=== PATIENT | female | born 1945 | race Caucasian/White ===

== ENCOUNTER → 2018-12-26 09:35 | Outpatient (CLI) | payer OTHER, SELFPAY ==
[2018-12-26 11:40] LABS: AST(SGOT) 21 U/L (15-37); Alanine Aminotransfer ALT/SGPT 22 U/L (13-56); Albumin, Serum 3.8 g/dL (3.2-5.0); Alkaline Phosphatase 62 U/L (45-117); Bilirubin, Direct 0.08 mg/dL (0.00-0.30); Cholesterol 216 mg/dL (200); Globulin 3.3 g/dL (2.2-4.2); High Density Lipoprotein 43 mg/dL; Protein, Total 7.1 g/dL (6.4-8.2); Triglycerides 205 mg/dL; Very Low Density Lipoprotein 41 mg/dL (5-40)
== END ==
PROVIDERS: Family Provider Family Medicine; PCP Family Medicine; Referring Provider Internal Medicine Cardiovascular Disease; Visit Provider Internal Medicine Cardiovascular Disease
DX: E78.5 Hyperlipidemia, unspecified (principal)
CPT/HCPCS: 36415; 80061; 80076

== ENCOUNTER 2021-03-22 12:04 | Emergency (ER) | payer OTHER, SELFPAY ==
[2020-08-19 10:23] VITALS: BMI 31.0
[2021-03-22] VITALS (7 sets, daily range): BP systolic 144–147; BP diastolic 69–76; PULSE 72–89; RESP 17–21; TEMP 36.1–37.7; O2SAT 92–95; BMI 30.8
--- NOTE | 2021-03-22 12:41 | EKG12_ITS ---
Test Reason : SOB Blood Pressure : / mmHG Vent. Rate : 082 BPM Atrial Rate : 082 BPM P-R Int : 188 ms QRS Dur : 076 ms QT Int : 370 ms P-R-T Axes : 064 066 061 degrees QTc Int : 432 ms Normal sinus rhythm Normal ECG Confirmed by MAHNAZ ADHIKARI, HELLEN ([id number]), editorial director [employer] ([id number]) on 03/25/2021 9:33:53 AM Referred By: JEFF Confirmed By:HELLEN JOYA MD
--- NOTE | 2021-03-22 12:42 | RAD_ITS ---
STUDY: X-RAY CHEST REASON FOR EXAM: Female, 75 years old. cough TECHNIQUE: AP COMPARISON: 04/02/2012 FINDINGS: EKG leads project over the chest. The lungs are clear and expanded. There is no demonstrated pleural abnormality. Normal size heart. Normal mediastinum and antionette. Normal visualized pulmonary arteries. There is atherosclerotic tortuosity of the aortic arch and descending thoracic aorta. Normal visualized thoracic spine. Normal visualized ribs, clavicles, and shoulders. There is no demonstrated abnormality of the visualized soft tissue structures of the upper abdomen. RAD/Chest 1 View (Portable) IMPRESSION: Nonacute portable x-ray examination of the chest. Electronically Signed: Chirag Guo MD ([place]) at 14:37 EDT , Service support ,
--- NOTE | 2021-03-22 12:43 | ED.VIS.DYS ---
HPI History of Present Illness Chief Complaint: Cough Narrative Narrative: For the past 6 days patient has had mildly productive cough with clear sputum, congestion, off-and-on mild headaches which is not present now, body aches, and this morning a little short of breath. She went to her PCP yesterday, was empirically prescribed a Z-Gonzalo, she took the initial dose last night and the second 1 this morning. She feels worse, lightheaded especially with standing today, weaker all over and with the mild dyspnea presents here for further evaluation. She is concerned she may have pneumonia. She has never had Covid. She has never been vaccinated for Covid. She denies contact with anyone that she knows of who has been sick lately. She denies any GI symptoms, chest pain, palpitations, or fevers/chills. She has been very lightheaded without syncope. [facility] Medical History Chest pain, precordial Dizziness and giddiness GERD (gastroesophageal reflux disease) Hiatal hernia Hyperlipidemia Hypothyroidism, iatrogenic Palpitations Home Medications methylcellulose (laxative) 500 mg tablet 1,000 mg PO QDAY PRN tab 09/22/17 [History Last Taken Unknown] levothyroxine 88 mcg capsule 88 mcg PO QDAY cap 09/27/17 [History Last Taken Unknown] nitroglycerin 0.4 mg sublingual tablet 0.4 mg SUBLINGUAL Q5M PRN #90 tab 09/27/17 [Rx Last Taken Unknown] B-complex with vitamin C 1 cap PO DAILY 01/02/19 [History Last Taken Unknown] ascorbic acid (vitamin C) 500 mg capsule 1,000 mg PO DAILY cap 01/02/19 [History Last Taken Unknown] cod liver oil 1 cap PO DAILY 01/02/19 [History Last Taken Unknown] cranberry 400 mg capsule 400 mg PO BID cap 01/02/19 [History Last Taken Unknown] propranolol 20 mg tablet 20 mg PO BID tab 01/02/19 [History Last Taken Unknown] albuterol sulfate 2.5 mg INHALATION Q4H PRN #25 vial 03/22/21 [Rx Last Taken Unknown] prednisone 40 mg PO DAILY 4 Days #8 tablet 03/22/21 [Rx Last Taken Unknown] Allergy/AdvReac Type Severity Reaction Status Date / Time etodolac AdvReac Severe Throat Verified 03/22/21 12:08 tightness, rash Family History Sister CAD (coronary artery disease) Hx of CABG Sister S/P MVR (mitral valve replacement) Surgical History Cystocele with prolapse History of cholecystectomy History of total hysterectomy Rectocele Social History number of children: 12 Smoking Status: Never smoker alcohol intake: never substance use type: does not use additional social history: Alessandro Ace ROS ROS ED Constitutional Constitutional ED: Reports body ache(s), fatigue, malaise and weakness; Denies chills or fever(s) Eyes Eyes: Denies change in vision or diplopia ENT ENT ED: Reports headache(s) and nasal congestion; Denies ear pain, epistaxis, hoarseness, loss taste/smell, rhinorrhea or sore throat Cardiovascular Cardiovascular: Denies chest pain or palpitations Respiratory/Chest Respiratory/Chest: Reports as per HPI, cough and dyspnea Gastrointestinal Gastrointestinal: Denies abdominal pain, diarrhea, nausea or vomiting Genitourinary Genitourinary ED: Denies dysuria or hematuria Musculoskeletal Musculoskeletal: Denies back pain or neck pain Integumentary Denies abscess or rash Neurologic Neurologic: Denies headache(s), paresthesias or weakness Psychiatric Psychiatric: Denies anxiety or suicidal thoughts EXAM Physical Exam Const Vital Signs: 03/22/21 12:05 03/22/21 12:25 03/22/21 12:28 Temperature 97 F L 97 F L Temperature Source Temporal Temporal Pulse Rate 88 88 89 Respiratory Rate 18 17 17 Respiratory Effort Short of Breath Respiratory Depth Normal Respiratory Pattern Normal Blood Pressure 147/76 H 147/76 H Blood Pressure Mean 99 99 Pulse Ox 93 94 94 Oxygen Delivery Method Room Air Room Air Room Air 03/22/21 13:14 03/22/21 14:39 03/22/21 14:51 Temperature 99.8 F H Temperature Source Oral Pulse Rate 81 72 75 Respiratory Rate 21 H 19 H 17 Respiratory Effort Respiratory Depth Respiratory Pattern Blood Pressure 147/76 H Blood Pressure Mean 99 Pulse Ox 92 95 94 Oxygen Delivery Method Room Air Room Air Room Air Positive well nourished and well developed General Appearance ED: well developed and NAD HEENT Reports moist mucous membranes normocephalic and atraumatic Eyes PERRL and EOMs intact bilaterally Neck full ROM, supple and no JVD Resp normal respiratory effort Auscultation: wheezes expiratory wheezes (mild, end-exp) and throughout; Negative for crackles, rales or rhonchi Cardio regular rate, regular rhythm and no murmurs GI non-tender and non-distended Auscultation: normoactive bowel sounds Palpation: soft Back/Spine no CVA tenderness General Back: other FROM Extremity normal to inspection, normal capillary refill and no calf tenderness General Extremety ED: Negative for edema, pulses abnormal or tenderness General Extremity: Negative for edema or pulses abnormal Neuro oriented x3, CN's II-XII intact bilaterally and no sensory deficits noted Sensorium / Orientation: awake and alert Motor Exam: strength 5/5 throughout Skin no rashes or lesions noted and no wounds MDM MDM MDM Narrative Medical decision making narrative: Work-up is largely unremarkable. Patient states she gets this walking pneumonia several times a year and states this is why she was prescribed antibiotics that she started yesterday. With a duo nebulizer treatment she is feeling better with less wheezing, she was able to get up and ambulate to and from the restroom with mild dyspnea with exertion, better than before, and no lightheadedness, or desaturation with her pulse oximetry actually going up. Afterwards at rest she was hovering around 91% on room air, she was given a couple more nebulizer treatments of plain albuterol which helped and brought her pulse ox up higher. She feels okay to go home. We discussed reasons to return, she has a home pulse oximeter that she will watch her oxygen saturations with and we discussed those numbers and reasons to return. She has a nebulizer machine, will prescribe her albuterol. Since she has had recurrent episodes of this, it is plausible that she has some form of chronic bronchitis so I thought treating her empirically with a short burst of steroids prednisone 40 daily would be reasonable since she is not a diabetic. Lab Data Attestation: I reviewed the patient's lab results. Labs: Laboratory Results - last 24 hr 03/22/21 03/22/21 03/22/21 12:46 12:46 12:46 WBC 5.4 RBC 4.38 Hgb 13.8 Hct 41.2 MCV 94.1 MCH 31.5 MCHC 33.5 RDW Std Deviation 42.8 RDW Coeff of Randolph 12.3 Plt Count 168 MPV 10.2 Immature Gran % (Auto) 0.200 Neut % (Auto) 66.9 Lymph % (Auto) 20.9 Nance % (Auto) 9.7 Eos % (Auto) 1.7 Baso % (Auto) 0.6 Absolute Neuts (auto) 3.6 Absolute Lymphs (auto) 1.12 Nucleated RBC % 0 Sodium 138 Potassium 3.7 Chloride 105 Carbon Dioxide 28.0 Anion Gap 5 BUN 7 Creatinine 0.77 Estim Creat Clear Calc 40.21 Est GFR (MDRD) Af Amer 93 Est GFR (MDRD) Non-Af 77 BUN/Creatinine Ratio 9.1 L Glucose 117 H Lactic Acid 1.1 Calcium 8.8 Total Bilirubin 0.50 AST 23 ALT 27 Alkaline Phosphatase 76 Troponin I High Sens 6.8 Total Protein 7.7 Albumin 3.7 Globulin 4.0 Albumin/Globulin Ratio 0.9 Radiography Chest X-Ray - ED: 1 View, Read by ED Physician, No Acute Disease and No Infiltrates Diagnostic Testing: Radiology Impression Chest X-Ray 03/22/21 12:42 IMPRESSION: Nonacute portable x-ray examination of the chest. Electronically Signed: Chirag Guo MD ([place]) at 14:37 EDT , Service support , EKG Initial EKG: Attestation: I personally reviewed and interpreted this EKG as follows: Interpretation: Sinus Rhythm and No Acute Injury Pattern Comments: normal EKG Discharge Plan Triage Chief Complaint: Cough ED Provider: Jordan Calhoun Dx/Rx/DC Orders Clinical Impression: Acute wheezy bronchitis Instructions: Acute Bronchitis Prescriptions: New albuterol sulfate 2.5 MG/3 ML solution for nebulization 2.5 mg inhalation Q4H PRN Qty: 25 RF: 0 prednisone 20 MG tablet 40 mg PO DAILY 4 Days Qty: 8 RF: 0 No Action levothyroxine 88 mcg capsule 88 mcg capsule 88 mcg PO QDAY RF: 0 nitroglycerin 0.4 mg tablet, sublingual 0.4 mg SUBLINGUAL Q5M PRN (Reason: chest pain) Qty: 90 RF: 3 propranolol 20 mg tablet 20 mg PO BID RF: 0 methylcellulose (laxative) [Citrucel] 500 mg tablet 1,000 mg PO QDAY PRN (Reason: Constipation) RF: 0 cranberry 400 mg capsule 400 mg PO BID RF: 0 ascorbic acid (vitamin C) 500 mg capsule 1,000 mg PO DAILY RF: 0 B-complex with vitamin C capsule 1 cap PO DAILY RF: 0 cod liver oil capsule 1 cap PO DAILY RF: 0 Primary Care Provider: Gene Roth Referrals: Gene Roth DO [Primary Care Provider] - 3-5 Days Disposition Disposition: Home, Self Care
[2021-03-22 12:52] LABS: Absolute Lymphocyte Count 1.12 X10^3/uL (0.83-4.51); Absolute Neutrophil Count 3.6 X10^3/uL (2.0-7.7); Basophil# 0.03 X10^3/uL; Basophil% 0.6 % (0-1); Eosinophil# 0.09 X10^3/uL; Eosinophils% 1.7 % (0-5); Hematocrit 41.2 % (37-47); Hemoglobin 13.8 g/dL (12.0-15.0); Lymphocyte # 1.12 X10^3/ul (0.83-4.51); Lymphocyte % 20.9 % (19-41); Mean Corp Hgb Conc 33.5 g/dL (32-36); Mean Corpuscular Hgb 31.5 pg (27.0-32.0); Mean Corpuscular Volume 94.1 fL (81-99); Mean Platelet Vol. 10.2 fl (6.2-12.0); Monocyte# 0.52 X10^3/uL; Monocyte% 9.7 % (0-10); NRBC Flagged by Analyzer 0 % (0-5); Neutrophil # 3.58 X10^3/uL (2.7-7.7); Neutrophil % 66.9 % (47-70); Platelet Count 168 K/mm3 (150-450); RBC Distribution Width CV 12.3 % (11.6-14.6); RBC Distribution Width SD 42.8 fl (35.1-43.9); Red Blood Count 4.38 M/mm3 (4.2-5.4); White Blood Count 5.4 K/mm3 (4.4-11.0)
[2021-03-22] MEDS: Ipratropium/Albuterol Sulfate 3 ML AMPUL.NEB INHALATION (13:11)
[2021-03-22 13:12] LABS: Lactic Acid 1.1 mmol/L (0.4-1.9)
[2021-03-22 13:15] LABS: ALB/GLOB Ratio 0.9 RATIO (0.9-2.4); AST(SGOT) 23 U/L (15-37); Alanine Aminotransfer ALT/SGPT 27 U/L (13-56); Albumin, Serum 3.7 g/dL (3.2-5.0); Alkaline Phosphatase 76 U/L (45-117); Anion Gap 5 (5-15); BUN 7 mg/dL (7-18); BUN/Creat Ratio 9.1 RATIO (10-20); Calcium,Total 8.8 mg/dL (8.5-10.1); Chloride 105 mmol/L (98-107); Creatinine, Serum 0.77 mg/dL (0.55-1.02); EST Glomerular Filtration Rate 77 mL/min (>60); Est Glom Filt Rate - Afr Amer 93 mL/min (>60); Estimated Creatinine Clearance 40.21 ml/min; Glucose 117 mg/dL (74-106); Potassium 3.7 mmol/L (3.5-5.1); Protein, Total 7.7 g/dL (6.4-8.2); Sodium Level 138 mmol/L (136-145); Troponin-I HS 6.8 pg/mL (3.0-53.7)
[2021-03-22] MEDS: Albuterol 2.5 MG/3 ML VIAL.NEB. INHALATION ×2 (14:49)
[2021-03-22] MEDS: predniSONE 20 MG Tablet 40 MG PO (15:27)
== END 2021-03-22 15:29 | disposition home or self-care (01) ==
PROVIDERS: Emergency Provider Emergency Medicine; PCP Family Medicine
DX: J20.9 Acute bronchitis, unspecified (principal); E78.5 Hyperlipidemia, unspecified; E03.9 Hypothyroidism, unspecified; Z79.52 Long term (current) use of systemic steroids; Z79.899 Other long term (current) drug therapy
CPT/HCPCS: 71045; 80053; 83605; 84484; 85025; 87426; 87804; 93005; 94640; 99285; A4216

== ENCOUNTER 2022-07-14 10:04 | Observation (INO) | payer SELFPAY, OTHER ==
[2022-07-14] VITALS (12 sets, daily range): BP systolic 132–148; BP diastolic 67–78; PULSE 67–96; RESP 17–23; TEMP 36.7–37.2; O2SAT 94–96; BMI 29.5
--- NOTE | 2022-07-14 06:39 | ECHOD_ITS ---
Reason For Study: CHEST PAIN Procedure This was a 2D Doppler, Color Flow transthoracic echocardiogram. The study was technically difficult. Contrast injection was performed. Exam performed in department. Left Ventricle Normal LV size. Left ventricular systolic function is normal. The estimated ejection fraction is 65 %. No evidence for diastolic dysfunction. No regional wall motion abnormalities noted. Right Ventricle Normal RV size. Normal systolic function. Atria Normal left atrium. Normal right atrium. No doppler evidence for ASD. Mitral Valve There is mild mitral annular calcification. Normal mitral valve. Trivial mitral valve insufficiency. Tricuspid Valve Normal tricuspid valve. Trivial tricuspid valve insufficiency. Right ventricular systolic pressure estimated to be 28 mmHg. Aortic Valve Trisinus/trileaflet aortic valve. Mild focal aortic valve calcification. Pulmonic Valve The pulmonic valve is not well visualized. Trivial pulmonic valve insufficiency. Great Vessels Normal sized aortic root. Pericardium/Pleural No pericardial effusion. Medication Diluted definity 3.0ml given slow IV push to enhance endocardial definition. MMode/2D Measurements & Calculations LVIDd: 4.4 cm IVSd: 0.80 cm Ao root diam: 3.1 cm LVIDs: 2.5 cm LVPWd: 1.1 cm RVDd: 2.7 cm FS: 42.8 % LAV(MOD-bp): 38.1 ml LA A4 area: 14.4 cm2 LA dimension(2D): 3.5 cm LAV(MOD-bp) Indexed: 21.4 ml/m2 LAV(MOD-sp2): 41.1 ml LAV(MOD-sp4): 33.2 ml RA A4 area: 14.4 cm2 Time Measurements MV dec time: 0.38 sec Doppler Measurements & Calculations MV E max rick: 49.2 cm/sec Lat Peak E' Rick: 7.0 cm/sec Med Peak E' Rick: 6.6 cm/sec MV A max rick: 86.0 cm/sec E/E' lat: 7.0 E/E' med: 7.4 MV E/A: 0.57 MV V2 max: 98.2 cm/sec MV dec slope: 135.1 cm/sec2 Ao V2 max: 144.3 cm/sec MV max P.9 mmHg Ao max P.3 mmHg MV V2 mean: 56.3 cm/sec Ao V2 mean: 103.2 cm/sec MV mean P.5 mmHg Ao mean P.8 mmHg MV V2 VTI: 21.3 cm Ao V2 VTI: 29.9 cm LV V1 max: 123.5 cm/sec PA V2 max: 81.3 cm/sec TR max rick: 250.6 cm/sec LV V1 max P.1 mmHg TR max P.1 mmHg LV V1 mean P.5 mmHg LV V1 mean: 89.0 cm/sec LV V1 VTI: 22.7 cm ECHO/Echo Complete W/ Contrast Interpretation Summary The study was technically difficult. Contrast injection was performed. Left ventricular systolic function is normal. The estimated ejection fraction is 65 %. Trivial mitral valve insufficiency. Trivial tricuspid valve insufficiency. Mild focal aortic valve calcification. Trivial pulmonic valve insufficiency. Right ventricular systolic pressure estimated to be 28 mmHg. No evidence for diastolic dysfunction. Ordering Physician: Hayder Mcrae Referring Physician: Gene Roth Performed By: Lydia Damon, JAYLEN, RVT
--- NOTE | 2022-07-14 08:09 | STRESSREP ---
Stress Test Report Date: 07-14-2022 Procedure: Pharmacologic stress nuclear imaging study Indications: Angina pectoris; GERD; hiatal hernia; thyroid disorder Consent: Per the patient Procedure: The patient underwent pharmacologic (Regadenoson 0.4mg ) evaluation with a peak heart rate of 118 beats per minute (82%predicted maximal heart rate) and a resting blood pressure of 142/76 mmHg and a peak blood pressure of 142/82 mmHg. The baseline ECG demonstrated normal sinus rhythm. The peak pharmacologic ECG demonstrated no obvious ECG changes. There were no cardiac dysrhythmias pretest, during pharmacologic infusion, or recovery. There was notation of a little chest tightness and belching in recovery. The examination was discontinued secondary to completion of protocol. Impression: 1. Pharmacologic (Regadenoson) evaluation 2. Peak pharmacologic ECG with no obvious ECG changes. 3. There were no cardiac dysrhythmias pretest, during pharmacologic infusion, or recovery. 4. Nuclear images pending Myocardial perfusion imaging study: Technique: The patient was injected with 8.8 millicuries of technetium 99m Cardiolite and subsequently rest SPECT Cardiolite nuclear imaging was obtained in the horizontal long, vertical long, and short axis views. The patient underwent pharmacologic (Regadenoson) evaluation with a peak heart rate of 118 beats per minute (82% percent predicted maximal heart rate) and a resting blood pressure of 142/76 mmHg and a peak blood pressure of 142/82 mmHg. The patient was injected with 31.5 millicuries of technetium 99m Cardiolite and subsequently stress SPECT Cardiolite nuclear imaging was obtained in the horizontal long, vertical long, and short axis views. A gated Cardiolite study at peak stress was obtained. Interpretation: Rest and stress SPECT Cardiolite nuclear imaging status post realignment, normalization, and attenuation correction demonstrate at rest the appearance of relative uniform tracer uptake. Status post stress there is notation of diminished myocardial perfusion/tracer uptake in portions of the mid to distal anterior, anteroseptal, anteroapical, and septal apical segments. There is diminished end-systolic thickening and brightening. The gated Cardiolite study demonstrates myocardial thickening and inward wall motion. The reported LVEF is 70%. Impression: 1. Rest and stress SPECT Cardiolite nuclear imaging demonstrate myocardial perfusion changes concerning for an area of stress-induced myocardial ischemia in portions of the mid to distal anterior, anteroseptal, anteroapical, and septal apical segments. 2. The gated Cardiolite study reports an LVEF of 70%. This note was generated with [employer] software. It may contain incorrect words, spelling, and punctuation that were not noted in checking the note before signing.
--- NOTE | 2022-07-14 10:04 | EKG12_ITS ---
Test Reason : POST PCI Blood Pressure : / mmHG Vent. Rate : 063 BPM Atrial Rate : 063 BPM P-R Int : 212 ms QRS Dur : 076 ms QT Int : 430 ms P-R-T Axes : 048 065 072 degrees QTc Int : 440 ms Sinus rhythm with 1st degree A-V block Septal infarct , age undetermined , cannot be excluded Abnormal ECG Confirmed by ANASTASIIA ADHIKARI, MARIAH ([id number]), newspaper or periodical editor [employer] ([id number]) on 07/15/2022 1:12:10 PM Referred By: Confirmed By:MARIAH LAUERNT MD
--- NOTE | 2022-07-14 10:07 | RAD_ITS ---
STUDY: X-RAY CHEST REASON FOR EXAM: Female, 77 years old. Chest pain TECHNIQUE: PA and lateral views of the chest. COMPARISON: Comparison is made with prior study dated 03/22/2021. FINDINGS: Hyperinflation. Scattered calcified granulomas. There is no demonstrated pleural abnormality. Normal size heart. Normal mediastinum and antionette. Normal visualized pulmonary arteries. There is atherosclerotic calcification of the aortic arch with tortuosity. There are diffuse degenerative changes of the visualized thoracic spine. Normal visualized ribs, clavicles, and shoulders. There is no demonstrated abnormality of the visualized soft tissue structures of the upper abdomen. RAD/Chest PA and Lateral IMPRESSION: Hyperinflation. Scattered calcified granulomas. Electronically Signed: Rohit Palacios MD at 14:42 EST ,
--- NOTE | 2022-07-14 10:43 | HP.PCM.CAR_ITS ---
[facility] - General General Date of Admission: 07/14/22 [facility] Narrative ARLEY ORODÑEZ, is a 77 year old white female who presents for symptoms of unstable angina pectoris/accelerating angina and an abnormal pharmacologic stress nuclear imaging study superimposed upon a history of underlying palpi tations, hyperlipidemia, hiatal hernia, GERD, and hypothyroidism. The patient presented recently on 06-25-2022 in the outpatient setting for concerning symptoms that were thought compatible with exertional angina pectoris. Since that time she states that she has been having nonexertional resting and nocturnal symptoms. She develops chest tightness as well as develops a significant amount of what she believes to be heartburn and belching. She states her will have to rub on her abdomen or rub on her back to try and alleviate her symptoms. She does not complain of radiation of her symptoms into her neck/jaw area or her upper extremities. She does not have associated acute nausea, emesis, or diaphoresis. She has not complained of ongoing symptoms of classic orthopnea or PND or worsening peripheral pitting edema. There is been no near-syncope or syncope. She has attributed to her symptoms to her gastrointestinal disease process. However, she was agreeable to proceeding with further evaluation as an outpatient to assess her left ventricular wall motion and systolic function and her coronary physiology. She has undergone further evaluation this day with a transthoracic echocardiogram and a pharmacologic stress nuclear imaging study. The pharmacologic stress nuclear imaging study findings are noted below. Based upon these findings a recommendation was made to the patient, especially noting that she was having nonexertional and nocturnal symptoms last night, to be brought into the hospital for further evaluation and care including diagnostic cardiac catheterization. This procedure and risk was discussed with the patient and her and they were agreeable to this approach. [facility] Medical History Chest pain, precordial Dizziness and giddiness GERD (gastroesophageal reflux disease) Hiatal hernia Hyperlipidemia Hypothyroidism, iatrogenic OA (osteoarthritis) of knee Palpitations Home Medications methylcellulose (laxative) 500 mg tablet (Citrucel) 1,000 mg PO QDAY PRN Constipation 09/22/17 [History Last Taken Unknown] nitroglycerin 0.4 mg sublingual tablet 0.4 mg sublingual Q5M PRN chest pain #90 tabs 09/27/17 [Rx Last Taken Unknown] propranolol 20 mg tablet 20 mg PO BID BP/Heart rate 01/02/19 [History Last Taken Unknown] ascorbic acid (vitamin C) 500 mg capsule 1,000 mg PO DAILY PRN Supplement 06/25/21 [History Last Taken Unknown] cholecalciferol (vitamin D3) 10 mcg/drop (400 unit/drop) oral drops 20 mcg PO DAILY Supplement 06/25/22 [History Last Taken Unknown] d-mannose 500 mg capsule 500 mg PO DAILY Kidney 06/25/22 [History Last Taken Unknown] dicyclomine 10 mg capsule 20 mg PO Q6H Stomach 06/25/22 [History Last Taken Unknown] levothyroxine 75 mcg tablet 75 mcg PO DAILY thyroid 06/25/22 [History Last Taken Unknown] omeprazole 20 mg capsule,delayed release 20 mg PO DAILY GERD 06/25/22 [History Last Taken Unknown] aspirin 81 mg tablet,delayed release 81 mg PO DAILY heart health 07/14/22 [History Last Taken Unknown] atorvastatin 40 mg tablet 40 mg PO QHS Cholesterol 07/14/22 [History Last Taken Unknown] isosorbide mononitrate 30 mg tablet,extended release 24 hr 30 mg PO DAILY heart 07/14/22 [History Last Taken Unknown] Allergy/AdvReac Type Severity Reaction Status Date / Time acetaminophen [From Percocet] Allergy Nausea/Vom/ Verified 07/07/22 13:09 Diarrhea morphine Allergy Nausea/Vom/ Verified 07/07/22 13:09 Diarrhea oxycodone [From Percocet] Allergy Nausea/Vom/ Verified 07/07/22 13:09 Diarrhea etodolac AdvReac Severe Throat Verified 07/07/22 13:09 tightness, rash Family History Sister CAD (coronary artery disease) Hx of CABG Sister S/P MVR (mitral valve replacement) Surgical History Cystocele with prolapse History of cholecystectomy History of total hysterectomy Rectocele Social History number of children: 12 Smoking Status: Never smoker alcohol intake: never substance use type: does not use additional social history: Alessandro MILLAN Constitutional Constitutional: Reports as per HPI Eyes Eyes: Reports as per HPI ENT HEENT: Reports as per HPI Cardiovascular Cardiovascular: Reports chest pain, chest pain at rest and chest pain with activity Respiratory/Chest Respiratory/Chest: Reports as per HPI Gastrointestinal Gastrointestinal: Reports dyspepsia Genitourinary Genitourinary: Reports as per HPI Musculoskeletal Musculoskeletal: Reports as per HPI Integumentary Integumentary: Reports as per HPI Neurologic Neurologic: Reports as per HPI Psychiatric Psychiatric: Reports as per HPI Physical Exam Const alert, oriented x3, no apparent distress and healthy appearing Orientation / Consciousness: awake HEENT normocephalic, head/scalp atraumatic and hearing grossly normal bilaterally Eyes PERRL, EOMs intact bilaterally, conjunctivae normal and no scleral icterus Neck full ROM, supple and no JVD Carotids: normal carotid upstroke Resp normal respiratory effort and clear to auscultation bilaterally Cardio regular rate, regular rhythm, S1 normal heart sound and S2 normal heart sound GI normal to inspection, nondistended, normoactive bowel sounds Extremity no pedal edema Skin no rashes or lesions noted Neuro oriented x3, moves all extremities, no focal motor deficits and no sensory deficits noted Psych mental status grossly normal Cardiology Labs/Tests Cardiology Labs/Tests: Rhythm: Sinus rhythm EKG: Normal sinus rhythm; septal MS of indeterminate age cannot be excluded; nonspecific T wave abnormality ECHO: The study was technically difficult. Contrast injection was performed. Left ventricular systolic function is normal. The estimated ejection fraction is 65 %. Trivial mitral valve insufficiency. Trivial tricuspid valve insufficiency. Mild focal aortic valve calcification. Trivial pulmonic valve insufficiency. Right ventricular systolic pressure estimated to be 28 mmHg. No evidence for diastolic dysfunction. Stress Test: Stress Test Report Date: 07-14-2022 Procedure: Pharmacologic stress nuclear imaging study? Indications: Angina pectoris; GERD; hiatal hernia; thyroid disorder Consent: Per the patient Procedure: The patient underwent pharmacologic (Regadenoson 0.4mg ) evaluation with a peak heart rate of 118 beats per minute (82%predicted maximal heart rate) and a resting blood pressure of 142/76 mmHg and a peak blood pressure of 142/82 mmHg. The baseline ECG demonstrated normal sinus rhythm.? The peak pharmacologic ECG demonstrated no obvious ECG changes. There were no cardiac dysrhythmias pretest, during pharmacologic infusion, or recovery. There was notation of a little chest tightness and belching in recovery. The examination was discontinued secondary to completion of protocol. Impression: 1.? Pharmacologic (Regadenoson) evaluation 2.? Peak pharmacologic ECG with no obvious ECG changes. 3.? There were no cardiac dysrhythmias pretest, during pharmacologic infusion, or recovery. 4.? Nuclear images pending Myocardial perfusion imaging study: Technique: The patient was injected with 8.8 millicuries of technetium 99m Cardiolite and subsequently rest SPECT Cardiolite nuclear imaging was obtained in the horizontal long, vertical long, and short axis views. The patient underwent pharmacologic (Regadenoson) evaluation with a peak heart rate of 118 beats per minute (82% percent predicted maximal heart rate) and a resting blood pressure of 142/76 mmHg and a peak blood pressure of 142/82 mmHg. The patient was injected with 31.5 millicuries of technetium 99m Cardiolite and subsequently stress SPECT Cardiolite nuclear imaging was obtained in the horizontal long, vertical long, and short axis views.? A gated Cardiolite study at peak stress was obtained. Interpretation: Rest and stress SPECT Cardiolite nuclear imaging status post realignment, normalization, and attenuation correction demonstrate at rest the appearance of relative uniform tracer uptake.? Status post stress there is notation of diminished myocardial perfusion/tracer uptake in portions of the mid to distal anterior, anteroseptal, anteroapical, and septal apical segments.? There is diminished end-systolic thickening and brightening.? The gated Cardiolite study demonstrates myocardial thickening and inward wall motion.? The reported LVEF is 70%. Impression: 1.? Rest and stress SPECT Cardiolite nuclear imaging demonstrate myocardial perfusion changes concerning for an area of stress-induced myocardial ischemia in portions of the mid to distal anterior, anteroseptal, anteroapical, and septal apical segments. 2.? The gated Cardiolite study reports an LVEF of 70%. Assessment & Plan Assessment/Plan (1) Angina pectoris: PLAN: She does have a history compatible with angina pectoris. It appears to be accelerating. At the present time she also has an abnormal pharmacologic stress nuclear imaging study suggestive of stress-induced myocardial ischemia is noted. She is being brought into the hospital for further evaluation and care including diagnostic cardiac catheterization. In the interim she will continue medical therapy with subsequent adjustment as deemed appropriate. (2) Abnormal stress test: PLAN: She does have an abnormal pharmacologic stress nuclear imaging study. She will continue evaluation care as noted. (3) Hyperlipidemia: QUALIFIERS: Hyperlipidemia type: unspecified Qualified Code(s): E78.5 - Hyperlipidemia, unspecified PLAN: She will continue risk factor modification medical therapy. (4) GERD (gastroesophageal reflux disease): PLAN: She will continue her gastrointestinal medical therapy at this time. As her course progresses she may need reevaluation by gastroenterology as well. (5) Hiatal hernia: PLAN: She states she does have a hiatal hernia. She has been attributing her symptoms to this diagnosis. As her cardiovascular course continue she may eventually need reassessment by gastroenterology as to whether or not any of her gastrointestinal related issues are contributing to her symptoms separate from a cardiovascular issue. (6) Thyroid disorder: PLAN: She will continue medical therapy Addt'l Comments The above was discussed and reviewed with the patient with her spouse present. They were both agreeable to this approach This note was generated using a voice recognition system and there may be incorrect words, spelling or punctuation that were not noted when reviewing the office note prior to saving. Procedure Criteria Type of Procedure Procedure Type: Elective Elective Risks - COVID COVID Risk Discussion: The surgeon/proceduralist and patient have discussed in detail the risk of exposure to and/or potential harm posed by the COVID-19 virus with having a surgery/procedure at this time versus the risk of delaying the surgery/procedure. It is not possible to know either the risk of delaying the surgery or procedure or chance of getting an infection with perfect accuracy, but a joint decision was made between the patient and the surgeon/proceduralist to proceed at this time with the scheduled surgery/procedure as indicated on the consent form.
[2022-07-14 11:07] LABS: Hematocrit 45.9 % (37-47); Hemoglobin 15.1 g/dL (12.0-15.0); Mean Corp Hgb Conc 32.9 g/dL (32-36); Mean Corpuscular Hgb 30.8 pg (27.0-32.0); Mean Corpuscular Volume 93.7 fL (81-99); Mean Platelet Vol. 10.6 fl (6.2-12.0); Platelet Count 240 K/mm3 (150-450); RBC Distribution Width SD 41.2 fl (35.1-43.9)
[2022-07-14 11:41] LABS: Anion Gap 5 (5-15); BUN 8 mg/dL (7-18); BUN/Creat Ratio 10.8 RATIO (10-20); Calcium,Total 9.3 mg/dL (8.5-10.1); Chloride 105 mmol/L (98-107); Creatinine, Serum 0.74 mg/dL (0.55-1.02); EST Glomerular Filtration Rate 81 mL/min (>60); Est Glom Filt Rate - Afr Amer 98 mL/min (>60); Estimated Creatinine Clearance 38.97 ml/min; Glucose 88 mg/dL (74-106); Potassium 3.4 mmol/L (3.5-5.1); Sodium Level 141 mmol/L (136-145)
--- NOTE | 2022-07-14 11:42 | EKG12_ITS ---
Test Reason : CHEST PAIN Blood Pressure : / mmHG Vent. Rate : 078 BPM Atrial Rate : 078 BPM P-R Int : 194 ms QRS Dur : 078 ms QT Int : 364 ms P-R-T Axes : 000 140 149 degrees QTc Int : 414 ms Normal sinus rhythm , Consider limb lead misplacement Recomment repeat ECG Abnormal ECG Confirmed by ANASTASIIA ADHIKARI, MARIAH ([id number]), medical editor PAR[place] POLLARD ([id number]) on 07/15/2022 1:14:57 PM Referred By: ANASTASIIA Confirmed By:MARIAH LAURENT MD
[2022-07-14] MEDS: 0.9% Normal Saline 1,000 ML 15 ML IV (11:47)
[2022-07-14] MEDS: Propranolol 10 MG Tablet 20 MG PO (11:47)
[2022-07-14] MEDS: Pantoprazole Sodium 20 MG Tablet PO (11:47)
[2022-07-14] MEDS: Isosorbide Mononitrate 30 MG Tablet PO (11:47)
[2022-07-14] MEDS: Aspirin 81 MG TAB.CHEW PO (11:47)
--- NOTE | 2022-07-14 15:30 | CL.D_ITS ---
Patient Name: ARLEY ORDOÑEZ Study Date: 07/14/2022 Performing: Hayder Mcrae MD Ht: 63 inches 160.02 cm : 1945 Wt: 167 lbs 75.75 kg Age: 77 Gender: female BSA: 1.79 PROCEDURE(S) PERFORMED DC02-(19544)LHC/COR IC12-([id number]/[id number])MARY W/WO PTCA, SINGLE CORONARY ARTERY IC12-([id number])MARY W/WO PTCA, SINGLE CORONARY ARTERY CLINICAL PROFILE AND INDICATIONS Indications: Worsening Angina, Suspected CAD Heart Failure: None Stress/Imaging Date: 07/14/2022tress Test with SPECT MPI: Positive High Risk Angina Classification Anginal Classification w/in 2 Weeks: CCS IV CAD Presentations: Unstable angina. CONCLUSIONS Normal Left Ventricular End Diastolic Pressure [place] Multivessel CAD RECOMMENDATIONS Risk factor modification Medical therapy Referred for immediate PCI DESCRIPTION OF PROCEDURE The patient arrived to the procedure lab. The risks and benefits of the procedure as well as a full description of our services here and current unavailability of surgical backup were fully explained to the patient and/or their significant other prior to the catheterization. The Timeout was completed, verifying the correct patient and procedure. The patient's procedural site was prepped and draped in the usual fashion. Local anesthetic was given subcutaneously to right radial region with Lidocaine 2%. Using a modified Seldinger technique, arterial access was obtained via the right radial artery, a 6Fr sheath was inserted. Left Coronary Artery selective angiography was performed in multiple views using a 5 Fr. 4.0 [place] catheter. Right Coronary Artery selective angiography was then performed in multiple views using a 5 Fr. 4.0 [place] catheter. LV to AO pullback pressures were then recorded.The arterial sheath was pulled and a TR Band was applied for hemostasis w/ 10ml air CORONARY ANGIOGRAPHY DOMINANCE: Right Dominant LEFT HEART ASSESSMENT Left Ventricular Ejection Fraction: Not assessed Normal Left Ventricular End Diastolic Pressure LVEDP: 8 mmHg LEFT MAIN: Angiographically normal LEFT ANTERIOR DESCENDING ARTERY: PROX LAD: 99 % Stenosis CIRCUMFLEX ARTERY: PROX CIRC: Mild luminal irregularities less than 30% RIGHT CORONARY ARTERY: PROX RCA: 95 % Stenosis, 50 - 75 % Stenosis MID RCA: Mild luminal irregularities COMPLICATIONS No Complications PROCEDURE MEDICATIONS Versed 1 mg IV Oxygen: 2 L/min via nasal cannula Brilinta 180 mg PO @ 07/14/2022 14:16:32 Heparin given IA 07/14/2022 13:44:34 Heparin 6000 unit(s) IV 07/14/2022 14:18:12 Heparin 2000 unit(s) IV 07/14/2022 15:05:09 Nitro 100 mcg IC 07/14/2022 14:34:21 Nitro 200 mcg IC 07/14/2022 15:16:59 Verapamil 2.5mg, Ntg 100mcgs, 3000 units of Heparin given IA 07/14/2022 13:44:34 SUMMARY OF HEMODYNAMIC DATA Time AIR REST ECG 13:26:31 AO 112/72 (88) SA 13:46:03 LV 168/-17, 9 13:53:45 LV 168/-17, 8 13:53:51 LVp 167/-17, 6 13:54:05 AOp 159/70 (103) 13:54:10 AO 158/75 (106) 14:23:05 Signed By Hayder Mcrae MD On 07/14/2022 15:29:48 Hayder Mcrae MD
--- NOTE | 2022-07-14 15:30 | EKG12_ITS ---
Test Reason : PCI Blood Pressure : / mmHG Vent. Rate : 070 BPM Atrial Rate : 070 BPM P-R Int : 210 ms QRS Dur : 076 ms QT Int : 400 ms P-R-T Axes : 055 062 076 degrees QTc Int : 432 ms Sinus rhythm with 1st degree A-V block Nonspecific T wave abnormality Abnormal ECG Confirmed by ANASTASIIA ADHIKARI, MARIAH ([id number]), web content editor PAR[place] POLLARD ([id number]) on 07/15/2022 1:13:50 PM Referred By: ANASTASIIA Confirmed By:MARIHA LAURENT MD
--- NOTE | 2022-07-14 15:41 | CL.I_ITS ---
Patient Name: ARLEY ORDOÑEZ Study Date: 07/14/2022 Performing: Kassie Barragan MD Ht: 63 inches 160.02 cm : 1945 Wt: 167 lbs 75.75 kg Age: 77 Gender: female BSA: 1.79 PROCEDURE(S) PERFORMED IC12-([id number]/[id number])MARY W/WO PTCA, SINGLE CORONARY ARTERY IC12-([id number])MARY W/WO PTCA, SINGLE CORONARY ARTERY CLINICAL PROFILE AND CO-MORBIDITIES Indications: Worsening Angina, Suspected CAD Heart Failure: None Stress/Imaging Date: 07/14/2022 Stress Test with SPECT MPI: Positive High Risk Angina Classification Anginal Classification w/in 2 Weeks: CCS IV CAD Presentations: Unstable angina. CONCLUSIONS Successful PTCA/MARY Prox LAD using Orsirio 2.5x40 mm, post-dilated using 3.0 mm balloon Successful PTCA/MARY Prox to Mid RCA using Orsirio 3.0x15 (post-dilated RECOMMENDATIONS ASA Indefmeena Campbell for at least 12 months DESCRIPTION OF PROCEDURE The patient arrived to the procedure lab. The risks and benefits of the procedure as well as a full description of our services here and current unavailability of surgical backup were fully explained to the patient and/or their significant other prior to the catheterization. The Timeout was completed, verifying the correct patient and procedure. The patient's procedural site was prepped and draped in the usual fashion. Local anesthetic was given subcutaneously to right radial region with Lidocaine 2% Using a modified Seldinger technique,arterial access was obtained via the right radial artery, a 6Fr sheath was inserted. Left Coronary Artery selective angiography was performed in multiple views using a 5 Fr. 4.0 [place] catheter. Right Coronary Artery selective angiography was then performed in multiple views using a 5 Fr. 4.0 [place] catheter. LV to AO pullback pressures were then recorded.The images were reviewed and options discussed. A decision was then made to proceed with an Intervention, IVUS or other adjunct procedure. XB 3.0 Guide catheter was inserted and engaged into the LCA. RUNTHROUGH Guide wire was advanced to the LAD. 2.5X20 EMERGE Balloon catheter was inserted. Balloon catheter was advanced across lesion in the LAD, proximal. PTCA balloon inflated at 6 atms for 10 secs. PTCA balloon inflated at 8 atms for 15 secs. PTCA balloon inflated at 6 atms for 6 secs. 2.5X40 ORSIRO Drug Eluting stent was inserted. 2.5X40 ORSIRO Drug Eluting stent was advanced across the lesion in the LAD, proximal. Angiogram performed post stent deployment. 3.0X30 NC EMERGE Balloon catheter was inserted. Balloon catheter was inserted post stent. AL .75 Guide catheter was inserted and engaged into the RCA. RUNTHROUGH Guide wire was advanced to the RCA. 2.5X20 EMERGE Balloon catheter was inserted. Balloon catheter was advanced across lesion in the right coronary, proximal. PTCA balloon inflated at 6 atms for 10 secs. PTCA balloon inflated at 6 atms for 10 secs. 3.0X40 ORSIRO Drug Eluting stent was inserted. Drug Eluting stent was advanced across the lesion in the right coronary, proximal. Drug Eluting stent was inserted. 3.0X30 NC EMERGE Balloon catheter was inserted post stent. Angiogram performed post balloon dilatation. Orsiro 3.0x15 Drug Eluting stent was inserted. Angiogram performed post balloon dilatation. NC Euphora 3.5x12 Balloon catheter was inserted. Angiogram performed post balloon dilatation. The arterial sheath was pulled and a TR Band was applied for hemostasis w/ 10ml air INTERVENTION INFORMATION LESION SITE: LAD (Proximal) Lesion Complexity: High/C, lesion length: 38 mm Pre Stenosis: 99 % Pre intervention HARVEY flow: 3 PROCEDURE: Drug Eluting Stent with pre and post dilatation Post Stenosis: 0 % Post intervention HARVEY flow: 3 Lesion Devices: Cordis 6 Fr XB3.0 100cm Guide Catheter Terumo .014 Runthrough Extra Floppy 180cm straight Alex Sci EMERGE MR 2.50x20 BALLOON [facility] [place] [facility] MARY 2.5x40 Alex Sci NC EMERGE MR 3.00x30 BALLOON LESION SITE: RCA (Proximal) Lesion Complexity: High/C, lesion length: 52 mm Pre Stenosis: 95 % Pre intervention HARVEY flow: 3 PROCEDURE: Drug Eluting Stent with pre and post dilatation Post Stenosis: 0 % Post intervention HARVEY flow: 3 Lesion Devices: Alex Sci EMERGE MR 2.50x20 BALLOON Alex Sci NC EMERGE MR 3.00x30 BALLOON Medtronic 6 Fr AL.75 100cm Guide Catheter Biotronik Orsiro [place] MR MARY 3.0x40 Biotronik Orsiro [place] MR MARY 3.0x15 Medtronic NC EUPHORA RX 3.5x12 BALLOON COMPLICATIONS No Complications PROCEDURE MEDICATIONS Versed 1 mg IV Oxygen: 2 L/min via nasal cannula Brilinta 180 mg PO @ 07/14/2022 14:16:32 Heparin given IA 07/14/2022 13:44:34 Heparin 6000 unit(s) IV 07/14/2022 14:18:12 Heparin 2000 unit(s) IV 07/14/2022 15:05:09 Nitro 100 mcg IC 07/14/2022 14:34:21 Nitro 200 mcg IC 07/14/2022 15:16:59 Verapamil 2.5mg, Ntg 100mcgs, 3000 units of Heparin given IA 07/14/2022 13:44:34 SUMMARY OF HEMODYNAMIC DATA Time AIR REST ECG 13:26:31 AO 112/72 (88) SA 13:46:03 LV 168/-17, 9 13:53:45 LV 168/-17, 8 13:53:51 LVp 167/-17, 6 13:54:05 AOp 159/70 (103) 13:54:10 AO 158/75 (106) 14:23:05 15:30:35 Signed By Kassie Barragan MD On 07/14/2022 15:40:47 Kassie Barragan MD
[2022-07-14 16:18] LABS: ACT Activated Clotting Time 288 sec (74-137)
[2022-07-14 16:36] LABS: ACT Activated Clotting Time 300 sec (74-137)
[2022-07-14] MEDS: Dicyclomine 10 MG Capsule 20 MG PO ×2 (17:02→22:34)
[2022-07-14] MEDS: TICAGRELOR 90 MG TABLET PO (22:33)
[2022-07-14] MEDS: Carvedilol 3.125 MG TABLET PO (22:33)
[2022-07-14] MEDS: Atorvastatin Calcium 40 MG Tablet PO (22:34)
[2022-07-15] VITALS (7 sets, daily range): BP systolic 116–150; BP diastolic 57–72; PULSE 61–137; RESP 16–20; TEMP 36.6–37.2; O2SAT 95–96
[2022-07-15 05:06] LABS: Absolute Lymphocyte Count 1.61 X10^3/uL (0.83-4.51); Absolute Neutrophil Count 5.5 X10^3/uL (2.0-7.7); Basophil# 0.02 X10^3/uL; Basophil% 0.3 % (0-1); Eosinophil# 0.07 X10^3/uL; Eosinophils% 0.9 % (0-5); Hematocrit 38.3 % (37-47); Hemoglobin 13.3 g/dL (12.0-15.0); Lymphocyte # 1.61 X10^3/ul (0.83-4.51); Lymphocyte % 20.3 % (19-41); Mean Corp Hgb Conc 34.7 g/dL (32-36); Mean Corpuscular Hgb 32.1 pg (27.0-32.0); Mean Corpuscular Volume 92.5 fL (81-99); Mean Platelet Vol. 10.8 fl (6.2-12.0); Monocyte# 0.69 X10^3/uL; Monocyte% 8.7 % (0-10); NRBC Flagged by Analyzer 0 % (0-5); Neutrophil # 5.52 X10^3/uL (2.7-7.7); Neutrophil % 69.5 % (47-70); Platelet Count 196 K/mm3 (150-450); RBC Distribution Width CV 12.4 % (11.6-14.6); RBC Distribution Width SD 41.8 fl (35.1-43.9); Red Blood Count 4.14 M/mm3 (4.2-5.4); White Blood Count 7.9 K/mm3 (4.4-11.0)
[2022-07-15 06:25] LABS: ALB/GLOB Ratio 0.9 RATIO (0.9-2.4); AST(SGOT) 17 U/L (15-37); Alanine Aminotransfer ALT/SGPT 18 U/L (13-56); Albumin, Serum 3.4 g/dL (3.2-5.0); Alkaline Phosphatase 71 U/L (45-117); Anion Gap 7 (5-15); BUN 10 mg/dL (7-18); BUN/Creat Ratio 14.7 RATIO (10-20); Calcium,Total 9.2 mg/dL (8.5-10.1); Chloride 109 mmol/L (98-107); Creatinine, Serum 0.68 mg/dL (0.55-1.02); EST Glomerular Filtration Rate 89 mL/min (>60); Est Glom Filt Rate - Afr Amer 108 mL/min (>60); Estimated Creatinine Clearance 38.97 ml/min; Globulin 3.6 g/dL (2.2-4.2); Glucose 100 mg/dL (74-106); Potassium 3.4 mmol/L (3.5-5.1); Sodium Level 142 mmol/L (136-145)
[2022-07-15] MEDS: Dicyclomine 10 MG Capsule 20 MG PO ×2 (06:26→11:24)
[2022-07-15] MEDS: Levothyroxine 75 MCG Tablet PO (06:26)
[2022-07-15] MEDS: TICAGRELOR 90 MG TABLET PO (08:55)
[2022-07-15] MEDS: Pantoprazole Sodium 20 MG Tablet PO (08:55)
[2022-07-15] MEDS: Carvedilol 3.125 MG TABLET PO (08:55)
[2022-07-15] MEDS: Aspirin 81 MG TAB.CHEW PO (08:55)
[2022-07-15] MEDS: Isosorbide Mononitrate 30 MG Tablet PO (08:55)
--- NOTE | 2022-07-15 09:07 | PCM.DC ---
Discharge Instructions Diet Discharge Diet: Low fat / Low cholesterol Activity Discharge Activity: Return to Normal Activity (07/20/2022 with advancement of activity as tolerated), May Shower (Today) and May Take a Tub Bath (in 7 days) May resume sexual activity in: - (Avoid heavy exertional activity until 07/20/2022 then advance activity as tolerated) Lifting Restrictions: Avoid heavy exertional activity until 07/20/2022 Dressing / Incision Call your doctor if your incision/area has: Continuous Slow Oozing, Sudden Increased Bleeding, Increased Pain/ Swelling, Increased Redness, Foul Smelling Discharge and Swelling at the incision site Call your doctor if you observe: Fever of 101 or Higher, Shortness of breath, Fainting spells, Chest pain, Increased palpitations (irregular heartbeat) and Uncontrolled pain Remove Dressing in: 1 day Cleanse incision/area with: Soap & Water Follow Up Care Please Follow Up With: Hayder Mcrae MD When: [facility] to contact the patient and arrange a follow up appointment Test Results: Test results from this visit will be discussed in further detail at your follow-up appointment, if applicable. Discharge Plan Admission Admit Date/Time: 07/14/22 10:04 Primary Reason for Your Visit: Chest Pain; Abnormal Stress Test Attending Provider: Hayder Mcrae Primary Care Provider: Gene Roth Discharge Orders/Prescriptions Prescriptions: New Brilinta 90 mg Tablet 90 mg PO BID Qty: 180 3RF Continued nitroglycerin 0.4 mg tablet, sublingual 0.4 mg SUBLINGUAL Q5M PRN (Reason: chest pain) Qty: 90 3RF propranolol 20 mg tablet 20 mg PO BID methylcellulose (laxative) [Citrucel] 500 mg tablet 1,000 mg PO QDAY PRN (Reason: Constipation) ascorbic acid (vitamin C) 500 mg capsule 1,000 mg PO DAILY PRN (Reason: Supplement) levothyroxine 75 mcg tablet 75 mcg PO DAILY omeprazole 20 mg capsule,delayed release(DR/EC) 20 mg PO DAILY dicyclomine 10 mg capsule 20 mg PO Q6H d-mannose 500 mg capsule 500 mg PO DAILY cholecalciferol (vitamin D3) 10 mcg/drop (400 unit/drop) drops 20 mcg PO DAILY atorvastatin 40 mg tablet 40 mg PO QHS isosorbide mononitrate 30 mg tablet extended release 24 hr 30 mg PO DAILY aspirin 81 mg tablet,delayed release (DR/EC) 81 mg PO DAILY Referrals / Follow Up: Gene Roth DO [Primary Care Provider] - Hayder Mcrae MD [Med Staff - Active Staff] - Disposition Disposition (needs filled in before D/C Order can be placed): Home, Self Care
--- NOTE | 2022-07-15 09:13 | DS.PCM_ITS ---
Providers Date of Admission: 07/14/22 Date of Discharge: 07/15/22 Primary Care Physician: Dr. Gene Roth DO Reason For Visit: CHEST PAIN/ABN STRESS Diagnosis Discharge Diagnosis (1) Angina pectoris: Status: Acute Code(s): I20.9 - Angina pectoris, unspecified (2) Abnormal stress test: Status: Acute Code(s): R94.39 - Abnormal result of other cardiovascular function study (3) Hyperlipidemia: Status: Acute Code(s): E78.5 - Hyperlipidemia, unspecified Qualifiers: Hyperlipidemia type: unspecified Qualified Code(s): E78.5 - Hyperlipidemia, unspecified (4) GERD (gastroesophageal reflux disease): Status: Acute Code(s): K21.9 - Gastro-esophageal reflux disease without esophagitis (5) Hiatal hernia: Status: Acute Code(s): K44.9 - Diaphragmatic hernia without obstruction or gangrene (6) Thyroid disorder: Status: Acute Code(s): E07.9 - Disorder of thyroid, unspecified Medications at Discharge Home Medications methylcellulose (laxative) 500 mg tablet (Citrucel) 1,000 mg PO QDAY PRN Constipation 09/22/17 nitroglycerin 0.4 mg sublingual tablet 0.4 mg sublingual Q5M PRN chest pain #90 tabs 09/27/17 propranolol 20 mg tablet 20 mg PO BID BP/Heart rate 01/02/19 ascorbic acid (vitamin C) 500 mg capsule 1,000 mg PO DAILY PRN Supplement 06/25/21 cholecalciferol (vitamin D3) 10 mcg/drop (400 unit/drop) oral drops 20 mcg PO DAILY Supplement 06/25/22 d-mannose 500 mg capsule 500 mg PO DAILY Kidney 06/25/22 dicyclomine 10 mg capsule 20 mg PO Q6H Stomach 06/25/22 levothyroxine 75 mcg tablet 75 mcg PO DAILY thyroid 06/25/22 omeprazole 20 mg capsule,delayed release 20 mg PO DAILY GERD 06/25/22 aspirin 81 mg tablet,delayed release 81 mg PO DAILY heart health 07/14/22 atorvastatin 40 mg tablet 40 mg PO QHS Cholesterol 07/14/22 isosorbide mononitrate 30 mg tablet,extended release 24 hr 30 mg PO DAILY heart 07/14/22 ticagrelor 90 mg tablet (Brilinta) 90 mg PO BID #180 tabs 07/15/22 Hospital Course Operations None Procedures Cardiac catheterization and - (Cardiac Intervention: PTCA/Stent) Summary of Care Provided Minutes Spent on Discharge: 60 Hospital Course: The patient presented for an outpatient exercise tolerance test/imaging study based upon concerns of ongoing angina pectoris. She underwent a pharmacologic stress nuclear imaging study which was considered abnormal. She was subsequent brought into the hospital for further evaluation and care with diagnostic cardiac catheterization. The cardiac catheterization demonstrated angiographically significant appearing coronary artery disease involving the LAD and RCA distributions. She subsequently underwent PTCA/MARY to the LAD and RCA distributions. The patient was monitored overnight. She appeared to remain stable. She is going to be released home for continued outpatient cardiovascular follow-up. Physical Exam Const alert, oriented x3, no apparent distress and healthy appearing Orientation / Consciousness: awake HEENT normocephalic, head/scalp atraumatic and hearing grossly normal bilaterally Eyes PERRL, EOMs intact bilaterally, conjunctivae normal and no scleral icterus Neck full ROM, supple and no JVD Carotids: normal carotid upstroke Resp normal respiratory effort and clear to auscultation bilaterally Cardio regular rate, regular rhythm, S1 normal heart sound and S2 normal heart sound GI normal to inspection, nondistended, normoactive bowel sounds Extremity no pedal edema Peripheral Pulses: Yes radial pulses present right (No bruit: No hematoma) 2+ Skin no rashes or lesions noted Neuro oriented x3, moves all extremities, no focal motor deficits and no sensory deficits noted Psych mental status grossly normal Weight / BMI Weight Weight: 167 lb Body Mass Index (BMI) 29.5 ABG / Lab / Microbiology Data Result Diagrams: 07/15/22 04:09 07/15/22 04:09 Laboratory: Laboratory Results - last 24 hr 07/14/22 10:45: WBC 8.0, RBC 4.90, Hgb 15.1 H, Hct 45.9, MCV 93.7, MCH 30.8, MCHC 32.9, RDW Std Deviation 41.2, RDW Coeff of [place] 12.0, Plt Count 240, MPV 10.6 07/14/22 10:45: Sodium 141, Potassium 3.4 L, Chloride 105, Carbon Dioxide 31.0, Anion Gap 5, BUN 8, Creatinine 0.74, Estim Creat Clear Calc 38.97, Est GFR (MDRD) Af Amer 98, Est GFR (MDRD) Non-Af 81, BUN/Creatinine Ratio 10.8, Glucose 88, Calcium 9.3 07/14/22 14:45: Activated Clotting Time 288 H 07/14/22 15:25: Activated Clotting Time 300 H 07/15/22 04:09: WBC 7.9, RBC 4.14 L, Hgb 13.3, Hct 38.3, MCV 92.5, MCH 32.1 H, MCHC 34.7 D, RDW Std Deviation 41.8, RDW Coeff of [place] 12.4, Plt Count 196, MPV 10.8, Immature Gran % (Auto) 0.300, Neut % (Auto) 69.5, Lymph % (Auto) 20.3, [place] % (Auto) 8.7, Eos % (Auto) 0.9, Baso % (Auto) 0.3, Absolute Neuts (auto) 5.5, Absolute Lymphs (auto) 1.61, Nucleated RBC % 0 07/15/22 04:09: Sodium 142, Potassium 3.4 L, Chloride 109 H, Carbon Dioxide 26.0, Anion Gap 7, BUN 10, Creatinine 0.68, Estim Creat Clear Calc 38.97, Est GFR (MDRD) Af Amer 108, Est GFR (MDRD) Non-Af 89, BUN/Creatinine Ratio 14.7, Glucose 100, Calcium 9.2, Total Bilirubin 0.80, AST 17, ALT 18, Alkaline Phosphatase 71, Total Protein 7.0, Albumin 3.4, Globulin 3.6, Albumin/Globulin Ratio 0.9 Radiography Diagnostic Testing: Radiology Impression Echocardiogram 07/14/22 06:39 Interpretation Summary The study was technically difficult. Contrast injection was performed. Left ventricular systolic function is normal. The estimated ejection fraction is 65 %. Trivial mitral valve insufficiency. Trivial tricuspid valve insufficiency. Mild focal aortic valve calcification. Trivial pulmonic valve insufficiency. Right ventricular systolic pressure estimated to be 28 mmHg. No evidence for diastolic dysfunction. Ordering Physician: Hayder Mcrae Referring Physician: Gene Roth Performed By: Lydia Damon, RDCS, RVT Chest X-Ray 07/14/22 10:07 IMPRESSION: Hyperinflation. Scattered calcified granulomas. Electronically Signed: Rohit Palacios MD at 14:42 EST , D/C Instructions Discharge Diet: Low fat / Low cholesterol May resume sexual activity in: - (Avoid heavy exertional activity until 07/20/2022 then advance activity as tolerated) Call your doctor if your incision/area has: Continuous Slow Oozing, Sudden Increased Bleeding, Increased Pain/ Swelling, Increased Redness, Foul Smelling Discharge and Swelling at the incision site Call your doctor if you observe: Fever of 101 or Higher, Shortness of breath, Fainting spells, Chest pain, Increased palpitations (irregular heartbeat) and Uncontrolled pain Cleanse incision/area with: Soap & Water Please Follow Up With: Hayder Mcrae MD When: [facility] to contact the patient and arrange a follow up appointment Meaningful Use Info Meaningful Use Diagnoses (Choose all that apply): None applicable Discharge Plan Admission Admit Date/Time: 07/14/22 10:04 Primary Reason for Your Visit: Chest Pain; Abnormal Stress Test Attending Provider: Hayder Mcrae Primary Care Provider: Gene Roth Discharge Orders/Prescriptions Prescriptions: New Brilinta 90 mg Tablet 90 mg PO BID Qty: 180 3RF Continued nitroglycerin 0.4 mg tablet, sublingual 0.4 mg SUBLINGUAL Q5M PRN (Reason: chest pain) Qty: 90 3RF propranolol 20 mg tablet 20 mg PO BID methylcellulose (laxative) [Citrucel] 500 mg tablet 1,000 mg PO QDAY PRN (Reason: Constipation) ascorbic acid (vitamin C) 500 mg capsule 1,000 mg PO DAILY PRN (Reason: Supplement) levothyroxine 75 mcg tablet 75 mcg PO DAILY omeprazole 20 mg capsule,delayed release(DR/EC) 20 mg PO DAILY dicyclomine 10 mg capsule 20 mg PO Q6H d-mannose 500 mg capsule 500 mg PO DAILY cholecalciferol (vitamin D3) 10 mcg/drop (400 unit/drop) drops 20 mcg PO DAILY atorvastatin 40 mg tablet 40 mg PO QHS isosorbide mononitrate 30 mg tablet extended release 24 hr 30 mg PO DAILY aspirin 81 mg tablet,delayed release (DR/EC) 81 mg PO DAILY Referrals / Follow Up: Gene Roth DO [Primary Care Provider] - Hayder Mcrae MD [Med Staff - Active Staff] - Disposition Disposition (needs filled in before D/C Order can be placed): Home, Self Care
--- NOTE | 2022-07-15 09:33 | CASEMGMT ---
Addendum entered by Leticia Arenas 07/15/22 09:37: Per [facility] van, they cannot take pt to [facility] for med pick pulling machine tender. This RN CM back to room and pt is agreeable to [facility] pharmacy but still wants to use [facility] van for transport home. Call to Lainey in [facility] pharmacy to have them obtain med from [facility] so that pt can have med at d/c, voices understanding. [facility] van transport home set up for 12N. Danay OTERO aware, voices understanding. Satinder OTERO CM Original Note: Pt provided Brilinta one month free card for d/c, voices understanding. Pt is requesting [facility] van transport home but would like them to stop at [facility] to pick pulling machine tender meds on the way. Nirmala, U construction secretary, is checking on van transport and med pick pulling machine tender. CM to follow. Satinder OTERO CM
--- NOTE | 2022-07-15 10:00 | EKG12_ITS ---
Test Reason : CHEST PAIN Blood Pressure : / mmHG Vent. Rate : 072 BPM Atrial Rate : 072 BPM P-R Int : 200 ms QRS Dur : 074 ms QT Int : 360 ms P-R-T Axes : 045 062 075 degrees QTc Int : 394 ms Normal sinus rhythm Septal infarct , age undetermined , cannot be excluded Nonspecific T wave abnormality Abnormal ECG Confirmed by ANASTASIIA ADHIKARI, MARIAH ([id number]), dictionary editor PARISH POLLARD ([id number]) on 07/15/2022 1:15:36 PM Referred By: Confirmed By:MARIAH LAURENT MD
--- NOTE | 2022-07-15 10:29 | CRPHASE1 ---
Patient Communication PHII Cardiac Rehab Discussed with Patient:: Yes Guide to Cardiac Rehab Given to Patient:: Yes - pt chooses [facility] Cardiac Rehab Facility Choice List Given to Patient:: Yes Choice Program [facility] CR PHII:: Communication Given to CR, Refer to [facility] Clean Room Operator:: Dr. Barragan Refer Phase II Cardiac Rehab:: Yes Sessions:: 36 sessions - 3 days/wk, 12 weeks Cardiac Rehabilitation Info Cardiac Rehabilitation Program Information: Cardiac Rehabilitation is important for patients like you who are recovering from a heart problem. Cardiac rehabilitation programs are recognized as integral to the continued care of the patient with coronary heart disease. The cardiac rehabilitation program is designed to optimize a patient's physical, psychological, and social functioning. Health health care marketing specialist work in cardiac rehabilitation programs and assist you with getting the treatments you need to get stronger and healthier - like exercise, healthy eating habits, and medications. Cardiac rehabilitation has been show to help people with heart problems live longer and have better life enjoyment than people who do not go to cardiac rehabilitation. Please contact the Cardiac Rehabilitation Program at [facility] at in two weeks if you have not heard from them.
--- NOTE | 2022-07-15 10:30 | CRPH1.INSTRU ---
General Education CAD and cardiac anatomy and function:: Patient communicates acknowledgment Explanation of diagnoses and procedures:: Patient communicates acknowledgment Sign/Symptoms of OK:: Patient communicates acknowledgment Antiplatelet therapy: Patient communicates acknowledgment Proper use of NTG-SL: Patient communicates acknowledgment Emergency procedures and activation of EMS: Patient communicates acknowledgment Compliance of all prescribed medications: Patient communicates acknowledgment
--- NOTE | 2022-07-15 10:37 | PHA.DC.MC ---
Pharmacy Service has performed discharge medication reconciliation and counseling for this patient. 1. TICAGRELOR 90MG PO BID The patient's discharge medication list was reviewed for discrepancies and discrepancies were resolved. Home Medications methylcellulose (laxative) 500 mg tablet (Citrucel) 1,000 mg PO QDAY PRN Constipation 09/22/17 nitroglycerin 0.4 mg sublingual tablet 0.4 mg sublingual Q5M PRN chest pain #90 tabs 09/27/17 propranolol 20 mg tablet 20 mg PO BID BP/Heart rate 01/02/19 ascorbic acid (vitamin C) 500 mg capsule 1,000 mg PO DAILY PRN Supplement 06/25/21 cholecalciferol (vitamin D3) 10 mcg/drop (400 unit/drop) oral drops 20 mcg PO DAILY Supplement 06/25/22 d-mannose 500 mg capsule 500 mg PO DAILY Kidney 06/25/22 dicyclomine 10 mg capsule 20 mg PO Q6H Stomach 06/25/22 levothyroxine 75 mcg tablet 75 mcg PO DAILY thyroid 06/25/22 omeprazole 20 mg capsule,delayed release 20 mg PO DAILY GERD 06/25/22 aspirin 81 mg tablet,delayed release 81 mg PO DAILY heart health 07/14/22 atorvastatin 40 mg tablet 40 mg PO QHS Cholesterol 07/14/22 isosorbide mononitrate 30 mg tablet,extended release 24 hr 30 mg PO DAILY heart 07/14/22 ticagrelor 90 mg tablet (Brilinta) 90 mg PO BID #180 tabs 07/15/22 The patient was counseled on the following discharge medications and changes in medications for homegoing were reviewed. The Reason for Use, instructions for use, and potential side effects were reviewed for all new medications. The patient's questions regarding all of their medications were answered. The patient was able to verbally demonstrate an understanding of their discharge medications. Patient counseled by student accounts manager, [place].
--- NOTE | 2022-07-15 10:53 | CASEMGMT ---
clinical transformation specialist notified SW that patient is concerned about cost of Brillinta after the 30 days free. SW provided patient with a list of prescription assistance programs and applications for the programs. SW explained information to patient as well. Shani MELCHOR
== END 2022-07-15 09:13 | disposition home or self-care (01) ==
LOC: PCU 10:21
PROVIDERS: Admitting Provider Internal Medicine Cardiovascular Disease; PCP Family Medicine; Visit Provider Internal Medicine Cardiovascular Disease
DX: I25.119 Atherosclerotic heart disease of native coronary artery with unspecified angina pectoris (principal); K44.9 Diaphragmatic hernia without obstruction or gangrene; E78.5 Hyperlipidemia, unspecified; E03.9 Hypothyroidism, unspecified; K21.9 Gastro-esophageal reflux disease without esophagitis; R94.39 Abnormal result of other cardiovascular function study; Z79.899 Other long term (current) drug therapy; Z79.890 Hormone replacement therapy; Z79.82 Long term (current) use of aspirin
CPT/HCPCS: 36415; 71046; 78452; 80048; 80053; 85025; 85027; 85347; 92928; 93005; 93017; 93306; 93454; 99152; 99153; 99218; A9500; C1874; J7030; Q9957; Q9967; A4216; C1725; C1769; C1887; C1894; C8929; C9600; G0378; J2785

== ENCOUNTER → 2022-08-06 | Outpatient (CLI) | payer OTHER, SELFPAY ==
[2022-08-06 11:33] LABS: AST(SGOT) 16 U/L (15-37); Alanine Aminotransfer ALT/SGPT 23 U/L (13-56); Albumin, Serum 3.8 g/dL (3.2-5.0); Alkaline Phosphatase 76 U/L (45-117); Bilirubin, Direct 0.24 mg/dL (0.00-0.30); Cholesterol 122 mg/dL (200); Globulin 3.6 g/dL (2.2-4.2); High Density Lipoprotein 46 mg/dL; Protein, Total 7.4 g/dL (6.4-8.2); Triglycerides 113 mg/dL; Very Low Density Lipoprotein 23 mg/dL (5-40)
== END | disposition home or self-care (01) ==
LOC: LAB 09:46
PROVIDERS: PCP Family Medicine; Referring Provider Internal Medicine Cardiovascular Disease; Visit Provider Internal Medicine Cardiovascular Disease
DX: E78.00 Pure hypercholesterolemia, unspecified (principal)
CPT/HCPCS: 36415; 80061; 80076

== ENCOUNTER → 2022-09-15 | Outpatient (CLI) | payer OTHER, SELFPAY ==
--- NOTE | 2022-09-15 09:22 | PCM.CR.HP2 ---
CR - History & Physical - General Arrival date:: 09/15/22 Arrival time:: 09:27 Date of Referral:: 08/19/22 Date of CR Evaluation:: 09/15/22 Referring Physician: Dr. Hayder Mcrae Primary Diagnosis: Presence of angioplasty implant & graft - History of Present Cardiac Event Onset Date: Enter Onset Date of cardiac illnesses in Comment field below Acute Myocardial Infarction within 12 months:: No PTCA or coronary stenting:: Yes - 07/14/2022 Type of Symptoms:: chest pain, palpitations, dyspnea on exertion Interventions with present event:: stress test Were there any complications?: no - Sleep Disorder Evaluation Hx of Sleep Apnea: No Do you snore loudly (louder than talking or can be heard through closed doors)?: Yes Do you often feel tired/ fatigued/ sleepy during daytime?: Yes - Occasional insomnia; difficulty falling asleep Has anyone observed you stop breathing during sleep?: No History of Hypertension (for STOP score): Yes STOP Results: Positive - Medications Home Medications: Ambulatory Orders Medication Instructions Recorded methylcellulose (laxative) 500 mg 1,000 mg PO QDAY PRN Constipation 09/22/17 tablet (Citrucel) nitroglycerin 0.4 mg sublingual 0.4 mg sublingual Q5M PRN chest 09/27/17 tablet pain #90 tabs propranolol 20 mg tablet 20 mg PO BID BP/Heart rate 01/02/19 ascorbic acid (vitamin C) 500 mg 1,000 mg PO DAILY PRN Supplement 06/25/21 capsule cholecalciferol (vitamin D3) 10 20 mcg PO DAILY Supplement 06/25/22 mcg/drop (400 unit/drop) oral drops d-mannose 500 mg capsule 500 mg PO DAILY Kidney 06/25/22 dicyclomine 10 mg capsule 20 mg PO Q6H Stomach 06/25/22 levothyroxine 75 mcg tablet 75 mcg PO DAILY thyroid 06/25/22 omeprazole 20 mg capsule,delayed 20 mg PO DAILY GERD 06/25/22 release aspirin 81 mg tablet,delayed 81 mg PO DAILY heart health 07/14/22 release atorvastatin 40 mg tablet 40 mg PO QHS Cholesterol 07/14/22 ticagrelor 90 mg tablet (Brilinta) 90 mg PO BID #180 tabs 07/22/22 simethicone 80 mg chewable tablet 80 mg PO BID-QID PRN 08/03/22 (Gas Relief 80 (simethicone)) isosorbide mononitrate 30 mg 30 mg PO DAILY heart #90 tabs 09/07/22 tablet,extended release 24 hr - Allergies Allergies/Adverse Reactions: Allergies etodolac Allergy (Severe, Verified 08/03/22 13:32) Throat tightness, rash acetaminophen [From Percocet] Adverse Reaction (Verified 08/03/22 13:32) Nausea/Vom/Diarrhea morphine Adverse Reaction (Verified 08/03/22 13:32) Nausea/Vom/Diarrhea oxycodone [From Percocet] Adverse Reaction (Verified 08/03/22 13:32) Nausea/Vom/Diarrhea Advanced Directives - Advanced Directives Power of Reservations And Ticketing Agent: No Living Will: No Advance Directives Information Provided: Yes Advance Directives on File: No DNR Order?:: No - MOLST See MOLST form: No Past Medical History - Covid-19 Screening Fever: No Unexplained muscle aches: No Current respiratory symptoms: No Upper respiratory infections symptoms: No Gastro-intestinal symptoms: Yes - H/O GERD Bvi-[id number]-Xuswzd symptoms: No Has tested positive for COVID-19 in last 30 days: No Date of testin09/15/22 - no vaccinations Had contact w/person w/symptoms or Covid-19 (+) last 14 days: No Has High Risk Exposures ID'd by Health dept/Inf Control team: No 65 years or older:: Yes Lives in Assisted Living facility:: No Has a chronic lung disease or moderate to severe asthma:: No Has a serious heart condition:: No Immunocompromised:: No Severely obese (Body Mass Index of 40 or higher):: No Diabetic:: No Has chronic kidney disease undergoing dialysis:: No Has liver disease:: No - Past Medical Illness Medical History: Past Medical History (Last Reviewed 08/03/22 @ 13:37 by Diane Gómez) Atherosclerotic heart disease of [place] coronary artery without angina pectoris I25.10 Chest pain, precordial R07.2 Dizziness and giddiness R42 GERD (gastroesophageal reflux disease) K21.9 Hiatal hernia K44.9 Hyperlipidemia E78.5 Hypothyroidism, iatrogenic E03.2 OA (osteoarthritis) of knee M17.9 Palpitations R00.2 - Past Surgical History Surgical History: Past Surgical History (Last Reviewed 08/03/22 @ 13:37 by Diane Gómez) Cystocele with prolapse N81.4 History of cholecystectomy Z98.890, Z90.49 History of coronary artery stent placement Onset Date: ~07/14/22 Z95.5 PTCA/MARY Prox LAD Orsirio 2.5x40mm, PTCA/MARY Prox to Mid RCA Orsirio 3.0x15mm Dr. Barragan 07/14/22 History of total hysterectomy Z98.890, Z90.710 Rectocele N81.6 - Family History Summary Family History: Family History (Last Reviewed 08/03/22 @ 13:37 by Diane Gómez) Sister CAD (coronary artery disease) Hx of CABG Sister S/P MVR (mitral valve replacement) Social History - Smoking History Smoking Status: Never smoker Hx Tobacco Use: No Hx Smoking Exposure: No - Alcohol Use Alcohol Usage: No - Substance Abuse Hx Substance Use: No - Occupation Occupation (List type of work in comments):: Retired - Hobbies, Recreation, Social Activities Hobbies: Sewing - cloth hearts sachets, puzzles, needle point and crocheting, Exercise - band exercises for lower leg. , Other Recreational Activities: I am able to engage in a few activities Social Environment - Status Marital Status: - Current Living Arrangements Living Environment:: Spouse - Children How many children do you have?: 12 - a couple moved out of state Do any of your children live nearby?: Yes - Safety Do you feel safe in your surroundings?: Yes - Assistance Do you need any assistance at home?: no Review of Systems - Review of Systems Hints: Right click = Denies ([place]). Left click = Reports ([place]) Review of Present Symptoms: Reports: Fatigue, Appetite - Normal, Appetite - Special Diet - Low fat, low sodium, has chosen to not eat after 3/4 o'clock, Sleep - Normal. Denies: Shortness of Breath at Rest, Shortness of Breath with Exertion, Angina, Dizziness/Lightheadedness, Heart Arrhythmia/Irregularities, Sexual Changes - Pain Is Patient Pain Free?: No Pain Location: lower extremity - knee tendonitis in left leg knee to ankle Pain Level: 3/10 - mostly when I am walking on it. Risk Factor Assessment - Vital Signs Temperature: 97.6 F Respiratory Rate: 16 Pulse Ox: 95 Blood Pressure: 128/70 - Pulse Pulse Rate: 80 Pulse Rhythm: Regular - Hypertension Blood Pressure Sitting - Left Arm: 128/70 - Blood Cholesterol/Lipids Total Cholesterol (mg/dL) Goal = less than 200 mg/dL: 122 HDL Cholesterol (mg/dL) Goal = less than 40 mg/dL: 46 LDL Cholesterol (mg/dL) Goal = less than 70 mg/dL: 53 Triglycerides (mg/dL) Goal = less than 150 mg/dL: 113 - Diabetes Nutrition Referral for Diabetes: No - Obesity Height: 5 ft 3 in Weight:: 173 lb Weight in Pounds: 173.0 lbs Weight Source: Estimated by Patient Body Mass Index (BMI): 30.6 Nutritional Referral for Obesity: Yes - Why Weight program - Risk Stratification Risk Guidelines: Lowest Risk: Risk Factor for Smoking, Risk Factor for Dyslipidemia, Risk Factor for Diabetes, Risk Factor for Sedentary Lifestyle, Risk Factor for Depression, Moderate Risk: Risk Factor for Hypertension, Highest Risk: Risk Factor for Obesity - Family History Family History: Family History (Last Reviewed 08/03/22 @ 13:37 by Diane Gómez) Sister CAD (coronary artery disease) Hx of CABG Sister S/P MVR (mitral valve replacement) Motivation - Motivation to Participate On a scale of 1 to 10, how prepared are you to commit to attending program?: 10 What do you see as barriers to successfully being able to complete the program?: tendonitis in left leg, being able to walk What do you see as the benefits of succesfully completing the program? In other words, what do you hope to get out of participating in the program?: help strengthen heart, regain stamina and energy level Are there issues you are dealing with that will interfere with completing the program?: Left leg tendonitis, ankle and knee. Do you have a spouse or signficant other, family or friends who will help support you to complete the program?: Yes
--- NOTE | 2022-09-15 09:22 | PCM.CR.ITP ---
Diagnosis - General Information Admitting Diagnosis: Presence of angioplasty implant & graft Secondary Diagnosis: HLD, HTN, Obesity Personal Learning Style:: Audio/Visual, Written Barriers to Learning: Vision Impairment Stage of change r/t lifestyle modifications:: Contemplation Gave educational material for:: Treating Heart Disease, Emotions & Heart Disease, Stress Management & Relaxation, Sleep Disorders & Heart Disease, How The Heart Works, What it means to have Heart Disease, How Coronary Artery Disease is Diagnosed, Heart Procedures, What Heart Medications Do, Risk Factors & Modifications, Living an Active Life, Nutrition - Education/Goals Individual Counseling: Initial Assessment: Abnormal Cholesterol Levels, High Blood Pressure - 128/70 Moderate Risk, Overweight/Obesity - BMI >30 Cardiac Rehabilitation Goals: 1. Maintain the individual as the primary focus of care. 2. To improve the patient's quality of life. 3. Identification of cardiac risk factors and provide cardiac risk factor management. 4. Enhance the psychosocial status of the patient. 5. Reconditioning enough to allow the patient to resume customary activities. 6. Control symptoms of cardiac disease Personal Goals: Initial Assessment: Improve energy level, Participate in home exercise program, Get back to work, or to resume activities faster, Improve knowledge of cardiac disease, Improve muscle strength and endurance, Improve diet and eating habits (eat healthier), Control risk factors (learn risk factor modification) Scale for measuring improvement of personal goals: Enter appropriate number in Comments. 2 = Unchanged. 3 = Slightly Better. 4 = Moderate Improvement. 5 = Met my Goal - Diagnosis & Disease Process Outcomes/Goals: Pt IDs own risk factors & lifestyle modifications by Session 10, Verbalizes symptoms of angina & response by session 3., Pt independently manages Plan/Interventions: Assist Pt to ID & engage in lifestyle modification to reduce CVD risk, Instruct on individual risk factors, Review symptoms of angina & emergency actions, Review secondary diagnosis & identify educational needs. - Safety Referral to Physical Therapy: No Referral to [facility] Case Management: No Fall Risk Assessed:: Yes Assistive Devices:: Wheelchair - Tendonitis in left leg (knee to ankle) long distances uses wheelchair to be able to move faster Exercise - Initial Assessment - Visit Date of Eval: 09/15/22 Session #:: 0 - Pre-cardiac rehab evaluation Mets: Pre-: >7 METS for 30 minutes by discharge - Physician Prescribed Exercise Modalities: Treadmill - No Treadmill due to ankle left knee and the tendonitis in left leg., Airdyne, NuStep, SciFit, Lateral [place] Frequency: 3x/week for 12 weeks [36 sessions] Intensity: 60-80% of age predicted maximum heart rate reserve Duration: 30 - 45 minutes Current METSs:: 3.0 Target Heart Rate:: 93-107 Resting Blood Pressure: 128/70 EKG Type: Normal Sinus Rhythm - Outcomes & Goals Goals:: Verbalizes understanding of THR, RPE & goal METS by session 6, Documents in home exercise log/reports 30 min aerobic 5 day/wk by DC, Demonstrates accurate pulse taking by DC - Intervention & Plan Exercise Program Goals: Instruct on personal THR & RPE, Instruct on MET level & personal MET goal, Show patient to take own pulse /validate performance until accurate, Instruct on home exercise - Physical Activity Home Exercise Physical Activity - Home Exercise: Safe Exercise, Warm-up, Self-monitoring, Cool-Down, Home Exercise > 30 min Daily, Sitting Time <3 hours/daily - Outcomes & Goals Outcomes/Goals: Demonstrates correct Warm-up/exercise Cool-Down (S3) if = 2.5 METs, Verbalizes symptoms of exercise intolerance by Session 3 (S3), Demonstrate safe equipment use (S3) & follows exercise prescrition (6) - Intervention & Plan Plan/Intervention: Instruct warm-up & cool-down if exercising at > 2 METs, Instruct on symptoms of exercise intolerance & actions to take, Instruct & monitor on saf, Assess intial functional capacity & safety risk Nutrition - Initial Assessment - Program Goals Nutrition Program Goals: LDL <100 optimal. 100 - 129 Near optimal. 130 - 159 Borderline High. 160 - 189 High. Total Cholesterol <200 desirable. 200 - 239 Borderline High. >/= 240 High. HDL < 40 Low >/=60 High. Triglycerides <150 desirable. <199 optimal. VlDL 5 - 40. HgbA1C <7%. BMI <25 Patient has diagnosis of Hyperlipidemia (ICD E78)?: Yes - Visit Date of Assessment:: 09/15/22 Session #:: 0 - Pre-cardiac rehab evaluation - Cholesterol/Lipids (Other Core Measures) Triglycerides (mg/dL): 113 Total Cholesterol (mg/dL): 122 LDL Cholesterol (mg/dL): 53 HDL Cholesterol (mg/dL): 46 Determine presence & major risk factors that modify LDL goal: Hypertension or hypertensive medication, Family history of premature CHD in Male < 55 years: female <65 yearsFa, Age men > 45 years; women >/= 55 years Outcomes/Goals: Pt IDs own risk factors & lifestyle modifications by Session 10, Verbalizes symptoms of angina & response by session 3., Pt independently manages Intervention/Plan: Instruct on personal lipid levels & lipid goals/NCEP guidelines, Instruct on cholesterol Referral to dietitian:: Yes - Medical Nutrition Therapy - Diabetes (Other Core Measures) Diabetes Type: Not Applicable - Weight Mgt (Other Care) Not Applicable: No Height: 5 ft 3 in Weight:: 173 lb BMI: 30.6 Diagnosis Overweight/Obesity BMI> 30% ICD-10 E66: Yes Diagnosis High BMI/Morbid Obesity BMI> 35% ICD-10 Z68: No Outcomes/Goals: Pt sets, maintains & shows weight loss goal & trend during rehab Intervention/Plan: Instruct on ideal BMI & set weight loss goal w/patient, Assist pt to ID & incorporate diet changes for weight loss by S9, Refer to Structured Weight Loss program as appropriate, Encourage goal of using 250-300dcal per session for weight loss - Healthy Eating Habits Will attend diet classes:: Yes Outcomes/Goals:: Consume diet rich in vegs,fruits,whole grain/high fiber,fish,lean meat, Limit sat/trans fats,cholesterol & added salts & sugars Intervention/Plan:: Assess current eating habits - Education Gave educational materials for:: Healthy eating Nutrition - 30-Day Assessment Nutrition - 60-Day Assessment Nutrition - 90-Day Assessment Nutrition - Final Assessment Core - Initial Assessment - Visit Date of Eval: 09/15/22 Session #:: 0 - Pre-cardiac rehab evaluation - Medication Compliance Preventative Medication(s):: Aspirin, Ticagrelor/P2Y12 inhibitor, Statin/lipid, Beta buffy H/O mental health issues: depression, anxiety, or addiction?: No Doesn?t believe in the benefits of treatment?: No Believes medications are unnecessary or harmful?: No Has a concern about medication side effects?: No Expresses concern over the cost of medications?: No Outcomes/Goals: Verbalizes medications,desired effect & common side effects @ DC, Pt self-reports following medication regimen, Keeps card in wallet w/medications listed by DC Interventions/plans: Instruct on medication effects & side effects, Review medication list w/patient every two weeks, Instruct importance of taking meds as ordered & assist problem solving - Tobacco Use Tobacco Use: Non-smoker - Hypertension Hypertension Diagnosis:: Hypertension ICD-10 I10 Resting Blood Pressure:: 126/70 [place] [employer] Hypertension Guidelines: [place] [employer] Hypertension Guidelines. Normal BP Less than 120/80. Elevated BP 120/80. Hypertension Stage 1: BP 130-139/80-89. Hypertesnion Stage 2: BP 140 or higher/90 or higher. Hypertension Crisis: BP higher than 180/120 Outcomes/Goals: Able to verbalize/achieve optimal blood pressure <130/80, Incorporates diet changes & exercise for blood pressure control by DC Interventions/plan: Instruct on optimal blood pressure, hypertension & medications, Instruct on effects of sodium, alcohol, stress, exercise &hypertension - Tobacco Cessation Referral Smoking Cessation Referral:: No Individual Education/Counseling:: No Education Schedule Given:: Yes Core - 30-Day Assessment Core - 60-Day Assessment Core - 90 Day Assessment Core - Final Assessment Psychosocial - Initial Assess - VIsit Date of Eval: 09/15/22 Session #:: 0 - Pre-cardiac rehab evaluation Not Applicable: Yes History of previous Mental disease:: No - Psychosocial Test Tool Used:: Ferrans JP3 Measurement QOL Cardiac, PHQ-9 Questionnaire phq-9 Severity: Severity. 1-4 Minimal Depression. 5-9 Mild Depression. 10-14 Moderate Depression. 15-19 Moderately Sever Depression. 20-27 Severe Depression. Rule: - Referral to Behavioral Health PS - Interventions: Yes Attend Stress Management Classes, No Referral to Behavioral Health if PHQ-9 score >9:, No Referral to [facility], No Referral to Physician if PHQ-9 if score is 5-9: - Outcomes/Goals: See list Psychosocial Outcomes/Goals:: ID's personal stressors & 2 strategies to manage stress by discharge - Intervention/Plan: See List Interventions/Plan:: Assess stressors,coping strategies & signs of derpression on admission, Instruct/assist pt to develop coping & personal stress Mgt strategies, Instruct patient to recognize signs & symptoms of depression, Instruct patient to recog Psychosocial - 30-Day Assess Psychosocial - 60-Day Assess Psychosocial - 90-Day Assess Psychosocial - Final Assessmen Patient Health Questionnaire Initial Assessment 1. Little interest or pleasure in doing things: Not at all 2. Feeling down, depressed, or hopeless: Not at all 3. Trouble falling or staying asleep, or sleeping too much: Several days 4. Feeling tired or having little energy: Not at all 5. Poor appetite or overeating: Not at all 6. Feeling bad about yourself -- or that you are a failure or have let yourself or your family down: Not at all 7. Trouble concentrating on things, such as reading the newspaper or watching television: Not at all 8. Moving or speaking so slowly that other people could have noticed. Or the opposite - being so fidgety or restless that you have been moving around a lot more than usual: Not at all 9. Thoughts that you would be better off , or of hurting yourself in some way: Not at all How difficult have these problems made it for you to do your work, take care of things at home, or get along with other people?: Not difficult at all Total Score: 1 KELLEY-Q SV Test - Statements CAD is a disease of the arteries in the heart: I Don't Know Examples of risk factors for heart disease: I Don't Know Angina is chest pain or discomfort: I Don't Know The benefits of resistance training include: True Eating more meat and dairy products: False Anti-platelet medications such as aspirin are important: I Don't Know The only effective way to manage stress: I Don't Know An exercise warm-up slowly increases heart rate: I Don't Know Prepared, processed foods usually have high sodium: True Depression is common after a heart attack: I Don't Know The statin medications lower cholesterol: I Don't Know To control blood pressure, lower the amount of sodium: I Don't Know If someone gets chest discomfort during walking: False Transfats are partially hydrogenated vegetable oils: I Don't Know Sleep apnea that is not treated increases the risk: I Don't Know To control cholesterol, one should become a vegetarian: I Don't Know Someone knows if he/she is exercising at the right level: I Don't Know Diabetes cannot be prevented with exercise & health eating: False Stress is a large risk for heart attack: I Don't Know A diet that can help lower blood pressure is rich in: I Don't Know - Total Score Total Correct Responses: 5 Self-Efficacy Initial Assessment We would like to know how confident you are in doing certain activities. Please select your confidence level for:: Select your confidence level for the following using the scale 1-10 where 1 is not at all confident and 10 is totally confident. Your score is the average of all 6 responses. Fatigue: How confident are you that you can keep the fatigue caused by your disease from interfering with the things you want to do? Select Number: 2 Physical Discomfort or Pain: How confident are you that you can keep the physical discomfort or pain of your disease from interfering with the things you want to do? Select Number: 1 Emotional Distress: How confident are you that you can keep the emotional distress caused by your disease from interfering with the things you want to do? Select Number: 3 Other Symptoms or Health Problems: How confident are you that you can keep other symptoms or health problems from interfering with the things you want to do? Select Number: 2 Different Tasks and Activities: How confident are you that you can do the different tasks and activities needed to manage your health condition so as to reduce your need to see a doctor? Select Number: 3 Medication: How confident are you that you can do things other than just taking medication to reduce how much your illness affects your everyday life? Select Number: 4 Total Score:: 2 Nutrition Survey - Nutrition Survey Initial Have you lost >10 lbs over the past 2 months without trying?: No Are you following a special diet at home for diabetes, low fat, or low salt?: No Are you interested in meeting with a dietitian for help understanding your diet?: No Do you eat less than 3 meals a day?: No Do you eat fatty meats (san, sausage, ribs, etc), fried foods, desserts, large amounts of salad dressings, margarine, butter, or cheese most days?: Yes Do you have food allergies? [Enter types in comment field]: No Do you eat in restaurants more than 3 times a week?: No Do you season food with salt, seasoning salt, or garlic salt?: Yes Do you used canned, boxed, frozen meals, or soups, seasoning packets?: Yes Total Score:: 3
[2022-09-15 10:04] VITALS: BP 128/70; PULSE 80; RESP 16; TEMP 36.4; O2SAT 95; BMI 30.6
[2022-09-15 10:43] VITALS: BP 126/70; BP 128/70; BMI 30.6
== END | disposition home or self-care (01) ==
LOC: CR 08:53
PROVIDERS: PCP Family Medicine; Referring Provider Internal Medicine Cardiovascular Disease; Visit Provider Internal Medicine Cardiovascular Disease
DX: I25.10 Atherosclerotic heart disease of native coronary artery without angina pectoris (principal); Z95.5 Presence of coronary angioplasty implant and graft

== ENCOUNTER 2022-09-28 09:30 | Outpatient (RCR) | payer OTHER, SELFPAY ==
[2022-09-15 10:13] VITALS: BMI 30.6
== END 2022-09-29 23:59 ==
LOC: CR 09:30
PROVIDERS: PCP Family Medicine; Visit Provider Internal Medicine Cardiovascular Disease
DX: Z95.5 Presence of coronary angioplasty implant and graft (principal)
CPT/HCPCS: 93798

== ENCOUNTER 2022-09-30 08:33 | Day surgery (SDC) | payer SELFPAY, OTHER ==
[2022-09-15 10:43] VITALS: BMI 30.6
[2022-09-30] VITALS (8 sets, daily range): BP systolic 99–130; BP diastolic 63–74; PULSE 57–74; RESP 14–18; TEMP 36.1–36.6; O2SAT 97–98; BMI 29.7
[2022-09-30] MEDS: Lactated Ringers 1,000 ML 15 ML IV (08:45)
--- NOTE | 2022-09-30 09:21 | HP.PCM_ITS ---
History and Physical Date of Admission: 09/30/22 77 F who presents to the office today for heartburn, esophageal spasms. Used to see GI Dr Laws at [facility]. Hx hiatal hernia. Denies CP. Having heartburn, stomach pain, acid reflux. 3 episodes in last 2 wks of esophageal spasms, food can get stuck when the spasms occur, she then induces vomiting. Not taking omeprazole routinely. Used to take omeprazole daily x 2 wks, then she would repeat PPI therapy every 3 mos, doesn't want to take it routinely. But does acknowledge that PPI therapy has been helpful at managing all of the above symptoms. No relief with dicyclomine. Hx LUQ discomfort x yrs, she has been on Citrucel for years, that typically controls that discomfort. Bowels are moving fine, no diarrhea, constipation, melena, hematochezia. Exam Const General: cooperative and comfortable Nutritional Appearance: obese Orientation: alert, awake and oriented x3 HENMT Head: normal to inspection Eyes Sclera: sclerae normal Resp Effort & Inspection: normal respiratory effort GI Inspection: obesity Palpation: soft, no hepatosplenomegaly, no masses and nontender Quality Reporting Tobacco Screening ([facility] 138) Smoking Status: Never smoker Assessment and Plan Assessment and Plan (1) GERD (gastroesophageal reflux disease): ?Status:?Acute ?Plan: 77 yr old [employer] female with heartburn, acid reflux, esophageal spasms. Encouraged her to take omeprazole 20 mg daily (she thinks that helped with spasms previously). Schedule EGD w/ 2 wk f/u in office. (2) Esophageal spasm: ?Status:?Acute ?Plan: as above I have examined the patient and the H&P has been reviewed. There are no clinical changes since date of exam.
--- NOTE | 2022-09-30 09:45 | EGD_PTH ---
PATIENT: ARLEY ORDOÑEZ LOC: EN U#:[id number] AGE/SX: 77/F ROOM: RE09/30/[address]: Dr. Brian Isbell DO : 1945 BED: DIS: 09/30/2022 SPEC #: [id number] RECD: 09/30/22 11:49 STATUS: TIFFANIE COURT #: [id number] DINA: 09/30/22 09:[address]: Brian Isbell DEPT: SURGICAL PATHOLOGY RECD BY: Win Nielsen ENTERED: 09/30/22 13:49 SP TYPE: EGD BIOPSY OT DR: Dr. Gene Roth DO Tissues: Esophagus, NOS Procedures: Special Stain Group II Surgery Specimen Level IV Alcian Blue/PAS (control) HEADER OPERATION: EGD (MAC) and biopsy PRE-OP DIAGNOSIS: GERD and esophageal spasm TISSUE SUBMITTED: Distal esophagus biopsy MICROSCOPIC DIAGNOSIS Distal esophagus, biopsy: Gastroesophageal junctional mucosa with mild chronic inflammation. No evidence of goblet cell metaplasia. See comment. AM:travis 10/01/2022 COMMENT Alcian blue/PAS stain with matched control supports the above diagnosis. MICROSCOPIC DESCRIPTION Slides are reviewed. GROSS DESCRIPTION Received in fixative is one container labeled with the patient's name and designated distal esophagus biopsy. The specimen consists of multiple irregular fragments of light bay soft tissue that in aggregate measure 2 x 0.5 x 0.1 cm. The specimen is totally submitted in one cassette. / SJ:travis 09/30/2022 TC:5 CPT: 93026, 53131
--- NOTE | 2022-09-30 10:11 | OP.EGD_ITS ---
Patient Name: Ina Ace Procedure Date: 09/30/2022 9:43 AM Date of : 1945 Age: 77 Procedure: Upper GI endoscopy Indications: Dysphagia, Heartburn Providers: Brian Isbell DO Medicines: Monitored Anesthesia Care Patient Profile: This is a 77 year old female. Refer to note in patient chart for documentation of history and physical. Patient has symptoms of acute chest pain and chronic heartburn. Complications: No immediate complications. Procedure: Pre-Anesthesia Assessment: - Prior to the procedure, a History and Physical was performed, and patient medications and allergies were reviewed. The patient is competent. The risks and benefits of the procedure and the sedation options and risks were discussed with the patient. All questions were answered and informed consent was obtained. Patient identification and proposed procedure were verified by the physician in the pre-procedure area. Mental Status Examination: alert and oriented. Airway Examination: normal oropharyngeal airway and neck mobility. Respiratory Examination: clear to auscultation. CV Examination: normal. Prophylactic Antibiotics: The patient does not require prophylactic antibiotics. Prior Anticoagulants: The patient has taken no previous anticoagulant or antiplatelet agents. After reviewing the risks and benefits, the patient was deemed in satisfactory condition to undergo the procedure. The anesthesia plan was to use monitored anesthesia care (MAC). Immediately prior to administration of medications, the patient was re-assessed for adequacy to receive sedatives. The heart rate, respiratory rate, oxygen saturations, blood pressure, adequacy of pulmonary ventilation, and response to care were monitored throughout the procedure. The physical status of the patient was re-assessed after the procedure. After obtaining informed consent, the endoscope was passed under direct vision. Throughout the procedure, the patient's blood pressure, pulse, and oxygen saturations were monitored continuously. The gastroscope was introduced through the mouth, and advanced to the second part of duodenum. The upper GI endoscopy was accomplished without difficulty. The patient tolerated the procedure well. Scope In: 9:55:56 AM Scope Out: 10:03:57 AM Total Procedure Duration Time 0 hours 8 minutes 1 second Findings: A severe Schatzki ring was found in the lower third of the esophagus. A guidewire was placed and the scope was withdrawn. Dilation was performed with a Savary dilator with no resistance at 45 Fr. The Z-line was irregular and was found 38 cm from the incisors. Biopsies were taken with a cold forceps for histology. Estimated blood loss: Minimal. A medium-sized hiatal hernia was present. No other significant abnormalities were identified in a careful examination of the stomach. The second portion of the duodenum was normal. Impression: - Severe Schatzki ring. Dilated. - Z-line irregular, 38 cm from the incisors. Biopsied. - Medium-sized hiatal hernia. - Normal second portion of the duodenum. Recommendation: - Discharge patient to home. - Resume previous diet. - Use Protonix (pantoprazole) 40 mg PO BID. - Continue present medications. Procedure Code(s): --- Professional --- 81779, Esophagogastroduodenoscopy, flexible, transoral; with insertion of guide wire followed by passage of dilator(s) through esophagus over guide wire 56517, 59, Esophagogastroduodenoscopy, flexible, transoral; with biopsy, single or multiple CPT copyright 2017 [employer]. All rights reserved. The codes documented in this report are preliminary and upon lumber straightener review may be revised to meet current compliance requirements. Brian Isbell DO 09/30/2022 10:10:33 AM This report has been signed electronically. Number of Addenda: 0 Note Initiated On: 09/30/2022 9:43 AM
--- NOTE | 2022-09-30 10:11 | OP.CCLET_ITS ---
09/30/2022 Gene Roth Re : Upper GI endoscopy procedure for Ina Ace Dear Ira This procedure was performed on Friday, September 30, 2022. My impressions and recommendations are as follows: Impressions : - Severe Schatzki ring. Dilated. - Z-line irregular, 38 cm from the incisors. Biopsied. - Medium-sized hiatal hernia. - Normal second portion of the duodenum. Recommendations : - Discharge patient to home. - Resume previous diet. - Use Protonix (pantoprazole) 40 mg PO BID. - Continue present medications. My findings are described in the full procedure note, which is enclosed. If I can be of further assistance, please feel free to contact me at . Sincerely, Brian Isbell, 09/30/2022 10:10:33 AM This report has been signed electronically.
== END 2022-09-30 11:19 | disposition home or self-care (01) ==
LOC: EN 08:34 → AC 08:35
PROVIDERS: PCP Family Medicine; Referring Provider Internal Medicine Gastroenterology; Visit Provider Internal Medicine Gastroenterology
PROC: 0DJ08ZZ Inspection of Upper Intestinal Tract, Via Natural or Artificial Opening Endoscopic (ICD-10-PCS; CPT 43235; principal; 2022-09-30 09:40)
DX: K22.2 Esophageal obstruction (principal); I25.119 Atherosclerotic heart disease of native coronary artery with unspecified angina pectoris; K22.4 Dyskinesia of esophagus; K44.9 Diaphragmatic hernia without obstruction or gangrene; K21.9 Gastro-esophageal reflux disease without esophagitis; E03.2 Hypothyroidism due to medicaments and other exogenous substances; E78.00 Pure hypercholesterolemia, unspecified; M19.90 Unspecified osteoarthritis, unspecified site; Z95.5 Presence of coronary angioplasty implant and graft; Z79.899 Other long term (current) drug therapy
CPT/HCPCS: 43248; 43239; 88305; 88313; J7120; J2405

== ENCOUNTER 2022-10-05 09:30 | Outpatient (RCR) | payer OTHER, SELFPAY ==
[2022-09-15 10:43] VITALS: BMI 30.6
--- NOTE | 2022-10-09 10:52 | CR.ITP_ITS ---
Diagnosis Exercise - 30-day Assessment - Visit Date of Eval: 10/09/22 Session #:: 5 - Physician Prescribed Exercise Modalities: NuStep, SciFit, Lateral [place] Frequency: 3x/week for 12 weeks [36 sessions] Intensity: 60-80% of age predicted maximum heart rate reserve Current METSs:: 3 Target Heart Rate:: 93-107 Current RPE:: 13-14 Maximum Excercise HR:: 111 Resting Blood Pressure: 160/72 Maximum Exercise Blood Pressure: 160/72 EKG Type: NSR to ST with rare pac and pvc - Outcomes & Goals Goals:: Verbalizes understanding of THR, RPE & goal METS by session 6, Documents in home exercise log/reports 30 min aerobic 5 day/wk by DC, Demonstrates accurate pulse taking by DC, Other additional outcome/goals: see below - Intervention & Plan Exercise Program Goals: Instruct on personal THR & RPE, Instruct on MET level & personal MET goal, Show patient to take own pulse /validate performance until accurate, Instruct on home exercise, Other additional plan/int - 30-day Reassessments 30 day Reassessments:: Progressing - Physical Activity Home Exercise Physical Activity - Home Exercise: Safe Exercise, Warm-up, Self-monitoring, Cool-Down, Home Exercise > 30 min Daily, Sitting Time <3 hours/daily - Outcomes & Goals Outcomes/Goals: Demonstrates correct Warm-up/exercise Cool-Down (S3) if = 2.5 METs, Verbalizes symptoms of exercise intolerance by Session 3 (S3), Demonstrate safe equipment use (S3) & follows exercise prescrition (6), Other: See below - Intervention & Plan Plan/Intervention: Instruct warm-up & cool-down if exercising at > 2 METs, Instruct on symptoms of exercise intolerance & actions to take - THR explained, Instruct & monitor on saf, Assess intial functional capacity & safety risk, Other See below - 30-day Reassessments 30 day Reassessments:: Progressing - cool down explained Nutrition - Initial Assessment Nutrition - 30-Day Assessment - Program Goals Nutrition Program Goals: LDL <100 optimal. 100 - 129 Near optimal. 130 - 159 Borderline High. 160 - 189 High. Total Cholesterol <200 desirable. 200 - 239 Borderline High. >/= 240 High. HDL < 40 Low >/=60 High. Triglycerides <150 desirable. <199 optimal. VlDL 5 - 40. HgbA1C <7%. BMI <25 Patient has diagnosis of Hyperlipidemia (ICD E78)?: Yes - Visit Date of Assessment:: 10/09/22 Session #:: 5 - Cholesterol/Lipids (Other Core Measures) Determine presence & major risk factors that modify LDL goal: Hypertension or hypertensive medication, Low HDL cholesterol <40 mg/dL*, Family history of premature CHD in Male < 55 years: female <65 yearsFa, Age men > 45 years; women >/= 55 years Outcomes/Goals: Pt IDs own risk factors & lifestyle modifications by Session 10, Verbalizes symptoms of angina & response by session 3., Pt independently manages, Other Additional Outcomes/Goals: Intervention/Plan: Advocate for lipid panel cholesterol medication if applicable, Instruct on personal lipid levels & lipid goals/NCEP guidelines, Instruct on cholesterol, Other additional plan/int 30-day Reassessments:: Progressing - encouraged to have bloodwork done - Diabetes (Other Core Measures) Diabetes Type: Not Applicable - Weight Mgt (Other Care) Height: 5 ft 3 in Weight:: 78.471 kg BMI: 30.6 Diagnosis Overweight/Obesity BMI> 30% ICD-10 E66: Yes Diagnosis High BMI/Morbid Obesity BMI> 35% ICD-10 Z68: No Outcomes/Goals: Pt sets, maintains & shows weight loss goal & trend during rehab, Other additional outcomes/goals Intervention/Plan: Instruct on ideal BMI & set weight loss goal w/patient, Assist pt to ID & incorporate diet changes for weight loss by S9, Refer to Structured Weight Loss program as appropriate, Encourage goal of using 250- 300dcal per session for weight loss, Other additional plan/interventions 30 day Reassessments:: Progressing - will attend nutrition class - Healthy Eating Habits Will attend diet classes:: Yes Intervention/Plan:: Assess current eating habits, Other Additional plan/interventions 30-day Reassessments:: Progressing - will attend nutrition class - Education Gave educational materials for:: Signs & symptoms of hypoglycemia, Signs & symptoms of hyperglycemia, Relate diabetes to coronary artery disease, Healthy eating Nutrition - 60-Day Assessment Nutrition - 90-Day Assessment Nutrition - Final Assessment Core - Initial Assessment Core - 30-Day Assessment - Visit Date of Eval: 10/09/22 Session #:: 5 - Medication Compliance Preventative Medication(s):: Aspirin, Ticagrelor/P2Y12 inhibitor, Statin/lipid, Beta buffy H/O mental health issues: depression, anxiety, or addiction?: No Doesn?t believe in the benefits of treatment?: No Believes medications are unnecessary or harmful?: No Has a concern about medication side effects?: No Expresses concern over the cost of medications?: No Outcomes/Goals: Verbalizes medications,desired effect & common side effects @ DC, Pt self-reports following medication regimen, Keeps card in wallet w /medications listed by DC, Other additional outcome/goals: Interventions/plans: Instruct on medication effects & side effects, Review medication list w/patient every two weeks, Instruct importance of taking meds as ordered & assist problem solving, Other additional 30-day Reassessments:: Progressing - encouraged to take meds - Tobacco Use Tobacco Use: Non-smoker - Hypertension Hypertension Diagnosis:: Hypertension ICD-10 I10 Resting Blood Pressure:: 160/72 [employer] Hypertension Guidelines: [place] [employer] Hypertension Guidelines. Normal BP Less than 120/80. Elevated BP 120/80. Hypertension Stage 1: BP 130-139/80-89. Hypertesnion Stage 2: BP 140 or higher/90 or higher. Hypertension Crisis: BP higher than 180/120 Peak Exercise Blood Pressure:: 160/72 Outcomes/Goals: Able to verbalize/achieve optimal blood pressure <130/80, Incorporates diet changes & exercise for blood pressure control by DC, Other additional outcomes/goals Interventions/plan: Instruct on optimal blood pressure, hypertension & medications, Instruct on effects of sodium, alcohol, stress, exercise &hypertension, Other additional plan/interventions 30 day Reassessments:: Progressing - encouraged to take meds - Tobacco Cessation Referral Smoking Cessation Referral:: No Individual Education/Counseling:: No Education Schedule Given:: Yes Core - 60-Day Assessment Core - 90 Day Assessment Core - Final Assessment Psychosocial - Initial Assess Psychosocial - 30-Day Assess - VIsit Date of Eval: 10/09/22 History of previous Mental disease:: No Psychosocial - 60-Day Assess Psychosocial - 90-Day Assess Psychosocial - Final Assessmen Patient Health Questionnaire 30-Day Re-eval Assessment 1. Little interest or pleasure in doing things: Not at all 2. Feeling down, depressed, or hopeless: Not at all 3. Trouble falling or staying asleep, or sleeping too much: Several days 4. Feeling tired or having little energy: Not at all 5. Poor appetite or overeating: Not at all 6. Feeling bad about yourself -- or that you are a failure or have let yourself or your family down: Not at all 7. Trouble concentrating on things, such as reading the newspaper or watching television: Not at all 8. Moving or speaking so slowly that other people could have noticed. Or the opposite - being so fidgety or restless that you have been moving around a lot more than usual: Not at all 9. Thoughts that you would be better off , or of hurting yourself in some way: Not at all How difficult have these problems made it for you to do your work, take care of things at home, or get along with other people?: Not difficult at all Total Score: 1 Self-Efficacy 30-Day Re-eval Assessment We would like to know how confident you are in doing certain activities. Please select your confidence level for:: Select your confidence level for the following using the scale 1-10 where 1 is not at all confident and 10 is totally confident. Your score is the average of all 6 responses. Fatigue: How confident are you that you can keep the fatigue caused by your disease from interfering with the things you want to do? Select Number: 2 Physical Discomfort or Pain: How confident are you that you can keep the physical discomfort or pain of your disease from interfering with the things you want to do? Select Number: 1 Emotional Distress: How confident are you that you can keep the emotional distress caused by your disease from interfering with the things you want to do? Select Number: 3 Other Symptoms or Health Problems: How confident are you that you can keep other symptoms or health problems from interfering with the things you want to do? Select Number: 2 Different Tasks and Activities: How confident are you that you can do the different tasks and activities needed to manage your health condition so as to reduce your need to see a doctor? Select Number: 3 Medication: How confident are you that you can do things other than just taking medication to reduce how much your illness affects your everyday life? Select Number: 4 Total Score:: 2 Nutrition Survey
[2022-10-09 11:01] VITALS: BP 160/72; BMI 30.6
== END 2022-10-27 23:59 ==
LOC: CR 09:30
PROVIDERS: PCP Family Medicine; Visit Provider Internal Medicine Cardiovascular Disease
DX: Z95.5 Presence of coronary angioplasty implant and graft (principal)
CPT/HCPCS: 93798

== ENCOUNTER 2022-10-06 23:29 | Inpatient (IN) | payer OTHER, SELFPAY ==
[2022-09-15 10:43] VITALS: BMI 30.6
[2022-10-06 23:30] VITALS: BP 158/90; PULSE 113; RESP 18; TEMP 36.6; O2SAT 97; BMI 28.8
[2022-10-07] VITALS (22 sets, daily range): BP systolic 105–171; BP diastolic 52–104; PULSE 79–142; RESP 16–18; TEMP 36.7–37.3; O2SAT 95–100; BMI 29.9
--- NOTE | 2022-10-07 00:13 | EKG12_ITS ---
Test Reason : DYSRHYTHMIA Blood Pressure : / mmHG Vent. Rate : 107 BPM Atrial Rate : 107 BPM P-R Int : 178 ms QRS Dur : 072 ms QT Int : 332 ms P-R-T Axes : 072 057 066 degrees QTc Int : 443 ms Sinus tachycardia Otherwise normal ECG Confirmed by MAHNAZ ADHIKARI, HELLEN ([id number]), assistant editor PARISH POLLARD ([id number]) on 10/08/2022 11:46:17 AM Referred By: PAPI Confirmed By:HELLEN JOYA MD
--- NOTE | 2022-10-07 00:15 | EDS_ITS ---
HPI HPI - GI History of Present Illness Chief Complaint: GI Bleed Informant: patient Narrative Narrative: Patient presents tonight with vomiting black and having 2 black bowel movements, she had a couple of nonmelanotic bowel movement earlier in the day. She had some generalized abdominal discomfort tonight and a near syncopal episode prior to vomiting up of the large amount of black emesis. She brought a sample of it in a jar basically looks like black liquid. She has seen no bright red blood in emesis or stools. She is feeling better now, less nauseated. No chest discomfort or dyspnea. She did not pass out. She had an EGD diagnosing a Schatzki ring 1 week or so ago and had mild dilatation but is post to come back for more at a later date because she is on aspirin and Brilinta since she had stents placed 2 months ago. She is to be on the Brilinta for 1 year at least according to the patient. She was doing well for the last week until tonight. She states she has been compliant with her omeprazole 20 mg twice daily since the EGD. [facility] Medical History Arthritis Atherosclerotic heart disease of [place] coronary artery without angina pectoris Back pain Cardiology follow-up encounter Chest pain Chest pain, precordial Dizziness and giddiness Gastric reflux GERD (gastroesophageal reflux disease) Hiatal hernia High cholesterol History of echocardiogram History of edema History of IBS History of pain when walking History of stress test Hyperlipidemia Hypothyroidism, iatrogenic Non-smoker OA (osteoarthritis) of knee Palpitations Post-menopausal Shortness of breath on exertion Thyroid disease Wears glasses Wears partial dentures Home Medications methylcellulose (laxative) 500 mg tablet (Citrucel) 1,000 mg PO QDAY PRN Constipation 09/22/17 [History Last Taken Unknown] nitroglycerin 0.4 mg sublingual tablet 0.4 mg sublingual Q5M PRN chest pain #90 tabs 09/27/17 [Rx Last Taken Unknown] propranolol 20 mg tablet 20 mg PO BID BP/Heart rate 01/02/19 [History Last Taken 09/30/22] ascorbic acid (vitamin C) 500 mg capsule 500 mg PO DAILY PRN Supplement 06/25/21 [History Last Taken Unknown] cholecalciferol (vitamin D3) 10 mcg/drop (400 unit/drop) oral drops 20 mcg PO DAILY Supplement 06/25/22 [History Last Taken Unknown] d-mannose 500 mg capsule 500 mg PO DAILY Kidney 06/25/22 [History Last Taken Unknown] dicyclomine 10 mg capsule 20 mg PO Q6H Stomach 06/25/22 [History Last Taken Unknown] levothyroxine 75 mcg tablet 75 mcg PO DAILY thyroid 06/25/22 [History Last Taken 09/30/22] omeprazole 20 mg capsule,delayed release 20 mg PO DAILY GERD 06/25/22 [History Last Taken Unknown] aspirin 81 mg tablet,delayed release 81 mg PO DAILY heart health 07/14/22 [History Last Taken 09/30/22] atorvastatin 40 mg tablet 40 mg PO QHS Cholesterol 07/14/22 [History Last Taken Unknown] ticagrelor 90 mg tablet (Brilinta) 90 mg PO BID #180 tabs 07/22/22 [Rx Last Taken 09/30/22] simethicone 80 mg chewable tablet (Gas Relief 80 (simethicone)) 80 mg PO BID-QID PRN Gastric Reflux 08/03/22 [History Last Taken Unknown] isosorbide mononitrate 30 mg tablet,extended release 24 hr 30 mg PO BID this is a dose increase #180 tabs 09/28/22 [Rx Last Taken 09/30/22] pantoprazole 40 mg tablet,delayed release 40 mg PO BID #60 tabs 09/30/22 [Rx Last Taken Unknown] Allergy/AdvReac Type Severity Reaction Status Date / Time etodolac Allergy Severe Throat Verified 10/06/22 23:29 tightness, rash acetaminophen [From Percocet] AdvReac Nausea/Vom/ Verified 10/06/22 23:29 Diarrhea morphine AdvReac Nausea/Vom/ Verified 10/06/22 23:29 Diarrhea oxycodone [From Percocet] AdvReac Nausea/Vom/ Verified 10/06/22 23:29 Diarrhea Family History Sister CAD (coronary artery disease) Hx of CABG Sister S/P MVR (mitral valve replacement) Surgical History Cystocele with prolapse History of cardiac catheterization History of cholecystectomy History of coronary artery stent placement (~07/14/22) History of coronary artery stent placement History of total hysterectomy Rectocele Social History number of children: 12 Smoking Status: Never smoker alcohol intake: never substance use type: does not use additional social history: Alessandro Ace ROS ROS ED Constitutional Constitutional ED: Denies chills or fever(s) Eyes Eyes: Denies change in vision or diplopia ENT ENT ED: Denies rhinorrhea or sore throat Cardiovascular Cardiovascular: Reports as per HPI and lightheadedness; Denies chest pain, leg edema or palpitations Respiratory/Chest Respiratory/Chest: Denies cough or dyspnea Gastrointestinal Gastrointestinal: Reports abdominal pain, diarrhea, melena, nausea and vomiting; Denies hematemesis or hematochezia Genitourinary Genitourinary ED: Denies dysuria or hematuria Musculoskeletal Musculoskeletal: Denies back pain or neck pain Integumentary Denies abscess or rash Neurologic Neurologic: Denies headache(s), paresthesias or weakness Psychiatric Psychiatric: Denies anxiety or suicidal thoughts EXAM Physical Exam Const Vital Signs: 10/06/22 23:30 Temperature 97.8 F Temperature Source Temporal Pulse Rate 113 H Respiratory Rate 18 Blood Pressure 158/90 H Blood Pressure Mean 112 Pulse Ox 97 Oxygen Delivery Method Room Air Positive well nourished and well developed General Appearance ED: well developed and NAD HEENT Reports moist mucous membranes normocephalic and atraumatic Eyes PERRL and EOMs intact bilaterally Neck full ROM and supple Resp normal respiratory effort and clear to auscultation bilaterally Cardio regular rate, regular rhythm and no murmurs Rate: tachycardic GI non-distended GI Narrative: Mildly tender left upper quadrant no guarding or rebound no pulsatile masses, benign abdomen. Auscultation: normoactive bowel sounds Palpation: soft Back/Spine no CVA tenderness General Back: other FROM Extremity normal to inspection General Extremety ED: Negative for edema, pulses abnormal or tenderness General Extremity: Negative for edema or pulses abnormal Neuro oriented x3, CN's II-XII intact bilaterally and no sensory deficits noted Neuro Narrative: Appears well, conversive in full sentences. Sensorium / Orientation: awake and alert Motor Exam: strength 5/5 throughout Psych mental status grossly normal and thought process normal Skin no rashes or lesions noted and no wounds MDM MDM MDM Narrative Medical decision making narrative: Suspect upper GI bleeding. She does not likely need emergent EGD since she is not vomiting bright red blood, however I do think she should be admitted on a Protonix drip. She is on aspirin and Brilinta because of recent coronary PCI, and that may not necessarily be safely discontinued given the risk of occlusion/in-stent stenosis as long as the patient remains relatively stable here. That was started here after an 80 mg bolus. Type and screen sent. Labs sent and I discussed with Dr. Isbell who is in agreement with this and will likely scope her in the morning. She does have acute blood loss anemia, but does not require transfusion at this time since her hemoglobin is 11.3, and her vital signs have remained stable and improved with IV fluids. Discussed w/ hospitalist Dr. Harris. Lab Data Attestation: I reviewed the patient's lab results. Labs: Laboratory Results - last 24 hr 10/07/22 10/07/22 10/07/22 00:01 00:01 00:01 WBC 8.3 RBC 3.67 L Hgb 11.3 L Hct 34.6 L MCV 94.3 MCH 30.8 MCHC 32.7 RDW Std Deviation 43.5 RDW Coeff of [place] 12.6 Plt Count 187 MPV 11.5 Immature Gran % (Auto) 0.500 Neut % (Auto) 74.0 H Lymph % (Auto) 17.2 L [place] % (Auto) 6.8 Eos % (Auto) 1.1 Baso % (Auto) 0.4 Absolute Neuts (auto) 6.1 Absolute Lymphs (auto) 1.43 Nucleated RBC % 0 Sodium 140 Potassium 3.8 Chloride 106 Carbon Dioxide 25.0 Anion Gap 9 BUN 32 H Creatinine 0.70 Estim Creat Clear Calc 38.97 Est GFR (MDRD) Af Amer 104 Est GFR (MDRD) Non-Af 86 BUN/Creatinine Ratio 45.6 H Glucose 126 H Calcium 8.7 Troponin I High Sens 12 Blood Type A POSITIVE Antibody Screen NEGATIVE Rhythm Strip Rhythm Strip: Sinus Tach Rate: 110 Ectopy: None EKG Initial EKG: Attestation: I personally reviewed and interpreted this EKG as follows: Interpretation: No Acute Injury Pattern and Sinus Tachycardia Discharge Plan Dx/Rx/DC Orders Clinical Impression: Acute upper gastrointestinal bleeding, ABLA (acute blood loss anemia), Near syncope Disposition Disposition: Acute Care Hospital [facility]
[2022-10-07 00:45] LABS: Absolute Lymphocyte Count 1.43 X10^3/uL (0.83-4.51); Absolute Neutrophil Count 6.1 X10^3/uL (2.0-7.7); Basophil# 0.03 X10^3/uL; Basophil% 0.4 % (0-1); Eosinophil# 0.09 X10^3/uL; Eosinophils% 1.1 % (0-5); Hematocrit 34.6 % (37-47); Hemoglobin 11.3 g/dL (12.0-15.0); Lymphocyte # 1.43 X10^3/ul (0.83-4.51); Lymphocyte % 17.2 % (19-41); Mean Corp Hgb Conc 32.7 g/dL (32-36); Mean Corpuscular Hgb 30.8 pg (27.0-32.0); Mean Corpuscular Volume 94.3 fL (81-99); Mean Platelet Vol. 11.5 fl (6.2-12.0); Monocyte# 0.56 X10^3/uL; Monocyte% 6.8 % (0-10); NRBC Flagged by Analyzer 0 % (0-5); Neutrophil # 6.14 X10^3/uL (2.7-7.7); Platelet Count 187 K/mm3 (150-450); RBC Distribution Width CV 12.6 % (11.6-14.6); RBC Distribution Width SD 43.5 fl (35.1-43.9); Red Blood Count 3.67 M/mm3 (4.2-5.4); White Blood Count 8.3 K/mm3 (4.4-11.0)
[2022-10-07] MEDS: Ondansetron 4 MG/2 ML Vial IV ×2 (00:54→18:34)
[2022-10-07 01:12] LABS: Anion Gap 9 (5-15); BUN 32 mg/dL (7-18); BUN/Creat Ratio 45.6 RATIO (10-20); Calcium,Total 8.7 mg/dL (8.5-10.1); Chloride 106 mmol/L (98-107); EST Glomerular Filtration Rate 86 mL/min (>60); Est Glom Filt Rate - Afr Amer 104 mL/min (>60); Estimated Creatinine Clearance 38.97 ml/min; Glucose 126 mg/dL (74-106); Potassium 3.8 mmol/L (3.5-5.1); Sodium Level 140 mmol/L (136-145); Troponin-I HS 12 pg/mL (3.0-54.0)
--- NOTE | 2022-10-07 01:42 | HP.PCM.HOS_ITS ---
HPI - General General Date of Admission: 10/07/22 Date of Service: 10/07/22 Chief Complaint: Melena and coffee-ground emesis HPI Narrative ARLEY ACE, is a 77 F who for significant history of CAD status post PTCA/MARY in June 2022 with stents in LAD and RCA; and Schatzki ring status post dilatation on 09/30/2022 and who is on aspirin and Brilinta presents emergency department with coffee-ground emesis and melena that started on the same night the patient presented to the emergency department. Also patient reports lightheadedness and near syncope. Both vomitus and stool that patient brought to emergency department tested positive for blood. Emergency department doctor discussed the case with GI who recommended that patient be kept n.p.o. Patient was started on Protonix drip at the emergency department. [facility] Medical History Arthritis Atherosclerotic heart disease of [place] coronary artery without angina pectoris Back pain Cardiology follow-up encounter Chest pain Chest pain, precordial Dizziness and giddiness Gastric reflux GERD (gastroesophageal reflux disease) Hiatal hernia High cholesterol History of echocardiogram History of edema History of IBS History of pain when walking History of stress test Hyperlipidemia Hypothyroidism, iatrogenic Non-smoker OA (osteoarthritis) of knee Palpitations Post-menopausal Shortness of breath on exertion Thyroid disease Wears glasses Wears partial dentures Home Medications methylcellulose (laxative) 500 mg tablet (Citrucel) 1,000 mg PO QDAY PRN Constipation 09/22/17 [History Last Taken Unknown] nitroglycerin 0.4 mg sublingual tablet 0.4 mg sublingual Q5M PRN chest pain #90 tabs 09/27/17 [Rx Last Taken Unknown] propranolol 20 mg tablet 20 mg PO BID BP/Heart rate 01/02/19 [History Last Taken 09/30/22] ascorbic acid (vitamin C) 500 mg capsule 500 mg PO DAILY PRN Supplement 06/25/21 [History Last Taken Unknown] cholecalciferol (vitamin D3) 10 mcg/drop (400 unit/drop) oral drops 20 mcg PO DAILY Supplement 06/25/22 [History Last Taken Unknown] d-mannose 500 mg capsule 500 mg PO DAILY Kidney 06/25/22 [History Last Taken Unknown] dicyclomine 10 mg capsule 20 mg PO Q6H Stomach 06/25/22 [History Last Taken Unk nown] levothyroxine 75 mcg tablet 75 mcg PO DAILY thyroid 06/25/22 [History Last Taken 09/30/22] omeprazole 20 mg capsule,delayed release 20 mg PO DAILY GERD 06/25/22 [History Last Taken Unknown] aspirin 81 mg tablet,delayed release 81 mg PO DAILY heart health 07/14/22 [History Last Taken 09/30/22] atorvastatin 40 mg tablet 40 mg PO QHS Cholesterol 07/14/22 [History Last Taken Unknown] ticagrelor 90 mg tablet (Brilinta) 90 mg PO BID #180 tabs 07/22/22 [Rx Last Taken 09/30/22] simethicone 80 mg chewable tablet (Gas Relief 80 (simethicone)) 80 mg PO BID-QID PRN Gastric Reflux 08/03/22 [History Last Taken Unknown] isosorbide mononitrate 30 mg tablet,extended release 24 hr 30 mg PO BID this is a dose increase #180 tabs 09/28/22 [Rx Last Taken 09/30/22] pantoprazole 40 mg tablet,delayed release 40 mg PO BID #60 tabs 09/30/22 [Rx Last Taken Unknown] Allergy/AdvReac Type Severity Reaction Status Date / Time etodolac Allergy Severe Throat Verified 10/06/22 23:29 tightness, rash acetaminophen [From Percocet] AdvReac Nausea/Vom/ Verified 10/06/22 23:29 Diarrhea morphine AdvReac Nausea/Vom/ Verified 10/06/22 23:29 Diarrhea oxycodone [From Percocet] AdvReac Nausea/Vom/ Verified 10/06/22 23:29 Diarrhea Family History Sister CAD (coronary artery disease) Hx of CABG Sister S/P MVR (mitral valve replacement) Surgical History Cystocele with prolapse History of cardiac catheterization History of cholecystectomy History of coronary artery stent placement (~07/14/22) History of coronary artery stent placement History of total hysterectomy Rectocele Social History number of children: 12 Smoking Status: Never smoker alcohol intake: never substance use type: does not use additional social history: Alessandro Ace ROS ROS Narrative Pertinent positives and pertinent negatives as noted in HPI. All other systems were reviewed and are negative Vital Signs Vital Signs Vital Signs: 10/06/22 23:30 Temperature 97.8 F Temperature Source Temporal Pulse Rate 113 H Respiratory Rate 18 Blood Pressure 158/90 H Blood Pressure Mean 112 Pulse Ox 97 Oxygen Delivery Method Room Air Weight Weight: 73.936 kg Body Mass Index (BMI) 28.8 Physical Exam Narrative Physical exam: General: Well-nourished, well-developed. Head: Normocephalic, atraumatic, no tenderness Eyes: Vision is grossly intact. EOMI ENT, no trauma, dry mucous membranes, no rhinorrhea Neck: Nontender, No thyromegaly. CVS: Regular rate and rhythm. S1-S2 present. No murmur, gallop or rub. Respiratory : clear to auscultation bilaterally, chest wall nontender, no wheezing Abdomen: Soft, nontender, nondistended, normal bowel sounds, no masses : Deferred Back: Nontender, no CVA tenderness, no midline spinal tenderness, deformities, step-offs Extremities: Nontender full range of motion, no trauma Skin: Pale, no trauma, abrasions Neuro: Alert, oriented, cranial nerves II through XII grossly intact. Psychiatry: Normal mood. Normal affect. Not depressed. Not anxious. Results Lab / Micro Data Result Diagrams: 10/07/22 00:01 10/07/22 00:01 Labs: Laboratory Results - last 24 hr 10/07/22 00:01: WBC 8.3, RBC 3.67 L, Hgb 11.3 L, Hct 34.6 L, MCV 94.3, MCH 30.8, MCHC 32.7, RDW Std Deviation 43.5, RDW Coeff of Randolph 12.6, Plt Count 187, MPV 11.5, Immature Gran % (Auto) 0.500, Neut % (Auto) 74.0 H, Lymph % (Auto) 17.2 L, Iron % (Auto) 6.8, Eos % (Auto) 1.1, Baso % (Auto) 0.4, Absolute Neuts (auto) 6.1, Absolute Lymphs (auto) 1.43, Nucleated RBC % 0 10/07/22 00:01: Sodium 140, Potassium 3.8, Chloride 106, Carbon Dioxide 25.0, Anion Gap 9, BUN 32 H, Creatinine 0.70, Estim Creat Clear Calc 38.97, Est GFR (MDRD) Af Amer 104, Est GFR (MDRD) Non-Af 86, BUN/Creatinine Ratio 45.6 H, Glucose 126 H, Calcium 8.7, Troponin I High Sens 12 10/07/22 00:01: Blood Type A POSITIVE, Antibody Screen NEGATIVE Micro: Microbiology 10/07/22 00:30 Vomitus Gastric Occult Blood - Final Occult Blood Positive 10/07/22 00:30 Stool Stool Occult Blood (MARCO ANTONIO) - Final Occult Blood Positive Rhythm Strip Rhythm Strip: Sinus Tach Rate: 110 Ectopy: None Assessment & Plan Assessment/Plan (1) ABLA (acute blood loss anemia): (2) Acute upper gastrointestinal bleeding: PLAN: Plan ABLA Review of labs shows hemoglobin of 11.3 on presentation. Patient hemoglobin on 07/15/2020 was 13.3; on 07/14/2020 hemoglobin was 15.1. Admit to monitored bed on [facility] EGD on 020 07/19/2023 was reviewed. Schatzki rings were found and there was some dilatation. IV fluids ordered H&H every 6 hours Hold antiplatelets No anticoagulants for DVT prophylaxis SCD Protonix drip started emergency department and continued. Keep patient NPO. GI consult CAD status post stents Stable Hold antiplatelets as above Cardiac catheterization on 07/14/2022 was reviewed. Drug eluting stent was placed in LAD and RCA. DVT prophylaxis: SCDs ordered. Charges/Coding Visit Charges Inpatient E&M: 76298 Init Hosp L3
[2022-10-07] MEDS: 0.9% Normal Saline 1,000 ML 75 ML IV (03:32)
[2022-10-07 06:05] LABS: Hematocrit 29.4 % (37-47); Hemoglobin 9.8 g/dL (12.0-15.0)
[2022-10-07 06:33] LABS: Anion Gap 4 (5-15); BUN 41 mg/dL (7-18); BUN/Creat Ratio 68.3 RATIO (10-20); Calcium,Total 7.8 mg/dL (8.5-10.1); Chloride 111 mmol/L (98-107); EST Glomerular Filtration Rate 103 mL/min (>60); Est Glom Filt Rate - Afr Amer 125 mL/min (>60); Estimated Creatinine Clearance 38.97 ml/min; Glucose 93 mg/dL (74-106); Potassium 3.8 mmol/L (3.5-5.1); Sodium Level 144 mmol/L (136-145)
--- NOTE | 2022-10-07 07:00 | EX.PCM.CON.G ---
HPI Consult Data Date of Consult: 10/07/22 HPI Narrative Reason for Consultation: GI bleed HPI Narrative: ARLEY ACE, is a 77 F who presents with melena and hematemesis. She complains of vomiting black and having 2 black bowel movements, she had a couple of nonmelanotic bowel movement earlier in the day.? She had some generalized abdominal discomfort tonight and a near syncopal episode prior to vomiting up of the large amount of black emesis.? She brought a sample of it in a jar basically looks like black liquid.? She has seen no bright red blood in emesis or stools.? She is feeling better now, less nauseated.? No chest discomfort or dyspnea.? She did not pass out.? She is to be on the Brilinta for 1 year at least according to the patient.? She was doing well for the last week until tonight.? She states she has been compliant with her omeprazole 20 mg twice daily since the EGD. [facility] History (Updated 10/07/22 @ 03:00 by Daphney Vivas) Arthritis Atherosclerotic heart disease of [place] coronary artery without angina pectoris Back pain Cardiology follow-up encounter Chest pain Chest pain, precordial Dizziness and giddiness Gastric reflux GERD (gastroesophageal reflux disease) Hiatal hernia High cholesterol History of echocardiogram History of edema History of IBS History of pain when walking History of stress test Hyperlipidemia Hypothyroidism Hypothyroidism, iatrogenic Non-smoker OA (osteoarthritis) of knee Osteoporosis Palpitations Post-menopausal Shortness of breath on exertion Thyroid disease Wears glasses Wears partial dentures Home Medications methylcellulose (laxative) 500 mg tablet (Citrucel) 1,000 mg PO QDAY PRN Constipation 09/22/17 [History Last Taken Unknown] nitroglycerin 0.4 mg sublingual tablet 0.4 mg sublingual Q5M PRN chest pain #90 tabs 09/27/17 [Rx Last Taken Unknown] propranolol 20 mg tablet 20 mg PO BID BP/Heart rate 01/02/19 [History Last Taken 09/30/22] ascorbic acid (vitamin C) 500 mg capsule 500 mg PO DAILY PRN Supplement 06/25/21 [History Last Taken Unknown] cholecalciferol (vitamin D3) 10 mcg/drop (400 unit/drop) oral drops 20 mcg PO DAILY Supplement 06/25/22 [History Last Taken Unknown] d-mannose 500 mg capsule 500 mg PO DAILY Kidney 06/25/22 [History Last Taken Unknown] dicyclomine 10 mg capsule 20 mg PO Q6H Stomach 06/25/22 [History Last Taken Unknown] levothyroxine 75 mcg tablet 75 mcg PO DAILY thyroid 06/25/22 [History Last Taken 09/30/22] aspirin 81 mg tablet,delayed release 81 mg PO DAILY heart health 07/14/22 [History Last Taken 09/30/22] atorvastatin 40 mg tablet 40 mg PO QHS Cholesterol 07/14/22 [History Last Taken Unknown] ticagrelor 90 mg tablet (Brilinta) 90 mg PO BID #180 tabs 07/22/22 [Rx Last Taken 09/30/22] simethicone 80 mg chewable tablet (Gas Relief 80 (simethicone)) 80 mg PO BID-QID PRN Gastric Reflux 08/03/22 [History Last Taken Unknown] isosorbide mononitrate 30 mg tablet,extended release 24 hr 30 mg PO BID this is a dose increase #180 tabs 09/28/22 [Rx Last Taken 09/30/22] pantoprazole 40 mg tablet,delayed release 40 mg PO BID #60 tabs 09/30/22 [Rx Last Taken Unknown] Allergy/AdvReac Type Severity Reaction Status Date / Time etodolac Allergy Severe Throat Verified 10/06/22 23:29 tightness, rash morphine AdvReac Itching, Verified 10/07/22 03:09 rash oxycodone [From Percocet] AdvReac Nausea/Vom/ Verified 10/06/22 23:29 Diarrhea Family History Sister CAD (coronary artery disease) Hx of CABG Sister S/P MVR (mitral valve replacement) Surgical History (Updated 10/07/22 @ 03:00 by Daphney Vivas) Cystocele with prolapse History of appendectomy History of cardiac catheterization History of cholecystectomy History of coronary artery stent placement (~07/14/22) History of coronary artery stent placement History of total hysterectomy Rectocele Social History number of children: 12 Smoking Status: Never smoker alcohol intake: never substance use type: does not use additional social history: Alessandro Ace ROS ROS Narrative Pertinent positives and pertinent negatives as noted in HPI. All other systems were reviewed and are negative Physical Exam Const alert, oriented x3 and no apparent distress HEENT head/scalp atraumatic, moist oral mucous membranes and oropharynx normal Head and Scalp: normocephalic Mouth: oral and palatal mucosa normal Neck no lymphadenopathy, supple and no JVD Resp normal respiratory effort, no retractions, no use of accessory muscles and clear to auscultation bilaterally Cardio regular rate, regular rhythm, S1 normal heart sound, S2 normal heart sound and no murmurs GI normal to inspection, nondistended, normoactive bowel sounds and soft to palpation GI Narrative: minimal generalised tenderness, no guarding or rebound tenderness Extremity normal to inspection, full ROM and no clubbing, cyanosis or edema Neuro oriented x3, CN's II-XII intact bilaterally, moves all extremities and no focal motor deficits Sensorium / Orientation: awake and alert Motor Exam: strength 5/5 throughout Psych affect normal Lab / Micro Data Result Diagrams: 10/07/22 17:00 10/07/22 05:53 Labs: Laboratory Results - last 24 hr 10/07/22 00:01: WBC 8.3, RBC 3.67 L, Hgb 11.3 L, Hct 34.6 L, MCV 94.3, MCH 30.8, MCHC 32.7, RDW Std Deviation 43.5, RDW Coeff of Randolph 12.6, Plt Count 187, MPV 11.5, Immature Gran % (Auto) 0.500, Neut % (Auto) 74.0 H, Lymph % (Auto) 17.2 L, [place] % (Auto) 6.8, Eos % (Auto) 1.1, Baso % (Auto) 0.4, Absolute Neuts (auto) 6.1, Absolute Lymphs (auto) 1.43, Nucleated RBC % 0 10/07/22 00:01: Sodium 140, Potassium 3.8, Chloride 106, Carbon Dioxide 25.0, Anion Gap 9, BUN 32 H, Creatinine 0.70, Estim Creat Clear Calc 38.97, Est GFR (MDRD) Af Amer 104, Est GFR (MDRD) Non-Af 86, BUN/Creatinine Ratio 45.6 H, Glucose 126 H, Calcium 8.7, Troponin I High Sens 12 10/07/22 00:01: Blood Type A POSITIVE, Antibody Screen NEGATIVE 10/07/22 05:53: Sodium 144, Potassium 3.8, Chloride 111 H, Carbon Dioxide 29.0, Anion Gap 4 L, BUN 41 H, Creatinine 0.60, Estim Creat Clear Calc 38.97, Est GFR (MDRD) Af Amer 125, Est GFR (MDRD) Non-Af 103, BUN/Creatinine Ratio 68.3 H, Glucose 93, Calcium 7.8 L 10/07/22 05:53: Hgb 9.8 L, Hct 29.4 L 10/07/22 12:21: Crossmatch See Detail 10/07/22 17:00: Hgb 9.4 L, Hct 28.7 L Micro: Microbiology 10/07/22 00:30 Vomitus Gastric Occult Blood - Final Occult Blood Positive 10/07/22 00:30 Stool Stool Occult Blood (MARCO ANTONIO) - Final Occult Blood Positive Rhythm Strip Rhythm Strip: Sinus Tach Rate: 110 Ectopy: None Assessment & Plan Assessment/Plan (1) ABLA (acute blood loss anemia): (2) Acute upper gastrointestinal bleeding: PLAN: Plan ABLA Review of labs shows hemoglobin of 11.3 on presentation. Patient hemoglobin on 07/15/2020 was 13.3; on 07/14/2020 hemoglobin was 15.1. Admit to monitored bed on Medsurg IV fluids ordered H&H every 6 hours Hold antiplatelets No anticoagulants for DVT prophylaxis SCD Protonix drip started emergency department and continued. Keep patient NPO. She will undergo an EGD CAD status post stents Stable Hold antiplatelets as above Cardiac catheterization on 07/14/2022 was reviewed. Drug eluting stent was placed in LAD and RCA. DVT prophylaxis: SCDs ordered. Charges/Coding Visit Charges Inpatient E&M: 74280 Init Hosp L2
[2022-10-07] MEDS: Lactated Ringers 1,000 ML 15 ML IV (10:55)
--- NOTE | 2022-10-07 11:19 | PN.HOSP_ITS ---
Reason for Visit Reason for Visit: Diagnoses Acute posthemorrhagic anemia (10/07/22) Gastrointestinal hemorrhage, unspecified (10/07/22) Subjective Subjective Patient seen and examined. and daughter were by her bedside. Discussed generalized abdominal pain. She had some dark stools this morning. She denied any nausea or vomiting or any coffee-ground emesis. Review of systems otherwise negative. She has remained hemodynamically stable. hb is 9.8. Objective Data Objective Data Vital Signs: Vital Signs Temp Pulse Resp BP Pulse Ox O2 Del Method 99.1 F 111 H 18 106/65 96 Room Air 10/07/22 08:21 10/07/22 08:21 10/07/22 09:06 10/07/22 08:21 10/07/22 08:21 10/07/22 09:06 Oxygen Delivery Method Room Air Weight: 169 lb 5 oz Body Mass Index (BMI) 29.9 Intake & Output: Intake and Output for Last 24 Hours 10/05/22 10/06/22 10/07/22 23:59 23:59 23:59 Intake Total 535 / 535 Balance 535 / 535 Lab / Micro Data Result Diagrams: 10/07/22 05:53 10/07/22 05:53 Labs: Laboratory Results - last 24 hr 10/07/22 00:01: WBC 8.3, RBC 3.67 L, Hgb 11.3 L, Hct 34.6 L, MCV 94.3, MCH 30.8, MCHC 32.7, RDW Std Deviation 43.5, RDW Coeff of Randolph 12.6, Plt Count 187, MPV 11.5, Immature Gran % (Auto) 0.500, Neut % (Auto) 74.0 H, Lymph % (Auto) 17.2 L, [place] % (Auto) 6.8, Eos % (Auto) 1.1, Baso % (Auto) 0.4, Absolute Neuts (auto) 6.1, Absolute Lymphs (auto) 1.43, Nucleated RBC % 0 10/07/22 00:01: Sodium 140, Potassium 3.8, Chloride 106, Carbon Dioxide 25.0, Anion Gap 9, BUN 32 H, Creatinine 0.70, Estim Creat Clear Calc 38.97, Est GFR (MDRD) Af Amer 104, Est GFR (MDRD) Non-Af 86, BUN/Creatinine Ratio 45.6 H, Glucose 126 H, Calcium 8.7, Troponin I High Sens 12 10/07/22 00:01: Blood Type A POSITIVE, Antibody Screen NEGATIVE 10/07/22 05:53: Sodium 144, Potassium 3.8, Chloride 111 H, Carbon Dioxide 29.0, Anion Gap 4 L, BUN 41 H, Creatinine 0.60, Estim Creat Clear Calc 38.97, Est GFR (MDRD) Af Amer 125, Est GFR (MDRD) Non-Af 103, BUN/Creatinine Ratio 68.3 H, Glucose 93, Calcium 7.8 L 10/07/22 05:53: Hgb 9.8 L, Hct 29.4 L Micro: Microbiology 10/07/22 00:30 Vomitus Gastric Occult Blood - Final Occult Blood Positive 10/07/22 00:30 Stool Stool Occult Blood (MARCO ANTONIO) - Final Occult Blood Positive Rhythm Strip Rhythm Strip: Sinus Tach Rate: 110 Ectopy: None Physical Exam Const alert, oriented x3 and no apparent distress HEENT head/scalp atraumatic, moist oral mucous membranes and oropharynx normal Head and Scalp: normocephalic Mouth: oral and palatal mucosa normal Neck no lymphadenopathy, supple and no JVD Resp normal respiratory effort, no retractions, no use of accessory muscles and clear to auscultation bilaterally Cardio regular rate, regular rhythm, S1 normal heart sound, S2 normal heart sound and no murmurs GI normal to inspection, nondistended, normoactive bowel sounds and soft to palpation GI Narrative: minimal generalised tenderness, no guarding or rebound tenderness Extremity normal to inspection, full ROM and no clubbing, cyanosis or edema Neuro oriented x3, CN's II-XII intact bilaterally, moves all extremities and no focal motor deficits Sensorium / Orientation: awake and alert Motor Exam: strength 5/5 throughout Psych affect normal Assessment & Plan Assessment/Plan (1) Acute upper gastrointestinal bleeding: (2) ABLA (acute blood loss anemia): PLAN: Plan #Acute GI bleed * admitted with a complaint of dark stools and coffee ground emesis * she did have EGD on 09/18/2022 which showed Schatzki's rings, which were dilated * currently NPO * GI consulted * brilinta on hold. * hydrate gently with iVF * will likely need EGD today * on protonix drip * #CAD s/p stents * Had drug-eluting stents inserted on 07/14/2022. Brilinta currently on hold. Patient worried about Brilinta being held as she was told to stop taking it. Patient advised that in light of a GI bleed, Brilinta will need to be held until after the EGD family on results of family received. * Aspirin also on hold. On statin and imdur * #Acute blood loss anemia * Hb is 9.8. Was 11.3 yesterday and 13.3 in June 2022. * Likely due to acute blood loss. Will monitor hemoglobin. * Transfuse if Hb less than 7. * #Hyperlipidemia: On statin which is currently on hold. #Hypothyroidism; on synthroid #Hypertension: on propranolol. DVT prophylaxis: SCDs Charges/Coding Visit Charges Inpatient E&M: 39780 Subs Hosp L2
--- NOTE | 2022-10-07 13:21 | OP.CCLET_ITS ---
10/07/2022 Gene Roth Re : Upper GI endoscopy procedure for Ina Ace Dear Ira This procedure was performed on Friday, October 07, 2022. My impressions and recommendations are as follows: Impressions : - LA Grade B reflux esophagitis. - Oozing gastric ulcer with a visible vessel. Injected. - Oozing gastric ulcer with a visible vessel. Treated with a monopolar probe. - Normal second portion of the duodenum. - No specimens collected. Recommendations : - [facility] to [facility]. - NPO. - Continue present medications. My findings are described in the full procedure note, which is enclosed. If I can be of further assistance, please feel free to contact me at . Sincerely, Brian Isbell, 10/07/2022 1:21:13 PM This report has been signed electronically.
--- NOTE | 2022-10-07 13:21 | OP.EGD_ITS ---
Patient Name: Ina Ace Procedure Date: 10/07/2022 11:53 AM Date of : 1945 Age: 77 Procedure: Upper GI endoscopy Indications: Coffee-ground emesis Providers: Brian Isbell DO Medicines: Monitored Anesthesia Care Patient Profile: This is a 77 year old female. Refer to note in patient chart for documentation of history and physical. Patient has symptoms of acute vomiting. Complications: No immediate complications. Procedure: Pre-Anesthesia Assessment: - Prior to the procedure, a History and Physical was performed, and patient medications and allergies were reviewed. The patient is competent. The risks and benefits of the procedure and the sedation options and risks were discussed with the patient. All questions were answered and informed consent was obtained. Patient identification and proposed procedure were verified by the physician in the pre-procedure area. Mental Status Examination: alert and oriented. Airway Examination: normal oropharyngeal airway and neck mobility. Respiratory Examination: clear to auscultation. CV Examination: normal. Prophylactic Antibiotics: The patient does not require prophylactic antibiotics. Prior Anticoagulants: The patient has taken no previous anticoagulant or antiplatelet agents. ASA Grade Assessment: II - A patient with mild systemic disease. After reviewing the risks and benefits, the patient was deemed in satisfactory condition to undergo the procedure. The anesthesia plan was to use monitored anesthesia care (MAC). Immediately prior to administration of medications, the patient was re-assessed for adequacy to receive sedatives. The heart rate, respiratory rate, oxygen saturations, blood pressure, adequacy of pulmonary ventilation, and response to care were monitored throughout the procedure. The physical status of the patient was re-assessed after the procedure. After obtaining informed consent, the endoscope was passed under direct vision. Throughout the procedure, the patient's blood pressure, pulse, and oxygen saturations were monitored continuously. The Endoscope was introduced through the mouth, and advanced to the second part of duodenum. The upper GI endoscopy was accomplished without difficulty. The patient tolerated the procedure well. Scope In: 12:31:01 PM Scope Out: 12:48:43 PM Total Procedure Duration Time 0 hours 17 minutes 42 seconds Findings: LA Grade B (one or more mucosal breaks greater than 5 mm, not extending between the tops of two mucosal folds) esophagitis with no bleeding was found 35 to 38 cm from the incisors. One oozing cratered gastric ulcer with a visible vessel was found in the gastric fundus. The lesion was 6 mm in largest dimension. Area was successfully injected with 7 mL of a 1:10,000 solution of epinephrine for drug delivery. One oozing cratered gastric ulcer with a visible vessel was found in the gastric body. The lesion was 6 mm in largest dimension. Coagulation for hemostasis using monopolar probe was successful. The second portion of the duodenum was normal. Impression: - LA Grade B reflux esophagitis. - Oozing gastric ulcer with a visible vessel. Injected. - Oozing gastric ulcer with a visible vessel. Treated with a monopolar probe. - Normal second portion of the duodenum. - No specimens collected. Recommendation: - [facility] to [facility]. - NPO. - Continue present medications. Procedure Code(s): --- Professional --- 30991, Esophagogastroduodenoscopy, flexible, transoral; with control of bleeding, any method 36453, 59,51, Esophagogastroduodenoscopy, flexible, transoral; with directed submucosal injection(s), any substance CPT copyright 2017 [employer]. All rights reserved. The codes documented in this report are preliminary and upon electronic warfare officer review may be revised to meet current compliance requirements. Brian Isbell DO 10/07/2022 1:21:13 PM This report has been signed electronically. Number of Addenda: 0 Note Initiated On: 10/07/2022 11:53 AM
[2022-10-07] MEDS: Ipratropium/Albuterol Sulfate 3 ML AMPUL.NEB INHALATION (13:35)
--- NOTE | 2022-10-07 13:53 | SUR.PHASEI ---
1345 - PATIENT WITH 1 UNIT PACKED RED BLOOD CELLS RUNNING ON ARRIVAL TO PACU. STARTED BY ENDO STAFF DURING EGD. UNIT FINISHED INFUSING AT 1345 WITH VITAL SIGNS 146/70, HEART RATE 97, RESPIRATIONS 18, 96% ON ROOM AIR AND TEMPERATURE 98.7 TEMPORALLY.
--- NOTE | 2022-10-07 14:55 | NURSING ---
PT RETURN FROM PROCEDURE SHE IS AWAKE. PLACED ON 2 LNC SPO2@96% NOW. INSTRUCTED TO USE CALL LIGHT FOR ALL ASSIST. SHE IS ALSO NOTIFIED SHE WILL BE ASSISTED WITH THE BED MADDEN. PER SAFETY MEASURES SHE IS NOT ADVISED TO BE UP TO THE BATHROOM YET.
--- NOTE | 2022-10-07 16:15 | CASEMGMT ---
RN CM DATA MODELING ARCHITECT CM to room to meet with patient for initial transition planning/care coordination assessment. RN KUMAR introduced self and role at [facility].? Pt resting in bed w/eyes closed in no distress at this time.? Family @ bedside: , son-William, and dtr-Gracie. The following information obtained mostly from Gracie. Care providers, pharmacy, and demographics verified/updated at this time. PCP: Dr Roth Specialists: Dr Mcrae-cardio, Dr Isbell-GI Preferred Pharmacy: [facility] Retail Insurance: AC Prescription Benefit:? None Living Will/HPOA:? Pt does not currently have LW/HCPOA LNOK: , Alessandro Living Arrangements: Lives w/ in 2-story home w/3 steps to enter. FFSU. Indep w/ADL's and manages her own medications. Pt does cooking. Family does most other home mgmt tasks. Transportation: Hire drivers DME: Pt has a walker that she uses on occasion. HHC/SNF: No hx of either. No needs identified at this time. Pt [facility] Family wish for pt to return home and state no concerns with her going home at time of discharge.? CM to follow for any discharge planning/needs.? Family voice no concerns/needs at this time.? Advised them to ask for CM if any questions/concerns/needs arise.? PLAN: ?Home w/family support and discharge plans in place. Maribel MCGREGOR RN, CM
[2022-10-07 17:18] LABS: Hematocrit 28.7 % (37-47); Hemoglobin 9.4 g/dL (12.0-15.0)
[2022-10-07] MEDS: 0.9% Saline Lock 10 ML Syringe IV ×2 (18:34→23:30)
[2022-10-07] MEDS: Metoprolol Tartrate 5 MG/5 ML Vial IV (23:30)
[2022-10-08] VITALS (28 sets, daily range): BP systolic 106–156; BP diastolic 52–96; PULSE 84–108; RESP 16–99; TEMP 36.6–37.4; O2SAT 92–100
[2022-10-08] MEDS: 0.9% Saline Lock 10 ML Syringe IV ×3 (04:05→21:26)
[2022-10-08] MEDS: Ondansetron 4 MG/2 ML Vial IV (04:05)
[2022-10-08 05:31] LABS: Absolute Lymphocyte Count 1.85 X10^3/uL (0.83-4.51); Absolute Neutrophil Count 7.3 X10^3/uL (2.0-7.7); Basophil# 0.02 X10^3/uL; Basophil% 0.2 % (0-1); Hematocrit 22.5 % (37-47); Hemoglobin 7.5 g/dL (12.0-15.0); Lymphocyte # 1.85 X10^3/ul (0.83-4.51); Lymphocyte % 18.8 % (19-41); Mean Corp Hgb Conc 33.3 g/dL (32-36); Mean Corpuscular Hgb 31.6 pg (27.0-32.0); Mean Corpuscular Volume 94.9 fL (81-99); Mean Platelet Vol. 11.2 fl (6.2-12.0); Monocyte# 0.65 X10^3/uL; Monocyte% 6.6 % (0-10); NRBC Flagged by Analyzer 0 % (0-5); Neutrophil # 7.29 X10^3/uL (2.7-7.7); Neutrophil % 73.9 % (47-70); Platelet Count 148 K/mm3 (150-450); RBC Distribution Width CV 13.4 % (11.6-14.6); RBC Distribution Width SD 46.3 fl (35.1-43.9); Red Blood Count 2.37 M/mm3 (4.2-5.4); White Blood Count 9.9 K/mm3 (4.4-11.0)
[2022-10-08] MEDS: Metoprolol Tartrate 5 MG/5 ML Vial IV (05:34)
[2022-10-08 05:55] LABS: Anion Gap 6 (5-15); BUN 43 mg/dL (7-18); BUN/Creat Ratio 65.1 RATIO (10-20); Calcium,Total 7.9 mg/dL (8.5-10.1); Chloride 117 mmol/L (98-107); Creatinine, Serum 0.66 mg/dL (0.55-1.02); EST Glomerular Filtration Rate 92 mL/min (>60); Est Glom Filt Rate - Afr Amer 111 mL/min (>60); Estimated Creatinine Clearance 38.97 ml/min; Glucose 122 mg/dL (74-106); Potassium 3.5 mmol/L (3.5-5.1); Sodium Level 149 mmol/L (136-145)
--- NOTE | 2022-10-08 08:06 | PN_ITS ---
Subjective Subjective Patient had a lot of black stools overnight. She is not on any oxygen and her abdominal pain is a little better. Her hemoglobin did decrease overnight. Objective Data Objective Data Vital Signs: Vital Signs Temp Pulse Resp BP Pulse Ox O2 Del Method O2 Flow Rate 98.5 F 88 18 115/62 96 Room Air 2 10/08/22 05:33 10/08/22 05:46 10/08/22 05:33 10/08/22 05:46 10/08/22 07:33 10/08/22 07:33 10/07/22 23:40 Oxygen Flow Rate (L/min) 2 Oxygen Delivery Method Room Air Weight: 169 lb 5.005 oz Body Mass Index (BMI) 29.9 Intake & Output: Intake and Output for Last 24 Hours 10/06/22 10/07/22 10/08/22 23:59 23:59 23:59 Intake Total 1528.125 / 1528.125 93.83 / 93.83 Output Total 600 / 600 Balance 1528.125 / 1528.125 -506.17 / -506.17 Lab / Micro Data Result Diagrams: 10/08/22 05:00 10/08/22 05:00 Labs: Laboratory Results - last 24 hr 10/07/22 12:21: Crossmatch See Detail 10/07/22 17:00: Hgb 9.4 L, Hct 28.7 L 10/08/22 05:00: WBC 9.9, RBC 2.37 L, Hgb 7.5 L, Hct 22.5 L, MCV 94.9, MCH 31.6, MCHC 33.3, RDW Std Deviation 46.3 H, RDW Coeff of Randolph 13.4, Plt Count 148 L, MPV 11.2, Immature Gran % (Auto) 0.500, Neut % (Auto) 73.9 H, Lymph % (Auto) 18.8 L, [place] % (Auto) 6.6, Eos % (Auto) 0.0, Baso % (Auto) 0.2, Absolute Neuts (auto) 7. 3, Absolute Lymphs (auto) 1.85, Nucleated RBC % 0 10/08/22 05:00: Sodium 149 H, Potassium 3.5, Chloride 117 H, Carbon Dioxide 26.0, Anion Gap 6, BUN 43 H, Creatinine 0.66, Estim Creat Clear Calc 38.97, Est GFR (MDRD) Af Amer 111, Est GFR (MDRD) Non-Af 92, BUN/Creatinine Ratio 65.1 H, Glucose 122 H, Calcium 7.9 L Micro: Microbiology 10/07/22 00:30 Vomitus Gastric Occult Blood - Final Occult Blood Positive 10/07/22 00:30 Stool Stool Occult Blood (MARCO ANTONIO) - Final Occult Blood Positive Rhythm Strip Rhythm Strip: Sinus Tach Rate: 110 Ectopy: None Physical Exam Const alert, oriented x3 and no apparent distress HEENT head/scalp atraumatic, moist oral mucous membranes and oropharynx normal Head and Scalp: normocephalic Mouth: oral and palatal mucosa normal Neck no lymphadenopathy, supple and no JVD Resp normal respiratory effort, no retractions, no use of accessory muscles and clear to auscultation bilaterally Cardio regular rate, regular rhythm, S1 normal heart sound, S2 normal heart sound and no murmurs GI normal to inspection, nondistended, normoactive bowel sounds and soft to palpation GI Narrative: minimal generalised tenderness, no guarding or rebound tenderness Extremity normal to inspection, full ROM and no clubbing, cyanosis or edema Neuro oriented x3, CN's II-XII intact bilaterally, moves all extremities and no focal motor deficits Sensorium / Orientation: awake and alert Motor Exam: strength 5/5 throughout Psych affect normal Assessment & Plan Assessment/Plan (1) ABLA (acute blood loss anemia): (2) Acute upper gastrointestinal bleeding: PLAN: Plan ABLA hemoglobin of 11.3 on presentation. Patient hemoglobin on 07/15/2020 was 13.3; on 07/14/2020 hemoglobin was 15.1. Her hemoglobin decreased down to 7.5 from 9.4 yesterday. She also had a decrease in platelet count so I suspect some is dilutional. However her BUN to creatinine ratio has not decreased and is consistent with a persistent upper GI bleed. IV fluids ordered H&H every 6 hours Hold antiplatelets No anticoagulants for DVT prophylaxis SCD Protonix drip started emergency department and continued. Keep patient NPO. She will undergo a repeat EGD today CAD status post stents Stable Hold antiplatelets as above Cardiac catheterization on 07/14/2022 was reviewed. Drug eluting stent was placed in LAD and RCA. DVT prophylaxis: SCDs ordered. Charges/Coding Visit Charges Inpatient E&M: 12280 Subs Hosp L2
--- NOTE | 2022-10-08 11:38 | OP.EGD_ITS ---
Patient Name: Ina Ace Procedure Date: 10/08/2022 10:59 AM Date of : 1945 Age: 77 Procedure: Upper GI endoscopy Indications: Hematemesis Providers: Brian Isbell DO Medicines: Monitored Anesthesia Care Patient Profile: This is a 77 year old female. Refer to note in patient chart for documentation of history and physical. Patient has symptoms of acute nausea and chronic vomiting. Complications: No immediate complications. Procedure: Pre-Anesthesia Assessment: - Prior to the procedure, a History and Physical was performed, and patient medications and allergies were reviewed. The risks and benefits of the procedure and the sedation options and risks were discussed with the patient. All questions were answered and informed consent was obtained. Patient identification and proposed procedure were verified by the physician in the pre-procedure area. Mental Status Examination: alert and oriented. Airway Examination: normal oropharyngeal airway and neck mobility. Respiratory Examination: clear to auscultation. CV Examination: normal. Prophylactic Antibiotics: The patient does not require prophylactic antibiotics. Prior Anticoagulants: The patient has taken no previous anticoagulant or antiplatelet agents. ASA Grade Assessment: III - A patient with severe systemic disease. After reviewing the risks and benefits, the patient was deemed in satisfactory condition to undergo the procedure. The anesthesia plan was to use monitored anesthesia care (MAC). Immediately prior to administration of medications, the patient was re-assessed for adequacy to receive sedatives. The heart rate, respiratory rate, oxygen saturations, blood pressure, adequacy of pulmonary ventilation, and response to care were monitored throughout the procedure. The physical status of the patient was re-assessed after the procedure. After obtaining informed consent, the endoscope was passed under direct vision. Throughout the procedure, the patient's blood pressure, pulse, and oxygen saturations were monitored continuously. The Endoscope was introduced through the mouth, and advanced to the second part of duodenum. The upper GI endoscopy was accomplished without difficulty. The patient tolerated the procedure well. Scope In: 11:08:26 AM Scope Out: 11:29:03 AM Total Procedure Duration Time 0 hours 20 minutes 37 seconds Findings: LA Grade B (one or more mucosal breaks greater than 5 mm, not extending between the tops of two mucosal folds) esophagitis with no bleeding was found 35 to 37 cm from the incisors. Many oozing cratered gastric ulcers with adherent clot were found in the cardia, in the gastric fundus and on the lesser curvature of the stomach. The largest lesion was 10 mm in largest dimension. Coagulation for hemostasis using argon plasma at 0.3 liters/minute and 20 velasquez was successful. To repair the defect, the tissue edges were approximated and three hemostatic clips were successfully placed. Closure of the defect was successful. There was no bleeding during, or at the end, of the procedure. Hemospray was used to multiple ulcers seen in the stomach. No gross lesions were noted in the first portion of the duodenum. Impression: - LA Grade B erosive esophagitis. - Oozing gastric ulcers with adherent clot. Treated with argon plasma coagulation (APC). Clips were placed. - No gross lesions in the first portion of the duodenum. - No specimens collected. Recommendation: - Return [facility] to [facility] care. - NPO today. - Administer an IV bolus of 50 micrograms of octreotide followed by an infusion of 50 micrograms per hour today. - Give Protonix (pantoprazole): initiate therapy with 80 mg IV bolus, then 8 mg/hr IV by continuous infusion. - Continue present medications. Procedure Code(s): --- Professional --- 87360, Esophagogastroduodenoscopy, flexible, transoral; with control of bleeding, any method CPT copyright 2017 [employer]. All rights reserved. The codes documented in this report are preliminary and upon director of income tax review may be revised to meet current compliance requirements. Brian Isbell DO 10/08/2022 11:37:46 AM This report has been signed electronically. Number of Addenda: 0 Note Initiated On: 10/08/2022 10:59 AM
--- NOTE | 2022-10-08 11:38 | OP.CCLET_ITS ---
10/08/2022 Gene Roth Re : Upper GI endoscopy procedure for Ina Ace Dear Ira This procedure was performed on September. My impressions and recommendations are as follows: Impressions : - LA Grade B erosive esophagitis. - Oozing gastric ulcers with adherent clot. Treated with argon plasma coagulation (APC). Clips were placed. - No gross lesions in the first portion of the duodenum. - No specimens collected. Recommendations : - Return [facility] to [facility]. - NPO today. - Administer an IV bolus of 50 micrograms of octreotide followed by an infusion of 50 micrograms per hour today. - Give Protonix (pantoprazole): initiate therapy with 80 mg IV bolus, then 8 mg/hr IV by continuous infusion. - Continue present medications. My findings are described in the full procedure note, which is enclosed. If I can be of further assistance, please feel free to contact me at . Sincerely, Brian Isbell DO 10/08/2022 11:37:46 AM This report has been signed electronically.
--- NOTE | 2022-10-08 14:03 | PN.HOSP_ITS ---
Reason for Visit Reason for Visit: Diagnoses Acute posthemorrhagic anemia (10/07/22) Gastrointestinal hemorrhage, unspecified (10/07/22) Subjective Subjective Patient seen and examined. Her family was by her bedside. Still complaining of some abdominal pain. Her hemoglobin dropped 2 units overnight to 7.5. She denies any nausea vomiting or dark stools. Review of symptoms otherwise negative. She is for repeat EGD today. Objective Data Objective Data Vital Signs: Vital Signs Temp Pulse Resp BP Pulse Ox O2 Del Method O2 Flow Rate 99.3 F H 100 16 129/54 H 97 Room Air 2 10/08/22 12:45 10/08/22 12:45 10/08/22 12:45 10/08/22 12:45 10/08/22 12:45 10/08/22 12:45 10/08/22 12:30 Oxygen Flow Rate (L/min) 2 Oxygen Delivery Method Room Air Weight: 169 lb 5.005 oz Body Mass Index (BMI) 29.9 Intake & Output: Intake and Output for Last 24 Hours 10/06/22 10/07/22 10/08/22 23:59 23:59 23:59 Intake Total 1528.125 / 1528.125 593.83 / 593.83 Output Total 600 / 600 Balance 1528.125 / 1528.125 -6.17 / -6.17 Lab / Micro Data Result Diagrams: 10/08/22 05:00 10/08/22 05:00 Labs: Laboratory Results - last 24 hr 10/07/22 00:01: Crossmatch See Detail 10/07/22 12:21: Crossmatch See Detail 10/07/22 17:00: Hgb 9.4 L, Hct 28.7 L 10/08/22 05:00: WBC 9.9, RBC 2.37 L, Hgb 7.5 L, Hct 22.5 L, MCV 94.9, MCH 31.6, MCHC 33.3, RDW Std Deviation 46.3 H, RDW Coeff of [place] 13.4, Plt Count 148 L, MPV 11.2, Immature Gran % (Auto) 0.500, Neut % (Auto) 73.9 H, Lymph % (Auto) 18.8 L, [place] % (Auto) 6.6, Eos % (Auto) 0.0, Baso % (Auto) 0.2, Absolute Neuts (auto) 7.3, Absolute Lymphs (auto) 1.85, Nucleated RBC % 0 10/08/22 05:00: Sodium 149 H, Potassium 3.5, Chloride 117 H, Carbon Dioxide 26.0, Anion Gap 6, BUN 43 H, Creatinine 0.66, Estim Creat Clear Calc 38.97, Est GFR (MDRD) Af Amer 111, Est GFR (MDRD) Non-Af 92, BUN/Creatinine Ratio 65.1 H, Glucose 122 H, Calcium 7.9 L Micro: Microbiology 10/07/22 00:30 Vomitus Gastric Occult Blood - Final Occult Blood Positive 10/07/22 00:30 Stool Stool Occult Blood (MARCO ANTONIO) - Final Occult Blood Positive Rhythm Strip Rhythm Strip: Sinus Tach Rate: 110 Ectopy: None Physical Exam Const alert, oriented x3 and no apparent distress HEENT head/scalp atraumatic, moist oral mucous membranes and oropharynx normal Head and Scalp: normocephalic Mouth: oral and palatal mucosa normal Eyes PERRL, EOMs intact bilaterally and conjunctivae normal Neck no lymphadenopathy, supple and no JVD Resp normal respiratory effort, no retractions, no use of accessory muscles and clear to auscultation bilaterally Cardio regular rate, regular rhythm, S1 normal heart sound, S2 normal heart sound and no murmurs GI normal to inspection, nondistended, normoactive bowel sounds and soft to palpation GI Narrative: minimal generalised tenderness, no guarding or rebound tenderness Extremity normal to inspection, full ROM and no clubbing, cyanosis or edema Neuro oriented x3, CN's II-XII intact bilaterally, moves all extremities and no focal motor deficits Sensorium / Orientation: awake and alert Motor Exam: strength 5/5 throughout Psych affect normal Assessment & Plan Assessment/Plan (1) Acute upper gastrointestinal bleeding: (2) ABLA (acute blood loss anemia): PLAN: Plan #Acute GI bleed due to bleeding peptic ulcer * admitted with a complaint of dark stools and coffee ground emesis * she did have EGD on 09/18/2022 which showed Schatzki's rings, which were dilated * had EGD yesterday which showed grade B reflux esophagitis as well as a oozing gastric ulcer with a visible vessel which was injected and treated without monopolar probe with normal second portion of the duodenum. * In light of her hemoglobin dropped by 2 units a day. Patient had repeat EGD and per my discussion with the GI doctor, it showed that she had multiple bleeding gastric ulcers with adherent clot which was treated with argon plasma coagulation and clips were placed. * Will continue to keep n.p.o. and continue on pantoprazole drip as well as octreotide drip. * Continue holding Brilinta. * #Acute on chronic anemia * Due to GI bleed. Hemoglobin today 7.5. Her baseline is around 11. It was 9.4 yesterday. * Was transfused with a unit of packed red blood cells today. Give another unit of blood this morning and will transfuse with another unit of blood now based on EGD findings. * Continue keeping n.p.o. * * * #CAD s/p stents * Had drug-eluting stents inserted on 07/14/2022. Brilinta currently on hold. Patient worried about Brilinta being held as she was told to stop taking it. * Patient advised that in light of a GI bleed, Brilinta will need to be held until after the EGD family on results of family received. * Aspirin also on hold. On statin and imdur * Patient counseled that we still need to keep holding the dual antiplatelets due to her multiple bleeding ulcers due to concerns that she was not bleeding as soon as she resumes these. We will hold again for today. She was counseled that she is at risk of in-stent restenosis. * * #Hyperlipidemia: On statin which is currently on hold. #Hypothyroidism; on synthroid #Hypertension: on propranolol. DVT prophylaxis: SCDs Charges/Coding Visit Charges Inpatient E&M: 80152 [facility] L[facility]
--- NOTE | 2022-10-08 16:03 | CHAPLAIN ---
Type of Pastoral Visit _x__ Initial Visit ___ Follow-up Visit ___ On-call Visit ___ General Patient Visit ___ Spiritual Assessment ___ Family Conference ___ Bereavement ___ Rapid Response ___ Code Blue ___ Other (describe below) Pastoral Care Referral From ___ Patient ___ Family ___ Nurse ___ Physician ___ Institution Director ___ Bioengineer _x__ Other (describe below) Sacrament/Intervention _x__ Active listening ___ Anointing ___ Gnosticist ___ Bereavement ___ Communion ___ Akanksha exploration ___ ___ Life review _x__ Prayer ___ Reconciliation ___ Sacrament of Sick ___ Supportive presence ___ Wedding ___ Other (describe below) Pastoral Comments visit recommended by [facility] Liaison; patient is welcoming and states I can always use a prayer; pt says that my sins are forgiven and if He wants me I can go to Him; spouse and children are also in the room; presence and prayer given; RN comes to place an IV at this time
[2022-10-09] VITALS (9 sets, daily range): BP systolic 112–141; BP diastolic 48–72; PULSE 72–92; RESP 18; TEMP 36.5–36.9; O2SAT 92–99
[2022-10-09 06:17] LABS: Absolute Lymphocyte Count 1.54 X10^3/uL (0.83-4.51); Absolute Neutrophil Count 4.3 X10^3/uL (2.0-7.7); Basophil# 0.03 X10^3/uL; Basophil% 0.5 % (0-1); Eosinophil# 0.16 X10^3/uL; Eosinophils% 2.5 % (0-5); Hematocrit 29.4 % (37-47); Hemoglobin 9.5 g/dL (12.0-15.0); Lymphocyte # 1.54 X10^3/ul (0.83-4.51); Lymphocyte % 23.7 % (19-41); Mean Corp Hgb Conc 32.3 g/dL (32-36); Mean Corpuscular Hgb 30.5 pg (27.0-32.0); Mean Corpuscular Volume 94.5 fL (81-99); Mean Platelet Vol. 11.3 fl (6.2-12.0); Monocyte# 0.46 X10^3/uL; Monocyte% 7.1 % (0-10); NRBC Flagged by Analyzer 0 % (0-5); Neutrophil # 4.27 X10^3/uL (2.7-7.7); Neutrophil % 65.7 % (47-70); Platelet Count 130 K/mm3 (150-450); RBC Distribution Width CV 14.5 % (11.6-14.6); RBC Distribution Width SD 49.3 fl (35.1-43.9); Red Blood Count 3.11 M/mm3 (4.2-5.4); White Blood Count 6.5 K/mm3 (4.4-11.0)
[2022-10-09 06:45] LABS: Anion Gap 5 (5-15); BUN 24 mg/dL (7-18); BUN/Creat Ratio 36.6 RATIO (10-20); Calcium,Total 8.2 mg/dL (8.5-10.1); Chloride 115 mmol/L (98-107); Creatinine, Serum 0.66 mg/dL (0.55-1.02); EST Glomerular Filtration Rate 93 mL/min (>60); Est Glom Filt Rate - Afr Amer 113 mL/min (>60); Estimated Creatinine Clearance 38.97 ml/min; Glucose 114 mg/dL (74-106); Potassium 3.6 mmol/L (3.5-5.1); Sodium Level 148 mmol/L (136-145)
--- NOTE | 2022-10-09 11:11 | PN.HOSP_ITS ---
Reason for Visit Reason for Visit: Diagnoses Acute posthemorrhagic anemia (10/07/22) Gastrointestinal hemorrhage, unspecified (10/07/22) Subjective Subjective Patient seen and examined. She said she felt quite tired. She denied any abdominal pain, nausea or vomiting or any dark stools. Review of systems is otherwise negative. her Hb is 9.5. Objective Data Objective Data Vital Signs: Vital Signs Temp Pulse Resp BP Pulse Ox O2 Del Method O2 Flow Rate 97.8 F 78 18 113/72 99 Nasal Cannula 2 10/09/22 10:41 10/09/22 10:41 10/09/22 10:41 10/09/22 10:41 10/09/22 10:41 10/09/22 10:41 10/09/22 10:41 Oxygen Flow Rate (L/min) 2 Oxygen Delivery Method Nasal Cannula Weight: 169 lb 5.005 oz Body Mass Index (BMI) 29.9 Intake & Output: Intake and Output for Last 24 Hours 10/07/22 10/08/22 10/09/22 23:59 23:59 23:59 Intake Total 1528.125 / 6492.622 1929.33 / 2230.33 140 / 140 Output Total 600 / 600 Balance 1528.125 / 0687.888 8641.33 / 1630.33 140 / 140 Lab / Micro Data Result Diagrams: 10/09/22 05:45 10/09/22 05:45 Labs: Laboratory Results - last 24 hr 10/07/22 00:01: Crossmatch See Detail 10/07/22 00:01: Crossmatch See Detail 10/07/22 12:21: Crossmatch See Detail 10/09/22 05:45: WBC 6.5, RBC 3.11 L, Hgb 9.5 L, Hct 29.4 L, MCV 94.5, MCH 30.5, MCHC 32.3, RDW Std Deviation 49.3 H, RDW Coeff of [place] 14.5, Plt Count 130 L, MPV 11.3, Immature Gran % (Auto) 0.500, Neut % (Auto) 65.7, Lymph % (Auto) 23.7, [place] % (Auto) 7.1, Eos % (Auto) 2.5, Baso % (Auto) 0.5, Absolute Neuts (auto) 4.3, Absolute Lymphs (auto) 1.54, Nucleated RBC % 0 10/09/22 05:45: Sodium 148 H, Potassium 3.6, Chloride 115 H, Carbon Dioxide 28.0, Anion Gap 5, BUN 24 H, Creatinine 0.66, Estim Creat Clear Calc 38.97, Est GFR (MDRD) Af Amer 113, Est GFR (MDRD) Non-Af 93, BUN/Creatinine Ratio 36.6 H, Glucose 114 H, Calcium 8.2 L Micro: Microbiology 10/07/22 00:30 Vomitus Gastric Occult Blood - Final Occult Blood Positive 10/07/22 00:30 Stool Stool Occult Blood (MARCO ANTONIO) - Final Occult Blood Positive Rhythm Strip Rhythm Strip: Sinus Tach Rate: 110 Ectopy: None Physical Exam Const alert, oriented x3 and no apparent distress Orientation / Consciousness: lethargic HEENT head/scalp atraumatic, moist oral mucous membranes and oropharynx normal Head and Scalp: normocephalic Mouth: oral and palatal mucosa normal Eyes PERRL, EOMs intact bilaterally and conjunctivae normal Neck no lymphadenopathy, supple and no JVD Resp normal respiratory effort, no retractions, no use of accessory muscles and clear to auscultation bilaterally Cardio regular rate, regular rhythm, S1 normal heart sound, S2 normal heart sound and n o murmurs GI normal to inspection, nondistended, normoactive bowel sounds, soft to palpation, non-tender and non-distended Extremity normal to inspection, full ROM and no clubbing, cyanosis or edema Neuro oriented x3, CN's II-XII intact bilaterally, moves all extremities and no focal motor deficits Sensorium / Orientation: awake and alert Motor Exam: strength 5/5 throughout Psych affect normal Assessment & Plan Assessment/Plan (1) Acute upper gastrointestinal bleeding: (2) ABLA (acute blood loss anemia): PLAN: Plan #Acute GI bleed due to bleeding peptic ulcer * admitted with a complaint of dark stools and coffee ground emesis * she did have EGD on 09/18/2022 which showed Schatzki's rings, which were dilated * had EGD yesterday which showed grade B reflux esophagitis as well as a oozing gastric ulcer with a visible vessel which was injected and treated without monopolar probe with normal second portion of the duodenum. * In light of her hemoglobin dropped by 2 units a day. Patient had repeat EGD and per my discussion with the GI doctor, it showed that she had multiple bleeding gastric ulcers with adherent clot which was treated with argon plasma coagulation and clips were placed. * will place on clear diet today. * will resume brilinta today, per discussion with GI. * Will continue to keep n.p.o. and continue on pantoprazole drip as well as octreotide drip. * #Acute on chronic anemia * Due to GI bleed. * Hb today is 9.5 * she has been transfused with 3 units of PRBCs * * #CAD s/p stents * Had drug-eluting stents inserted on 07/14/2022. * brilinta resumed today * on statin. * * #Hyperlipidemia: will resume statin #Hypothyroidism; on synthroid #Hypertension: on propranolol. DVT prophylaxis: SCDs Charges/Coding Visit Charges Inpatient E&M: 05878 [facility] Hosp L2
--- NOTE | 2022-10-09 11:22 | NURSING ---
Dr. Flanagan called this RN and said it was okay to start pt on clear liquids and resume Brillanta.
[2022-10-09] MEDS: Dicyclomine 10 MG Capsule 20 MG PO ×3 (13:05→23:59)
[2022-10-09] MEDS: TICAGRELOR 90 MG TABLET PO ×2 (13:07→21:01)
--- NOTE | 2022-10-09 13:26 | CASEMGMT ---
SHANNA HEATH Follow-up: Face to face with pt and family at bedside. Pt states she feels weak but denies any concerns with returning home at discharge. Pt and family state they have a walker and will be able to assist her as needed. No additional needs identified at this time. Cheikh Zamudio RN CM
--- NOTE | 2022-10-09 13:28 | NURSING ---
Sitting up in her chair. P.T and O.T recently in to eval her. Educated importance of staying in chair, sitting up.
--- NOTE | 2022-10-09 17:21 | PN_ITS ---
Subjective Subjective Her abdominal pain is a lot better and she has been not having any more lower GI bleeding. Objective Data Objective Data Vital Signs: Vital Signs Temp Pulse Resp BP Pulse Ox O2 Del Method O2 Flow Rate 97.7 F L 88 18 140/65 H 98 Nasal Cannula 1 10/09/22 17:08 10/09/22 17:08 10/09/22 17:08 10/09/22 17:08 10/09/22 17:08 10/09/22 17:08 10/09/22 13:21 Oxygen Flow Rate (L/min) 1 Oxygen Delivery Method Nasal Cannula Weight: 169 lb 5.005 oz Body Mass Index (BMI) 29.9 Intake & Output: Intake and Output for Last 24 Hours 10/07/22 10/08/22 10/09/22 23:59 23:59 23:59 Intake Total 1528.125 / 9030.658 1416.33 / 2230.33 500 / 500 Output Total 600 / 600 Balance 1528.125 / 4010.114 8091.33 / 1630.33 500 / 500 Lab / Micro Data Result Diagrams: 10/09/22 05:45 10/09/22 05:45 Labs: Laboratory Results - last 24 hr 10/07/22 00:01: Crossmatch See Detail 10/07/22 12:21: Crossmatch See Detail 10/09/22 05:45: WBC 6.5, RBC 3.11 L, Hgb 9.5 L, Hct 29.4 L, MCV 94.5, MCH 30.5, MCHC 32.3, RDW Std Deviation 49.3 H, RDW Coeff of [place] 14.5, Plt Count 130 L, MPV 11.3, Immature Gran % (Auto) 0.500, Neut % (Auto) 65.7, Lymph % (Auto) 23.7, [place] % (Auto) 7.1, Eos % (Auto) 2.5, Baso % (Auto) 0.5, Absolute Neuts (auto) 4.3, Absolute Lymphs (auto) 1.54, Nucleated RBC % 0 10/09/22 05:45: Sodium 148 H, Potassium 3.6, Chloride 115 H, Carbon Dioxide 28.0, Anion Gap 5, BUN 24 H, Creatinine 0.66, Estim Creat Clear Calc 38.97, Est GFR (MDRD) Af Amer 113, Est GFR (MDRD) Non-Af 93, BUN/Creatinine Ratio 36.6 H, Glucose 114 H, Calcium 8.2 L Micro: Microbiology 10/07/22 00:30 Vomitus Gastric Occult Blood - Final Occult Blood Positive 10/07/22 00:30 Stool Stool Occult Blood (MARCO ANTONIO) - Final Occult Blood Positive Rhythm Strip Rhythm Strip: Sinus Tach Rate: 110 Ectopy: None Physical Exam Const alert, oriented x3 and no apparent distress Orientation / Consciousness: lethargic HEENT head/scalp atraumatic, moist oral mucous membranes and oropharynx normal Head and Scalp: normocephalic Mouth: oral and palatal mucosa normal Eyes PERRL, EOMs intact bilaterally and conjunctivae normal Neck no lymphadenopathy, supple and no JVD Resp normal respiratory effort, no retractions, no use of accessory muscles and clear to auscultation bilaterally Cardio regular rate, regular rhythm, S1 normal heart sound, S2 normal heart sound and no murmurs GI normal to inspection, nondistended, normoactive bowel sounds, soft to palpation, non-tender and non-distended Extremity normal to inspection, full ROM and no clubbing, cyanosis or edema Neuro oriented x3, CN's II-XII intact bilaterally, moves all extremities and no focal motor deficits Sensorium / Orientation: awake and alert Motor Exam: strength 5/5 throughout Psych affect normal Assessment & Plan Assessment/Plan (1) ABLA (acute blood loss anemia): (2) Acute upper gastrointestinal bleeding: PLAN: Plan ABLA hemoglobin of 11.3 on presentation. Patient hemoglobin on 07/15/2020 was 13.3; on 07/14/2020 hemoglobin was 15.1. Her hemoglobin decreased down to 7.5 from 9.4 yesterday. She also had a decrease in platelet count so I suspect some is dilutional. Her hemoglobin has increased up to 9.5 and seems to be holding. I will stop the octreotide and PPI drip. She will only need Protonix 40 mg IV every 12 hours and she can have an increased diet. IV fluids ordered H&H every 6 hours Hold antiplatelets No anticoagulants for DVT prophylaxis SCD Protonix drip started emergency department and continued. Keep patient NPO. She will undergo a repeat EGD today CAD status post stents Stable Hold antiplatelets as above Cardiac catheterization on 07/14/2022 was reviewed. Drug eluting stent was placed in LAD and RCA. DVT prophylaxis: SCDs ordered. Charges/Coding Visit Charges Inpatient E&M: 54871 Subs Hosp L3
[2022-10-09] MEDS: Isosorbide Mononitrate 30 MG Tablet PO (18:11)
[2022-10-09] MEDS: Atorvastatin Calcium 40 MG Tablet PO (21:01)
[2022-10-09] MEDS: Pramipexole Di-HCl 0.25 MG Tablet PO (21:01)
[2022-10-10 02:59] VITALS: BP 119/62; PULSE 87; RESP 16; TEMP 36.7; O2SAT 92
[2022-10-10] MEDS: Dicyclomine 10 MG Capsule 20 MG PO ×3 (05:27→18:01)
[2022-10-10] MEDS: Levothyroxine 75 MCG Tablet PO (05:27)
[2022-10-10 07:25] VITALS: O2SAT 91
[2022-10-10 07:47] LABS: Absolute Lymphocyte Count 1.25 X10^3/uL (0.83-4.51); Absolute Neutrophil Count 3.4 X10^3/uL (2.0-7.7); Basophil# 0.01 X10^3/uL; Basophil% 0.2 % (0-1); Eosinophil# 0.13 X10^3/uL; Eosinophils% 2.5 % (0-5); Hematocrit 24.1 % (37-47); Lymphocyte # 1.25 X10^3/ul (0.83-4.51); Lymphocyte % 24.3 % (19-41); Mean Corp Hgb Conc 33.2 g/dL (32-36); Mean Corpuscular Hgb 31.5 pg (27.0-32.0); Mean Corpuscular Volume 94.9 fL (81-99); Mean Platelet Vol. 11.4 fl (6.2-12.0); Monocyte% 7.8 % (0-10); NRBC Flagged by Analyzer 0 % (0-5); Neutrophil # 3.36 X10^3/uL (2.7-7.7); Neutrophil % 65.2 % (47-70); Platelet Count 142 K/mm3 (150-450); RBC Distribution Width CV 13.9 % (11.6-14.6); RBC Distribution Width SD 47.9 fl (35.1-43.9); Red Blood Count 2.54 M/mm3 (4.2-5.4); White Blood Count 5.2 K/mm3 (4.4-11.0)
[2022-10-10 08:35] LABS: Anion Gap 6 (5-15); BUN 15 mg/dL (7-18); BUN/Creat Ratio 22.2 RATIO (10-20); Calcium,Total 7.9 mg/dL (8.5-10.1); Chloride 107 mmol/L (98-107); Creatinine, Serum 0.68 mg/dL (0.55-1.02); EST Glomerular Filtration Rate 90 mL/min (>60); Est Glom Filt Rate - Afr Amer 109 mL/min (>60); Estimated Creatinine Clearance 38.97 ml/min; Glucose 154 mg/dL (74-106); Potassium 3.4 mmol/L (3.5-5.1); Sodium Level 143 mmol/L (136-145)
[2022-10-10 09:00] VITALS: BP 131/62; PULSE 82; RESP 18; TEMP 36.6; O2SAT 94
[2022-10-10] MEDS: TICAGRELOR 90 MG TABLET PO ×2 (09:25→22:14)
[2022-10-10] MEDS: Propranolol 10 MG Tablet 20 MG PO ×2 (09:25→22:13)
[2022-10-10] MEDS: Isosorbide Mononitrate 30 MG Tablet PO ×2 (09:25→22:13)
--- NOTE | 2022-10-10 10:20 | PCM.PROGNOTE ---
Subjective Subjective Patient seen and examined with family at the bedside. She feels better than she felt yesterday but still has some upper abdominal pain. She also did feel little lightheaded. Objective Data Objective Data Vital Signs: Vital Signs Temp Pulse Resp BP Pulse Ox O2 Del Method O2 Flow Rate 97.9 F 82 18 131/62 H 94 Room Air 1 10/10/22 09:00 10/10/22 09:00 10/10/22 09:00 10/10/22 09:00 10/10/22 09:00 10/10/22 09:02 10/09/22 13:21 Oxygen Flow Rate (L/min) 1 Oxygen Delivery Method Room Air Weight: 169 lb 5.005 oz Body Mass Index (BMI) 29.9 Intake & Output: Intake and Output for Last 24 Hours 10/08/22 10/09/22 10/10/22 23:59 23:59 23:59 Intake Total 2230.33 / 2230.33 1157.25 / 1157.25 852 / 852 Output Total 600 / 600 Balance 1630.33 / 1630.33 1157.25 / 1157.25 852 / 852 Lab / Micro Data Result Diagrams: 10/10/22 07:15 10/10/22 07:15 Labs: Laboratory Results - last 24 hr 10/10/22 07:15: WBC 5.2, RBC 2.54 L, Hgb 8.0 L, Hct 24.1 L, MCV 94.9, MCH 31.5, MCHC 33.2, RDW Std Deviation 47.9 H, RDW Coeff of [place] 13.9, Plt Count 142 L, MPV 11.4, Immature Gran % (Auto) 0.000, Neut % (Auto) 65.2, Lymph % (Auto) 24.3, [place] % (Auto) 7.8, Eos % (Auto) 2.5, Baso % (Auto) 0.2, Absolute Neuts (auto) 3.4, Absolute Lymphs (auto) 1.25, Nucleated RBC % 0 10/10/22 07:15: Sodium 143, Potassium 3.4 L, Chloride 107, Carbon Dioxide 30.0, Anion Gap 6, BUN 15, Creatinine 0.68, Estim Creat Clear Calc 38.97, Est GFR (MDRD) Af Amer 109, Est GFR (MDRD) Non-Af 90, BUN/Creatinine Ratio 22.2 H, Glucose 154 H, Calcium 7.9 L Micro: Microbiology 10/07/22 00:30 Vomitus Gastric Occult Blood - Final Occult Blood Positive 10/07/22 00:30 Stool Stool Occult Blood (MARCO ANTONIO) - Final Occult Blood Positive Rhythm Strip Rhythm Strip: Sinus Tach Rate: 110 Ectopy: None Physical Exam Const alert, oriented x3 and no apparent distress Orientation / Consciousness: lethargic HEENT head/scalp atraumatic, moist oral mucous membranes and oropharynx normal Head and Scalp: normocephalic Mouth: oral and palatal mucosa normal Eyes PERRL, EOMs intact bilaterally and conjunctivae normal Neck no lymphadenopathy, supple and no JVD Resp normal respiratory effort, no retractions, no use of accessory muscles and clear to auscultation bilaterally Cardio regular rate, regular rhythm, S1 normal heart sound, S2 normal heart sound and no murmurs GI normal to inspection, nondistended, normoactive bowel sounds, soft to palpation, non-tender and non-distended Extremity normal to inspection, full ROM and no clubbing, cyanosis or edema Neuro oriented x3, CN's II-XII intact bilaterally, moves all extremities and no focal motor deficits Sensorium / Orientation: awake and alert Motor Exam: strength 5/5 throughout Psych affect normal Assessment & Plan Assessment/Plan (1) ABLA (acute blood loss anemia): (2) Acute upper gastrointestinal bleeding: PLAN: Plan ABLA hemoglobin of 11.3 on presentation. Patient hemoglobin on 07/15/2020 was 13.3; on 07/14/2020 hemoglobin was 15.1. Her hemoglobin decreased down to 7.5 from 9.4 yesterday. She also had a decrease in platelet count so I suspect some is dilutional. Her hemoglobin has decreased to 8. She is still on octreotide and PPI drip. She will only need Protonix 40 mg IV every 12 hours and she can have an increased diet. If her repeat hemoglobin is okay. IV fluids ordered H&H every 6 hours Hold antiplatelets No anticoagulants for DVT prophylaxis SCD Protonix drip started emergency department and continued. Keep patient NPO. She will undergo a repeat EGD today CAD status post stents Stable She was given Brilinta and aspirin. Continue to monitor blood count. Cardiac catheterization on 07/14/2022 was reviewed. Drug eluting stent was placed in LAD and RCA. DVT prophylaxis: SCDs ordered. Charges/Coding Visit Charges Inpatient E&M: 04427 Subs Hosp L3
--- NOTE | 2022-10-10 14:02 | PN.HOSP_ITS ---
Reason for Visit Reason for Visit: Diagnoses Acute posthemorrhagic anemia (10/07/22) Gastrointestinal hemorrhage, unspecified (10/07/22) Subjective Subjective Patient seen and examined. Family was by her bedside. She did feel much better today. She had no active complaints and had an uneventful night. Review of symptoms otherwise negative. Hemoglobin today is 8. She has not had any dark stools or vomited any blood. Objective Data Objective Data Vital Signs: Vital Signs Temp Pulse Resp BP Pulse Ox O2 Del Method O2 Flow Rate 97.9 F 82 18 131/62 H 94 Room Air 1 10/10/22 09:00 10/10/22 09:00 10/10/22 09:00 10/10/22 09:00 10/10/22 09:00 10/10/22 09:02 10/09/22 13:21 Oxygen Flow Rate (L/min) 1 Oxygen Delivery Method Room Air Weight: 169 lb 5.005 oz Body Mass Index (BMI) 29.9 Intake & Output: Intake and Output for Last 24 Hours 10/08/22 10/09/22 10/10/22 23:59 23:59 23:59 Intake Total 2230.33 / 2230.33 1157.25 / 1157.25 852 / 852 Output Total 600 / 600 Balance 1630.33 / 1630.33 1157.25 / 1157.25 852 / 852 Lab / Micro Data Result Diagrams: 10/10/22 07:15 10/10/22 07:15 Labs: Laboratory Results - last 24 hr 10/10/22 07:15: WBC 5.2, RBC 2.54 L, Hgb 8.0 L, Hct 24.1 L, MCV 94.9, MCH 31.5, MCHC 33.2, RDW Std Deviation 47.9 H, RDW Coeff of [place] 13.9, Plt Count 142 L, MPV 11.4, Immature Gran % (Auto) 0.000, Neut % (Auto) 65.2, Lymph % (Auto) 24.3, [place] % (Auto) 7.8, Eos % (Auto) 2.5, Baso % (Auto) 0.2, Absolute Neuts (auto) 3.4, Absolute Lymphs (auto) 1.25, Nucleated RBC % 0 10/10/22 07:15: Sodium 143, Potassium 3.4 L, Chloride 107, Carbon Dioxide 30.0, Anion Gap 6, BUN 15, Creatinine 0.68, Estim Creat Clear Calc 38.97, Est GFR (MDRD) Af Amer 109, Est GFR (MDRD) Non-Af 90, BUN/Creatinine Ratio 22.2 H, Glucose 154 H, Calcium 7.9 L Micro: Microbiology 10/07/22 00:30 Vomitus Gastric Occult Blood - Final Occult Blood Positive 10/07/22 00:30 Stool Stool Occult Blood (MARCO ANTONIO) - Final Occult Blood Positive Rhythm Strip Rhythm Strip: Sinus Tach Rate: 110 Ectopy: None Physical Exam Const alert, oriented x3 and no apparent distress HEENT head/scalp atraumatic, moist oral mucous membranes and oropharynx normal Head and Scalp: normocephalic Mouth: oral and palatal mucosa normal Eyes PERRL, EOMs intact bilaterally and conjunctivae normal Neck no lymphadenopathy, supple and no JVD Resp normal respiratory effort, no retractions, no use of accessory muscles and clear to auscultation bilaterally Cardio regular rate, regular rhythm, S1 normal heart sound, S2 normal heart sound and no murmurs GI normal to inspection, nondistended, normoactive bowel sounds, soft to palpation, non-tender and non-distended GI Narrative: minimal generalised tenderness, no guarding or rebound tenderness Extremity normal to inspection, full ROM and no clubbing, cyanosis or edema Neuro oriented x3, CN's II-XII intact bilaterally, moves all extremities and no focal motor deficits Sensorium / Orientation: awake and alert Motor Exam: strength 5/5 throughout Psych affect normal Assessment & Plan Assessment/Plan (1) Acute upper gastrointestinal bleeding: (2) ABLA (acute blood loss anemia): PLAN: Plan #Acute GI bleed due to bleeding peptic ulcer * admitted with a complaint of dark stools and coffee ground emesis * she did have EGD on 09/18/2022 which showed Schatzki's rings, which were dilated * had EGD which showed grade B reflux esophagitis as well as a oozing gastric ulcer with a visible vessel which was injected and treated without monopolar probe with normal second portion of the duodenum. * DUe to worsening anemia, patient had repeat EGD which showed that she had multiple bleeding gastric ulcers with adherent clot which was treated with argon plasma coagulation and clips were placed. * on clear diet, will advance as tolerated. * on brilinta. Will resume aspirin. * * #Acute on chronic anemia * Due to GI bleed. * Hb today is 8 * she has been transfused with 3 units of PRBCs * * #CAD s/p stents * Had drug-eluting stents inserted on 07/14/2022. * brilinta resumed today * on statin. * * #Hyperlipidemia: will resume statin #Hypothyroidism; on synthroid #Hypertension: on propranolol. DVT prophylaxis: SCDs Charges/Coding Visit Charges Inpatient E&M: 20453 Subs Hosp L2
[2022-10-10 14:22] VITALS: BP 119/60; PULSE 74; RESP 18; TEMP 36.8; O2SAT 95
[2022-10-10 22:05] VITALS: BP 127/60; PULSE 74; RESP 16; TEMP 36.7; O2SAT 96
[2022-10-10] MEDS: Pramipexole Di-HCl 0.25 MG Tablet PO (22:13)
[2022-10-10] MEDS: Atorvastatin Calcium 40 MG Tablet PO (22:13)
[2022-10-11] MEDS: Dicyclomine 10 MG Capsule 20 MG PO ×3 (00:11→11:36)
[2022-10-11 04:05] VITALS: BP 134/67; PULSE 77; RESP 16; TEMP 36.6; O2SAT 94
[2022-10-11] MEDS: Levothyroxine 75 MCG Tablet PO (05:10)
[2022-10-11 05:18] LABS: Absolute Neutrophil Count 3.7 X10^3/uL (2.0-7.7); Basophil# 0.01 X10^3/uL; Basophil% 0.2 % (0-1); Eosinophil# 0.05 X10^3/uL; Eosinophils% 0.9 % (0-5); Hematocrit 23.7 % (37-47); Lymphocyte % 25.2 % (19-41); Mean Corp Hgb Conc 33.8 g/dL (32-36); Mean Corpuscular Hgb 31.7 pg (27.0-32.0); Mean Platelet Vol. 11.2 fl (6.2-12.0); Monocyte# 0.39 X10^3/uL; NRBC Flagged by Analyzer 0 % (0-5); Neutrophil # 3.68 X10^3/uL (2.7-7.7); Neutrophil % 66.3 % (47-70); Platelet Count 158 K/mm3 (150-450); RBC Distribution Width CV 13.7 % (11.6-14.6); RBC Distribution Width SD 46.4 fl (35.1-43.9); Red Blood Count 2.52 M/mm3 (4.2-5.4); White Blood Count 5.6 K/mm3 (4.4-11.0)
[2022-10-11 05:51] LABS: Anion Gap 7 (5-15); BUN 11 mg/dL (7-18); BUN/Creat Ratio 18.9 RATIO (10-20); Chloride 106 mmol/L (98-107); Creatinine, Serum 0.58 mg/dL (0.55-1.02); EST Glomerular Filtration Rate 107 mL/min (>60); Est Glom Filt Rate - Afr Amer 129 mL/min (>60); Estimated Creatinine Clearance 38.97 ml/min; Glucose 119 mg/dL (74-106); Potassium 3.1 mmol/L (3.5-5.1); Sodium Level 143 mmol/L (136-145)
[2022-10-11 08:56] VITALS: BP 119/46; PULSE 66; RESP 18; TEMP 36.9; O2SAT 96
[2022-10-11] MEDS: Potassium Chloride Oral Tablet 20 MEQ 40 MEQ PO (09:07)
[2022-10-11] MEDS: Isosorbide Mononitrate 30 MG Tablet PO (09:07)
[2022-10-11] MEDS: Propranolol 10 MG Tablet 20 MG PO (09:07)
[2022-10-11] MEDS: TICAGRELOR 90 MG TABLET PO (09:07)
--- NOTE | 2022-10-11 10:25 | PCM.PROGNOTE ---
Subjective Subjective Patient is doing a lot better today. She has not had any signs of GI bleeding. Objective Data Objective Data Vital Signs: Vital Signs Temp Pulse Resp BP Pulse Ox O2 Del Method O2 Flow Rate 98.5 F 66 18 119/46 L 96 Room Air 1 10/11/22 08:56 10/11/22 08:56 10/11/22 08:56 10/11/22 08:56 10/11/22 08:56 10/11/22 08:57 10/09/22 13:21 Oxygen Flow Rate (L/min) 1 Oxygen Delivery Method Room Air Weight: 169 lb 5.005 oz Body Mass Index (BMI) 29.9 Intake & Output: Intake and Output for Last 24 Hours 10/09/22 10/10/22 10/11/22 23:59 23:59 23:59 Intake Total 1157.25 / 1157.25 1203 / 1203 500 / 500 Balance 1157.25 / 1157.25 1203 / 1203 500 / 500 Lab / Micro Data Result Diagrams: 10/11/22 04:44 10/11/22 04:44 Labs: Laboratory Results - last 24 hr 10/11/22 04:44: WBC 5.6, RBC 2.52 L, Hgb 8.0 L, Hct 23.7 L, MCV 94.0, MCH 31.7, MCHC 33.8, RDW Std Deviation 46.4 H, RDW Coeff of [place] 13.7, Plt Count 158, MPV 11.2, Immature Gran % (Auto) 0.400, Neut % (Auto) 66.3, Lymph % (Auto) 25.2, [place] % (Auto) 7.0, Eos % (Auto) 0.9, Baso % (Auto) 0.2, Absolute Neuts (auto) 3.7, Absolute Lymphs (auto) 1.40, Nucleated RBC % 0 10/11/22 04:44: Sodium 143, Potassium 3.1 L, Chloride 106, Carbon Dioxide 30.0, Anion Gap 7, BUN 11, Creatinine 0.58, Estim Creat Clear Calc 38.97, Est GFR (MDRD) Af Amer 129, Est GFR (MDRD) Non-Af 107, BUN/Creatinine Ratio 18.9, Glucose 119 H, Calcium 8.0 L Micro: Microbiology 10/07/22 00:30 Vomitus Gastric Occult Blood - Final Occult Blood Positive 10/07/22 00:30 Stool Stool Occult Blood (MARCO ANTONIO) - Final Occult Blood Positive Rhythm Strip Rhythm Strip: Sinus Tach Rate: 110 Ectopy: None Physical Exam Const alert, oriented x3 and no apparent distress HEENT head/scalp atraumatic, moist oral mucous membranes and oropharynx normal Head and Scalp: normocephalic Mouth: oral and palatal mucosa normal Eyes PERRL, EOMs intact bilaterally and conjunctivae normal Neck no lymphadenopathy, supple and no JVD Resp normal respiratory effort, no retractions, no use of accessory muscles and clear to auscultation bilaterally Cardio regular rate, regular rhythm, S1 normal heart sound, S2 normal heart sound and no murmurs GI normal to inspection, nondistended, normoactive bowel sounds, soft to palpation, non-tender and non-distended GI Narrative: minimal generalised tenderness, no guarding or rebound tenderness Extremity normal to inspection, full ROM and no clubbing, cyanosis or edema Neuro oriented x3, CN's II-XII intact bilaterally, moves all extremities and no focal motor deficits Sensorium / Orientation: awake and alert Motor Exam: strength 5/5 throughout Psych affect normal Assessment & Plan Assessment/Plan (1) ABLA (acute blood loss anemia): (2) Acute upper gastrointestinal bleeding: PLAN: Plan ABLA hemoglobin of 11.3 on presentation. Patient hemoglobin on 07/15/2020 was 13.3; on 07/14/2020 hemoglobin was 15.1. Her hemoglobin decreased down to 7.5 from 9.4 yesterday. She also had a decrease in platelet count so I suspect some is dilutional. Her hemoglobin seems to be stable at 8. PPI drip and octreotide drip will be stopped. She will only need Protonix 40 mg p.o. every 12 hours and she can have an increased diet. She should be able to be DC'd to home today on Protonix twice a day and Carafate 3 times a day. I will give her iron transfusion. She will undergo a repeat EGD today CAD status post stents Stable She was given Brilinta and aspirin. Cardiac catheterization on 07/14/2022 was reviewed. Drug eluting stent was placed in LAD and RCA. DVT prophylaxis: SCDs ordered. Charges/Coding Visit Charges Inpatient E&M: 15403 Subs Hosp L3
[2022-10-11 12:00] VITALS: O2SAT 97
--- NOTE | 2022-10-11 12:59 | DS.PCM_ITS ---
Providers Date of Admission: 10/07/22 Date of Discharge: 10/11/22 Primary Care Physician: Dr. Gene Roth, Consultations 10/07/22 03:05 Consult: Gastroenterology Routine Consulting Provider: Ra Akilahhsaan Reason for Consult: ABLA EMERGENT Consult: No MD Notified: Yes Date Notified: 10/07/22 Time Notified: 01:40 Method of Notification: ED Physician Initiated Reason For Visit: ABLA Diagnosis Discharge Diagnosis (1) ABLA (acute blood loss anemia): Status: Acute Code(s): D62 - Acute posthemorrhagic anemia (2) Acute upper gastrointestinal bleeding: Status: Acute Code(s): K92.2 - Gastrointestinal hemorrhage, unspecified Plan #Acute GI bleed due to bleeding peptic ulcer * admitted with a complaint of dark stools and coffee ground emesis * she did have EGD on 09/18/2022 which showed Schatzki's rings, which were dilated * had EGD which showed grade B reflux esophagitis as well as a oozing gastric ulcer with a visible vessel which was injected and treated without monopolar probe with normal second portion of the duodenum. * DUe to worsening anemia, patient had repeat EGD which showed that she had multiple bleeding gastric ulcers with adherent clot which was treated with argon plasma coagulation and clips were placed. * on clear diet, will advance as tolerated. * on brilinta. Will resume aspirin. * * #Acute on chronic anemia * Due to GI bleed. * Hb today is 8 * she has been transfused with 3 units of PRBCs * * #CAD s/p stents * Had drug-eluting stents inserted on 07/14/2022. * brilinta resumed today * on statin. * * #Hyperlipidemia: will resume statin #Hypothyroidism; on synthroid #Hypertension: on propranolol. DVT prophylaxis: SCDs Medications at Discharge Home Medications methylcellulose (laxative) 500 mg tablet (Citrucel) 1,000 mg PO QDAY PRN Constipation 09/22/17 nitroglycerin 0.4 mg sublingual tablet 0.4 mg sublingual Q5M PRN chest pain #90 tabs 09/27/17 propranolol 20 mg tablet 20 mg PO BID BP/Heart rate 01/02/19 ascorbic acid (vitamin C) 500 mg capsule 500 mg PO DAILY PRN Supplement 06/25/21 cholecalciferol (vitamin D3) 10 mcg/drop (400 unit/drop) oral drops 20 mcg PO D AILY Supplement 06/25/22 d-mannose 500 mg capsule 500 mg PO DAILY Kidney 06/25/22 dicyclomine 10 mg capsule 20 mg PO Q6H Stomach 06/25/22 levothyroxine 75 mcg tablet 75 mcg PO DAILY thyroid 06/25/22 aspirin 81 mg tablet,delayed release 81 mg PO DAILY heart health 07/14/22 atorvastatin 40 mg tablet 40 mg PO QHS Cholesterol 07/14/22 ticagrelor 90 mg tablet (Brilinta) 90 mg PO BID #180 tabs 07/22/22 simethicone 80 mg chewable tablet (Gas Relief 80 (simethicone)) 80 mg PO BID-QID PRN Gastric Reflux 08/03/22 isosorbide mononitrate 30 mg tablet,extended release 24 hr 30 mg PO BID this is a dose increase #180 tabs 09/28/22 pantoprazole 40 mg tablet,delayed release 40 mg PO BID #60 tabs 10/11/22 pramipexole 0.25 mg tablet 0.25 mg PO QHS PRN restless legs #30 tabs 10/11/22 sucralfate 1 gram tablet 1 g PO TID #90 tabs 10/11/22 Hospital Course Operations None Procedures EGD Summary of Care Provided Minutes Spent on Discharge: 55 Hospital Course: Patient is a 77 y/o female with a PMH as outlined who was admitted via the ED on 10/07/2022 with a complaint of dark stools and coffee ground emesis which started on the day of admission. She had associated lightheadeness and syncope. She had had CAD in June 2022 with placements of stents in LAD and RCA, and was on aspirin and brilinta. Stool and emesis were positive for occult blood. She was admitted and managed for Gi bleed and anemia. She was started on IV protonix drip. He Hb was 11.3. She had had EGD the week before which showed Schatzki rings, those were dilated. Her antiplatelets were held. Gastroenterology was consulted. She had EGD which showed grade B reflux esophagitis as well as a oozing gastric ulcer with a visible vessel which was injected and treated without monopolar probe with normal second portion of the duodenum.Her hemoglobin dropped and she was transfused with 2 units of PRBCs. Her hb dropped again, and she had repeat EGD which showed Patient had repeat EGD which showed that she had multiple bleeding gastric ulcers with adherent clot which was treated with argon plasma coagulation and clips were placed. Her brilinta was resumed and subsequently aspirin was also resumed. She remained stable, and was discharged home on 10/11/2022. She remained stable and was discharged home on 10/11/2022. She is to follow up with her PCP and gastroenterology within 1-2 weeks. She was discharged on PO pantoprazole 40mg bid as well as sucralfate. Patient seen and examined. She had no active complaints and had an uneventful night. Daughters were by her bedside. Their questions were answered. Review of systems is otherwise negative. Labs and vitals reviewed. Home meds reviewed and reconciled. Physical Exam Const alert, oriented x3 and no apparent distress General Appearance: cooperative Orientation / Consciousness: awake Exam Limitations: no limitations HEENT normocephalic, head/scalp atraumatic, hearing grossly normal bilaterally, moist oral mucous membranes and oropharynx normal Mouth: oral and palatal mucosa normal Eyes PERRL, EOMs intact bilaterally and conjunctivae normal Neck no lymphadenopathy, supple and no JVD Resp normal respiratory effort, no retractions, no use of accessory muscles and clear to auscultation bilaterally Cardio regular rate, regular rhythm, S1 normal heart sound, S2 normal heart sound and no murmurs GI normal to inspection, nondistended, normoactive bowel sounds, soft to palpation, non-tender and non-distended Extremity normal to inspection, full ROM and no clubbing, cyanosis or edema Skin no rashes or lesions noted Neuro oriented x3, CN's II-XII intact bilaterally, moves all extremities and no focal motor deficits Sensorium / Orientation: awake and alert Motor Exam: strength 5/5 throughout Psych affect normal Weight / BMI Weight Weight: 169 lb 5.005 oz Body Mass Index (BMI) 29.9 ABG / Lab / Microbiology Data Result Diagrams: 10/11/22 04:44 10/11/22 04:44 Laboratory: Laboratory Results - last 24 hr 10/11/22 04:44: WBC 5.6, RBC 2.52 L, Hgb 8.0 L, Hct 23.7 L, MCV 94.0, MCH 31.7, MCHC 33.8, RDW Std Deviation 46.4 H, RDW Coeff of [place] 13.7, Plt Count 158, MPV 11.2, Immature Gran % (Auto) 0.400, Neut % (Auto) 66.3, Lymph % (Auto) 25.2, [place] % (Auto) 7.0, Eos % (Auto) 0.9, Baso % (Auto) 0.2, Absolute Neuts (auto) 3.7, Absolute Lymphs (auto) 1.40, Nucleated RBC % 0 10/11/22 04:44: Sodium 143, Potassium 3.1 L, Chloride 106, Carbon Dioxide 30.0, Anion Gap 7, BUN 11, Creatinine 0.58, Estim Creat Clear Calc 38.97, Est GFR (MDRD) Af Amer 129, Est GFR (MDRD) Non-Af 107, BUN/Creatinine Ratio 18.9, Glucose 119 H, Calcium 8.0 L Microbiology: Microbiology 10/07/22 00:30 Vomitus Gastric Occult Blood - Final Occult Blood Positive 10/07/22 00:30 Stool Stool Occult Blood (MARCO ANTONIO) - Final Occult Blood Positive D/C Instructions Discharge Diet: Low fat / Low cholesterol Discharge Activity: Return to Normal Activity Weight Bearing Status: Weight bearing as tolerated Call your doctor if you observe: Fever of 101 or Higher, Shortness of breath, Dizziness, Swelling in the ankles, Chest pain and Increased palpitations (irregular heartbeat) Meaningful Use Info Meaningful Use Diagnoses (Choose all that apply): None applicable Discharge Plan Admission Admit Date/Time: 10/07/22 01:29 Primary Reason for Your Visit: acute on chronic anemia, GI bleed Attending Provider: Fifi Flanagan Primary Care Provider: Gene Roth Consulting Providers: Brian Isbell ; Girish Harris Instructions Patient Instructions: Bleeding Peptic Ulcer: Treatment, ED Gastritis Ulcer No Abx Discharge Orders/Prescriptions Prescriptions: New pramipexole 0.25 mg Tablet 0.25 mg PO QHS PRN (Reason: restless legs) Qty: 30 0RF pantoprazole 40 mg tablet,delayed release (DR/EC) 40 mg PO BID Qty: 60 2RF sucralfate 1 gram tablet 1 g PO TID Qty: 90 1RF Continued nitroglycerin 0.4 mg tablet, sublingual 0.4 mg SUBLINGUAL Q5M PRN (Reason: chest pain) Qty: 90 3RF propranolol 20 mg tablet 20 mg PO BID methylcellulose (laxative) [Citrucel] 500 mg tablet 1,000 mg PO QDAY PRN (Reason: Constipation) ascorbic acid (vitamin C) 500 mg capsule 500 mg PO DAILY PRN (Reason: Supplement) levothyroxine 75 mcg tablet 75 mcg PO DAILY dicyclomine 10 mg capsule 20 mg PO Q6H d-mannose 500 mg capsule 500 mg PO DAILY cholecalciferol (vitamin D3) 10 mcg/drop (400 unit/drop) drops 20 mcg PO DAILY simethicone [Gas Relief 80 (simethicone)] 80 mg tablet,chewable 80 mg PO BID-QID PRN (Reason: Gastric Reflux) atorvastatin 40 mg tablet 40 mg PO QHS aspirin 81 mg tablet,delayed release (DR/EC) 81 mg PO DAILY Brilinta 90 mg tablet 90 mg PO BID Qty: 180 3RF isosorbide mononitrate 30 mg tablet extended release 24 hr 30 mg PO BID Qty: 180 3RF Discontinued pantoprazole 40 mg tablet,delayed release (DR/EC) 40 mg PO BID Qty: 60 3RF Referrals / Follow Up: Gene Roth DO [Primary Care Provider] - Within 2 Weeks Brian Isbell DO [Med Staff - Active Staff] - Within 2 Weeks Disposition Disposition (needs filled in before D/C Order can be placed): Home, Self Care Charges/Coding Visit Charges Inpatient E&M: 35669 Disch Hosp >30min
[2022-10-11 13:23] VITALS: BP 94/48; PULSE 66; RESP 18; TEMP 36.7; O2SAT 97
== END 2022-10-11 15:42 | disposition home or self-care (01) | DRG 378 ==
LOC: ED 10-07 00:30 → MS3 10-07 02:28
PROVIDERS: Internal Medicine Gastroenterology; Admitting Provider Hospitalist; Emergency Provider Emergency Medicine; PCP Family Medicine; Visit Provider Student in an Organized Health Care Education/Training Program
PROC: 0DJ08ZZ Inspection of Upper Intestinal Tract, Via Natural or Artificial Opening Endoscopic (ICD-10-PCS; CPT 43235; principal; 2022-10-07 11:55)
DX: K25.4 Chronic or unspecified gastric ulcer with hemorrhage (principal); D62 Acute posthemorrhagic anemia; D69.59 Other secondary thrombocytopenia; I25.10 Atherosclerotic heart disease of native coronary artery without angina pectoris; E03.9 Hypothyroidism, unspecified; E78.00 Pure hypercholesterolemia, unspecified; I10 Essential (primary) hypertension; K21.00 Gastro-esophageal reflux disease with esophagitis, without bleeding; Z90.49 Acquired absence of other specified parts of digestive tract; Z95.5 Presence of coronary angioplasty implant and graft; Z79.02 Long term (current) use of antithrombotics/antiplatelets; Z79.82 Long term (current) use of aspirin; Z79.899 Other long term (current) drug therapy
CPT/HCPCS: 36415; 80048; 82271; 82274; 84484; 85014; 85018; 85025; 86850; 86900; 86901; 86920; 86922; 93005; 94640; 97110; 97116; 97162; 97166; 97535; 99285; J7030; J7040; J7120; P9016; A4216; J2405; J2916; J3490

== ENCOUNTER → 2022-10-14 | Outpatient (CLI) | payer OTHER, SELFPAY ==
[2022-10-09 11:01] VITALS: BMI 30.6
[2022-10-14 10:20] LABS: Absolute Lymphocyte Count 1.25 X10^3/uL (0.83-4.51); Absolute Neutrophil Count 3.1 X10^3/uL (2.0-7.7); Basophil# 0.02 X10^3/uL; Basophil% 0.4 % (0-1); Eosinophil# 0.12 X10^3/uL; Eosinophils% 2.4 % (0-5); Hematocrit 28.8 % (37-47); Hemoglobin 8.9 g/dL (12.0-15.0); Lymphocyte # 1.25 X10^3/ul (0.83-4.51); Lymphocyte % 24.9 % (19-41); Mean Corp Hgb Conc 30.9 g/dL (32-36); Mean Corpuscular Hgb 30.4 pg (27.0-32.0); Mean Corpuscular Volume 98.3 fL (81-99); Mean Platelet Vol. 10.8 fl (6.2-12.0); Monocyte# 0.51 X10^3/uL; Monocyte% 10.1 % (0-10); NRBC Flagged by Analyzer 0 % (0-5); Neutrophil # 3.08 X10^3/uL (2.7-7.7); Neutrophil % 61.2 % (47-70); Platelet Count 238 K/mm3 (150-450); RBC Distribution Width SD 51.3 fl (35.1-43.9); Red Blood Count 2.93 M/mm3 (4.2-5.4)
== END | disposition home or self-care (01) ==
LOC: LAB 09:52
PROVIDERS: PCP Family Medicine; Visit Provider Nurse Practitioner Adult Health
DX: D62 Acute posthemorrhagic anemia (principal)
CPT/HCPCS: 36415; 85025

== ENCOUNTER 2022-10-19 05:50 | Inpatient (IN) | payer OTHER, SELFPAY ==
[2022-10-19] VITALS (18 sets, daily range): BP systolic 90–146; BP diastolic 47–95; PULSE 77–100; RESP 16–18; TEMP 36.3–36.9; O2SAT 93–98; BMI 31.3; BMI 28.5
--- NOTE | 2022-10-19 05:54 | RAD_ITS ---
EXAM: XR CHEST, 1 VIEW CLINICAL INDICATION: dypsnea dypsnea TECHNIQUE: Frontal view of the chest. This report was created using [employer] report generation technology. COMPARISON: 07/14/2022. FINDINGS: LUNGS AND PLEURAL SPACES: Lungs are mildly hyperinflated, suggesting COPD. No pneumothorax. No effusion. HEART: Unremarkable. Cardiac silhouette not enlarged. MEDIASTINUM: Central airways and mediastinal contour are unremarkable. BONES/JOINTS: Unremarkable. SOFT TISSUES: Unremarkable. RAD/Chest 1 View (Portable) IMPRESSION: 1. Suggestion of COPD. 2. No evidence for acute cardiopulmonary pathology. Electronically Signed: Margarito Orozco MD at 7:13 EST ,
--- NOTE | 2022-10-19 05:55 | EDS_ITS ---
HPI HPI - GI History of Present Illness Chief Complaint: GI Bleed Narrative Narrative: 77-year-old female presenting with concern for GI bleed. She is feeling weak, pale, dyspneic. Recently seen in the hospital by Dr. Isbell. She had endoscopy performed. She states her bleeding ulcers were treated by Dr. Isbell. She was transferred 3 units while in the hospital. She is currently on Brilinta and this was held during her hospital stay but was restarted when she was discharged. She had a couple of bowel movements which are dark black. Her states she is a little more pale than usual. They did present with a jar of black stool for evaluation. [facility] Medical History Arthritis Atherosclerotic heart disease of [place] coronary artery without angina pectoris Back pain Cardiology follow-up encounter Chest pain Chest pain, precordial Dizziness and giddiness Gastric reflux GERD (gastroesophageal reflux disease) Hiatal hernia High cholesterol History of echocardiogram History of edema History of IBS History of pain when walking History of stress test Hyperlipidemia Hypothyroidism Hypothyroidism, iatrogenic Non-smoker OA (osteoarthritis) of knee Osteoporosis Palpitations Post-menopausal Shortness of breath on exertion Thyroid disease Wears glasses Wears partial dentures Home Medications methylcellulose (laxative) 500 mg tablet (Citrucel) 1,000 mg PO QDAY PRN Constipation 09/22/17 [History Last Taken Unknown] nitroglycerin 0.4 mg sublingual tablet 0.4 mg sublingual Q5M PRN chest pain #90 tabs 09/27/17 [Rx Last Taken Unknown] propranolol 20 mg tablet 20 mg PO BID BP/Heart rate 01/02/19 [History Last Taken 09/30/22] ascorbic acid (vitamin C) 500 mg capsule 500 mg PO DAILY PRN Supplement 06/25/21 [History Last Taken Unknown] cholecalciferol (vitamin D3) 10 mcg/drop (400 unit/drop) oral drops 20 mcg PO DAILY Supplement 06/25/22 [History Last Taken Unknown] d-mannose 500 mg capsule 500 mg PO DAILY Kidney 06/25/22 [History Last Taken Unknown] dicyclomine 10 mg capsule 20 mg PO Q6H Stomach 06/25/22 [History Last Taken Unknown] levothyroxine 75 mcg tablet 75 mcg PO DAILY thyroid 06/25/22 [History Last Taken 09/30/22] aspirin 81 mg tablet,delayed release 81 mg PO DAILY heart health 07/14/22 [History Last Taken 09/30/22] atorvastatin 40 mg tablet 40 mg PO QHS Cholesterol 07/14/22 [History Last Taken Unknown] ticagrelor 90 mg tablet (Brilinta) 90 mg PO BID #180 tabs 07/22/22 [Rx Last Taken 09/30/22] simethicone 80 mg chewable tablet (Gas Relief 80 (simethicone)) 80 mg PO BID-QID PRN Gastric Reflux 08/03/22 [History Last Taken Unknown] isosorbide mononitrate 30 mg tablet,extended release 24 hr 30 mg PO BID this is a dose increase #180 tabs 09/28/22 [Rx Last Taken 09/30/22] pantoprazole 40 mg tablet,delayed release 40 mg PO BID #60 tabs 10/11/22 [Rx Last Taken Unknown] pramipexole 0.25 mg tablet 0.25 mg PO QHS PRN restless legs #30 tabs 10/11/22 [Rx Last Taken Unknown] sucralfate 1 gram tablet 1 g PO TID #90 tabs 10/11/22 [Rx Last Taken Unknown] Allergy/AdvReac Type Severity Reaction Status Date / Time etodolac Allergy Severe Throat Verified 10/14/22 08:59 tightness, rash morphine AdvReac Itching, Verified 10/14/22 08:59 rash oxycodone [From Percocet] AdvReac Nausea/Vom/ Verified 10/14/22 08:59 Diarrhea Family History Sister CAD (coronary artery disease) Hx of CABG Sister S/P MVR (mitral valve replacement) Surgical History Cystocele with prolapse History of appendectomy History of cardiac catheterization History of cholecystectomy History of coronary artery stent placement (~07/14/22) History of coronary artery stent placement History of total hysterectomy Rectocele Social History number of children: 12 Smoking Status: Never smoker alcohol intake: never substance use type: does not use additional social history: Alessandro Ace ROS ROS ED Constitutional Constitutional ED: Denies chills, fever(s) or sweats Eyes Eyes: Denies blurry vision or change in vision ENT ENT ED: Denies ear pain or sore throat Cardiovascular Cardiovascular: Denies chest pain, palpitations or racing heartbeat Respiratory/Chest Respiratory/Chest: Reports dyspnea; Denies cough or sputum Gastrointestinal Gastrointestinal: Reports melena; Denies abdominal pain, constipation, nausea or vomiting Genitourinary Genitourinary ED: Denies dysuria, hematuria or urinary frequency Musculoskeletal Musculoskeletal: Denies arthralgias, myalgias or neck pain Integumentary Denies abscess, Abrasions or rash Neurologic Neurologic: Denies headache(s), paresthesias or weakness Psychiatric Psychiatric: Denies anxiety, depression, suicidal ideation or suicidal thoughts Endocrine Endocrinology: Denies polydipsia or polyuria EXAM Physical Exam Const Vital Signs: 10/19/22 05:50 10/19/22 06:22 Temperature 97.6 F L Temperature Source Temporal Pulse Rate 90 Pulse Rate [Lying] 86 Pulse Rate [Sitting (for 1 minute prior to obtaining)] 88 Pulse Rate [Standing (for 1 minute prior to obtaining)] 100 Respiratory Rate 16 Blood Pressure 146/79 H Blood Pressure [Lying] 113/68 Blood Pressure [Sitting (for 1 minute prior to obtaining)] 132/67 H Blood Pressure [Standing (for 1 minute prior to obtaining)] 136/72 H Blood Pressure Mean 101 Blood Pressure Mean [Lying] 83 Blood Pressure Mean [Sitting (for 1 minute prior to obtaining)] 88 Blood Pressure Mean [Standing (for 1 minute prior to obtaining)] 93 Pulse Ox 97 Oxygen Delivery Method Room Air Positive well nourished General Appearance ED: NAD and pallor HEENT Reports TM's clear and moist mucous membranes atraumatic Tympanic Membrane ED: Yes TM's clear Eyes PERRL and EOMs intact bilaterally General Eye ED: Yes pale conjunctiva; Negative for scleral icterus Neck no lymphadenopathy Resp normal respiratory effort and clear to auscultation bilaterally Effort and Inspection: Negative for respiratory distress or retractions Auscultation: Negative for rales, rhonchi or wheezes Cardio regular rate and regular rhythm Neuro CN's II-XII intact bilaterally and moves all extremities Sensorium / Orientation: alert, oriented to person, oriented to place and oriented to time Motor Exam: general weakness Skin General Skin Exam: pallor; Negative for jaundice MDM MDM MDM Narrative Medical decision making narrative: Patient with history of GI bleed on Brilinta. She had 2 black stools overnight. states she looks pale. She is normotensive. Heart rate regular rate and rhythm. Lungs clear to auscultation bilaterally. She is complaining of dyspnea but this is concerning for likely GI bleed. She has her similar symptoms which she had when she was previously admitted. She not having any pain. I will obtain an EKG and an chest x-ray as well as a high-sensitivity troponin to rule out cardiac cause. Patient will be typed and screened due to high lability of GI bleed. She is given Protonix. Orthostatics will be obtained. CBC to assess white blood cell count, hemoglobin, differential. CMP to assess liver function, renal function, electrolytes, BUN. We will check occult stool. Apparently the patient was diagnosed with a Schatzki ring that was dilated prior to her previous GI bleed. She was seen by Dr. Isbell in the hospital. He did take care of her bleeding ulcers. Patient put back on Brilinta. CBC shows a leukocytosis. Hemoglobin slightly lower at 8.6. Platelets are 272. Creatinine 0.68. BUN is again elevated. LFTs are normal. High-sensitivity troponin is 10. EKG sinus rhythm with a ventricular rate of 86 bpm without sign of ischemic change. Chest x-ray my interpretation shows no acute process. I discussed the case with Dr. Isbell who recommended Protonix drip. He will see her in consult. Impression: 1. GI bleed 2. Anemia 3. Generalized weakness 4. Dyspnea Lab Data Attestation: I reviewed the patient's lab results. Labs: Laboratory Results - last 24 hr 10/19/22 10/19/22 10/19/22 05:55 06:05 06:05 WBC 6.6 RBC 2.76 L Hgb 8.6 L Hct 27.1 L MCV 98.2 MCH 31.2 MCHC 31.7 L RDW Std Deviation 51.8 H RDW Coeff of [place] 15.2 H Plt Count 272 MPV 11.3 Immature Gran % (Auto) 0.500 Neut % (Auto) 72.6 H Lymph % (Auto) 19.4 [place] % (Auto) 6.4 Eos % (Auto) 0.8 Baso % (Auto) 0.3 Absolute Neuts (auto) 4.8 Absolute Lymphs (auto) 1.28 Nucleated RBC % 0 Sodium 139 Potassium 3.8 Chloride 107 Carbon Dioxide 23.0 Anion Gap 9 BUN 27 H Creatinine 0.68 Estim Creat Clear Calc 38.97 Est GFR (MDRD) Af Amer 108 Est GFR (MDRD) Non-Af 89 BUN/Creatinine Ratio 39.8 H Glucose 117 H Calcium 8.4 L Total Bilirubin 0.30 AST 12 L ALT 16 Alkaline Phosphatase 60 Troponin I High Sens 10 Total Protein 6.5 Albumin 3.2 Globulin 3.3 Albumin/Globulin Ratio 1.0 Blood Type A POSITIVE Antibody Screen NEGATIVE Radiography Diagnostic Testing: Clinical Impression(s) from Imaging Studies Chest X-Ray 10/19/22 05:54 IMPRESSION: 1. Suggestion of COPD. 2. No evidence for acute cardiopulmonary pathology. Electronically Signed: Margarito Orozco MD at 7:13 EST Reading Location ID and State: [facility] / [place] , Service support , Discharge Plan Triage Chief Complaint: GI Bleed ED Provider: Clarence Beavers Dx/Rx/DC Orders Prescriptions: No Action nitroglycerin 0.4 mg tablet, sublingual 0.4 mg SUBLINGUAL Q5M PRN (Reason: chest pain) Qty: 90 3RF propranolol 20 mg tablet 20 mg PO BID methylcellulose (laxative) [Citrucel] 500 mg tablet 1,000 mg PO QDAY PRN (Reason: Constipation) ascorbic acid (vitamin C) 500 mg capsule 500 mg PO DAILY PRN (Reason: Supplement) levothyroxine 75 mcg tablet 75 mcg PO DAILY dicyclomine 10 mg capsule 20 mg PO Q6H d-mannose 500 mg capsule 500 mg PO DAILY cholecalciferol (vitamin D3) 10 mcg/drop (400 unit/drop) drops 20 mcg PO DAILY simethicone [Gas Relief 80 (simethicone)] 80 mg tablet,chewable 80 mg PO BID-QID PRN (Reason: Gastric Reflux) atorvastatin 40 mg tablet 40 mg PO QHS aspirin 81 mg tablet,delayed release (DR/EC) 81 mg PO DAILY pramipexole 0.25 mg Tablet 0.25 mg PO QHS PRN (Reason: restless legs) Qty: 30 0RF pantoprazole 40 mg tablet,delayed release (DR/EC) 40 mg PO BID Qty: 60 2RF sucralfate 1 gram tablet 1 g PO TID Qty: 90 1RF Brilinta 90 mg tablet 90 mg PO BID Qty: 180 3RF isosorbide mononitrate 30 mg tablet extended release 24 hr 30 mg PO BID Qty: 180 3RF Primary Care Provider: Gene Roth Referrals: Gene Roth DO [Primary Care Provider] -
--- NOTE | 2022-10-19 05:55 | EKG12_ITS ---
Test Reason : Blood Pressure : / mmHG Vent. Rate : 086 BPM Atrial Rate : 086 BPM P-R Int : 200 ms QRS Dur : 068 ms QT Int : 338 ms P-R-T Axes : 066 055 080 degrees QTc Int : 404 ms Normal sinus rhythm Nonspecific T wave abnormality Abnormal ECG Confirmed by ANASTASIIA ADHIKARI, MARIAH ([id number]), news editor PARISH POLLARD ([id number]) on 10/20/2022 11:21:25 AM Referred By: CONSUELO Confirmed By:MARIAH LAURENT MD
[2022-10-19 06:15] LABS: Absolute Lymphocyte Count 1.28 X10^3/uL (0.83-4.51); Absolute Neutrophil Count 4.8 X10^3/uL (2.0-7.7); Basophil# 0.02 X10^3/uL; Basophil% 0.3 % (0-1); Eosinophil# 0.05 X10^3/uL; Eosinophils% 0.8 % (0-5); Hematocrit 27.1 % (37-47); Hemoglobin 8.6 g/dL (12.0-15.0); Lymphocyte # 1.28 X10^3/ul (0.83-4.51); Lymphocyte % 19.4 % (19-41); Mean Corp Hgb Conc 31.7 g/dL (32-36); Mean Corpuscular Hgb 31.2 pg (27.0-32.0); Mean Corpuscular Volume 98.2 fL (81-99); Mean Platelet Vol. 11.3 fl (6.2-12.0); Monocyte# 0.42 X10^3/uL; Monocyte% 6.4 % (0-10); NRBC Flagged by Analyzer 0 % (0-5); Neutrophil # 4.79 X10^3/uL (2.7-7.7); Neutrophil % 72.6 % (47-70); Platelet Count 272 K/mm3 (150-450); RBC Distribution Width CV 15.2 % (11.6-14.6); RBC Distribution Width SD 51.8 fl (35.1-43.9); Red Blood Count 2.76 M/mm3 (4.2-5.4); White Blood Count 6.6 K/mm3 (4.4-11.0)
[2022-10-19 06:34] LABS: AST(SGOT) 12 U/L (15-37); Alanine Aminotransfer ALT/SGPT 16 U/L (13-56); Albumin, Serum 3.2 g/dL (3.2-5.0); Alkaline Phosphatase 60 U/L (45-117); Anion Gap 9 (5-15); BUN 27 mg/dL (7-18); BUN/Creat Ratio 39.8 RATIO (10-20); Calcium,Total 8.4 mg/dL (8.5-10.1); Chloride 107 mmol/L (98-107); Creatinine, Serum 0.68 mg/dL (0.55-1.02); EST Glomerular Filtration Rate 89 mL/min (>60); Est Glom Filt Rate - Afr Amer 108 mL/min (>60); Estimated Creatinine Clearance 38.97 ml/min; Globulin 3.3 g/dL (2.2-4.2); Glucose 117 mg/dL (74-106); Potassium 3.8 mmol/L (3.5-5.1); Protein, Total 6.5 g/dL (6.4-8.2); Sodium Level 139 mmol/L (136-145); Troponin-I HS 10 pg/mL (3.0-54.0)
--- NOTE | 2022-10-19 10:00 | EX.PCM.CON.G ---
HPI Consult Data Date of Consult: 10/19/22 HPI Narrative Reason for Consultation: GI bleed HPI Narrative: ARLEY ORDOÑEZ, is a 77 F who presents from home with hematochezia and coffee-ground emesis. She was recently hospitalized from 10/07/2022 to 10/11/2022 for acute blood loss anemia, acute upper GI bleed due to gastric ulcers.? 10/07/2022 EGD revealed LA grade B reflux esophagitis, 1 oozing cratered gastric ulcer 6 mm was treated.? Her hemoglobin continued to drop therefore on 10/08/2022 EGD was repeated; this time Dr. Isbell found many oozing cratered gastric ulcers with adherent clot, largest was 10 mm, treated with argon plasma and 3 hemostatic clips.? Her hemoglobin was 8 at discharge.? She reports she is still tired and short of breath, but is feeling better than when she was hospitalized.? Since discharge she has not had any nausea or vomiting.? She is not having any heartburn or acid reflux.? No dysphagia.? She denies abdominal pain.? Her bowels are normal, no melena or hematochezia.? She is accompanied by her and son.? She is taking pantoprazole 40 mg twice daily and sucralfate 3 times daily. She is feeling weak, pale, dyspneic.? Recently seen in the hospital by Dr. Isbell.? She had endoscopy performed.? She states her bleeding ulcers were treated by Dr. Isbell.? She was transferred 3 units while in the hospital.? She is currently on Brilinta and this was held during her hospital stay but was restarted when she was discharged.? She had a couple of bowel movements which are dark black.? Her states she is a little more pale than usual.? [facility] Medical History Arthritis Atherosclerotic heart disease of [place] coronary artery without angina pectoris Back pain Cardiology follow-up encounter Chest pain Chest pain, precordial Dizziness and giddiness Gastric reflux GERD (gastroesophageal reflux disease) Hiatal hernia High cholesterol History of echocardiogram History of edema History of IBS History of pain when walking History of stress test Hyperlipidemia Hypothyroidism Hypothyroidism, iatrogenic Non-smoker OA (osteoarthritis) of knee Osteoporosis Palpitations Post-menopausal Shortness of breath on exertion Thyroid disease Wears glasses Wears partial dentures Home Medications methylcellulose (laxative) 500 mg tablet (Citrucel) 1,000 mg PO QDAY PRN Constipation 09/22/17 [History Last Taken Unknown] nitroglycerin 0.4 mg sublingual tablet 0.4 mg sublingual Q5M PRN chest pain #90 tabs 09/27/17 [Rx Last Taken Unknown] propranolol 20 mg tablet 20 mg PO BID BP/Heart rate 01/02/19 [History Last Taken 09/30/22] d-mannose 500 mg capsule 500 mg PO DAILY Kidney 06/25/22 [History Last Taken Unknown] levothyroxine 75 mcg tablet 75 mcg PO DAILY thyroid 06/25/22 [History Last Taken 09/30/22] aspirin 81 mg tablet,delayed release 81 mg PO DAILY heart health 07/14/22 [History Last Taken 09/30/22] atorvastatin 40 mg tablet 40 mg PO QHS Cholesterol 07/14/22 [History Last Taken Unknown] ticagrelor 90 mg tablet (Brilinta) 90 mg PO BID #180 tabs 07/22/22 [Rx Last Taken 09/30/22] isosorbide mononitrate 30 mg tablet,extended release 24 hr 30 mg PO BID this is a dose increase #180 tabs 09/28/22 [Rx Last Taken 09/30/22] pantoprazole 40 mg tablet,delayed release 40 mg PO BID #60 tabs 10/11/22 [Rx Last Taken Unknown] sucralfate 1 gram tablet 1 g PO TID #90 tabs 10/11/22 [Rx Last Taken Unknown] Allergy/AdvReac Type Severity Reaction Status Date / Time etodolac Allergy Severe Throat Verified 10/14/22 08:59 tightness, rash morphine AdvReac Itching, Verified 10/14/22 08:59 rash oxycodone [From Percocet] AdvReac Nausea/Vom/ Verified 10/14/22 08:59 Diarrhea Family History Sister CAD (coronary artery disease) Hx of CABG Sister S/P MVR (mitral valve replacement) Surgical History Cystocele with prolapse History of appendectomy History of cardiac catheterization History of cholecystectomy History of coronary artery stent placement (~07/14/22) History of coronary artery stent placement History of total hysterectomy Rectocele Social History number of children: 12 Smoking Status: Never smoker alcohol intake: never substance use type: does not use additional social history: Alessandro Ordoñez ROS ROS Narrative Pertinent positives and pertinent negatives as noted in HPI. All other systems were reviewed and are negative Physical Exam Const alert, oriented x3 and no apparent distress General Appearance: cooperative Orientation / Consciousness: awake Exam Limitations: no limitations HEENT normocephalic, head/scalp atraumatic, hearing grossly normal bilaterally, moist oral mucous membranes and oropharynx normal Mouth: oral and palatal mucosa normal Eyes PERRL, EOMs intact bilaterally and conjunctivae normal Neck no lymphadenopathy, supple and no JVD Resp normal respiratory effort, no retractions, no use of accessory muscles and clear to auscultation bilaterally Cardio regular rate, regular rhythm, S1 normal heart sound, S2 normal heart sound and no murmurs GI normal to inspection, nondistended, normoactive bowel sounds, soft to palpation, non-tender and non-distended Extremity normal to inspection, full ROM and no clubbing, cyanosis or edema Skin no rashes or lesions noted Neuro oriented x3, CN's II-XII intact bilaterally, moves all extremities and no focal motor deficits Sensorium / Orientation: awake and alert Motor Exam: strength 5/5 throughout Psych affect normal Lab / Micro Data Result Diagrams: 10/19/22 06:05 10/19/22 06:05 Labs: Laboratory Results - last 24 hr 10/19/22 05:55: Blood Type A POSITIVE, Antibody Screen NEGATIVE 10/19/22 06:05: WBC 6.6, RBC 2.76 L, Hgb 8.6 L, Hct 27.1 L, MCV 98.2, MCH 31.2, MCHC 31.7 L, RDW Std Deviation 51.8 H, RDW Coeff of [place] 15.2 H, Plt Count 272, MPV 11.3, Immature Gran % (Auto) 0.500, Neut % (Auto) 72.6 H, Lymph % (Auto) 19.4, [place] % (Auto) 6.4, Eos % (Auto) 0.8, Baso % (Auto) 0.3, Absolute Neuts (auto) 4.8, Absolute Lymphs (auto) 1.28, Nucleated RBC % 0 10/19/22 06:05: Sodium 139, Potassium 3.8, Chloride 107, Carbon Dioxide 23.0, Anion Gap 9, BUN 27 H, Creatinine 0.68, Estim Creat Clear Calc 38.97, Est GFR (MDRD) Af Amer 108, Est GFR (MDRD) Non-Af 89, BUN/Creatinine Ratio 39.8 H, Glucose 117 H, Calcium 8.4 L, Total Bilirubin 0.30, AST 12 L, ALT 16, Alkaline Phosphatase 60, Troponin I High Sens 10, Total Protein 6.5, Albumin 3.2, Globulin 3.3, Albumin/Globulin Ratio 1.0 Micro: Microbiology 10/19/22 06:05 Stool Stool Occult Blood (MARCO ANTONIO) - Final Occult Blood Positive Radiology Impression Chest X-Ray 10/19/22 05:54 IMPRESSION: 1. Suggestion of COPD. 2. No evidence for acute cardiopulmonary pathology. Electronically Signed: Margarito Oroczo MD at 7:13 EST Reading Location ID and State: [facility] / [place] , Service support , Assessment & Plan Assessment/Plan (1) ABLA (acute blood loss anemia): (2) Acute upper gastrointestinal bleeding: PLAN: Plan ABLA hemoglobin of 8.3 on presentation. Her hemoglobin was 8.6 . She also had a decrease in platelet count so I suspect some is dilutional. Her hemoglobin seems to be stable at 8. PPI drip and octreotide drip should be continued for 24 hours. She will need a repeat upper endoscopy. Monitor H&H every 6. She will undergo a repeat EGD today CAD status post stents Stable She was given Brilinta and aspirin. Cardiac catheterization on 07/14/2022 was reviewed. Drug eluting stent was placed in LAD and RCA. DVT prophylaxis: SCDs ordered. Charges/Coding Visit Charges Inpatient E&M: 45368 Init Hosp L2
[2022-10-19] MEDS: 0.9% Normal Saline 1,000 ML 75 ML IV ×2 (10:33→22:46)
[2022-10-19] MEDS: Lactated Ringers 1,000 ML 15 ML IV (11:00)
[2022-10-19] MEDS: Epinephrine (1 mg/ml) 1 MG/ML VIAL (11:50)
[2022-10-19] MEDS: 0.9% Normal Saline (Pres. free 10 ML Vial (11:50)
[2022-10-19] MEDS: 0.9% Saline Lock 10 ML Syringe IV ×2 (11:55→22:46)
--- NOTE | 2022-10-19 12:30 | OP.EGD_ITS ---
Patient Name: Ina Ace Procedure Date: 10/19/2022 11:33 AM Date of : 1945 Age: 77 Procedure: Upper GI endoscopy Indications: Coffee-ground emesis Providers: Brian Isbell DO Medicines: Monitored Anesthesia Care Patient Profile: This is a 77 year old female. Refer to note in patient chart for documentation of history and physical. Patient has symptoms of acute vomiting. Complications: No immediate complications. Procedure: Pre-Anesthesia Assessment: - Prior to the procedure, a History and Physical was performed, and patient medications and allergies were reviewed. The patient is competent. The risks and benefits of the procedure and the sedation options and risks were discussed with the patient. All questions were answered and informed consent was obtained. Patient identification and proposed procedure were verified by the physician. Mental Status Examination: normal. Airway Examination: normal oropharyngeal airway and neck mobility. Respiratory Examination: clear to auscultation. CV Examination: normal. Prophylactic Antibiotics: The patient does not require prophylactic antibiotics. Prior Anticoagulants: The patient has taken no previous anticoagulant or antiplatelet agents. After reviewing the risks and benefits, the patient was deemed in satisfactory condition to undergo the procedure. The anesthesia plan was to use monitored anesthesia care (MAC). Immediately prior to administration of medications, the patient was re-assessed for adequacy to receive sedatives. The heart rate, respiratory rate, oxygen saturations, blood pressure, adequacy of pulmonary ventilation, and response to care were monitored throughout the procedure. The physical status of the patient was re-assessed after the procedure. After obtaining informed consent, the endoscope was passed under direct vision. Throughout the procedure, the patient's blood pressure, pulse, and oxygen saturations were monitored continuously. The Endoscope was introduced through the mouth, and advanced to the second part of duodenum. The upper GI endoscopy was accomplished without difficulty. The patient tolerated the procedure well. Scope In: 11:44:05 AM Scope Out: 12:13:20 PM Total Procedure Duration Time 0 hours 29 minutes 15 seconds Findings: The examined esophagus was normal. One spurting cratered gastric ulcer with a visible vessel was found on the lesser curvature of the stomach. The lesion was 6 mm in largest dimension. Area was successfully injected with 5 mL of a 1:10,000 solution of epinephrine for drug delivery. Coagulation for hemostasis using heater probe was successful. The duodenal bulb was normal. Impression: - Normal esophagus. - Spurting gastric ulcer with a visible vessel. Injected. Treated with a heater probe and treated with Hemospray. bulb. - No specimens collected. Recommendation: - Return [facility] to [facility]. - NPO, Except ice chips -Continue PPI drip and octreotide drip for 24 hours - Continue present medications. Procedure Code(s): --- Professional --- 01955, Esophagogastroduodenoscopy, flexible, transoral; with control of bleeding, any method 72518, 59, Esophagogastroduodenoscopy, flexible, transoral; with directed submucosal injection(s), any substance CPT copyright 2017 [employer]. All rights reserved. The codes documented in this report are preliminary and upon remote coders review may be revised to meet current compliance requirements. Brian Isbell DO 10/19/2022 12:30:30 PM This report has been signed electronically. Number of Addenda: 0 Note Initiated On: 10/19/2022 11:33 AM
--- NOTE | 2022-10-19 12:31 | OP.CCLET_ITS ---
10/19/2022 Gene Roth Re : Upper GI endoscopy procedure for Ina Ace Dear Ira This procedure was performed on Wednesday, October 19, 2022. My impressions and recommendations are as follows: Impressions : - Normal esophagus. - Spurting gastric ulcer with a visible vessel. Injected. Treated with a heater probe and treated with Hemospray. bulb. - No specimens collected. Recommendations : - Return patient to [facility]. - NPO, Except ice chips -Continue PPI drip and octreotide drip for 24 hours - Continue present medications. My findings are described in the full procedure note, which is enclosed. If I can be of further assistance, please feel free to contact me at . Sincerely, Brian Isbell, 10/19/2022 12:30:30 PM This report has been signed electronically.
[2022-10-19 13:03] LABS: Hematocrit 24.1 % (37-47); Hemoglobin 7.7 g/dL (12.0-15.0)
--- NOTE | 2022-10-19 15:43 | PN_ITS ---
Subjective Subjective Patient underwent an upper endoscopy today and she was discovered to have a repeat gastric ulcer that is different than her previous site of GI bleeding. This was treated endoscopically. Objective Data Objective Data Vital Signs: Vital Signs Temp Pulse Resp BP Pulse Ox O2 Del Method 98.1 F 85 18 115/52 L 96 Room Air 10/19/22 14:20 10/19/22 14:20 10/19/22 14:20 10/19/22 14:20 10/19/22 14:20 10/19/22 14:20 Oxygen Delivery Method Room Air Weight: 161 lb Body Mass Index (BMI) 28.5 Intake & Output: Intake and Output for Last 24 Hours 10/17/22 10/18/22 10/19/22 23:59 23:59 23:59 Intake Total 113.58 / 113.58 Balance 113.58 / 113.58 Lab / Micro Data Result Diagrams: 10/19/22 12:58 10/19/22 06:05 Labs: Laboratory Results - last 24 hr 10/19/22 05:55: Blood Type A POSITIVE, Antibody Screen NEGATIVE 10/19/22 06:05: WBC 6.6, RBC 2.76 L, Hgb 8.6 L, Hct 27.1 L, MCV 98.2, MCH 31.2, MCHC 31.7 L, RDW Std Deviation 51.8 H, RDW Coeff of [place] 15.2 H, Plt Count 272, MPV 11.3, Immature Gran % (Auto) 0.500, Neut % (Auto) 72.6 H, Lymph % (Auto) 19.4, [place] % (Auto) 6.4, Eos % (Auto) 0.8, Baso % (Auto) 0.3, Absolute Neuts (auto) 4.8, Absolute Lymphs (auto) 1.28, Nucleated RBC % 0 10/19/22 06:05: Sodium 139, Potassium 3.8, Chloride 107, Carbon Dioxide 23.0, Anion Gap 9, BUN 27 H, Creatinine 0.68, Estim Creat Clear Calc 38.97, Est GFR (MDRD) Af Amer 108, Est GFR (MDRD) Non-Af 89, BUN/Creatinine Ratio 39.8 H, Glucose 117 H, Calcium 8.4 L, Total Bilirubin 0.30, AST 12 L, ALT 16, Alkaline Phosphatase 60, Troponin I High Sens 10, Total Protein 6.5, Albumin 3.2, Globulin 3.3, Albumin/Globulin Ratio 1.0 10/19/22 12:58: Hgb 7.7 L, Hct 24.1 L Micro: Microbiology 10/19/22 06:05 Stool Stool Occult Blood (MARCO ANTONIO) - Final Occult Blood Positive Radiography Diagnostic Testing: Radiology Impression Chest X-Ray 10/19/22 05:54 IMPRESSION: 1. Suggestion of COPD. 2. No evidence for acute cardiopulmonary pathology. Electronically Signed: Margarito Orozco MD at 7:13 EST , Physical Exam Const alert, oriented x3 and no apparent distress General Appearance: cooperative Orientation / Consciousness: awake Exam Limitations: no limitations HEENT normocephalic, head/scalp atraumatic, hearing grossly normal bilaterally, moist oral mucous membranes and oropharynx normal Mouth: oral and palatal mucosa normal Eyes PERRL, EOMs intact bilaterally and conjunctivae normal Neck no lymphadenopathy, supple and no JVD Resp normal respiratory effort, no retractions, no use of accessory muscles and clear to auscultation bilaterally Cardio regular rate, regular rhythm, S1 normal heart sound, S2 normal heart sound and no murmurs GI normal to inspection, nondistended, normoactive bowel sounds, soft to palpation, non-tender and non-distended Extremity normal to inspection, full ROM and no clubbing, cyanosis or edema Skin no rashes or lesions noted Neuro oriented x3, CN's II-XII intact bilaterally, moves all extremities and no focal motor deficits Sensorium / Orientation: awake and alert Motor Exam: strength 5/5 throughout Psych affect normal Assessment & Plan Assessment/Plan (1) Gastric ulcer: PLAN: Recommend Cardiology Consultation NPO except medications Continue PPI drip and Octreotide drip
--- NOTE | 2022-10-19 16:35 | HP.PCM.HOS_ITS ---
[facility] - General General Date of Admission: 10/19/22 Date of Service: 10/19/22 Chief Complaint: Melena HPI Narrative ARLEY ORDOÑEZ, is a 77 F who presents with melena. Brought a jar of her melena to show to the ER physician. GI was contacted and patient has been started on pantoprazole drip as well as octreotide. Similar to when she had ulcer before. Patient underwent endoscopy today that showed a spurting gastric ulcer with visible vessel that was injected. Patient currently feels fine. [facility] Medical History Arthritis Atherosclerotic heart disease of [place] coronary artery without angina pectoris Back pain Cardiology follow-up encounter Chest pain Chest pain, precordial Dizziness and giddiness Gastric reflux GERD (gastroesophageal reflux disease) Hiatal hernia High cholesterol History of echocardiogram History of edema History of IBS History of pain when walking History of stress test Hyperlipidemia Hypothyroidism Hypothyroidism, iatrogenic Non-smoker OA (osteoarthritis) of knee Osteoporosis Palpitations Post-menopausal Shortness of breath on exertion Thyroid disease Wears glasses Wears partial dentures Home Medications methylcellulose (laxative) 500 mg tablet (Citrucel) 1,000 mg PO QDAY PRN Constipation 09/22/17 [History Last Taken Unknown] nitroglycerin 0.4 mg sublingual tablet 0.4 mg sublingual Q5M PRN chest pain #90 tabs 09/27/17 [Rx Last Taken Unknown] propranolol 20 mg tablet 20 mg PO BID BP/Heart rate 01/02/19 [History Last Taken 09/30/22] d-mannose 500 mg capsule 500 mg PO DAILY Kidney 06/25/22 [History Last Taken Unknown] levothyroxine 75 mcg tablet 75 mcg PO DAILY thyroid 06/25/22 [History Last Taken 09/30/22] aspirin 81 mg tablet,delayed release 81 mg PO DAILY heart health 07/14/22 [History Last Taken 09/30/22] atorvastatin 40 mg tablet 40 mg PO QHS Cholesterol 07/14/22 [History Last Taken Unknown] ticagrelor 90 mg tablet (Brilinta) 90 mg PO BID #180 tabs 07/22/22 [Rx Last Taken 09/30/22] isosorbide mononitrate 30 mg tablet,extended release 24 hr 30 mg PO BID this is a dose increase #180 tabs 09/28/22 [Rx Last Taken 09/30/22] pantoprazole 40 mg tablet,delayed release 40 mg PO BID #60 tabs 10/11/22 [Rx Last Taken Unknown] sucralfate 1 gram tablet 1 g PO TID #90 tabs 10/11/22 [Rx Last Taken Unknown] Allergy/AdvReac Type Severity Reaction Status Date / Time etodolac Allergy Severe Throat Verified 10/14/22 08:59 tightness, rash morphine AdvReac Itching, Verified 10/14/22 08:59 rash oxycodone [From Percocet] AdvReac Nausea/Vom/ Verified 10/14/22 08:59 Diarrhea Family History Sister CAD (coronary artery disease) Hx of CABG Sister S/P MVR (mitral valve replacement) Surgical History Cystocele with prolapse History of appendectomy History of cardiac catheterization History of cholecystectomy History of coronary artery stent placement (~07/14/22) History of coronary artery stent placement History of total hysterectomy Rectocele Social History number of children: 12 Smoking Status: Never smoker alcohol intake: never substance use type: does not use additional social history: Alessandro Ordoñez ROS ROS Narrative All review of systems were negative except as mentioned above in the history of present illness and the other review of systems. Vital Signs Vital Signs Vital Signs: 10/19/22 05:50 10/19/22 06:22 10/19/22 07:51 Temperature 36.4 C L 36.7 C Temperature Source Temporal Oral Pulse Rate 90 77 Pulse Rate [Lying] 86 Pulse Rate [Sitting (for 1 minute prior to obtaining)] 88 Pulse Rate [Standing (for 1 minute prior to obtaining)] 100 Respiratory Rate 16 16 Respiratory Pattern Blood Pressure 146/79 H 111/64 Blood Pressure [Lying] 113/68 Blood Pressure [Sitting (for 1 minute prior to obtaining)] 132/67 H Blood Pressure [Standing (for 1 minute prior to obtaining)] 136/72 H Blood Pressure Mean 101 79 Blood Pressure Mean [Lying] 83 Blood Pressure Mean [Sitting (for 1 minute prior to obtaining)] 88 Blood Pressure Mean [Standing (for 1 minute prior to obtaining)] 93 Blood Pressure Source Blood Pressure Position Blood Pressure Location Baseline BP Pulse Ox 97 95 Oxygen Delivery Method Room Air Room Air 10/19/22 12:18 10/19/22 12:20 10/19/22 12:25 Temperature 36.9 C Temperature Source Temporal Pulse Rate 90 86 85 Pulse Rate [Lying] Pulse Rate [Sitting (for 1 minute prior to obtaining)] Pulse Rate [Standing (for 1 minute prior to obtaining)] Respiratory Rate 16 18 16 Respiratory Pattern Normal Blood Pressure 124/95 H 141/74 H 134/70 H Blood Pressure [Lying] Blood Pressure [Sitting (for 1 minute prior to obtaining)] Blood Pressure [Standing (for 1 minute prior to obtaining)] Blood Pressure Mean 104 96 91 Blood Pressure Mean [Lying] Blood Pressure Mean [Sitting (for 1 minute prior to obtaining)] Blood Pressure Mean [Standing (for 1 minute prior to obtaining)] Blood Pressure Source Monitor Monitor Monitor Blood Pressure Position Semi-Fowlers Semi-Fowlers Semi-Fowlers Blood Pressure Location Right Arm Right Arm Right Arm Baseline BP 111/64 111/64 111/64 Pulse Ox 98 96 93 Oxygen Delivery Method Room Air Room Air Room Air 10/19/22 12:30 10/19/22 12:35 10/19/22 12:40 Temperature Temperature Source Pulse Rate 79 80 79 Pulse Rate [Lying] Pulse Rate [Sitting (for 1 minute prior to obtaining)] Pulse Rate [Standing (for 1 minute prior to obtaining)] Respiratory Rate 16 16 16 Respiratory Pattern Blood Pressure 137/71 H 140/59 H 138/62 H Blood Pressure [Lying] Blood Pressure [Sitting (for 1 minute prior to obtaining)] Blood Pressure [Standing (for 1 minute prior to obtaining)] Blood Pressure Mean 93 86 87 Blood Pressure Mean [Lying] Blood Pressure Mean [Sitting (for 1 minute prior to obtaining)] Blood Pressure Mean [Standing (for 1 minute prior to obtaining)] Blood Pressure Source Monitor Monitor Monitor Blood Pressure Position Semi-Fowlers Semi-Fowlers Semi-Fowlers Blood Pressure Location Right Arm Right Arm Right Arm Baseline BP 111/64 111/64 111/64 Pulse Ox 96 96 96 Oxygen Delivery Method Room Air Room Air Room Air 10/19/22 12:45 10/19/22 13:08 10/19/22 14:20 Temperature 36.3 C L 36.7 C Temperature Source Temporal Oral Pulse Rate 78 80 85 Pulse Rate [Lying] Pulse Rate [Sitting (for 1 minute prior to obtaining)] Pulse Rate [Standing (for 1 minute prior to obtaining)] Respiratory Rate 16 16 18 Respiratory Pattern Blood Pressure 141/69 H 131/68 H 115/52 L Blood Pressure [Lying] Blood Pressure [Sitting (for 1 minute prior to obtaining)] Blood Pressure [Standing (for 1 minute prior to obtaining)] Blood Pressure Mean 93 89 73 Blood Pressure Mean [Lying] Blood Pressure Mean [Sitting (for 1 minute prior to obtaining)] Blood Pressure Mean [Standing (for 1 minute prior to obtaining)] Blood Pressure Source Monitor Monitor Blood Pressure Position Semi-Fowlers Semi-Fowlers Blood Pressure Location Right Arm Right Arm Baseline BP 111/64 111/64 Pulse Ox 98 96 96 Oxygen Delivery Method Room Air Room Air Room Air Weight Weight: 73.028 kg Body Mass Index (BMI) 28.5 Physical Exam Narrative - Physical Exam General: Alert, Oriented x3, Cooperative HEENT: Atraumatic, PERRLA, EOMI, Normocephalic Oral: Moist Mucosa, No Gingival or Mucosal Lesions/ Ulcerations Neck: Supple, No JVD, Negative Carotid Bruits Lungs: Clear to auscultation, Normal air movement Cardiovascular: Regular rate, Normal S1, Normal S2, No murmurs Abdomen: Bowel Sounds Present, Soft, Non Tender, Non-Distended, No Hepato-sp lenomegaly Extremities: No clubbing, No cyanosis, No edema, Capillary Refill Less than 3 Seconds Skin: No rashes, No breakdown Musculoskeletal: No Tenderness to Palpation of Joints or Extremities Neurological: Neuro grossly intact Psych/Mental Status: Normal Affect, Appropriate Results Lab / Micro Data Result Diagrams: 10/19/22 12:58 10/19/22 06:05 Labs: Laboratory Results - last 24 hr 10/19/22 05:55: Blood Type A POSITIVE, Antibody Screen NEGATIVE 10/19/22 06:05: WBC 6.6, RBC 2.76 L, Hgb 8.6 L, Hct 27.1 L, MCV 98.2, MCH 31.2, MCHC 31.7 L, RDW Std Deviation 51.8 H, RDW Coeff of [place] 15.2 H, Plt Count 272, MPV 11.3, Immature Gran % (Auto) 0.500, Neut % (Auto) 72.6 H, Lymph % (Auto) 19.4, [place] % (Auto) 6.4, Eos % (Auto) 0.8, Baso % (Auto) 0.3, Absolute Neuts (auto) 4.8, Absolute Lymphs (auto) 1.28, Nucleated RBC % 0 10/19/22 06:05: Sodium 139, Potassium 3.8, Chloride 107, Carbon Dioxide 23.0, Anion Gap 9, BUN 27 H, Creatinine 0.68, Estim Creat Clear Calc 38.97, Est GFR (MDRD) Af Amer 108, Est GFR (MDRD) Non-Af 89, BUN/Creatinine Ratio 39.8 H, Glucose 117 H, Calcium 8.4 L, Total Bilirubin 0.30, AST 12 L, ALT 16, Alkaline Phosphatase 60, Troponin I High Sens 10, Total Protein 6.5, Albumin 3.2, Globulin 3.3, Albumin/Globulin Ratio 1.0 10/19/22 12:58: Hgb 7.7 L, Hct 24.1 L Micro: Microbiology 10/19/22 06:05 Stool Stool Occult Blood (MARCO ANTONIO) - Final Occult Blood Positive Radiology Impression Chest X-Ray 10/19/22 05:54 IMPRESSION: 1. Suggestion of COPD. 2. No evidence for acute cardiopulmonary pathology. Electronically Signed: Margarito Orozco MD at 7:13 EST Reading Location ID and State: [facility] / [place] , Service support , Assessment & Plan Assessment/Plan (1) Gastric ulcer: PLAN: Status post heater probe and treated with Hemospray. On octreotide and PPI drip Gastroenterology following (2) Acute blood loss anemia: PLAN: Hemoglobin down to 7.7. Given patient's known history of coronary artery disease, will treat for hemoglobin less than 8. Will transfuse 1 unit. Discussed with the patient. (3) CAD (coronary artery disease): PLAN: Discussed with Dr. Caro who recommends holding off on the aspirin and ticagrelor then resuming clopidogrel in 48 hours, presuming patient not have any further bleeding. Patient continue with that monotherapy until follows up with cardiology. PLAN: Plan Chronic conditions * Hypothyroidism: Continue with levothyroxine VTE prophylaxis with SCDs Charges/Coding Visit Charges Inpatient E&M: 80240 Init Hosp L3
[2022-10-20] VITALS (7 sets, daily range): BP systolic 92–125; BP diastolic 45–59; PULSE 69–86; RESP 16–22; TEMP 36.6–37.2; O2SAT 90–97
[2022-10-20] MEDS: Levothyroxine 75 MCG Tablet PO (05:41)
[2022-10-20 06:44] LABS: Absolute Lymphocyte Count 1.25 X10^3/uL (0.83-4.51); Absolute Neutrophil Count 5.3 X10^3/uL (2.0-7.7); Basophil# 0.02 X10^3/uL; Basophil% 0.3 % (0-1); Eosinophil# 0.07 X10^3/uL; Hematocrit 26.5 % (37-47); Hemoglobin 8.5 g/dL (12.0-15.0); Lymphocyte # 1.25 X10^3/ul (0.83-4.51); Lymphocyte % 17.7 % (19-41); Mean Corp Hgb Conc 32.1 g/dL (32-36); Mean Corpuscular Hgb 31.6 pg (27.0-32.0); Mean Corpuscular Volume 98.5 fL (81-99); Mean Platelet Vol. 10.6 fl (6.2-12.0); Monocyte# 0.44 X10^3/uL; Monocyte% 6.2 % (0-10); NRBC Flagged by Analyzer 0 % (0-5); Neutrophil # 5.27 X10^3/uL (2.7-7.7); Neutrophil % 74.4 % (47-70); Platelet Count 208 K/mm3 (150-450); RBC Distribution Width CV 15.8 % (11.6-14.6); Red Blood Count 2.69 M/mm3 (4.2-5.4); White Blood Count 7.1 K/mm3 (4.4-11.0)
[2022-10-20 07:26] LABS: Anion Gap 5 (5-15); BUN 25 mg/dL (7-18); BUN/Creat Ratio 29.4 RATIO (10-20); Calcium,Total 8.1 mg/dL (8.5-10.1); Chloride 112 mmol/L (98-107); Creatinine, Serum 0.85 mg/dL (0.55-1.02); EST Glomerular Filtration Rate 69 mL/min (>60); Est Glom Filt Rate - Afr Amer 83 mL/min (>60); Estimated Creatinine Clearance 45.85 ml/min; Glucose 123 mg/dL (74-106); Potassium 4.2 mmol/L (3.5-5.1); Sodium Level 143 mmol/L (136-145)
--- NOTE | 2022-10-20 07:45 | PN.HOSP_ITS ---
Reason for Visit Reason for Visit: Diagnoses Acute posthemorrhagic anemia (10/19/22) Atherosclerotic heart disease of [place] coronary artery without angina pectoris (10/19/22) Gastric ulcer, unspecified as acute or chronic, without hemorrhage or perforation (10/19/22) Gastrointestinal hemorrhage, unspecified (10/19/22) Subjective Subjective No further bleeding Objective Data Objective Data Vital Signs: Vital Signs Temp Pulse Resp BP Pulse Ox O2 Del Method 36.8 C 86 22 H 103/52 L 90 Room Air 10/20/22 07:42 10/20/22 07:42 10/20/22 07:42 10/20/22 07:42 10/20/22 07:42 10/20/22 07:42 Oxygen Delivery Method Room Air Weight: 73.028 kg Body Mass Index (BMI) 28.5 Intake & Output: Intake and Output for Last 24 Hours 10/18/22 10/19/22 10/20/22 23:59 23:59 23:59 Intake Total 665.08 / 665.08 30.34 / 30.34 Output Total 0 / 0 Balance 665.08 / 665.08 30.34 / 30.34 Lab / Micro Data Result Diagrams: 10/20/22 06:35 10/20/22 06:35 Labs: Laboratory Results - last 24 hr 10/19/22 05:55: Crossmatch See Detail 10/19/22 12:58: Hgb 7.7 L, Hct 24.1 L 10/20/22 06:35: WBC 7.1, RBC 2.69 L, Hgb 8.5 L, Hct 26.5 L, MCV 98.5, MCH 31.6, MCHC 32.1, RDW Std Deviation 54.0 H, RDW Coeff of [place] 15.8 H, Plt Count 208, MPV 10.6, Immature Gran % (Auto) 0.400, Neut % (Auto) 74.4 H, Lymph % (Auto) 17.7 L, [place] % (Auto) 6.2, Eos % (Auto) 1.0, Baso % (Auto) 0.3, Absolute Neuts (auto) 5.3, Absolute Lymphs (auto) 1.25, Nucleated RBC % 0 10/20/22 06:35: Sodium 143, Potassium 4.2, Chloride 112 H, Carbon Dioxide 26.0, Anion Gap 5, BUN 25 H, Creatinine 0.85, Estim Creat Clear Calc 45.85, Est GFR (MDRD) Af Amer 83, Est GFR (MDRD) Non-Af 69, BUN/Creatinine Ratio 29.4 H, Glucose 123 H, Calcium 8.1 L Micro: Microbiology 10/19/22 06:05 Stool Stool Occult Blood (MARCO ANTONIO) - Final Occult Blood Positive Physical Exam Const alert and no apparent distress HEENT head/scalp atraumatic and moist oral mucous membranes Resp normal respiratory effort, no retractions, no use of accessory muscles and clear to auscultation bilaterally Cardio regular rate, regular rhythm, S1 normal heart sound and S2 normal heart sound GI normal to inspection, nondistended, normoactive bowel sounds, soft to palpation, non-tender and non-distended Extremity normal to inspection Assessment & Plan Assessment/Plan (1) Gastric ulcer: PLAN: Status post heater probe and treated with Hemospray. On octreotide and PPI drip Gastroenterology following (2) Acute blood loss anemia: PLAN: 10/19: Hemoglobin down to 7.7. Given patient's known history of coronary artery disease, will treat for hemoglobin less than 8. Will transfuse 1 unit. Discussed with the patient. 10/20: Hemoglobin 8.5, no further need for transfusion at this time. (3) CAD (coronary artery disease): PLAN: Stable 10/19: Discussed with Dr. Caro who recommends holding off on the aspirin and ticagrelor then resuming clopidogrel in 48 hours, presuming patient not have any further bleeding. Patient continue with that monotherapy until follows up with cardiology. PLAN: Plan Chronic conditions * Hypothyroidism: Continue with levothyroxine VTE prophylaxis with SCDs Charges/Coding Visit Charges Inpatient E&M: 54181 Subs Hosp L2
[2022-10-20] MEDS: Propranolol 10 MG Tablet 20 MG PO ×2 (09:50→21:18)
[2022-10-20] MEDS: Isosorbide Mononitrate 30 MG Tablet PO (09:50)
[2022-10-20] MEDS: Ensure Clear 120 ML Liquid PO ×3 (10:54→17:40)
--- NOTE | 2022-10-20 15:44 | CASEMGMT ---
SHANNA HEATH readmission note: Prior admission: Pt admitted 10/07/22 w/ABLA. Discharged home 10/11. Previously to this admission, pt had EGD on 09/18 which showed Schatzki's rings which were dilated. During hospitalization, pt seen by Dr Isbell, repeat endoscopy performed, and bleeding ulcers were treated. She was transferred 3 units while in the hospital. She was on Brilinta and this was held during her hospital stay but was restarted when she was discharged. Pt lives w/her , is indep w/ADL's and her family manages most of the home mgmt tasks and able to assist her as needed. Current admission: Pt admitted 10/19/22 w/GIB. Patient underwent endoscopy that showed a spurting gastric ulcer with visible vessel that was injected. Per Dr Borjas note, Dr. Caro recommends holding off on the aspirin and ticagrelor then resuming clopidogrel in 48 hours, if there is no further bleeding. Patient then to continue with that monotherapy until follows up with cardiology. SHANNA HEATH to room to talk w/pt and family @ bedside. Pt states she has been taking her medications as prescribed and had f/u appt w/PA @ Dr Isbell's office last Wed. She states she has been doing well @ home. She lives w/her and other family members check on her daily and can come more frequently, if needed. Her family also sets up her weekly pill containers. She denies needing HHC @ discharge and denies having discharge planning needs. Plan: Home w/family support and discharge plans in place. PT/OT evals pending. Maribel MCGREGOR RN, CM
--- NOTE | 2022-10-20 16:23 | CHAPLAIN ---
Type of Pastoral Visit _x__ Initial Visit ___ Follow-up Visit ___ On-call Visit ___ General Patient Visit ___ Spiritual Assessment ___ Family Conference ___ Bereavement ___ Rapid Response ___ Code Blue ___ Other (describe below) Pastoral Care Referral From _x__ Patient ___ Family ___ Nurse ___ Physician ___ Manager Of Financial Planning ___ Singer Back Tender ___ Other (describe below) Sacrament/Intervention _x__ Active listening ___ Anointing ___ Islam ___ Bereavement ___ Communion ___ Akanksha exploration ___ ___ Life review _x__ Prayer ___ Reconciliation ___ Sacrament of Sick _x__ Supportive presence ___ Wedding ___ Other (describe below) Pastoral Comments patient speaks of her situation and how she is coping with same; pt refers to what God degroot and how he will answer; two daughters are with her for support and she indicates more family help too; pt welcomes a prayer at this time
[2022-10-20] MEDS: Glycerin 1 Suppository 1 SUPP RC (17:36)
--- NOTE | 2022-10-20 17:40 | PN_ITS ---
Subjective Subjective Patient underwent a repeat upper endoscopy yesterday for an acute upper GI bleed and was discovered to have a new gastric ulcer in the lesser curvature that was bleeding. He was treated endoscopically. She has not had any signs or symptoms of bleeding today. She is complaining of constipation. Objective Data Objective Data Vital Signs: Vital Signs Temp Pulse Resp BP Pulse Ox O2 Del Method 99.0 F 69 18 92/45 L 95 Room Air 10/20/22 13:48 10/20/22 13:48 10/20/22 13:48 10/20/22 13:48 10/20/22 13:48 10/20/22 13:21 Oxygen Delivery Method Room Air Weight: 161 lb Body Mass Index (BMI) 28.5 Intake & Output: Intake and Output for Last 24 Hours 10/18/22 10/19/22 10/20/22 23:59 23:59 23:59 Intake Total 665.08 / 665.08 1320.67 / 1320.67 Output Total 400 / 400 Balance 665.08 / 665.08 920.67 / 920.67 Lab / Micro Data Result Diagrams: 10/20/22 06:35 10/20/22 06:35 Labs: Laboratory Results - last 24 hr 10/19/22 05:55: Crossmatch See Detail 10/20/22 06:35: WBC 7.1, RBC 2.69 L, Hgb 8.5 L, Hct 26.5 L, MCV 98.5, MCH 31.6, MCHC 32.1, RDW Std Deviation 54.0 H, RDW Coeff of [place] 15.8 H, Plt Count 208, MPV 10.6, Immature Gran % (Auto) 0.400, Neut % (Auto) 74.4 H, Lymph % (Auto) 17.7 L, [place] % (Auto) 6.2, Eos % (Auto) 1.0, Baso % (Auto) 0.3, Absolute Neuts (auto) 5.3, Absolute Lymphs (auto) 1.25, Nucleated RBC % 0 10/20/22 06:35: Sodium 143, Potassium 4.2, Chloride 112 H, Carbon Dioxide 26.0, Anion Gap 5, BUN 25 H, Creatinine 0.85, Estim Creat Clear Calc 45.85, Est GFR (MDRD) Af Amer 83, Est GFR (MDRD) Non-Af 69, BUN/Creatinine Ratio 29.4 H, Glucose 123 H, Calcium 8.1 L Micro: Microbiology 10/19/22 06:05 Stool Stool Occult Blood (MARCO ANTONIO) - Final Occult Blood Positive Physical Exam Const alert and no apparent distress HEENT head/scalp atraumatic and moist oral mucous membranes Resp normal respiratory effort, no retractions, no use of accessory muscles and clear to auscultation bilaterally Cardio regular rate, regular rhythm, S1 normal heart sound and S2 normal heart sound GI normal to inspection, nondistended, normoactive bowel sounds, soft to palpation, non-tender and non-distended Extremity normal to inspection Assessment & Plan Assessment/Plan (1) ABLA (acute blood loss anemia): (2) Acute upper gastrointestinal bleeding: PLAN: Plan ABLA hemoglobin of 8.3 on presentation. Patient hemoglobin was 8.3 ; on 07/14/2020 hemoglobin was 15.1. Her hemoglobin is up from 7.7-8.5 today. However her BUN to creatinine ratio has not decreased. Hopefully as we advance her diet she will not have any signs of recurrent GI bleeding. IV fluids ordered H&H every 6 hours Hold antiplatelets No anticoagulants for DVT prophylaxis SCD Protonix drip started emergency department and continued. She will undergo a repeat EGD today CAD status post stents Stable Hold antiplatelets as above Cardiac catheterization on 07/14/2022 was reviewed. Drug eluting stent was placed in LAD and RCA. Hopefully we will be able to restart Plavix and aspirin soon. Appreciate cardiology help. DVT prophylaxis: SCDs ordered. Charges/Coding Visit Charges Inpatient E&M: 35855 Subs Hosp L3
[2022-10-21] VITALS (13 sets, daily range): BP systolic 95–138; BP diastolic 46–62; PULSE 58–69; RESP 14–18; TEMP 36.4–37.2; O2SAT 94–97
[2022-10-21] MEDS: Levothyroxine 75 MCG Tablet PO (03:37)
[2022-10-21] MEDS: Pramipexole Di-HCl 0.25 MG Tablet PO (03:37)
--- NOTE | 2022-10-21 08:10 | PN.HOSP_ITS ---
Reason for Visit Reason for Visit: Diagnoses Acute posthemorrhagic anemia (10/19/22) Atherosclerotic heart disease of [place] coronary artery without angina pectoris (10/19/22) Gastric ulcer, unspecified as acute or chronic, without hemorrhage or perforation (10/19/22) Gastrointestinal hemorrhage, unspecified (10/19/22) Subjective Subjective No further bleeding. Did have some left upper chest pain. Objective Data Objective Data Vital Signs: Vital Signs Temp Pulse Resp BP Pulse Ox O2 Del Method 37.2 C 69 18 112/53 L 96 Room Air 10/21/22 02:30 10/21/22 02:30 10/21/22 02:30 10/21/22 02:30 10/21/22 02:30 10/21/22 02:30 Oxygen Delivery Method Room Air Weight: 73.028 kg Body Mass Index (BMI) 28.5 Intake & Output: Intake and Output for Last 24 Hours 10/19/22 10/20/22 10/21/22 23:59 23:59 23:59 Intake Total 665.08 / 665.08 1720.50 / 1720.50 358.54 / 358.54 Output Total 400 / 400 Balance 665.08 / 665.08 1320.50 / 1320.50 358.54 / 358.54 Lab / Micro Data Result Diagrams: 10/21/22 07:50 10/20/22 06:35 Micro: Microbiology 10/19/22 06:05 Stool Stool Occult Blood (MARCO ANTONIO) - Final Occult Blood Positive Physical Exam Const alert and no apparent distress HEENT head/scalp atraumatic and moist oral mucous membranes Resp normal respiratory effort, no retractions, no use of accessory muscles and clear to auscultation bilaterally Cardio regular rate, regular rhythm, S1 normal heart sound and S2 normal heart sound GI normal to inspection, nondistended, normoactive bowel sounds, soft to palpation and non-tender Assessment & Plan Assessment/Plan (1) Gastric ulcer: PLAN: Status post heater probe and treated with Hemospray. On octreotide and PPI drip Gastroenterology following Currently on a clear liquid diet. Advance per gastroenterology. (2) Acute blood loss anemia: PLAN: 10/19: Hemoglobin down to 7.7. Given patient's known history of coronary artery disease, will treat for hemoglobin less than 8. Will transfuse 1 unit. Discussed with the patient. 10/20: Hemoglobin 8.5, no further need for transfusion at this time. 10/21: No further GI bleeding per the patient. Will transfuse 1 unit of blood. (3) CAD (coronary artery disease): PLAN: Stable 10/19: Discussed with Dr. Caro who recommends holding off on the aspirin and ticagrelor then resuming clopidogrel in 48 hours, presuming patient not have any further bleeding. Patient continue with that monotherapy until follows up with cardiology. Tentative plan is of restarting clopidogrel on the . We will see if patient having further bleeding if her hemoglobin is stable and if so then will resume clopidogrel. PLAN: Plan Chronic conditions * Hypothyroidism: Continue with levothyroxine VTE prophylaxis with SCDs Disposition: To be determined. Tentative plan is to monitor patient is 24 hours after restarting clopidogrel to make sure to have a further bleeding. 10/21: Discussed with the patient and family at bedside. Patient was have some low blood pressure so her isosorbide was held. Patient's heart rate is also in the 50s and so her propranolol was held. We will continue to monitor. Charges/Coding Visit Charges Inpatient E&M: 42973 Subs Hosp L2
[2022-10-21 08:21] LABS: Hematocrit 25.7 % (37-47); Hemoglobin 7.8 g/dL (12.0-15.0)
--- NOTE | 2022-10-21 10:45 | PCM.PROGNOTE ---
Subjective Subjective Patient has not seen any signs GI bleeding overnight. She is tolerating a diet. She is still complains of being very weak. Objective Data Objective Data Vital Signs: Vital Signs Temp Pulse Resp BP Pulse Ox O2 Del Method 98.2 F 64 18 106/54 L 94 Room Air 10/21/22 08:58 10/21/22 08:58 10/21/22 08:58 10/21/22 08:58 10/21/22 08:58 10/21/22 08:58 Oxygen Delivery Method Room Air Weight: 161 lb Body Mass Index (BMI) 28.5 Intake & Output: Intake and Output for Last 24 Hours 10/19/22 10/20/22 10/21/22 23:59 23:59 23:59 Intake Total 665.08 / 665.08 1720.50 / 1720.50 358.54 / 358.54 Output Total 400 / 400 Balance 665.08 / 665.08 1320.50 / 1320.50 357.54 / 357.54 Lab / Micro Data Result Diagrams: 10/21/22 07:50 10/20/22 06:35 Labs: Laboratory Results - last 24 hr 10/21/22 07:50: Hgb 7.8 L, Hct 25.7 L Micro: Microbiology 10/19/22 06:05 Stool Stool Occult Blood (MARCO ANTONIO) - Final Occult Blood Positive Physical Exam Const alert and no apparent distress HEENT head/scalp atraumatic and moist oral mucous membranes Resp normal respiratory effort, no retractions, no use of accessory muscles and clear to auscultation bilaterally Cardio regular rate, regular rhythm, S1 normal heart sound and S2 normal heart sound GI normal to inspection, nondistended, normoactive bowel sounds, soft to palpation, non-tender and non-distended Extremity normal to inspection Assessment & Plan Assessment/Plan (1) ABLA (acute blood loss anemia): (2) Acute upper gastrointestinal bleeding: PLAN: Plan ABLA hemoglobin of 8.3 on presentation. Patient hemoglobin was 8.3 ; on 07/14/2020 hemoglobin was 15.1. Her hemoglobin is up from 7.7-8.5. Hemoglobin is back down to 7.7.however her BUN to creatinine ratio has not decreased. Recommend transfusion of 1 unit packed red blood cells. IV fluids ordered H&H every 6 hours Hold antiplatelets No anticoagulants for DVT prophylaxis SCD Protonix drip continue CAD status post stents Stable Hold antiplatelets as above Cardiac catheterization on 07/14/2022 was reviewed. Drug eluting stent was placed in LAD and RCA. Hopefully we will be able to restart Plavix and aspirin soon. Appreciate cardiology help. DVT prophylaxis: SCDs ordered. Charges/Coding Visit Charges Inpatient E&M: 27628 [facility] Hosp L3
[2022-10-21] MEDS: Ensure Clear 120 ML Liquid PO ×3 (11:24→17:33)
--- NOTE | 2022-10-21 12:00 | CASEMGMT ---
SHANNA CM in to pt room, pt sitting up in chair with visitors at bedside. Pt states she feels she is doing well. States last admission she was given a HEP by therapy and she does do at home. She eventually would like to get back to cardiac rehab. Pt denies any need for homegoing services. Plan to continue home exercises.
[2022-10-21] MEDS: 0.9% Saline Lock 10 ML Syringe IV ×2 (13:49→17:33)
[2022-10-21] MEDS: Propranolol 10 MG Tablet 20 MG PO (23:01)
[2022-10-21] MEDS: Isosorbide Mononitrate 30 MG Tablet PO (23:01)
[2022-10-22 02:21] VITALS: BP 99/47; PULSE 62; RESP 16; TEMP 37; O2SAT 93
[2022-10-22 06:39] LABS: Absolute Lymphocyte Count 1.14 X10^3/uL (0.83-4.51); Basophil# 0.02 X10^3/uL; Basophil% 0.4 % (0-1); Eosinophil# 0.06 X10^3/uL; Eosinophils% 1.1 % (0-5); Hematocrit 27.1 % (37-47); Hemoglobin 9.1 g/dL (12.0-15.0); Lymphocyte # 1.14 X10^3/ul (0.83-4.51); Mean Corp Hgb Conc 33.6 g/dL (32-36); Mean Corpuscular Hgb 32.3 pg (27.0-32.0); Mean Corpuscular Volume 96.1 fL (81-99); Mean Platelet Vol. 10.7 fl (6.2-12.0); Monocyte# 0.47 X10^3/uL; Monocyte% 8.3 % (0-10); NRBC Flagged by Analyzer 0 % (0-5); Neutrophil # 3.99 X10^3/uL (2.7-7.7); Platelet Count 200 K/mm3 (150-450); RBC Distribution Width CV 17.6 % (11.6-14.6); RBC Distribution Width SD 57.3 fl (35.1-43.9); Red Blood Count 2.82 M/mm3 (4.2-5.4); White Blood Count 5.7 K/mm3 (4.4-11.0)
[2022-10-22] MEDS: Levothyroxine 75 MCG Tablet PO (06:50)
--- NOTE | 2022-10-22 08:17 | PCM.PN.HOSP ---
Reason for Visit Reason for Visit: Diagnoses Acute posthemorrhagic anemia (10/19/22) Atherosclerotic heart disease of [place] coronary artery without angina pectoris (10/19/22) Gastric ulcer, unspecified as acute or chronic, without hemorrhage or perforation (10/19/22) Gastrointestinal hemorrhage, unspecified (10/19/22) Subjective Subjective Had a bowel movement today and noted that the stool is dark. Denies any abdominal pain since then. Objective Data Objective Data Vital Signs: Vital Signs Temp Pulse Resp BP Pulse Ox O2 Del Method 37.0 C 62 16 99/47 L 93 Room Air 10/22/22 02:21 10/22/22 02:21 10/22/22 02:21 10/22/22 02:21 10/22/22 02:10/22/22 02:21 Oxygen Delivery Method Room Air Weight: 73.028 kg Body Mass Index (BMI) 28.5 Intake & Output: Intake and Output for Last 24 Hours 10/20/22 10/21/22 10/22/22 23:59 23:59 23:59 Intake Total 1720.50 / 1720.50 1609.54 / 1609.54 600 / 600 Output Total 400 / 400 Balance 1320.50 / 1320.50 1608.54 / 1608.54 600 / 600 Lab / Micro Data Result Diagrams: 10/22/22 06:15 10/20/22 06:35 Labs: Laboratory Results - last 24 hr 10/19/22 05:55: Crossmatch See Detail 10/21/22 07:50: Hgb 7.8 L, Hct 25.7 L 10/22/22 06:15: WBC 5.7, RBC 2.82 L, Hgb 9.1 L, Hct 27.1 L, MCV 96.1, MCH 32.3 H, MCHC 33.6, RDW Std Deviation 57.3 H, RDW Coeff of [place] 17.6 H, Plt Count 200, MPV 10.7, Immature Gran % (Auto) 0.200, Neut % (Auto) 70.0, Lymph % (Auto) 20.0, [place] % (Auto) 8.3, Eos % (Auto) 1.1, Baso % (Auto) 0.4, Absolute Neuts (auto) 4.0, Absolute Lymphs (auto) 1.14, Nucleated RBC % 0 Micro: Microbiology 10/19/22 06:05 Stool Stool Occult Blood (MARCO ANTONIO) - Final Occult Blood Positive Physical Exam Const alert and no apparent distress HEENT head/scalp atraumatic, moist oral mucous membranes, oropharynx normal and dentition normal Resp normal respiratory effort, no retractions, no use of accessory muscles and clear to auscultation bilaterally Cardio regular rate, regular rhythm, S1 normal heart sound and S2 normal heart sound GI normal to inspection, nondistended, normoactive bowel sounds, soft to palpation, non-tender and non-distended Extremity normal to inspection Assessment & Plan Assessment/Plan (1) Gastric ulcer: PLAN: Status post heater probe and treated with Hemospray. On octreotide and PPI drip Gastroenterology following Currently on a clear liquid diet. Advance diet Discussed with Dr. Isbell, adelso to discontinue octreotide and pantoprazole drips. Continue with pantoprazole p.o. (2) Acute blood loss anemia: PLAN: 10/19: Hemoglobin down to 7.7. Given patient's known history of coronary artery disease, will treat for hemoglobin less than 8. Will transfuse 1 unit. Discussed with the patient. 10/20: Hemoglobin 8.5, no further need for transfusion at this time. 10/21: No further GI bleeding per the patient. Will transfuse 1 unit of blood. 10/22: Hg 9.1 (3) CAD (coronary artery disease): PLAN: Stable 10/19: Discussed with Dr. Caro who recommends holding off on the aspirin and ticagrelor then resuming clopidogrel in 48 hours, presuming patient not have any further bleeding. Patient continue with that monotherapy until follows up with cardiology. Tentative plan is of restarting clopidogrel on the . 10/22: Patient has some dark stool but hemoglobin has gone up probably after transfusion. Will initiate clopidogrel. Discussed with Dr. Isbell. Blood pressure was in the low side so her isosorbide has continued to be held. PLAN: Plan Chronic conditions Hypothyroidism: Continue with levothyroxine VTE prophylaxis with SCDs Disposition: To be determined. Tentative plan is to monitor patient is 24 hours after restarting clopidogrel to make sure to have a further bleeding. 10/21: Discussed with the patient and family at bedside. Patient was have some low blood pressure so her isosorbide was held. Patient's heart rate is also in the 50s and so her propranolol was held. We will continue to monitor. 10/22: Discussed with patient and her family at bedside. Tentative plan for discharge on the if hemoglobin stable no further bleeding. Charges/Coding Visit Charges Inpatient E&M: 74133 Subs Hosp L2
[2022-10-22 08:48] VITALS: BP 99/60; PULSE 65; RESP 18; TEMP 36.7; O2SAT 94
[2022-10-22] MEDS: Ensure Clear 120 ML Liquid PO (09:04)
[2022-10-22 14:06] VITALS: BP 123/51; PULSE 64; RESP 18; TEMP 37.2; O2SAT 94
[2022-10-22] MEDS: Clopidogrel Bisulfate 75 MG Tablet PO (14:08)
[2022-10-22] MEDS: Ensure Plus High Protein 120 ML LIQUID PO (16:41)
--- NOTE | 2022-10-22 18:01 | PN_ITS ---
Subjective Subjective Patient is doing well today. She is tolerating a diet. She is not eating much and still complains of a lot of weakness and fatigue. Objective Data Objective Data Vital Signs: Vital Signs Temp Pulse Resp BP Pulse Ox O2 Del Method 99 F 64 18 123/51 H 94 Room Air 10/22/22 14:06 10/22/22 14:06 10/22/22 14:06 10/22/22 14:06 10/22/22 14:06 10/22/22 14:06 Oxygen Delivery Method Room Air Weight: 161 lb Body Mass Index (BMI) 28.5 Intake & Output: Intake and Output for Last 24 Hours 10/20/22 10/21/22 10/22/22 23:59 23:59 23:59 Intake Total 1720.50 / 1720.50 1609.54 / 1609.54 1247.63 / 1247.63 Output Total 400 / 400 Balance 1320.50 / 1320.50 1608.54 / 1608.54 1247.63 / 1247.63 Lab / Micro Data Result Diagrams: 10/22/22 06:15 10/20/22 06:35 Labs: Laboratory Results - last 24 hr 10/22/22 06:15: WBC 5.7, RBC 2.82 L, Hgb 9.1 L, Hct 27.1 L, MCV 96.1, MCH 32.3 H , MCHC 33.6, RDW Std Deviation 57.3 H, RDW Coeff of [place] 17.6 H, Plt Count 200, MPV 10.7, Immature Gran % (Auto) 0.200, Neut % (Auto) 70.0, Lymph % (Auto) 20.0, [place] % (Auto) 8.3, Eos % (Auto) 1.1, Baso % (Auto) 0.4, Absolute Neuts (auto) 4.0, Absolute Lymphs (auto) 1.14, Nucleated RBC % 0 Micro: Microbiology 10/19/22 06:05 Stool Stool Occult Blood (MARCO ANTONIO) - Final Occult Blood Positive Physical Exam Const alert and no apparent distress HEENT head/scalp atraumatic, moist oral mucous membranes, oropharynx normal and d entition normal Resp normal respiratory effort, no retractions, no use of accessory muscles and clear to auscultation bilaterally Cardio regular rate, regular rhythm, S1 normal heart sound and S2 normal heart sound GI normal to inspection, nondistended, normoactive bowel sounds, soft to palpation, non-tender and non-distended Extremity normal to inspection Assessment & Plan Assessment/Plan (1) ABLA (acute blood loss anemia): (2) Acute upper gastrointestinal bleeding: PLAN: Plan ABLA hemoglobin of 8.3 on presentation. Patient hemoglobin was 8.3 ; on 07/14/2020 hemoglobin was 15.1. Her hemoglobin is up from 7.7-8.5 Hemoglobin is back up to 9.1.however her BUN to creatinine ratio has not decreased. Recommend transfusion of 1 unit packed red blood cells. IV fluids ordered H&H every 6 hours Hold antiplatelets No anticoagulants for DVT prophylaxis SCD Protonix drip continue CAD status post stents Stable Patient can be started back on aspirin and Plavix. Cardiac catheterization on 07/14/2022 was reviewed. Drug eluting stent was placed in LAD and RCA. Appreciate cardiology help. DVT prophylaxis: SCDs ordered. Charges/Coding Visit Charges Inpatient E&M: 72314 Subs Hosp L3
[2022-10-22 20:28] VITALS: BP 112/57; PULSE 68; RESP 16; TEMP 37; O2SAT 94
[2022-10-22] MEDS: Isosorbide Mononitrate 30 MG Tablet PO (22:24)
[2022-10-22] MEDS: Pantoprazole Sodium 40 MG Tablet PO (22:24)
[2022-10-22] MEDS: Propranolol 10 MG Tablet 20 MG PO (22:24)
[2022-10-22 22:27] VITALS: BP 120/66; PULSE 62
[2022-10-23 03:33] VITALS: BP 90/59; PULSE 63; RESP 14; TEMP 36.8; O2SAT 94
[2022-10-23] MEDS: Levothyroxine 75 MCG Tablet PO (05:33)
[2022-10-23 05:35] VITALS: BP 95/59; PULSE 62; RESP 16; TEMP 36.4; O2SAT 93
[2022-10-23 05:47] LABS: Absolute Lymphocyte Count 1.25 X10^3/uL (0.83-4.51); Absolute Neutrophil Count 2.5 X10^3/uL (2.0-7.7); Basophil# 0.01 X10^3/uL; Basophil% 0.2 % (0-1); Eosinophil# 0.06 X10^3/uL; Eosinophils% 1.4 % (0-5); Hematocrit 25.7 % (37-47); Hemoglobin 8.3 g/dL (12.0-15.0); Lymphocyte # 1.25 X10^3/ul (0.83-4.51); Mean Corp Hgb Conc 32.3 g/dL (32-36); Mean Corpuscular Hgb 31.8 pg (27.0-32.0); Mean Corpuscular Volume 98.5 fL (81-99); Mean Platelet Vol. 10.7 fl (6.2-12.0); Monocyte# 0.34 X10^3/uL; Monocyte% 8.2 % (0-10); NRBC Flagged by Analyzer 0 % (0-5); Platelet Count 179 K/mm3 (150-450); RBC Distribution Width CV 17.5 % (11.6-14.6); RBC Distribution Width SD 59.8 fl (35.1-43.9); Red Blood Count 2.61 M/mm3 (4.2-5.4); White Blood Count 4.2 K/mm3 (4.4-11.0)
[2022-10-23 06:14] LABS: Anion Gap 6 (5-15); BUN 7 mg/dL (7-18); BUN/Creat Ratio 11.4 RATIO (10-20); Calcium,Total 8.4 mg/dL (8.5-10.1); Chloride 108 mmol/L (98-107); Creatinine, Serum 0.61 mg/dL (0.55-1.02); EST Glomerular Filtration Rate 100 mL/min (>60); Est Glom Filt Rate - Afr Amer 121 mL/min (>60); Estimated Creatinine Clearance 38.97 ml/min; Glucose 112 mg/dL (74-106); Potassium 3.3 mmol/L (3.5-5.1); Sodium Level 142 mmol/L (136-145)
--- NOTE | 2022-10-23 07:56 | PCM.PN.HOSP ---
Reason for Visit Reason for Visit: Diagnoses Acute posthemorrhagic anemia (10/19/22) Atherosclerotic heart disease of [place] coronary artery without angina pectoris (10/19/22) Gastric ulcer, unspecified as acute or chronic, without hemorrhage or perforation (10/19/22) Gastrointestinal hemorrhage, unspecified (10/19/22) Subjective Subjective Had some BMs yesterday. Currently feeling well. Objective Data Objective Data Vital Signs: Vital Signs Temp Pulse Resp BP Pulse Ox O2 Del Method 36.4 C L 62 16 95/59 L 93 Room Air 10/23/22 05:35 10/23/22 05:35 10/23/22 05:35 10/23/22 05:35 10/23/22 05:35 10/23/22 05:35 Oxygen Delivery Method Room Air Weight: 73.028 kg Body Mass Index (BMI) 28.5 Intake & Output: Intake and Output for Last 24 Hours 10/21/22 10/22/22 10/23/22 23:59 23:59 23:59 Intake Total 1609.54 / 1609.54 1247.63 / 1247.63 500 / 500 Output Total Balance 1608.54 / 1608.54 1247.63 / 1247.63 500 / 500 Lab / Micro Data Result Diagrams: 10/23/22 12:10 10/23/22 05:34 Labs: Laboratory Results - last 24 hr 10/23/22 05:34: WBC 4.2 L, RBC 2.61 L, Hgb 8.3 L, Hct 25.7 L, MCV 98.5, MCH 31.8, MCHC 32.3, RDW Std Deviation 59.8 H, RDW Coeff of [place] 17.5 H, Plt Count 179, MPV 10.7, Immature Gran % (Auto) 0.200, Neut % (Auto) 60.0, Lymph % (Auto) 30.0, [place] % (Auto) 8.2, Eos % (Auto) 1.4, Baso % (Auto) 0.2, Absolute Neuts (auto) 2.5, Absolute Lymphs (auto) 1.25, Nucleated RBC % 0 10/23/22 05:34: Sodium 142, Potassium 3.3 L, Chloride 108 H, Carbon Dioxide 28.0, Anion Gap 6, BUN 7, Creatinine 0.61, Estim Creat Clear Calc 38.97, Est GFR (MDRD) Af Amer 121, Est GFR (MDRD) Non-Af 100, BUN/Creatinine Ratio 11.4, Glucose 112 H, Calcium 8.4 L Micro: Microbiology 10/19/22 06:05 Stool Stool Occult Blood (MARC OANTONIO) - Final Occult Blood Positive Physical Exam Const alert and no apparent distress HEENT head/scalp atraumatic Resp normal respiratory effort, no retractions, no use of accessory muscles and clear to auscultation bilaterally Cardio regular rate, regular rhythm, S1 normal heart sound and S2 normal heart sound GI normal to inspection, nondistended, normoactive bowel sounds, soft to palpation, non-tender and non-distended Extremity normal to inspection Assessment & Plan Assessment/Plan (1) Gastric ulcer: PLAN: Status post heater probe and treated with Hemospray. On octreotide and PPI drip Gastroenterology following Currently on a clear liquid diet. Advance diet Discussed with adelso Wan to discontinue octreotide and pantoprazole drips. Continue with pantoprazole p.o. (2) Acute blood loss anemia: PLAN: 10/19: Hemoglobin down to 7.7. Given patient's known history of coronary artery disease, will treat for hemoglobin less than 8. Will transfuse 1 unit. Discussed with the patient. 10/20: Hemoglobin 8.5, no further need for transfusion at this time. 10/21: No further GI bleeding per the patient. Will transfuse 1 unit of blood. 10/22: Hg 9.1 10/23: Hg 8.3, recheck Hg today showed hemoglobin 9.5. We will recheck hemoglobin on and if stable then patient can be discharged. (3) CAD (coronary artery disease): PLAN: Stable 10/19: Discussed with Dr. Caro who recommends holding off on the aspirin and ticagrelor then resuming clopidogrel in 48 hours, presuming patient not have any further bleeding. Patient continue with that monotherapy until follows up with cardiology. Tentative plan is of restarting clopidogrel on the . 10/22: Patient has some dark stool but hemoglobin has gone up probably after transfusion. Will initiate clopidogrel. Discussed with Dr. Isbell. Blood pressure was in the low side so her isosorbide has continued to be held. 10/23: Blood pressures been running low so we will discontinue the isosorbide. PLAN: Plan Chronic conditions Hypothyroidism: Continue with levothyroxine VTE prophylaxis with SCDs Disposition: To be determined. Tentative plan is to monitor patient is 24 hours after restarting clopidogrel to make sure to have a further bleeding. 10/21: Discussed with the patient and family at bedside. Patient was have some low blood pressure so her isosorbide was held. Patient's heart rate is also in the 50s and so her propranolol was held. We will continue to monitor. 10/22: Discussed with patient and her family at bedside. Tentative plan for discharge on the if hemoglobin stable no further bleeding. 10/23: As above. Monitor hemoglobin if stable then plan for discharge on . Charges/Coding Visit Charges Inpatient E&M: 29964 Subs Hosp L2
[2022-10-23 10:00] VITALS: PULSE 66
[2022-10-23] MEDS: Clopidogrel Bisulfate 75 MG Tablet PO (10:54)
[2022-10-23] MEDS: Pantoprazole Sodium 40 MG Tablet PO ×2 (10:55→21:36)
[2022-10-23 11:00] VITALS: BP 93/47; PULSE 60; RESP 18; TEMP 36.7; O2SAT 94
--- NOTE | 2022-10-23 11:19 | NURSING ---
holding doses of imdur and propranolol d/t pt being told those meds were being adjusted
[2022-10-23 12:43] LABS: Hemoglobin 9.5 g/dL (12.0-15.0)
[2022-10-23 15:26] VITALS: BP 135/63; PULSE 74; RESP 18; TEMP 36.7; O2SAT 95
--- NOTE | 2022-10-23 16:29 | PCM.CONS.C ---
Documented by User: Shantell GAY, DEIDRA 10/23/22 16:38 Assessment & Plan Assessment/Plan (1) Atherosclerotic heart disease of [place] coronary artery without angina pectoris: (2) History of coronary artery stent placement: (3) Acute blood loss anemia: PLAN: Plan Recommend stopping her aspirin and Brilinta and discharging home on clopidogrel. She will be discharged home on monotherapy. Would recommend close follow-up on her hemoglobin. Patient is aware of this. In regards to her low blood pressure readings. Patient was started on isosorbide prior to her heart catheterization. Feel that her isosorbide can be discontinued. She will continue with her propranolol. If she does develop chest discomfort we can always consider Ranexa on an outpatient basis. HPI Consult Data Date of Consult: 10/23/22 HPI Narrative HPI Narrative: ARLEY ORDOÑEZ, is a 77 F who presented to [facility] on 10/19/2022 for concerns over a GI bleed. She noted that she was feeling pale, weak and dyspneic. She does have a history of bleeding ulcers and is being treated by Dr. Isbell. Patient was admitted for further evaluation. Patient does have a history of coronary artery disease where she underwent stenting to her LAD and RCA in June 2022. During her last hospital stay her Brilinta was held and she was resumed at discharge. Patient did require packed unit red blood cells during this hospitalization. Her Brilinta and aspirin were held. Hospitalist did speak with two needle machine operator and it was recommended that she stop her Brilinta and aspirin and be discharged home on Plavix as long as her bleeding had not resumed. Patient would also like cardiology consult while they are here as they do have multiple questions about her medications. It is also noted that patient's blood pressure has been low. [facility] Medical History Arthritis Atherosclerotic heart disease of [place] coronary artery without angina pectoris Back pain Cardiology follow-up encounter Chest pain Chest pain, precordial Dizziness and giddiness Gastric reflux GERD (gastroesophageal reflux disease) Hiatal hernia High cholesterol History of echocardiogram History of edema History of IBS History of pain when walking History of stress test Hyperlipidemia Hypothyroidism Hypothyroidism, iatrogenic Non-smoker OA (osteoarthritis) of knee Osteoporosis Palpitations Post-menopausal Shortness of breath on exertion Thyroid disease Wears glasses Wears partial dentures Home Medications methylcellulose (laxative) 500 mg tablet (Citrucel) 1,000 mg PO QDAY PRN Constipation 09/22/17 [History Last Taken Unknown] nitroglycerin 0.4 mg sublingual tablet 0.4 mg sublingual Q5M PRN chest pain #90 tabs 09/27/17 [Rx Last Taken Unknown] propranolol 20 mg tablet 20 mg PO BID BP/Heart rate 01/02/19 [History Last Taken 09/30/22] d-mannose 500 mg capsule 500 mg PO DAILY Kidney 06/25/22 [History Last Taken Unknown] levothyroxine 75 mcg tablet 75 mcg PO DAILY thyroid 06/25/22 [History Last Taken 09/30/22] aspirin 81 mg tablet,delayed release 81 mg PO DAILY heart health 07/14/22 [History Last Taken 09/30/22] atorvastatin 40 mg tablet 40 mg PO QHS Cholesterol 07/14/22 [History Last Taken Unknown] ticagrelor 90 mg tablet (Brilinta) 90 mg PO BID #180 tabs 07/22/22 [Rx Last Taken 09/30/22] isosorbide mononitrate 30 mg tablet,extended release 24 hr 30 mg PO BID this is a dose increase #180 tabs 09/28/22 [Rx Last Taken 09/30/22] pantoprazole 40 mg tablet,delayed release 40 mg PO BID #60 tabs 10/11/22 [Rx Last Taken Unknown] sucralfate 1 gram tablet 1 g PO TID #90 tabs 10/11/22 [Rx Last Taken Unknown] Allergy/AdvReac Type Severity Reaction Status Date / Time etodolac Allergy Severe Throat Verified 10/14/22 08:59 tightness, rash morphine AdvReac Itching, Verified 10/14/22 08:59 rash oxycodone [From Percocet] AdvReac Nausea/Vom/ Verified 10/14/22 08:59 Diarrhea Family History Sister CAD (coronary artery disease) Hx of CABG Sister S/P MVR (mitral valve replacement) Surgical History Cystocele with prolapse History of appendectomy History of cardiac catheterization History of cholecystectomy History of coronary artery stent placement (~07/14/22) History of coronary artery stent placement History of total hysterectomy Rectocele Social History number of children: 12 Smoking Status: Never smoker alcohol intake: never substance use type: does not use additional social history: Alessandro Ordoñez ROS ROS Narrative All review of systems were negative except as mentioned above in the history of present illness and the other review of systems. Physical Exam Const alert and no apparent distress HEENT head/scalp atraumatic Resp normal respiratory effort, no retractions, no use of accessory muscles and clear to auscultation bilaterally Cardio regular rate, regular rhythm, S1 normal heart sound and S2 normal heart sound GI normal to inspection, nondistended, normoactive bowel sounds, soft to palpation, non-tender and non-distended Extremity normal to inspection Risk Stratification Risk Stratification Applicable: No Charges/Coding Visit Charges Office Visits / Consults: 24455 IP Consult L3 Objective Data Vital Signs: Vital Signs Temp Pulse Resp BP Pulse Ox O2 Del Method 98.0 F 74 18 135/63 H 95 Room Air 10/23/22 15:26 10/23/22 15:26 10/23/22 15:26 10/23/22 15:26 10/23/22 15:26 10/23/22 15:26 Oxygen Delivery Method Room Air Weight: 161 lb Body Mass Index (BMI) 28.5 Intake & Output: Intake and Output for Last 24 Hours 10/21/22 10/22/22 10/23/22 23:59 23:59 23:59 Intake Total 1609.54 / 1609.54 1247.63 / 1247.63 1100 / 1100 Output Total Balance 1608.54 / 1608.54 1247.63 / 1247.63 1100 / 1100 Lab / Micro Data Result Diagrams: 10/23/22 12:10 10/23/22 05:34 Labs: Laboratory Results - last 24 hr 10/23/22 05:34: WBC 4.2 L, RBC 2.61 L, Hgb 8.3 L, Hct 25.7 L, MCV 98.5, MCH 31.8, MCHC 32.3, RDW Std Deviation 59.8 H, RDW Coeff of [place] 17.5 H, Plt Count 179, MPV 10.7, Immature Gran % (Auto) 0.200, Neut % (Auto) 60.0, Lymph % (Auto) 30.0, [place] % (Auto) 8.2, Eos % (Auto) 1.4, Baso % (Auto) 0.2, Absolute Neuts (auto) 2.5, Absolute Lymphs (auto) 1.25, Nucleated RBC % 0 10/23/22 05:34: Sodium 142, Potassium 3.3 L, Chloride 108 H, Carbon Dioxide 28.0, Anion Gap 6, BUN 7, Creatinine 0.61, Estim Creat Clear Calc 38.97, Est GFR (MDRD) Af Amer 121, Est GFR (MDRD) Non-Af 100, BUN/Creatinine Ratio 11.4, Glucose 112 H, Calcium 8.4 L 10/23/22 12:10: Hgb 9.5 L, Hct 30.0 L Cardiology Labs/Tests 10/23/22 05:34: WBC 4.2 L, RBC 2.61 L, Hgb 8.3 L, Hct 25.7 L, MCV 98.5, MCH 31.8, MCHC 32.3, Plt Count 179, MPV 10.7, Immature Gran % (Auto) 0.200, Neut % (Auto) 60.0, Lymph % (Auto) 30.0, [place] % (Auto) 8.2, Eos % (Auto) 1.4, Baso % (Auto) 0.2, Absolute Neuts (auto) 2.5, Nucleated RBC % 0 10/23/22 05:34: Sodium 142, Potassium 3.3 L, Chloride 108 H, Carbon Dioxide 28.0, Anion Gap 6, BUN 7, Creatinine 0.61, Est GFR (MDRD) Af Amer 121, Est GFR (MDRD) Non-Af 100, BUN/Creatinine Ratio 11.4, Glucose 112 H, Calcium 8.4 L 10/23/22 12:10: Hgb 9.5 L, Hct 30.0 L Documented by User: Dr. Christine Saravia MD 10/23/22 17:08 Assessment & Plan Assessment/Plan (1) Atherosclerotic heart disease of [place] coronary artery without angina pectoris: (2) History of coronary artery stent placement: (3) Acute blood loss anemia: PLAN: Plan Recommend stopping her aspirin and Brilinta and discharging home on clopidogrel. She will be discharged home on monotherapy. Would recommend close follow-up on her hemoglobin. Patient is aware of this. In regards to her low blood pressure readings. Patient was started on isosorbide prior to her heart catheterization. Feel that her isosorbide can be discontinued. She will continue with her propranolol. If she does develop chest discomfort we can always consider Ranexa on an outpatient basis. I reviewed the record of this patient including the current medication and I formulated the cardiac care plan as per midlevel documentation This patient has CAD with PCI and stent of LAD and RCA in June 2022 Presented with GI bleed Also hypertension no active chest pain. Cardiac care plan recommendations; We discussed cardiac medication in detail with the patient Plan will be to follow-up as an outpatient and consider antianginal medication with Ranexa If she has a angina. HPI Consult Data Date of Consult: 10/23/22 [facility] Medical History Arthritis Atherosclerotic heart disease of [place] coronary artery without angina pectoris Back pain Cardiology follow-up encounter Chest pain Chest pain, precordial Dizziness and giddiness Gastric reflux GERD (gastroesophageal reflux disease) Hiatal hernia High cholesterol History of echocardiogram History of edema History of IBS History of pain when walking History of stress test Hyperlipidemia Hypothyroidism Hypothyroidism, iatrogenic Non-smoker OA (osteoarthritis) of knee Osteoporosis Palpitations Post-menopausal Shortness of breath on exertion Thyroid disease Wears glasses Wears partial dentures Home Medications methylcellulose (laxative) 500 mg tablet (Citrucel) 1,000 mg PO QDAY PRN Constipation 09/22/17 [History Last Taken Unknown] nitroglycerin 0.4 mg sublingual tablet 0.4 mg sublingual Q5M PRN chest pain #90 tabs 09/27/17 [Rx Last Taken Unknown] propranolol 20 mg tablet 20 mg PO BID BP/Heart rate 01/02/19 [History Last Taken 09/30/22] d-mannose 500 mg capsule 500 mg PO DAILY Kidney 06/25/22 [History Last Taken Unknown] levothyroxine 75 mcg tablet 75 mcg PO DAILY thyroid 06/25/22 [History Last Taken 09/30/22] aspirin 81 mg tablet,delayed release 81 mg PO DAILY heart health 07/14/22 [History Last Taken 09/30/22] atorvastatin 40 mg tablet 40 mg PO QHS Cholesterol 07/14/22 [History Last Taken Unknown] ticagrelor 90 mg tablet (Brilinta) 90 mg PO BID #180 tabs 07/22/22 [Rx Last Taken 09/30/22] isosorbide mononitrate 30 mg tablet,extended release 24 hr 30 mg PO BID this is a dose increase #180 tabs 09/28/22 [Rx Last Taken 09/30/22] pantoprazole 40 mg tablet,delayed release 40 mg PO BID #60 tabs 10/11/22 [Rx Last Taken Unknown] sucralfate 1 gram tablet 1 g PO TID #90 tabs 10/11/22 [Rx Last Taken Unknown] Allergy/AdvReac Type Severity Reaction Status Date / Time etodolac Allergy Severe Throat Verified 10/14/22 08:59 tightness, rash morphine AdvReac Itching, Verified 10/14/22 08:59 rash oxycodone [From Percocet] AdvReac Nausea/Vom/ Verified 10/14/22 08:59 Diarrhea Family History Sister CAD (coronary artery disease) Hx of CABG Sister S/P MVR (mitral valve replacement) Surgical History Cystocele with prolapse History of appendectomy History of cardiac catheterization History of cholecystectomy History of coronary artery stent placement (~07/14/22) History of coronary artery stent placement History of total hysterectomy Rectocele Social History number of children: 12 Smoking Status: Never smoker alcohol intake: never substance use type: does not use additional social history: Alessandro Ordoñez Lab / Micro Data Result Diagrams: 10/23/22 12:10 10/23/22 05:34
--- NOTE | 2022-10-23 17:30 | PCM.PROGNOTE ---
Subjective Subjective Patient did have some dark stools today. She denies any abdominal pain and denies any hematemesis or coffee-ground emesis. She is tolerating a diet but is very weak and fatigued. Objective Data Objective Data Vital Signs: Vital Signs Temp Pulse Resp BP Pulse Ox O2 Del Method 98.0 F 74 18 135/63 H 95 Room Air 10/23/22 15:26 10/23/22 15:26 10/23/22 15:26 10/23/22 15:26 10/23/22 15:26 10/23/22 15:26 Oxygen Delivery Method Room Air Weight: 161 lb Body Mass Index (BMI) 28.5 Intake & Output: Intake and Output for Last 24 Hours 10/21/22 10/22/22 10/23/22 23:59 23:59 23:59 Intake Total 1609.54 / 1609.54 1247.63 / 1247.63 1100 / 1100 Output Total Balance 1608.54 / 1608.54 1247.63 / 1247.63 1100 / 1100 Lab / Micro Data Result Diagrams: 10/23/22 12:10 10/23/22 05:34 Labs: Laboratory Results - last 24 hr 10/23/22 05:34: WBC 4.2 L, RBC 2.61 L, Hgb 8.3 L, Hct 25.7 L, MCV 98.5, MCH 31.8, MCHC 32.3, RDW Std Deviation 59.8 H, RDW Coeff of [place] 17.5 H, Plt Count 179, MPV 10.7, Immature Gran % (Auto) 0.200, Neut % (Auto) 60.0, Lymph % (Auto) 30.0, [place] % (Auto) 8.2, Eos % (Auto) 1.4, Baso % (Auto) 0.2, Absolute Neuts (auto) 2.5, Absolute Lymphs (auto) 1.25, Nucleated RBC % 0 10/23/22 05:34: Sodium 142, Potassium 3.3 L, Chloride 108 H, Carbon Dioxide 28.0, Anion Gap 6, BUN 7, Creatinine 0.61, Estim Creat Clear Calc 38.97, Est GFR (MDRD) Af Amer 121, Est GFR (MDRD) Non-Af 100, BUN/Creatinine Ratio 11.4, Glucose 112 H, Calcium 8.4 L 10/23/22 12:10: Hgb 9.5 L, Hct 30.0 L Micro: Microbiology 10/19/22 06:05 Stool Stool Occult Blood (MARCO ANTONIO) - Final Occult Blood Positive Physical Exam Const alert and no apparent distress HEENT head/scalp atraumatic Resp normal respiratory effort, no retractions, no use of accessory muscles and clear to auscultation bilaterally Cardio regular rate, regular rhythm, S1 normal heart sound and S2 normal heart sound GI normal to inspection, nondistended, normoactive bowel sounds, soft to palpation, non-tender and non-distended Extremity normal to inspection Assessment & Plan Assessment/Plan (1) ABLA (acute blood loss anemia): (2) Acute upper gastrointestinal bleeding: PLAN: Plan ABLA hemoglobin of 8.3 on presentation. Patient hemoglobin was 8.3 ; on 07/14/2020 hemoglobin was 15.1. Her hemoglobin is up from 7.7-8.5 Hemoglobin is back down to 8.3.however her BUN to creatinine ratio has not decreased. Recommend transfusion of 1 unit packed red blood cells. IV fluids ordered H&H every 24 hours Hold antiplatelets Appreciate cardiac consult. No anticoagulants for DVT prophylaxis SCD CAD status post stents Stable Patient can be started back on aspirin and Plavix. Cardiac catheterization on 07/14/2022 was reviewed. Drug eluting stent was placed in LAD and RCA. Appreciate cardiology help. DVT prophylaxis: SCDs ordered. Charges/Coding Visit Charges Inpatient E&M: 86980 [facility] Hosp L3
[2022-10-23 20:27] VITALS: BP 113/73; PULSE 68; RESP 18; TEMP 36.8; O2SAT 94
[2022-10-23] MEDS: Propranolol 10 MG Tablet 20 MG PO (21:36)
[2022-10-24] MEDS: Pramipexole Di-HCl 0.25 MG Tablet PO (00:56)
[2022-10-24 02:00] VITALS: BP 99/59; PULSE 65; RESP 18; TEMP 36.8; O2SAT 94
[2022-10-24] MEDS: Levothyroxine 75 MCG Tablet PO (05:15)
[2022-10-24 07:06] LABS: Absolute Lymphocyte Count 1.27 X10^3/uL (0.83-4.51); Absolute Neutrophil Count 1.9 X10^3/uL (2.0-7.7); Basophil# 0.02 X10^3/uL; Basophil% 0.6 % (0-1); Eosinophil# 0.06 X10^3/uL; Eosinophils% 1.7 % (0-5); Hemoglobin 9.1 g/dL (12.0-15.0); Lymphocyte # 1.27 X10^3/ul (0.83-4.51); Lymphocyte % 35.5 % (19-41); Mean Corp Hgb Conc 31.4 g/dL (32-36); Mean Corpuscular Hgb 30.8 pg (27.0-32.0); Mean Corpuscular Volume 98.3 fL (81-99); Mean Platelet Vol. 11.4 fl (6.2-12.0); Monocyte# 0.31 X10^3/uL; Monocyte% 8.7 % (0-10); NRBC Flagged by Analyzer 0 % (0-5); Neutrophil # 1.91 X10^3/uL (2.7-7.7); Neutrophil % 53.2 % (47-70); Platelet Count 185 K/mm3 (150-450); RBC Distribution Width CV 17.1 % (11.6-14.6); RBC Distribution Width SD 58.4 fl (35.1-43.9); Red Blood Count 2.95 M/mm3 (4.2-5.4); White Blood Count 3.6 K/mm3 (4.4-11.0)
[2022-10-24 08:00] VITALS: BP 130/56; PULSE 64; RESP 18; TEMP 36.8; O2SAT 97
--- NOTE | 2022-10-24 08:11 | PCM.PN.HOSP ---
Reason for Visit Reason for Visit: Diagnoses Acute posthemorrhagic anemia (10/19/22) Atherosclerotic heart disease of [place] coronary artery without angina pectoris (10/19/22) Gastric ulcer, unspecified as acute or chronic, without hemorrhage or perforation (10/19/22) Gastrointestinal hemorrhage, unspecified (10/19/22) Presence of coronary angioplasty implant and graft (10/19/22) Subjective Subjective Feels well. Objective Data Objective Data Vital Signs: Vital Signs Temp Pulse Resp BP Pulse Ox O2 Del Method 36.8 C 65 18 99/59 L 94 Room Air 10/24/22 02:00 10/24/22 02:00 10/24/22 02:00 10/24/22 02:00 10/24/22 02:00 10/24/22 02:00 Oxygen Delivery Method Room Air Weight: 73.028 kg Body Mass Index (BMI) 28.5 Intake & Output: Intake and Output for Last 24 Hours 10/22/22 10/23/22 10/24/22 23:59 23:59 23:59 Intake Total 1247.63 / 1247.63 1500 / 1500 250 / 250 Balance 1247.63 / 1247.63 1500 / 1500 250 / 250 Lab / Micro Data Result Diagrams: 10/24/22 06:10 10/23/22 05:34 Labs: Laboratory Results - last 24 hr 10/23/22 12:10: Hgb 9.5 L, Hct 30.0 L 10/24/22 06:10: WBC 3.6 L, RBC 2.95 L, Hgb 9.1 L, Hct 29.0 L, MCV 98.3, MCH 30.8, MCHC 31.4 L, RDW Std Deviation 58.4 H, RDW Coeff of [place] 17.1 H, Plt Count 185, MPV 11.4, Immature Gran % (Auto) 0.300, Neut % (Auto) 53.2, Lymph % (Auto) 35.5, [place] % (Auto) 8.7, Eos % (Auto) 1.7, Baso % (Auto) 0.6, Absolute Neuts (auto) 1.9 L, Absolute Lymphs (auto) 1.27, Nucleated RBC % 0 Micro: Microbiology 10/19/22 06:05 Stool Stool Occult Blood (MARCO ANTONIO) - Final Occult Blood Positive Physical Exam Const alert and no apparent distress Constitutional Narrative: nontoxic. Psych affect normal Assessment & Plan Assessment/Plan (1) Gastric ulcer: PLAN: Status post heater probe and treated with Hemospray. On octreotide and PPI drip Gastroenterology following Currently on a clear liquid diet. Advance diet Discussed with Dr. Isbell, adelso to discontinue octreotide and pantoprazole drips. Continue with pantoprazole p.o. (2) Acute blood loss anemia: PLAN: Secondary to gastric ulcer. 10/19: Hemoglobin down to 7.7. Given patient's known history of coronary artery disease, will treat for hemoglobin less than 8. Will transfuse 1 unit. Discussed with the patient. 10/20: Hemoglobin 8.5, no further need for transfusion at this time. 10/21: No further GI bleeding per the patient. Will transfuse 1 unit of blood. 10/22: Hg 9.1 10/23: Hg 8.3, recheck Hg today showed hemoglobin 9.5. We will recheck hemoglobin on and if stable then patient can be discharged. 10/24: Hg 9.1. No further transfusion. 2 weeks of daily ferrous sulfate. (3) CAD (coronary artery disease): PLAN: Stable 10/19: Discussed with Dr. Caro who recommends holding off on the aspirin and ticagrelor then resuming clopidogrel in 48 hours, presuming patient not have any further bleeding. Patient continue with that monotherapy until follows up with cardiology. Tentative plan is of restarting clopidogrel on the . 10/22: Patient has some dark stool but hemoglobin has gone up probably after transfusion. Will initiate clopidogrel. Discussed with Dr. Isbell. Blood pressure was in the low side so her isosorbide has continued to be held. 10/23: Blood pressures been running low so we will discontinue the isosorbide. CANELO Saravia, if has recurrent angina, may consider Ranexa. Continue to hold isosorbide. Pt will continue w clopidogrel monotherapy. PLAN: Plan Chronic conditions Hypothyroidism: Continue with levothyroxine VTE prophylaxis with SCDs 10/21: Discussed with the patient and family at bedside. Patient was have some low blood pressure so her isosorbide was held. Patient's heart rate is also in the 50s and so her propranolol was held. We will continue to monitor. 10/22: Discussed with patient and her family at bedside. Tentative plan for discharge on the if hemoglobin stable no further bleeding. 10/23: As above. Monitor hemoglobin if stable then plan for discharge on . 10/24: DC home.
[2022-10-24] MEDS: Ensure Plus High Protein 120 ML LIQUID PO (09:00)
--- NOTE | 2022-10-24 09:00 | PCM.PROGNOTE ---
Subjective Subjective Patient is doing a lot better and has not had any signs or symptoms of GI bleeding. Objective Data Objective Data Vital Signs: Vital Signs Temp Pulse Resp BP Pulse Ox O2 Del Method 98.3 F 64 18 130/56 H 97 Room Air 10/24/22 08:00 10/24/22 08:00 10/24/22 08:00 10/24/22 08:00 10/24/22 08:00 10/24/22 08:00 Oxygen Delivery Method Room Air Weight: 161 lb Body Mass Index (BMI) 28.5 Intake & Output: Intake and Output for Last 24 Hours 10/22/22 10/23/22 10/24/22 23:59 23:59 23:59 Intake Total 1247.63 / 1247.63 1500 / 1500 250 / 250 Balance 1247.63 / 1247.63 1500 / 1500 250 / 250 Lab / Micro Data Result Diagrams: 10/24/22 06:10 10/23/22 05:34 Labs: Laboratory Results - last 24 hr 10/23/22 12:10: Hgb 9.5 L, Hct 30.0 L 10/24/22 06:10: WBC 3.6 L, RBC 2.95 L, Hgb 9.1 L, Hct 29.0 L, MCV 98.3, MCH 30.8, MCHC 31.4 L, RDW Std Deviation 58.4 H, RDW Coeff of [place] 17.1 H, Plt Count 185, MPV 11.4, Immature Gran % (Auto) 0.300, Neut % (Auto) 53.2, Lymph % (Auto) 35.5, [place] % (Auto) 8.7, Eos % (Auto) 1.7, Baso % (Auto) 0.6, Absolute Neuts (auto) 1.9 L, Absolute Lymphs (auto) 1.27, Nucleated RBC % 0 Micro: Microbiology 10/19/22 06:05 Stool Stool Occult Blood (MARCO ANTONIO) - Final Occult Blood Positive Physical Exam Const alert and no apparent distress Constitutional Narrative: nontoxic. HEENT head/scalp atraumatic Resp normal respiratory effort, no retractions, no use of accessory muscles and clear to auscultation bilaterally Cardio regular rate, regular rhythm, S1 normal heart sound and S2 normal heart sound GI normal to inspection, nondistended, normoactive bowel sounds, soft to palpation, non-tender and non-distended Extremity normal to inspection Psych affect normal Assessment & Plan Assessment/Plan (1) ABLA (acute blood loss anemia): (2) Acute upper gastrointestinal bleeding: PLAN: Plan ABLA hemoglobin of 8.3 on presentation. Patient hemoglobin was 8.3 ; on 07/14/2020 hemoglobin was 15.1. Her hemoglobin is up from 7.7-8.5 Hemoglobin is back down to 8.3.however her BUN to creatinine ratio has not decreased. Recommend transfusion of 1 unit packed red blood cells. IV fluids ordered H&H every 24 hours Hold antiplatelets Appreciate cardiac consult. No anticoagulants for DVT prophylaxis SCD CAD status post stents Stable Patient can be started back on aspirin and Plavix. Cardiac catheterization on 07/14/2022 was reviewed. Drug eluting stent was placed in LAD and RCA. Appreciate cardiology help. DVT prophylaxis: SCDs ordered. Charges/Coding Visit Charges Inpatient E&M: 42762 Subs Hosp L3
[2022-10-24] MEDS: Pantoprazole Sodium 40 MG Tablet PO (09:01)
[2022-10-24] MEDS: Clopidogrel Bisulfate 75 MG Tablet PO (09:01)
[2022-10-24] MEDS: Propranolol 10 MG Tablet 20 MG PO (09:02)
--- NOTE | 2022-10-24 10:16 | PCM.DC ---
Discharge Instructions Diet Discharge Diet: Low fat / Low cholesterol Dressing / Incision Call your doctor if you observe: Shortness of breath, Chest pain and - (rectal bleeding. dark tarry stools. ) Follow Up Care Test Results: Test results from this visit will be discussed in further detail at your follow-up appointment, if applicable. Discharge Plan Admission Admit Date/Time: 10/19/22 07:37 Primary Reason for Your Visit: gastrointestinal bleed. Attending Provider: Adonis Borjas Primary Care Provider: Gene Roth Consulting Providers: Christine Saravia Discharge Orders/Prescriptions Prescriptions: New clopidogrel 75 mg Tablet 75 mg PO DAILY Qty: 30 0RF ferrous sulfate 325 mg (65 mg iron) tablet 325 mg PO DAILY Qty: 14 0RF Continued nitroglycerin 0.4 mg tablet, sublingual 0.4 mg SUBLINGUAL Q5M PRN (Reason: chest pain) Qty: 90 3RF propranolol 20 mg tablet 20 mg PO BID methylcellulose (laxative) [Citrucel] 500 mg tablet 1,000 mg PO QDAY PRN (Reason: Constipation) levothyroxine 75 mcg tablet 75 mcg PO DAILY d-mannose 500 mg capsule 500 mg PO DAILY atorvastatin 40 mg tablet 40 mg PO QHS pantoprazole 40 mg tablet,delayed release (DR/EC) 40 mg PO BID Qty: 60 2RF sucralfate 1 gram tablet 1 g PO TID Qty: 90 1RF Discontinued aspirin 81 mg tablet,delayed release (DR/EC) 81 mg PO DAILY Brilinta 90 mg tablet 90 mg PO BID Qty: 180 3RF isosorbide mononitrate 30 mg tablet extended release 24 hr 30 mg PO BID Qty: 180 3RF Referrals / Follow Up: [facility] [Provider Group] - Within 1 Month [facility] [Provider Group] - Within 1 Month Gene Roth DO [Primary Care Provider] - Within 2 Weeks Disposition Disposition (needs filled in before D/C Order can be placed): Home, Self Care
--- NOTE | 2022-10-24 10:20 | DS.PCM_ITS ---
Providers Date of Admission: 10/19/22 Primary Care Physician: Dr. Gene Roth, Consultations 10/19/22 09:15 Consult: Gastroenterology Routine Consulting Provider: [facility] Reason for Consult: GI bleed EMERGENT Consult: No Notified: Yes Date Notified: 10/19/22 Time Notified: 09:05 Method of Notification: ED Physician Initiated 10/23/22 15:11 Consult: Cardiology Routine Consulting Provider: Christine Saravia Reason for Consult: CAD. EMERGENT Consult: No Notified: Yes Date Notified: 10/23/22 Time Notified: 15:11 Method of Notification: Verbal Reason For Visit: gi bleed Diagnosis Discharge Diagnosis (1) Gastric ulcer: Status: Acute Code(s): K25.9 - Gastric ulcer, unspecified as acute or chronic, without hemorrhage or perforation Plan: Status post heater probe and treated with Hemospray. On octreotide and PPI drip Gastroenterology following Currently on a clear liquid diet. Advance diet Discussed with adelso Wan to discontinue octreotide and pantoprazole drips. Continue with pantoprazole p.o. (2) Acute blood loss anemia: Status: Acute Code(s): D62 - Acute posthemorrhagic anemia Plan: Secondary to gastric ulcer. 10/19: Hemoglobin down to 7.7. Given patient's known history of coronary artery disease, will treat for hemoglobin less than 8. Will transfuse 1 unit. Discussed with the patient. 10/20: Hemoglobin 8.5, no further need for transfusion at this time. 10/21: No further GI bleeding per the patient. Will transfuse 1 unit of blood. 10/22: Hg 9.1 10/23: Hg 8.3, recheck Hg today showed hemoglobin 9.5. We will recheck hemoglobin on and if stable then patient can be discharged. 10/24: Hg 9.1. No further transfusion. 2 weeks of daily ferrous sulfate. (3) CAD (coronary artery disease): Status: Acute Code(s): I25.10 - Atherosclerotic heart disease of [place] coronary artery without angina pectoris Plan: Stable 10/19: Discussed with Dr. Caro who recommends holding off on the aspirin and ti cagrelor then resuming clopidogrel in 48 hours, presuming patient not have any further bleeding. Patient continue with that monotherapy until follows up with cardiology. Tentative plan is of restarting clopidogrel on the . 10/22: Patient has some dark stool but hemoglobin has gone up probably after transfusion. Will initiate clopidogrel. Discussed with Dr. Isbell. Blood pressure was in the low side so her isosorbide has continued to be held. 10/23: Blood pressures been running low so we will discontinue the isosorbide. DW Dr. Saravia, if has recurrent angina, may consider Ranexa. Continue to hold isosorbide. Pt will continue w clopidogrel monotherapy. Plan Chronic conditions * Hypothyroidism: Continue with levothyroxine VTE prophylaxis with SCDs 10/21: Discussed with the patient and family at bedside. Patient was have some low blood pressure so her isosorbide was held. Patient's heart rate is also in the 50s and so her propranolol was held. We will continue to monitor. 10/22: Discussed with patient and her family at bedside. Tentative plan for discharge on the if hemoglobin stable no further bleeding. 10/23: As above. Monitor hemoglobin if stable then plan for discharge on . 10/24: DC home. Medications at Discharge Home Medications methylcellulose (laxative) 500 mg tablet (Citrucel) 1,000 mg PO QDAY PRN Constipation 09/22/17 nitroglycerin 0.4 mg sublingual tablet 0.4 mg sublingual Q5M PRN chest pain #90 tabs 09/27/17 propranolol 20 mg tablet 20 mg PO BID BP/Heart rate 01/02/19 d-mannose 500 mg capsule 500 mg PO DAILY Kidney 06/25/22 levothyroxine 75 mcg tablet 75 mcg PO DAILY thyroid 06/25/22 atorvastatin 40 mg tablet 40 mg PO QHS Cholesterol 07/14/22 pantoprazole 40 mg tablet,delayed release 40 mg PO BID #60 tabs 10/11/22 sucralfate 1 gram tablet 1 g PO TID #90 tabs 10/11/22 clopidogrel 75 mg tablet 75 mg PO DAILY #30 tabs 10/24/22 ferrous sulfate 325 mg (65 mg iron) tablet 325 mg PO DAILY #14 tabs 10/24/22 Hospital Course Operations None Procedures EGD Summary of Care Provided Minutes Spent on Discharge: 32 Weight / BMI Weight Weight: 73.028 kg Body Mass Index (BMI) 28.5 ABG / Lab / Microbiology Data Result Diagrams: 10/24/22 06:10 10/23/22 05:34 Laboratory: Laboratory Results - last 24 hr 10/23/22 12:10: Hgb 9.5 L, Hct 30.0 L 10/24/22 06:10: WBC 3.6 L, RBC 2.95 L, Hgb 9.1 L, Hct 29.0 L, MCV 98.3, MCH 30.8, MCHC 31.4 L, RDW Std Deviation 58.4 H, RDW Coeff of [place] 17.1 H, Plt Count 185, MPV 11.4, Immature Gran % (Auto) 0.300, Neut % (Auto) 53.2, Lymph % (Auto) 35.5, [place] % (Auto) 8.7, Eos % (Auto) 1.7, Baso % (Auto) 0.6, Absolute Neuts (auto) 1.9 L, Absolute Lymphs (auto) 1.27, Nucleated RBC % 0 Microbiology: Microbiology 10/19/22 06:05 Stool Stool Occult Blood (MARCO ANTONIO) - Final Occult Blood Positive D/C Instructions Discharge Diet: Low fat / Low cholesterol Call your doctor if you observe: Shortness of breath, Chest pain and - (rectal bleeding. dark tarry stools. ) Meaningful Use Info Meaningful Use Diagnoses (Choose all that apply): None applicable Discharge Plan Admission Admit Date/Time: 10/19/22 07:37 Primary Reason for Your Visit: gastrointestinal bleed. Attending Provider: Adonis Borjas Primary Care Provider: Gene Roth Consulting Providers: Christine Saravia Discharge Orders/Prescriptions Prescriptions: New clopidogrel 75 mg Tablet 75 mg PO DAILY Qty: 30 0RF ferrous sulfate 325 mg (65 mg iron) tablet 325 mg PO DAILY Qty: 14 0RF Continued nitroglycerin 0.4 mg tablet, sublingual 0.4 mg SUBLINGUAL Q5M PRN (Reason: chest pain) Qty: 90 3RF propranolol 20 mg tablet 20 mg PO BID methylcellulose (laxative) [Citrucel] 500 mg tablet 1,000 mg PO QDAY PRN (Reason: Constipation) levothyroxine 75 mcg tablet 75 mcg PO DAILY d-mannose 500 mg capsule 500 mg PO DAILY atorvastatin 40 mg tablet 40 mg PO QHS pantoprazole 40 mg tablet,delayed release (DR/EC) 40 mg PO BID Qty: 60 2RF sucralfate 1 gram tablet 1 g PO TID Qty: 90 1RF Discontinued aspirin 81 mg tablet,delayed release (DR/EC) 81 mg PO DAILY Brilinta 90 mg tablet 90 mg PO BID Qty: 180 3RF isosorbide mononitrate 30 mg tablet extended release 24 hr 30 mg PO BID Qty: 180 3RF Referrals / Follow Up: [facility] [Provider Group] - Within 1 Month [facility] [Provider Group] - Within 1 Month Gene Roth DO [Primary Care Provider] - Within 2 Weeks Disposition Disposition (needs filled in before D/C Order can be placed): Home, Self Care Charges/Coding Visit Charges Inpatient E&M: 22330 Disch Hosp >30min
[2022-10-24 11:30] VITALS: BP 119/76; PULSE 76; RESP 18; TEMP 36.4; O2SAT 98
== END 2022-10-24 12:05 | disposition home or self-care (01) | DRG 378 ==
LOC: ED 06:59 → MS3 07:56
PROVIDERS: Internal Medicine Gastroenterology; Emergency Provider Student in an Organized Health Care Education/Training Program; PCP Family Medicine
PROC: 0DJ08ZZ Inspection of Upper Intestinal Tract, Via Natural or Artificial Opening Endoscopic (ICD-10-PCS; CPT 43235; principal; 2022-10-19 11:55)
DX: K25.4 Chronic or unspecified gastric ulcer with hemorrhage (principal); D62 Acute posthemorrhagic anemia; E03.9 Hypothyroidism, unspecified; I95.89 Other hypotension; E78.00 Pure hypercholesterolemia, unspecified; I25.10 Atherosclerotic heart disease of native coronary artery without angina pectoris; I10 Essential (primary) hypertension; Z95.5 Presence of coronary angioplasty implant and graft; Z79.02 Long term (current) use of antithrombotics/antiplatelets; Z79.899 Other long term (current) drug therapy
CPT/HCPCS: 36415; 71045; 80048; 80053; 82274; 84484; 85014; 85018; 85025; 86850; 86900; 86901; 86920; 93005; 97110; 97116; 97162; 97166; 97530; 97803; 99285; J7030; J7040; J7050; J7120; P9016; A4216; J2405; J3490

== ENCOUNTER 2022-10-30 14:36 | Inpatient (IN) | payer OTHER, SELFPAY ==
[2022-10-30 14:37] VITALS: BP 163/85; PULSE 82; RESP 16; TEMP 36.2; O2SAT 96; BMI 28.0
[2022-10-30 16:06] LABS: Absolute Lymphocyte Count 1.38 X10^3/uL (0.83-4.51); Basophil# 0.02 X10^3/uL; Basophil% 0.4 % (0-1); Eosinophil# 0.08 X10^3/uL; Eosinophils% 1.7 % (0-5); Hematocrit 36.9 % (37-47); Hemoglobin 11.8 g/dL (12.0-15.0); Lymphocyte # 1.38 X10^3/ul (0.83-4.51); Lymphocyte % 28.8 % (19-41); Mean Corpuscular Hgb 31.1 pg (27.0-32.0); Mean Corpuscular Volume 97.4 fL (81-99); Mean Platelet Vol. 10.9 fl (6.2-12.0); Monocyte# 0.32 X10^3/uL; Monocyte% 6.7 % (0-10); NRBC Flagged by Analyzer 0 % (0-5); Neutrophil # 2.99 X10^3/uL (2.7-7.7); Neutrophil % 62.2 % (47-70); Platelet Count 248 K/mm3 (150-450); RBC Distribution Width CV 15.9 % (11.6-14.6); RBC Distribution Width SD 56.3 fl (35.1-43.9); Red Blood Count 3.79 M/mm3 (4.2-5.4); White Blood Count 4.8 K/mm3 (4.4-11.0)
[2022-10-30 16:29] LABS: ALB/GLOB Ratio 1.1 RATIO (0.9-2.4); AST(SGOT) 16 U/L (15-37); Alanine Aminotransfer ALT/SGPT 16 U/L (13-56); Albumin, Serum 3.9 g/dL (3.2-5.0); Alkaline Phosphatase 72 U/L (45-117); Anion Gap 8 (5-15); BUN 12 mg/dL (7-18); BUN/Creat Ratio 16.3 RATIO (10-20); Calcium,Total 9.6 mg/dL (8.5-10.1); Chloride 103 mmol/L (98-107); Creatinine, Serum 0.74 mg/dL (0.55-1.02); EST Glomerular Filtration Rate 81 mL/min (>60); Est Glom Filt Rate - Afr Amer 98 mL/min (>60); Estimated Creatinine Clearance 38.97 ml/min; Globulin 3.7 g/dL (2.2-4.2); Glucose 105 mg/dL (74-106); Potassium 3.7 mmol/L (3.5-5.1); Protein, Total 7.6 g/dL (6.4-8.2); Sodium Level 140 mmol/L (136-145)
--- NOTE | 2022-10-30 17:03 | HP.PCM.HOS_ITS ---
HPI - General General Date of Admission: 10/30/22 Date of Service: 10/30/22 Chief Complaint: Rectal bleeding HPI Narrative ARLEY ORDOÑEZ, is a 77 F who presented to the emergency department at [facility] on 10/30/2022 with black tarry stools. The patient was admitted here on 10/07/2022 for acute GI bleed and was taken for an EGD at that time and found to have grade B reflux esophagitis as well as an oozing gastric ulcer and this was treated with monopolar probe at that time and her Brilinta and aspirin were reinitiated after this as she had recent cardiac intervention with a stent to her LAD and RCA in June 2022. She was discharged home in stable condition on Protonix and Carafate. She came back into the hospital on 10/19/2022 with melena. She brought up a jar of her stool and at that time to show the ER physician. GI was contacted and she was placed on a Protonix drip as well as octreotide drip and again went for endoscopy which again showed the gastric ulcer with a visible vessel that was spurting. She was treated with heater probe and Hemospray at that time. Hemoglobin stabilized and she was discharged home however cardiology was consulted and they transitioned her off of Brilinta and aspirin and placed her on Plavix alone. She presented today with dark stool. She has had a little bit of nausea and some abdominal discomfort but no significant pain. She was not feeling lightheaded or dizzy b ut felt a little bit weak. Previously she has received 3 units of blood so she came in when symptoms started immediately. She has had colonoscopy previously but its been 10 to 15 years. She does have history of polyps. Vital signs on presentation show a temperature of 97.4, heart rate 71, blood pressure 140/71, respiratory 16 and oxygen saturation is 96% on room air. CBC shows an anemia which is actually improved from her previous admission. Hemoglobin is currently 11.8 and is normocytic. Platelet counts are normal. Chemistry is unremarkable. Type and screen were performed and she is a positive with negative antibody screen. Protonix drip was started emergency department and the case was discussed with Dr. Isbell. He will evaluate her in consultation on the medical floor. [facility] Medical History Arthritis Atherosclerotic heart disease of [place] coronary artery without angina pectoris Back pain Cardiology follow-up encounter Chest pain Chest pain, precordial Dizziness and giddiness Gastric reflux GERD (gastroesophageal reflux disease) Hiatal hernia High cholesterol History of echocardiogram History of edema History of IBS History of pain when walking History of stress test Hyperlipidemia Hypothyroidism Hypothyroidism, iatrogenic Non-smoker OA (osteoarthritis) of knee Osteoporosis Palpitations Post-menopausal Shortness of breath on exertion Thyroid disease Wears glasses Wears partial dentures Home Medications methylcellulose (laxative) 500 mg tablet (Citrucel) 500 mg PO DAILY CONSTIPATION 09/22/17 [History Last Taken 10/29/22] nitroglycerin 0.4 mg sublingual tablet 0.4 mg sublingual Q5M PRN chest pain #90 tabs 09/27/17 [Rx Last Taken Unknown] propranolol 20 mg tablet 20 mg PO BID BP/Heart rate 01/02/19 [History Last Taken 10/30/22] levothyroxine 75 mcg tablet 75 mcg PO DAILY thyroid 06/25/22 [History Last Taken 10/30/22] atorvastatin 40 mg tablet 40 mg PO QHS Cholesterol 07/14/22 [History Last Taken 10/29/22] pantoprazole 40 mg tablet,delayed release 40 mg PO BID #60 tabs 10/11/22 [Rx Last Taken 10/30/22] sucralfate 1 gram tablet 1 g PO TID #90 tabs 10/11/22 [Rx Last Taken 10/30/22] clopidogrel 75 mg tablet 75 mg PO DAILY #30 tabs 10/24/22 [Rx Last Taken 10/29/22] ferrous sulfate 325 mg (65 mg iron) tablet 325 mg PO DAILY #14 tabs 10/24/22 [Rx Last Taken 10/29/22] OSTEA MUÑOZ 2 cap PO/SL LUNCH SUPPLEMENT 10/30/22 [History Last Taken 10/29/22] pramipexole 0.25 mg tablet 0.25 mg PO QHS PRN RLS 10/30/22 [History Last Taken 10/28/22] Allergy/AdvReac Type Severity Reaction Status Date / Time etodolac Allergy Severe Throat Verified 10/30/22 14:37 tightness, rash morphine AdvReac Itching, Verified 10/30/22 14:37 rash oxycodone [From Percocet] AdvReac Nausea/Vom/ Verified 10/30/22 14:37 Diarrhea Family History Sister CAD (coronary artery disease) Hx of CABG Sister S/P MVR (mitral valve replacement) Surgical History Cystocele with prolapse History of appendectomy History of cardiac catheterization History of cholecystectomy History of coronary artery stent placement (~07/14/22) History of coronary artery stent placement History of total hysterectomy Rectocele Social History number of children: 12 Smoking Status: Never smoker alcohol intake: never substance use type: does not use additional social history: Alessandro Ordoñez Vital Signs Vital Signs Vital Signs: 10/30/22 14:37 Temperature 97.2 F L Temperature Source Temporal Pulse Rate 82 Respiratory Rate 16 Blood Pressure 163/85 H Blood Pressure Mean 111 Pulse Ox 96 Oxygen Delivery Method Room Air Weight Weight: 71.985 kg Body Mass Index (BMI) 28.0 Physical Exam Const alert, oriented x3, no apparent distress, healthy appearing and well nourished Constitutional Narrative: Very pleasant, older white female, sitting up in bed, son at bedside, appears comfortable nontoxic General Appearance: cooperative HEENT normocephalic, head/scalp atraumatic and moist oral mucous membranes HEENT Narrative: Mild hearing loss, Mallampati 2, dentition is fair, no thrush Eyes PERRL and EOMs intact bilaterally Neck no lymphadenopathy and supple Neck Narrative: Trachea midline, no thyroid enlargement Resp normal respiratory effort, no retractions, no use of accessory muscles and clear to auscultation bilaterally Auscultation: Negative for rales, rhonchi or wheezes Cardio regular rate, regular rhythm, S1 normal heart sound, S2 normal heart sound, no murmurs, no rub, no gallops and no clicks GI normal to inspection, nondistended, normoactive bowel sounds and soft to palpation GI Narrative: Mild diffuse tenderness in the abdomen with no focal point tenderness Extremity no clubbing, cyanosis or edema Extremity Narrative: 2+ pedal pulses Skin no rashes or lesions noted, no wounds, skin turgor normal, no jaundice, no petechiae and no mottling Skin Narrative: Skin is pale Neuro oriented x3, CN's II-XII intact bilaterally, moves all extremities and no focal motor deficits Speech: speech normal Psych affect normal Psych Narrative: Very pleasant, appropriately interactive, appreciative of care Results Lab / Micro Data Result Diagrams: 10/30/22 15:40 10/30/22 15:40 Labs: Laboratory Results - last 24 hr 10/30/22 15:40: Blood Type A POSITIVE, Antibody Screen NEGATIVE 10/30/22 15:40: WBC 4.8, RBC 3.79 L, Hgb 11.8 L, Hct 36.9 L, MCV 97.4, MCH 31.1, MCHC 32.0, RDW Std Deviation 56.3 H, RDW Coeff of [place] 15.9 H, Plt Count 248, MPV 10.9, Immature Gran % (Auto) 0.200, Neut % (Auto) 62.2, Lymph % (Auto) 28.8, [place] % (Auto) 6.7, Eos % (Auto) 1.7, Baso % (Auto) 0.4, Absolute Neuts (auto) 3.0, Absolute Lymphs (auto) 1.38, Nucleated RBC % 0 10/30/22 15:40: Sodium 140, Potassium 3.7, Chloride 103, Carbon Dioxide 29.0, Anion Gap 8, BUN 12, Creatinine 0.74, Estim Creat Clear Calc 38.97, Est GFR (MDRD) Af Amer 98, Est GFR (MDRD) Non-Af 81, BUN/Creatinine Ratio 16.3, Glucose 105, Calcium 9.6, Total Bilirubin 0.50, AST 16, ALT 16, Alkaline Phosphatase 72, Total Protein 7.6, Albumin 3.9, Globulin 3.7, Albumin/Globulin Ratio 1.1 Micro: Microbiology 10/30/22 13:59 Stool Stool Occult Blood (MARCO ANTONIO) - Final Occult Blood Positive Assessment & Plan Assessment/Plan (1) Gastric ulcer: (2) GI bleeding: (3) Melena: PLAN: Plan GI bleed -Patient currently with melena and mild nausea -No hematemesis but mild abdominal pain -Last colonoscopy was 10 to 15 years ago and patient has history of polyps -Done by Dr. Laws -EGD done on 10/08/2022 and 10/19/2022 both times gastric ulceration with visible vessel noted and treatment pursued resulting in hemodynamic stability -Start Protonix drip -Continue home Carafate -Hemoglobin is stable and actually increased compared to last hospitalization -Every 6 hour hemoglobin -Patient needs to continue Plavix as she had recent stent placement in June 2022 -Transitioned to Plavix from Brilinta and aspirin at her last admission -GI consultation for EGD and colonoscopy Gastric ulcer -See above Acute blood loss anemia -Hemoglobin is stable when compared to recent -Check every 6 hours hemoglobin -Need to continue Plavix -Continue home iron -Transfuse for hemoglobin less than 7 or precipitous drop CAD/HPL/HTN -PCI with MARY to LAD and RCA 06/2022 -Continue Plavix--> transitioned from Brilinta and aspirin at last hospitalization per cardiology recommendations -Continue statin -Continue propranolol Hypothyroidism -Continue home oxygen Restless leg syndrome -Continue Mirapex DVT prophylaxis -Chemoprophylaxis counter and gated secondary to GI bleeding -SCDs CODE STATUS -Full code as verified on admission Charges/Coding Visit Charges Inpatient E&M: 21010 Init Hosp L3
[2022-10-30 17:19] VITALS: BMI 27.6
[2022-10-30 17:26] VITALS: BP 140/71; PULSE 71; RESP 16; TEMP 36.3
[2022-10-30 17:40] VITALS: BP 140/71; PULSE 71; RESP 16; TEMP 36.3; O2SAT 96
--- NOTE | 2022-10-30 17:48 | ED.VIS.GI ---
HPI HPI - GI History of Present Illness Chief Complaint: GI Bleed Narrative Narrative: Patient with history of GI bleed secondary to gastric ulcer/duodenal ulcer. Patient on aspirin and Plavix currently. Patient states she recently was in the hospital couple of times for bleeding. He was able to see Dr. Isbell and the bleeding was under control. Patient states that today she started to have a little bit of GI discomfort and nausea. She states she had a couple of episodes of black stools. She does not have any significant abdominal pain. She does not feel lightheaded or dizzy but she feels generally weak. She states that last time she waited too long became very anemic. She had to be transfused 3 units of blood. [facility] Medical History Arthritis Atherosclerotic heart disease of [place] coronary artery without angina pectoris Back pain Cardiology follow-up encounter Chest pain Chest pain, precordial Dizziness and giddiness Gastric reflux GERD (gastroesophageal reflux disease) Hiatal hernia High cholesterol History of echocardiogram History of edema History of IBS History of pain when walking History of stress test Hyperlipidemia Hypothyroidism Hypothyroidism, iatrogenic Non-smoker OA (osteoarthritis) of knee Osteoporosis Palpitations Post-menopausal Shortness of breath on exertion Thyroid disease Wears glasses Wears partial dentures Home Medications methylcellulose (laxative) 500 mg tablet (Citrucel) 500 mg PO DAILY CONSTIPATION 09/22/17 [History Last Taken 10/29/22] nitroglycerin 0.4 mg sublingual tablet 0.4 mg sublingual Q5M PRN chest pain #90 tabs 09/27/17 [Rx Last Taken Unknown] propranolol 20 mg tablet 20 mg PO BID BP/Heart rate 01/02/19 [History Last Taken 10/30/22] levothyroxine 75 mcg tablet 75 mcg PO DAILY thyroid 06/25/22 [History Last Taken 10/30/22] atorvastatin 40 mg tablet 40 mg PO QHS Cholesterol 07/14/22 [History Last Taken 10/29/22] pantoprazole 40 mg tablet,delayed release 40 mg PO BID #60 tabs 10/11/22 [Rx Last Taken 10/30/22] sucralfate 1 gram tablet 1 g PO TID #90 tabs 10/11/22 [Rx Last Taken 10/30/22] clopidogrel 75 mg tablet 75 mg PO DAILY #30 tabs 10/24/22 [Rx Last Taken 10/29/22] ferrous sulfate 325 mg (65 mg iron) tablet 325 mg PO DAILY #14 tabs 10/24/22 [Rx Last Taken 10/29/22] OSTEA MUÑOZ 2 cap PO/SL LUNCH SUPPLEMENT 10/30/22 [History Last Taken 10/29/22] pramipexole 0.25 mg tablet 0.25 mg PO QHS PRN RLS 10/30/22 [History Last Taken 10/28/22] Allergy/AdvReac Type Severity Reaction Status Date / Time etodolac Allergy Severe Throat Verified 10/30/22 14:37 tightness, rash morphine AdvReac Itching, Verified 10/30/22 14:37 rash oxycodone [From Percocet] AdvReac Nausea/Vom/ Verified 10/30/22 14:37 Diarrhea Family History Sister CAD (coronary artery disease) Hx of CABG Sister S/P MVR (mitral valve replacement) Surgical History Cystocele with prolapse History of appendectomy History of cardiac catheterization History of cholecystectomy History of coronary artery stent placement (~07/14/22) History of coronary artery stent placement History of total hysterectomy Rectocele Social History number of children: 12 Smoking Status: Never smoker alcohol intake: never substance use type: does not use additional social history: Alessandro Ace [facility] ED Constitutional Constitutional ED: Denies chills or fever(s) ENT ENT ED: Denies rhinorrhea or sore throat Cardiovascular Cardiovascular: Denies palpitations or racing heartbeat Respiratory/Chest Respiratory/Chest: Denies cough or dyspnea Gastrointestinal Gastrointestinal: Reports melena and nausea; Denies abdominal pain or vomiting Genitourinary Genitourinary ED: Denies dysuria or hematuria Musculoskeletal Musculoskeletal: Denies arthralgias Integumentary Denies abscess or Abrasions Neurologic Neurologic: Denies headache(s) Psychiatric Psychiatric: Denies anxiety or depression Endocrine Endocrinology: Denies polydipsia or polyphagia EXAM Physical Exam Const Vital Signs: 10/30/22 14:37 Temperature 97.2 F L Temperature Source Temporal Pulse Rate 82 Respiratory Rate 16 Blood Pressure 163/85 H Blood Pressure Mean 111 Pulse Ox 96 Oxygen Delivery Method Room Air Positive well nourished General Appearance ED: NAD; Negative for pallor HEENT Reports moist mucous membranes normocephalic and atraumatic Eyes PERRL and EOMs intact bilaterally General Eye ED: Negative for pale conjunctiva Resp normal respiratory effort and clear to auscultation bilaterally Auscultation: Negative for rales, rhonchi or wheezes Cardio regular rate and regular rhythm GI non-tender and non-distended Back/Spine no CVA tenderness Neuro CN's II-XII intact bilaterally Sensorium / Orientation: alert Psych mental status grossly normal Skin no wounds General Skin Exam: Negative for jaundice or pallor MDM MDM MDM Narrative Medical decision making narrative: Patient presenting with melena. She brought a jar of black in to be tested. This is occult positive. This is from this morning. Currently vital signs are stable and she is afebrile. She is not pale and her conjunctiva are not pale either. No jaundice is noted. Differential at this time is upper versus lower GI bleed most likely. Patient with history of GI bleed was given Protonix 40 mg IV. CBC to assess white blood cell count, hemoglobin, hematocrit, platelets, differential. CMP to assess liver function, kidney function, electrolytes, glucose, anion gap. CBC and CMP are unremarkable. Hemoglobin is actually elevated 11.8 over previous however she does have active melena. She is on aspirin and Plavix. I spoke with Dr. Isbell who recommended putting her on a tonics drip. He was willing to see her in consult. She was typed and screened but if she has any blood at that this time. Discussed with hospitalist for admission. Impression: 1. Nausea 2. GI bleed Lab Data Labs: Laboratory Results - last 24 hr 10/30/22 10/30/22 10/30/22 15:40 15:40 15:40 WBC 4.8 RBC 3.79 L Hgb 11.8 L Hct 36.9 L MCV 97.4 MCH 31.1 MCHC 32.0 RDW Std Deviation 56.3 H RDW Coeff of [place] 15.9 H Plt Count 248 MPV 10.9 Immature Gran % (Auto) 0.200 Neut % (Auto) 62.2 Lymph % (Auto) 28.8 [place] % (Auto) 6.7 Eos % (Auto) 1.7 Baso % (Auto) 0.4 Absolute Neuts (auto) 3.0 Absolute Lymphs (auto) 1.38 Nucleated RBC % 0 Sodium 140 Potassium 3.7 Chloride 103 Carbon Dioxide 29.0 Anion Gap 8 BUN 12 Creatinine 0.74 Estim Creat Clear Calc 38.97 Est GFR (MDRD) Af Amer 98 Est GFR (MDRD) Non-Af 81 BUN/Creatinine Ratio 16.3 Glucose 105 Calcium 9.6 Total Bilirubin 0.50 AST 16 ALT 16 Alkaline Phosphatase 72 Total Protein 7.6 Albumin 3.9 Globulin 3.7 Albumin/Globulin Ratio 1.1 Blood Type A POSITIVE Antibody Screen NEGATIVE Discharge Plan Disposition Disposition: Acute Care Hospital [facility] Discharge Date/Time: 10/30/22 17:47
[2022-10-30 18:02] VITALS: BP 150/71; PULSE 66; RESP 16; TEMP 37.2; O2SAT 97
--- NOTE | 2022-10-30 18:14 | EX.PCM.CON.G ---
HPI Consult Data Date of Consult: 10/30/22 HPI Narrative Reason for Consultation: GI bleeding HPI Narrative: ARLEY ORDOÑEZ, is a 77 F who presents from home complaining of bleeding per rectum. Patient with history of GI bleed secondary to gastric ulcer/duodenal ulcer.? Patient on aspirin and Plavix currently.? Patient states she recently was in the hospital couple of times for bleeding.? Patient states that today she started to have a little bit of GI discomfort and nausea.? She states she had a couple of episodes of black stools.? She does not have any significant abdominal pain.? She does not feel lightheaded or dizzy but she feels generally weak.? She states that last time she waited too long became very anemic.? She had to be transfused 3 units of blood. Prior to that hospitalized from 10/07/2022 to 10/11/2022 for acute blood loss anemia, acute upper GI bleed due to gastric ulcers.? 10/07/2022 EGD revealed LA grade B reflux esophagitis, 1 oozing cratered gastric ulcer 6 mm was treated.? Her hemoglobin continued to drop therefore on 10/08/2022 EGD was repeated; this time Dr. sIbell found many oozing cratered gastric ulcers with adherent clot, largest was 10 mm, treated with argon plasma and 3 hemostatic clips.? Her hemoglobin was 8 at discharge.? She reports she is still tired and short of breath, but is feeling better than when she was hospitalized.? Since discharge she has not had any nausea or vomiting.? She is not having any heartburn or acid reflux.? No dysphagia.? She denies abdominal pain.? Her bowels are normal, no melena or hematochezia.? She is accompanied by her and son.? She is taking pantoprazole 40 mg twice daily and sucralfate 3 times daily. She is feeling weak, pale, dyspneic.? Recently seen in the hospital by Dr. Isbell.? She had endoscopy performed.? She was transferred 3 units while in the hospital.? She is currently on Plavix and this was held during her hospital stay but was restarted when she was discharged.? She had a couple of bowel movements which are dark black.? Her states she is a little more pale than usual.? [facility] Medical History Arthritis Atherosclerotic heart disease of [place] coronary artery without angina pectoris Back pain Cardiology follow-up encounter Chest pain Chest pain, precordial Dizziness and giddiness Gastric reflux GERD (gastroesophageal reflux disease) Hiatal hernia High cholesterol History of echocardiogram History of edema History of IBS History of pain when walking History of stress test Hyperlipidemia Hypothyroidism Hypothyroidism, iatrogenic Non-smoker OA (osteoarthritis) of knee Osteoporosis Palpitations Post-menopausal Shortness of breath on exertion Thyroid disease Wears glasses Wears partial dentures Home Medications methylcellulose (laxative) 500 mg tablet (Citrucel) 500 mg PO DAILY CONSTIPATION 09/22/17 [History Last Taken 10/29/22] nitroglycerin 0.4 mg sublingual tablet 0.4 mg sublingual Q5M PRN chest pain #90 tabs 09/27/17 [Rx Last Taken Unknown] propranolol 20 mg tablet 20 mg PO BID BP/Heart rate 01/02/19 [History Last Taken 10/30/22] levothyroxine 75 mcg tablet 75 mcg PO DAILY thyroid 06/25/22 [History Last Taken 10/30/22] atorvastatin 40 mg tablet 40 mg PO QHS Cholesterol 07/14/22 [History Last Taken 10/29/22] pantoprazole 40 mg tablet,delayed release 40 mg PO BID #60 tabs 10/11/22 [Rx Last Taken 10/30/22] sucralfate 1 gram tablet 1 g PO TID #90 tabs 10/11/22 [Rx Last Taken 10/30/22] clopidogrel 75 mg tablet 75 mg PO DAILY #30 tabs 10/24/22 [Rx Last Taken 10/29/22] ferrous sulfate 325 mg (65 mg iron) tablet 325 mg PO DAILY #14 tabs 10/24/22 [Rx Last Taken 10/29/22] OSTEA MUÑOZ 2 cap PO/SL LUNCH SUPPLEMENT 10/30/22 [History Last Taken 10/29/22] pramipexole 0.25 mg tablet 0.25 mg PO QHS PRN RLS 10/30/22 [History Last Taken 10/28/22] Allergy/AdvReac Type Severity Reaction Status Date / Time etodolac Allergy Severe Throat Verified 10/30/22 14:37 tightness, rash morphine AdvReac Itching, Verified 10/30/22 14:37 rash oxycodone [From Percocet] AdvReac Nausea/Vom/ Verified 10/30/22 14:37 Diarrhea Family History Sister CAD (coronary artery disease) Hx of CABG Sister S/P MVR (mitral valve replacement) Surgical History Cystocele with prolapse History of appendectomy History of cardiac catheterization History of cholecystectomy History of coronary artery stent placement (~07/14/22) History of coronary artery stent placement History of total hysterectomy Rectocele Social History number of children: 12 Smoking Status: Never smoker alcohol intake: never substance use type: does not use additional social history: Alessandro Ordoñez ROS ROS Narrative All review of systems were negative except as mentioned above in the history of present illness and the other review of systems. Physical Exam Const alert and no apparent distress Constitutional Narrative: nontoxic. HEENT head/scalp atraumatic Resp normal respiratory effort, no retractions, no use of accessory muscles and clear to auscultation bilaterally Cardio regular rate, regular rhythm, S1 normal heart sound and S2 normal heart sound GI normal to inspection, nondistended, normoactive bowel sounds, soft to palpation, non-tender and non-distended Extremity normal to inspection Psych affect normal Lab / Micro Data Result Diagrams: 10/30/22 15:40 10/30/22 15:40 Labs: Laboratory Results - last 24 hr 10/30/22 15:40: Blood Type A POSITIVE, Antibody Screen NEGATIVE 10/30/22 15:40: WBC 4.8, RBC 3.79 L, Hgb 11.8 L, Hct 36.9 L, MCV 97.4, MCH 31.1, MCHC 32.0, RDW Std Deviation 56.3 H, RDW Coeff of [place] 15.9 H, Plt Count 248, MPV 10.9, Immature Gran % (Auto) 0.200, Neut % (Auto) 62.2, Lymph % (Auto) 28.8, [place] % (Auto) 6.7, Eos % (Auto) 1.7, Baso % (Auto) 0.4, Absolute Neuts (auto) 3.0, Absolute Lymphs (auto) 1.38, Nucleated RBC % 0 10/30/22 15:40: Sodium 140, Potassium 3.7, Chloride 103, Carbon Dioxide 29.0, Anion Gap 8, BUN 12, Creatinine 0.74, Estim Creat Clear Calc 38.97, Est GFR (MDRD) Af Amer 98, Est GFR (MDRD) Non-Af 81, BUN/Creatinine Ratio 16.3, Glucose 105, Calcium 9.6, Total Bilirubin 0.50, AST 16, ALT 16, Alkaline Phosphatase 72, Total Protein 7.6, Albumin 3.9, Globulin 3.7, Albumin/Globulin Ratio 1.1 Micro: Microbiology 10/30/22 13:59 Stool Stool Occult Blood (MARCO ANTONIO) - Final Occult Blood Positive Assessment & Plan Assessment/Plan (1) Gastric ulcer: PLAN: Status post heater probe and treated with Hemospray. PPI drip (2) Acute blood loss anemia: PLAN: Secondary to gastric ulcer. 10/19: Hemoglobin down to 7.7. Given patient's known history of coronary artery disease, will treat for hemoglobin less than 8. Will transfuse 1 unit. Discussed with the patient. 10/20: Hemoglobin 8.5, no further need for transfusion at this time. 10/21: No further GI bleeding per the patient. Will transfuse 1 unit of blood. 10/22: Hg 9.1 10/23: Hg 8.3, recheck Hg today showed hemoglobin 9.5. We will recheck hemoglobin on and if stable then patient can be discharged. 10/24: Hg 9.1. No further transfusion. 2 weeks of daily ferrous sulfate. 10/30: Hg 11.6 Plan for EGD and colonoscopy tomorrow. (3) CAD (coronary artery disease): PLAN: Stable 10/19: Discussed with Dr. Caro who recommends holding off on the aspirin and ticagrelor then resuming clopidogrel in 48 hours, presuming patient not have any further bleeding. Patient continue with that monotherapy until follows up with cardiology. Tentative plan is of restarting clopidogrel on the . 10/22: Patient has some dark stool but hemoglobin has gone up probably after transfusion. Cont Plavix. 10/23: Blood pressures been running low so we will discontinue the isosorbide. DW Dr. Saravia, if has recurrent angina, may consider Ranexa. Continue to hold isosorbide. Pt will continue w clopidogrel monotherapy. 10/30: BP is table Charges/Coding Visit Charges Inpatient E&M: 72439 Init Hosp L3
[2022-10-30] MEDS: Polyethylene Glycol 3350 BOWEL PREP PO (19:02)
[2022-10-30 19:06] LABS: Hemoglobin 11.3 g/dL (12.0-15.0)
[2022-10-30 19:46] LABS: Vitamin D,25 Hydroxy 46.6 ng/mL
[2022-10-30 21:00] VITALS: O2SAT 97
[2022-10-30] MEDS: Atorvastatin Calcium 40 MG Tablet PO (22:59)
[2022-10-30] MEDS: Propranolol 10 MG Tablet 20 MG PO (22:59)
[2022-10-30] MEDS: Lactated Ringers 1,000 ML 75 ML IV (23:02)
[2022-10-30 23:17] VITALS: BP 143/70; PULSE 69; RESP 14; TEMP 37.2; O2SAT 98
[2022-10-30 23:21] LABS: Hemoglobin 10.8 g/dL (12.0-15.0)
[2022-10-31] VITALS (11 sets, daily range): BP systolic 83–127; BP diastolic 46–72; PULSE 58–77; RESP 14–18; TEMP 36.2–36.8; O2SAT 95–99; BMI 27.6
--- NOTE | 2022-10-31 | COLBX_PTH ---
PATIENT: ARLEY ORDOÑEZ LOC: [facility] U#:[id number] AGE/SX: 77/F ROOM: [facility] RE10/30/[address]: Dr. Fifi Flanagan MD : 1945 BED: 1 DIS: 11/02/2022 SPEC #: [id number] RECD: 10/31/22 09:49 STATUS: TIFFANIE YUN #: [id number] DINA: 10/31/22 00:[address]: Brian Isbell DEPT: SURGICAL PATHOLOGY RECD BY: Yemi Major ENTERED: 11/02/22 08:45 SP TYPE: COLON BX OTHR DR: Dr. Bri Flores, DO Dr. Gene Roth, DO MD Dr. Nola Garcia MD Tissues: A - Ileum, NOS B - Transverse colon Procedures: Surgery Specimen Level IV Comments: @ Ordering doctor for SUIV edited from to @ by VAMSHI at 11/02/22 1439 @ Submitting doctor edited from to @ by RGOOD at 11/02/22 1439 HEADER OPERATION: Colonoscopy with cautery and with biopsies, EGD ([facility] [place]) PRE-OP DIAGNOSIS: GI bleed TISSUE SUBMITTED: A ? Terminal ileum, B ? Polyp transverse colon MICROSCOPIC DIAGNOSIS A. Terminal ileum, biopsy: A fragment of small intestinal mucosa, no pathologic diagnosis. B. Transverse colon polyp, biopsy: Fragments of tubular adenoma. Fragments of fecal material. MURTAZA:travis 11/03/2022 MICROSCOPIC DESCRIPTION Slides are reviewed. GROSS DESCRIPTION A - Received in fixative is one container labeled with the patient's name and designated terminal ileum. The specimen consists of one irregular fragment of [place] soft tissue that measures 0.4 x 0.2 x 0.1 cm. The specimen is totally submitted in one cassette. B - Received in fixative is one container labeled with the patient's name and designated polyp transverse colon. The specimen consists of multiple irregular fragments of [place] soft tissue that in aggregate measure 1.5 x 0.5 x 0.1 cm. The specimen is totally submitted in one cassette. / MURTAZA:travis 11/02/2022 TC:1 CPT: 69212 x2
[2022-10-31] MEDS: Pramipexole Di-HCl 0.25 MG Tablet PO (02:39)
[2022-10-31] MEDS: Levothyroxine 75 MCG Tablet PO (05:33)
[2022-10-31 05:59] LABS: Absolute Neutrophil Count 2.1 X10^3/uL (2.0-7.7); Basophil# 0.02 X10^3/uL; Basophil% 0.5 % (0-1); Eosinophil# 0.07 X10^3/uL; Eosinophils% 1.8 % (0-5); Lymphocyte % 33.6 % (19-41); Mean Corp Hgb Conc 31.4 g/dL (32-36); Mean Corpuscular Hgb 30.6 pg (27.0-32.0); Mean Corpuscular Volume 97.5 fL (81-99); Mean Platelet Vol. 10.8 fl (6.2-12.0); Monocyte# 0.38 X10^3/uL; Monocyte% 9.8 % (0-10); NRBC Flagged by Analyzer 0 % (0-5); Neutrophil # 2.09 X10^3/uL (2.7-7.7); Platelet Count 204 K/mm3 (150-450); RBC Distribution Width CV 15.8 % (11.6-14.6); RBC Distribution Width SD 56.1 fl (35.1-43.9); Red Blood Count 3.59 M/mm3 (4.2-5.4); White Blood Count 3.9 K/mm3 (4.4-11.0)
[2022-10-31 06:08] LABS: International Normalized Ratio 1.1
[2022-10-31 06:14] LABS: ALB/GLOB Ratio 1.1 RATIO (0.9-2.4); AST(SGOT) 16 U/L (15-37); Alanine Aminotransfer ALT/SGPT 16 U/L (13-56); Albumin, Serum 3.4 g/dL (3.2-5.0); Alkaline Phosphatase 65 U/L (45-117); Anion Gap 6 (5-15); BUN 9 mg/dL (7-18); BUN/Creat Ratio 12.4 RATIO (10-20); Calcium,Total 8.8 mg/dL (8.5-10.1); Chloride 108 mmol/L (98-107); Creatinine, Serum 0.72 mg/dL (0.55-1.02); EST Glomerular Filtration Rate 83 mL/min (>60); Est Glom Filt Rate - Afr Amer 100 mL/min (>60); Estimated Creatinine Clearance 38.97 ml/min; Globulin 3.2 g/dL (2.2-4.2); Glucose 95 mg/dL (74-106); Magnesium 2.2 mg/dL (1.6-2.6); Potassium 3.8 mmol/L (3.5-5.1); Protein, Total 6.6 g/dL (6.4-8.2); Sodium Level 144 mmol/L (136-145)
--- NOTE | 2022-10-31 08:57 | OP.EGD_ITS ---
Patient Name: Ina Ace Procedure Date: 10/31/2022 8:03 AM Date of : 1945 Age: 77 Procedure: Upper GI endoscopy Indications: Acute post hemorrhagic anemia Providers: Brian Isbell DO Medicines: Monitored Anesthesia Care Patient Profile: This is a 77 year old female. Refer to note in patient chart for documentation of history and physical. Patient has symptoms of acute abdominal distention and acute vomiting. Complications: No immediate complications. Procedure: Pre-Anesthesia Assessment: - Prior to the procedure, a History and Physical was performed, and patient medications and allergies were reviewed. The risks and benefits of the procedure and the sedation options and risks were discussed with the patient. All questions were answered and informed consent was obtained. Patient identification and proposed procedure were verified by the physician. Mental Status Examination: alert and oriented. CV Examination: normal. Prophylactic Antibiotics: The patient does not require prophylactic antibiotics. Prior Anticoagulants: The patient has taken no previous anticoagulant or antiplatelet agents. After reviewing the risks and benefits, the patient was deemed in satisfactory condition to undergo the procedure. The anesthesia plan was to use monitored anesthesia care (MAC). Immediately prior to administration of medications, the patient was re-assessed for adequacy to receive sedatives. The heart rate, respiratory rate, oxygen saturations, blood pressure, adequacy of pulmonary ventilation, and response to care were monitored throughout the procedure. The physical status of the patient was re-assessed after the procedure. After obtaining informed consent, the endoscope was passed under direct vision. Throughout the procedure, the patient's blood pressure, pulse, and oxygen saturations were monitored continuously. The colonoscope was introduced through the mouth, and advanced to the second part of duodenum. The upper GI endoscopy was accomplished without difficulty. The patient tolerated the procedure well. Moderate Sedation: Moderate (conscious) sedation was personally administered by an anesthesia professional. The following parameters were monitored: oxygen saturation, heart rate, blood pressure, respiratory rate, EKG, adequacy of pulmonary ventilation, and response to care. Scope In: 8:14:37 AM Scope Out: 8:24:25 AM Total Procedure Duration Time 0 hours 9 minutes 48 seconds Findings: The examined esophagus was normal. Three non-bleeding cratered gastric ulcers with no stigmata of bleeding were found in the cardia and at the incisura. The largest lesion was 6 mm in largest dimension. One oozing cratered gastric ulcer with adherent clot was found in the stomach. The lesion was 6 mm in largest dimension. Area was successfully injected with 5 mL of a 1:10,000 solution of epinephrine for drug delivery. Coagulation for hemostasis using heater probe was successful. Estimated blood loss was minimal. The first portion of the duodenum was normal. Impression: - Normal esophagus. - Non-bleeding gastric ulcers with no stigmata of bleeding. - Oozing gastric ulcer with adherent clot. Injected. Treated with a heater probe. - Normal first portion of the duodenum. - No specimens collected. Recommendation: - Discharge patient to home. - Resume previous diet. - Continue present medications. - Use sucralfate tablets 1 gram PO BID. Procedure Code(s): --- Professional --- 22442, Esophagogastroduodenoscopy, flexible, transoral; with control of bleeding, any method 50096, 59, Esophagogastroduodenoscopy, flexible, transoral; with directed submucosal injection(s), any substance CPT copyright 2017 [employer] [employer]. All rights reserved. The codes documented in this report are preliminary and upon platemaker review may be revised to meet current compliance requirements. Brian Isbell DO 10/31/2022 8:56:57 AM This report has been signed electronically. Number of Addenda: 0 Note Initiated On: 10/31/2022 8:03 AM
--- NOTE | 2022-10-31 08:58 | OP.CCLET_ITS ---
10/31/2022 Gene Roth Re : Upper GI endoscopy procedure for Ina Ace Dear Ira This procedure was performed on Monday, October 31, 2022. My impressions and recommendations are as follows: Impressions : - Normal esophagus. - Non-bleeding gastric ulcers with no stigmata of bleeding. - Oozing gastric ulcer with adherent clot. Injected. Treated with a heater probe. - Normal first portion of the duodenum. - No specimens collected. Recommendations : - Discharge patient to home. - Resume previous diet. - Continue present medications. - Use sucralfate tablets 1 gram PO BID. My findings are described in the full procedure note, which is enclosed. If I can be of further assistance, please feel free to contact me at . Sincerely, Brian Isbell, 10/31/2022 8:56:57 AM This report has been signed electronically.
--- NOTE | 2022-10-31 09:01 | OP.COLON_ITS ---
Patient Name: Ina Ace Procedure Date: 10/31/2022 8:24 AM Date of : 1945 Age: 77 Procedure: Colonoscopy Indications: Hematochezia Providers: Brian Isbell DO Medicines: Monitored Anesthesia Care Patient Profile: This is a 77 year old female. Refer to note in patient chart for documentation of history and physical. Patient has symptoms of acute abdominal distention and acute vomiting. Last Colonoscopy: more than 10 years ago. Complications: No immediate complications. Procedure: Pre-Anesthesia Assessment: - Prior to the procedure, a History and Physical was performed, and patient medications and allergies were reviewed. The risks and benefits of the procedure and the sedation options and risks were discussed with the patient. All questions were answered and informed consent was obtained. Patient identification and proposed procedure were verified by the physician. Mental Status Examination: alert and oriented. CV Examination: normal. Prophylactic Antibiotics: The patient does not require prophylactic antibiotics. Prior Anticoagulants: The patient has taken no previous anticoagulant or antiplatelet agents. After reviewing the risks and benefits, the patient was deemed in satisfactory condition to undergo the procedure. The anesthesia plan was to use monitored anesthesia care (MAC). Immediately prior to administration of medications, the patient was re-assessed for adequacy to receive sedatives. The heart rate, respiratory rate, oxygen saturations, blood pressure, adequacy of pulmonary ventilation, and response to care were monitored throughout the procedure. The physical status of the patient was re-assessed after the procedure. After I obtained informed consent, the scope was passed under direct vision. Throughout the procedure, the patient's blood pressure, pulse, and oxygen saturations were monitored continuously. The colonoscope was introduced through the anus and advanced to the terminal ileum. The colonoscopy was performed without difficulty. The patient tolerated the procedure well. The quality of the bowel preparation was adequate. Scope In: 8:28:58 AM Scope Withdrawal Time 0 hours 15 minutes 11 seconds Scope Out: 8:47:03 AM Total Procedure Duration Time 0 hours 18 minutes 5 seconds Findings: Hemorrhoids were found on perianal exam. Three sessile polyps were found in the sigmoid colon and descending colon. The polyps were 1 to 2 mm in size. These polyps were removed with a hot snare. Resection and retrieval were complete. Verification of patient identification for the specimen was done. Estimated blood loss was minimal. Multiple small and large-mouthed diverticula were found in the recto-sigmoid colon, sigmoid colon and descending colon. A localized area of mucosa in the terminal ileum was granular. Biopsies were taken with a cold forceps for histology. Verification of patient identification for the specimen was done by the physician. Estimated blood loss was minimal. Impression: - Hemorrhoids found on perianal exam. - Three 1 to 2 mm polyps in the sigmoid colon and in the descending colon, removed with a hot snare. Resected and retrieved. - Diverticulosis in the recto-sigmoid colon, in the sigmoid colon and in the descending colon. - Granularity in the terminal ileum. Biopsied. Recommendation: - Return patient to [facility] care. - Resume regular diet. - Continue present medications. - Await pathology results. - Repeat colonoscopy in 3 years for surveillance. Procedure Code(s): --- Professional --- 79135, Colonoscopy, flexible; with removal of tumor(s), polyp(s), or other lesion(s) by snare technique 89088, 59, Colonoscopy, flexible; with biopsy, single or multiple CPT copyright 2017 [employer]. All rights reserved. The codes documented in this report are preliminary and upon appraiser irrigation tax review may be revised to meet current compliance requirements. Brian Isbell DO 10/31/2022 9:01:14 AM This report has been signed electronically. Number of Addenda: 0 Note Initiated On: 10/31/2022 8:24 AM
--- NOTE | 2022-10-31 09:02 | OP.CCLET_ITS ---
10/31/2022 Gene Roth Re : Colonoscopy procedure for Ina Ace Dear Ira This procedure was performed on Monday, October 31, 2022. My impressions and recommendations are as follows: Impressions : - Hemorrhoids found on perianal exam. - Three 1 to 2 mm polyps in the sigmoid colon and in the descending colon, removed with a hot snare. Resected and retrieved. - Diverticulosis in the recto-sigmoid colon, in the sigmoid colon and in the descending colon. - Granularity in the terminal ileum. Biopsied. Recommendations : - Return patient to [facility] for ongoing care. - Resume regular diet. - Continue present medications. - Await pathology results. - Repeat colonoscopy in 3 years for surveillance. My findings are described in the full procedure note, which is enclosed. If I can be of further assistance, please feel free to contact me at . Sincerely, Brian Isbell, 10/31/2022 9:01:14 AM This report has been signed electronically.
[2022-10-31] MEDS: Sucralfate 1 GM Tablet PO ×2 (10:04→16:06)
[2022-10-31] MEDS: Propranolol 10 MG Tablet 20 MG PO ×2 (10:04→21:02)
--- NOTE | 2022-10-31 10:49 | PN.HOSP_ITS ---
Reason for Visit Reason for Visit: Diagnoses Acute posthemorrhagic anemia (10/30/22) Atherosclerotic heart disease of [place] coronary artery without angina pectoris (10/30/22) Gastric ulcer, unspecified as acute or chronic, without hemorrhage or perforation (10/30/22) Melena (10/30/22) Gastrointestinal hemorrhage, unspecified (10/30/22) Subjective Subjective Completed bowel prep this a.m. and feeling fair, no abdominal pain, nausea had resolved Objective Data Objective Data Vital Signs: Vital Signs Temp Pulse Resp BP Pulse Ox O2 Del Method 98.2 F 77 18 120/53 L 96 Room Air 10/31/22 09:50 10/31/22 09:50 10/31/22 09:50 10/31/22 09:50 10/31/22 09:50 10/31/22 09:57 Oxygen Delivery Method Room Air Weight: 70.8 kg Body Mass Index (BMI) 27.6 Intake & Output: Intake and Output for Last 24 Hours 10/29/22 10/30/22 10/31/22 23:59 23:59 23:59 Intake Total 510 / 1760 1700 / 1700 Balance 510 / 1760 1700 / 1700 Lab / Micro Data Result Diagrams: 10/31/22 05:40 10/31/22 05:40 Labs: Laboratory Results - last 24 hr 10/30/22 15:40: Blood Type A POSITIVE, Antibody Screen NEGATIVE 10/30/22 15:40: WBC 4.8, RBC 3.79 L, Hgb 11.8 L, Hct 36.9 L, MCV 97.4, MCH 31.1, MCHC 32.0, RDW Std Deviation 56.3 H, RDW Coeff of [place] 15.9 H, Plt Count 248, MPV 10.9, Immature Gran % (Auto) 0.200, Neut % (Auto) 62.2, Lymph % (Auto) 28.8, [place] % (Auto) 6.7, Eos % (Auto) 1.7, Baso % (Auto) 0.4, Absolute Neuts (auto) 3.0, Absolute Lymphs (auto) 1.38, Nucleated RBC % 0 10/30/22 15:40: Sodium 140, Potassium 3.7, Chloride 103, Carbon Dioxide 29.0, Anion Gap 8, BUN 12, Creatinine 0.74, Estim Creat Clear Calc 38.97, Est GFR (MDRD) Af Amer 98, Est GFR (MDRD) Non-Af 81, BUN/Creatinine Ratio 16.3, Glucose 105, Calcium 9.6, Total Bilirubin 0.50, AST 16, ALT 16, Alkaline Phosphatase 72, Total Protein 7.6, Albumin 3.9, Globulin 3.7, Albumin/Globulin Ratio 1.1 10/30/22 18:40: Vitamin D 25-Hydroxy 46.6 10/30/22 18:40: Hgb 11.3 L 10/30/22 22:55: Hgb 10.8 L 10/31/22 05:40: WBC 3.9 L, RBC 3.59 L, Hgb 11.0 L, Hct 35.0 L, MCV 97.5, MCH 30.6, MCHC 31.4 L, RDW Std Deviation 56.1 H, RDW Coeff of [place] 15.8 H, Plt Count 204, MPV 10.8, Immature Gran % (Auto) 0.300, Neut % (Auto) 54.0, Lymph % (Auto) 33.6, [place] % (Auto) 9.8, Eos % (Auto) 1.8, Baso % (Auto) 0.5, Absolute Neuts (auto) 2.1, Absolute Lymphs (auto) 1.30, Nucleated RBC % 0 10/31/22 05:40: Sodium 144, Potassium 3.8, Chloride 108 H, Carbon Dioxide 30.0, Anion Gap 6, BUN 9, Creatinine 0.72, Estim Creat Clear Calc 38.97, Est GFR (MDRD) Af Amer 100, Est GFR (MDRD) Non-Af 83, BUN/Creatinine Ratio 12.4, Glucose 95, Calcium 8.8, Magnesium 2.2, Total Bilirubin 0.50, AST 16, ALT 16, Alkaline Phosphatase 65, Total Protein 6.6, Albumin 3.4, Globulin 3.2, Albumin/Globulin Ratio 1.1 10/31/22 05:40: PT 14.0, INR 1.1 10/31/22 05:40: Phosphorus 4.0 Micro: Microbiology 10/30/22 13:59 Stool Stool Occult Blood (MARCO ANTONIO) - Final Occult Blood Positive Physical Exam Narrative General: Alert, oriented, no apparent distress HEENT: Atraumatic, normocephalic Eyes: Anicteric, normal conjunctiva, extraocular movements grossly intact Neck: Supple Respiratory: Clear to auscultation bilaterally, normal respiratory effort Cardiovascular: Regular rate and rhythm GI: Soft, nontender, nondistended Extremities: No edema Musculoskeletal: Moving all extremities Neuro: No overt focal neurological deficits Skin: No rashes appreciated Psych: Cooperative Assessment & Plan Assessment/Plan (1) Gastric ulcer: (2) GI bleeding: (3) Melena: PLAN: Plan #Upper GI bleed secondary to gastric ulcers -Had presented with melena mild nausea. Initially uncertain whether upper or lower and her last colonoscopy had been done 10 to 15 years ago and she had a history of polyps so colonoscopy planned in addition to EGD -EGD done on 10/08/2022 and 10/19/2022 both times gastric ulceration with visible vessel noted and treatment pursued -Colonoscopy with hemorrhoids, three 1 to 2 mm polyps in the sigmoid colon and descending colon that were removed with a hot snare. Granularity in the terminal ileum which was biopsied. EGD with nonbleeding gastric ulcers with no stigmata of bleeding and an oozing gastric ulcer with adherent clot which was injected and treated with heater probe -Discussed with Dr. Isbell, will monitor patient overnight -Patient needs to continue Plavix as she had recent stent placement in June 2022 -Continue PPI and Carafate #CAD/HPL/HTN -PCI with MARY to LAD and RCA 06/2022 -Continue Plavix--> transitioned from Brilinta and aspirin at last hospitalization per cardiology recommendations -Continue statin -Continue propranolol #Hypothyroidism -Continue home oxygen #Restless leg syndrome -Continue Mirapex DVT prophylaxis -SCDs Time spent in the patient's overall evaluation,decision-making process, review of diagnostic data, adjustment of management, discussion with other providers, nursing nursing and ancillary staff involved in patient's care documentation, 30 minutes Charges/Coding Visit Charges Inpatient E&M: 88818 [facility] Hosp L2
--- NOTE | 2022-10-31 13:55 | CASEMGMT ---
SHANNA HEATH Readmission Note Previous Admission:10/19/22-10/24/22 Diagnosis:?GIB DC Disposition: Home Current Admission? Current Diagnosis: GIB Patient with history of GI bleed secondary to gastric ulcer/duodenal ulcer. Patient on aspirin and Plavix currently. Pt reports feeling same way and reported to ER. Pt had colonoscopy and EGD this date. SHANNA HEATH in to pt room. Pt states she has follow up appts scheduled with , and but did not have time to follow through with them before being hospitalized. Pt had been taking her meds as prescribed. She reports doing exercises with her dtr's help at home. 6 Clicks=18, pt denies any home going needs. Pt to continue with exercises. DC Plan: Home
[2022-10-31] MEDS: Atorvastatin Calcium 40 MG Tablet PO (21:02)
[2022-10-31] MEDS: Pantoprazole Sodium 40 MG Tablet PO (21:05)
[2022-11-01 03:10] VITALS: BP 102/51; PULSE 68; RESP 14; TEMP 36.8; O2SAT 97
[2022-11-01] MEDS: Levothyroxine 75 MCG Tablet PO (05:54)
[2022-11-01] MEDS: Sucralfate 1 GM Tablet PO ×3 (05:54→16:16)
[2022-11-01 06:59] LABS: Absolute Lymphocyte Count 1.48 X10^3/uL (0.83-4.51); Absolute Neutrophil Count 2.7 X10^3/uL (2.0-7.7); Basophil# 0.01 X10^3/uL; Basophil% 0.2 % (0-1); Eosinophil# 0.09 X10^3/uL; Eosinophils% 1.9 % (0-5); Hematocrit 32.6 % (37-47); Hemoglobin 10.1 g/dL (12.0-15.0); Lymphocyte # 1.48 X10^3/ul (0.83-4.51); Lymphocyte % 31.3 % (19-41); Mean Corpuscular Hgb 30.5 pg (27.0-32.0); Mean Corpuscular Volume 98.5 fL (81-99); Mean Platelet Vol. 10.8 fl (6.2-12.0); Monocyte% 8.5 % (0-10); NRBC Flagged by Analyzer 0 % (0-5); Neutrophil # 2.74 X10^3/uL (2.7-7.7); Neutrophil % 57.9 % (47-70); Platelet Count 179 K/mm3 (150-450); RBC Distribution Width CV 15.7 % (11.6-14.6); RBC Distribution Width SD 56.5 fl (35.1-43.9); Red Blood Count 3.31 M/mm3 (4.2-5.4); White Blood Count 4.7 K/mm3 (4.4-11.0)
[2022-11-01 07:37] LABS: Anion Gap 7 (5-15); BUN 14 mg/dL (7-18); Calcium,Total 8.7 mg/dL (8.5-10.1); Chloride 108 mmol/L (98-107); EST Glomerular Filtration Rate 86 mL/min (>60); Est Glom Filt Rate - Afr Amer 104 mL/min (>60); Estimated Creatinine Clearance 38.97 ml/min; Glucose 96 mg/dL (74-106); Potassium 3.9 mmol/L (3.5-5.1); Sodium Level 142 mmol/L (136-145)
[2022-11-01 08:40] VITALS: O2SAT 93
[2022-11-01 09:03] VITALS: BP 108/66; PULSE 68; RESP 18; TEMP 36.4; O2SAT 97
[2022-11-01] MEDS: Pantoprazole Sodium 40 MG Tablet PO ×2 (09:07→21:35)
[2022-11-01] MEDS: Ferrous Sulfate 325 MG Tablet PO (09:07)
[2022-11-01] MEDS: Clopidogrel Bisulfate 75 MG Tablet PO (09:07)
--- NOTE | 2022-11-01 14:23 | PCM.PN.HOSP ---
Reason for Visit Reason for Visit: Diagnoses Acute posthemorrhagic anemia (10/30/22) Atherosclerotic heart disease of [place] coronary artery without angina pectoris (10/30/22) Gastric ulcer, unspecified as acute or chronic, without hemorrhage or perforation (10/30/22) Melena (10/30/22) Gastrointestinal hemorrhage, unspecified (10/30/22) Subjective Subjective Is feeling better today than she had been, has yet to have bowel movement but did pass gas. No chest pain or shortness of breath, not having abdominal pain at this time Objective Data Objective Data Vital Signs: Vital Signs Temp Pulse Resp BP Pulse Ox O2 Del Method 97.6 F L 68 18 108/66 97 Room Air 11/01/22 09:03 11/01/22 09:03 11/01/22 09:03 11/01/22 09:03 11/01/22 09:03 11/01/22 09:03 Oxygen Delivery Method Room Air Weight: 70.8 kg Body Mass Index (BMI) 27.6 Intake & Output: Intake and Output for Last 24 Hours 10/30/22 10/31/22 11/01/22 23:59 23:59 23:59 Intake Total 510 / 1760 3549.0 / 3549.0 500 / 500 Balance 510 / 1760 3549.0 / 3549.0 500 / 500 Medical Nutrition Assessment Dietitian: Malnutrition Criteria Met Start: 10/31/22 12:09 Freq: Status: Active Protocol: Document 10/31/22 12:09 [facility]OR[facility] (Rec: 10/31/22 12:09 [facility] [id number]) Nutrition Malnutrition Evidence of Malnutrition Exists Yes Malnutrition (severe): Acute Illness/Injury Evidenced By Suboptimal Energy Intake ( Severe),Weight Loss (Severe) Clinical Problem Acute Disease or Injury Related Malnutrition Etiology related to GI bleed and inadequate energy intake Signs/Symptoms as evidenced by po intake meeting <75% of est nutritional needs and 7.9% unintentional wt loss x <1 month Status Active Problem Recommendation Dietitian Recommendations/Changes As medically able, rec CHUCKIE to liberal regular diet d/t signs and symptoms of malnutrition Will order 8 oz ensure plus high protein tid w/ meals for increased nutrition if consumed Lab / Micro Data Result Diagrams: 11/01/22 06:13 11/01/22 06:13 Labs: Laboratory Results - last 24 hr 11/01/22 06:13: WBC 4.7, RBC 3.31 L, Hgb 10.1 L, Hct 32.6 L, MCV 98.5, MCH 30.5, MCHC 31.0 L, RDW Std Deviation 56.5 H, RDW Coeff of [place] 15.7 H, Plt Count 179, MPV 10.8, Immature Gran % (Auto) 0.200, Neut % (Auto) 57.9, Lymph % (Auto) 31.3, [place] % (Auto) 8.5, Eos % (Auto) 1.9, Baso % (Auto) 0.2, Absolute Neuts (auto) 2.7, Absolute Lymphs (auto) 1.48, Nucleated RBC % 0 11/01/22 06:13: Sodium 142, Potassium 3.9, Chloride 108 H, Carbon Dioxide 27.0, Anion Gap 7, BUN 14, Creatinine 0.70, Estim Creat Clear Calc 38.97, Est GFR (MDRD) Af Amer 104, Est GFR (MDRD) Non-Af 86, BUN/Creatinine Ratio 20.0, Glucose 96, Calcium 8.7 Micro: Microbiology 10/30/22 13:59 Stool Stool Occult Blood (MARCO ANTONIO) - Final Occult Blood Positive Physical Exam Narrative General: Alert, oriented, no apparent distress HEENT: Atraumatic, normocephalic Eyes: Anicteric, normal conjunctiva, extraocular movements grossly intact Neck: Supple Respiratory: Clear to auscultation bilaterally, normal respiratory effort Cardiovascular: Regular rate and rhythm GI: Soft, nontender, nondistended Extremities: No edema Musculoskeletal: Moving all extremities Neuro: No overt focal neurological deficits Skin: No rashes appreciated Psych: Cooperative Assessment & Plan Assessment/Plan (1) Gastric ulcer: (2) GI bleeding: (3) Melena: PLAN: Plan #Upper GI bleed secondary to gastric ulcers -Had presented with melena mild nausea. Initially uncertain whether upper or lower and her last colonoscopy had been done 10 to 15 years ago and she had a history of polyps so colonoscopy planned in addition to EGD -EGD done on 10/08/2022 and 10/19/2022 both times gastric ulceration with visible vessel noted and treatment pursued -Colonoscopy with hemorrhoids, three 1 to 2 mm polyps in the sigmoid colon and descending colon that were removed with a hot snare. Granularity in the terminal ileum which was biopsied. EGD with nonbleeding gastric ulcers with no stigmata of bleeding and an oozing gastric ulcer with adherent clot which was injected and treated with heater probe -Discussed with Dr. Isbell, will monitor patient overnight -Patient needs to continue Plavix as she had recent stent placement in June 2022 -Continue PPI and Carafate -11/01: Hemoglobin 10.1 from 11 but no abdominal pain and no signs or symptoms of bleeding, did have her Plavix resumed today. Given her repeated bleeding and high risk, discussed with GI and will monitor today for rebleeding and recheck hemoglobin in a.m. #CAD/HPL/HTN -PCI with MARY to LAD and RCA 06/2022 -Continue Plavix--> transitioned from Brilinta and aspirin at last hospitalization per cardiology recommendations -Continue statin -Continue propranolol #Hypothyroidism -Continue home oxygen #Restless leg syndrome -Continue Mirapex DVT prophylaxis -SCDs Time spent in the patient's overall evaluation,decision-making process, review of diagnostic data, adjustment of management, discussion with other providers, nursing nursing and ancillary staff involved in patient's care documentation, 30 minutes Charges/Coding Visit Charges Inpatient E&M: 26973 Subs Hosp L2
[2022-11-01 15:50] VITALS: BP 114/69; PULSE 82; RESP 18; TEMP 36.8; O2SAT 97
[2022-11-01 21:34] VITALS: BP 117/70; PULSE 75; RESP 15; TEMP 36.3; O2SAT 94
[2022-11-01] MEDS: Propranolol 10 MG Tablet 20 MG PO (21:35)
[2022-11-01] MEDS: Atorvastatin Calcium 40 MG Tablet PO (21:35)
[2022-11-01] MEDS: Pramipexole Di-HCl 0.25 MG Tablet PO (21:35)
[2022-11-02 03:26] VITALS: BP 127/68; PULSE 75; RESP 16; TEMP 36.5; O2SAT 96
[2022-11-02] MEDS: Levothyroxine 75 MCG Tablet PO (05:47)
[2022-11-02 06:00] LABS: Absolute Lymphocyte Count 1.35 X10^3/uL (0.83-4.51); Absolute Neutrophil Count 1.9 X10^3/uL (2.0-7.7); Basophil# 0.01 X10^3/uL; Basophil% 0.3 % (0-1); Eosinophil# 0.07 X10^3/uL; Eosinophils% 1.9 % (0-5); Hematocrit 31.5 % (37-47); Hemoglobin 9.9 g/dL (12.0-15.0); Lymphocyte # 1.35 X10^3/ul (0.83-4.51); Lymphocyte % 37.1 % (19-41); Mean Corp Hgb Conc 31.4 g/dL (32-36); Mean Corpuscular Hgb 31.1 pg (27.0-32.0); Mean Corpuscular Volume 99.1 fL (81-99); Mean Platelet Vol. 11.2 fl (6.2-12.0); Monocyte# 0.34 X10^3/uL; Monocyte% 9.3 % (0-10); NRBC Flagged by Analyzer 0 % (0-5); Neutrophil # 1.86 X10^3/uL (2.7-7.7); Neutrophil % 51.1 % (47-70); Platelet Count 151 K/mm3 (150-450); RBC Distribution Width CV 15.5 % (11.6-14.6); RBC Distribution Width SD 56.7 fl (35.1-43.9); Red Blood Count 3.18 M/mm3 (4.2-5.4); White Blood Count 3.6 K/mm3 (4.4-11.0)
[2022-11-02 06:38] LABS: Anion Gap 8 (5-15); BUN 16 mg/dL (7-18); BUN/Creat Ratio 27.1 RATIO (10-20); Calcium,Total 8.8 mg/dL (8.5-10.1); Chloride 107 mmol/L (98-107); Creatinine, Serum 0.59 mg/dL (0.55-1.02); EST Glomerular Filtration Rate 105 mL/min (>60); Est Glom Filt Rate - Afr Amer 127 mL/min (>60); Estimated Creatinine Clearance 38.97 ml/min; Glucose 115 mg/dL (74-106); Potassium 3.7 mmol/L (3.5-5.1); Sodium Level 141 mmol/L (136-145)
[2022-11-02] MEDS: Sucralfate 1 GM Tablet PO ×2 (06:39→10:37)
[2022-11-02 07:22] VITALS: O2SAT 94
[2022-11-02] MEDS: Clopidogrel Bisulfate 75 MG Tablet PO (08:05)
[2022-11-02] MEDS: Ferrous Sulfate 325 MG Tablet PO (08:05)
[2022-11-02] MEDS: Propranolol 10 MG Tablet 20 MG PO (08:05)
[2022-11-02] MEDS: Pantoprazole Sodium 40 MG Tablet PO (08:05)
--- NOTE | 2022-11-02 09:00 | PN_ITS ---
Subjective Subjective she has not had any abdominal pain. She denies any blood per rectum. Objective Data Objective Data Vital Signs: Vital Signs Temp Pulse Resp BP Pulse Ox O2 Del Method 97.8 F 82 18 124/74 H 98 Room Air 11/02/22 14:25 11/02/22 14:25 11/02/22 14:25 11/02/22 14:25 11/02/22 14:25 11/02/22 14:25 Oxygen Delivery Method Room Air Weight: 156 lb 1.396 oz Body Mass Index (BMI) 27.6 Intake & Output: Intake and Output for Last 24 Hours 10/31/22 11/01/22 11/02/22 23:59 23:59 23:59 Intake Total 3549.0 / 3549.0 1000 / 1000 Balance 3549.0 / 3549.0 1000 / 1000 Lab / Micro Data Result Diagrams: 11/02/22 04:37 11/02/22 04:37 Labs: Laboratory Results - last 24 hr 11/02/22 04:37: WBC 3.6 L, RBC 3.18 L, Hgb 9.9 L, Hct 31.5 L, MCV 99.1 H, MCH 31.1, MCHC 31.4 L, RDW Std Deviation 56.7 H, RDW Coeff of [place] 15.5 H, Plt Count 151, MPV 11.2, Immature Gran % (Auto) 0.300, Neut % (Auto) 51.1, Lymph % (Auto) 37.1, [place] % (Auto) 9.3, Eos % (Auto) 1.9, Baso % (Auto) 0.3, Absolute Neuts (auto) 1.9 L, Absolute Lymphs (auto) 1.35, Nucleated RBC % 0 11/02/22 04:37: Sodium 141, Potassium 3.7, Chloride 107, Carbon Dioxide 26.0, Anion Gap 8, BUN 16, Creatinine 0.59, Estim Creat Clear Calc 38.97, Est GFR (MDRD) Af Amer 127, Est GFR (MDRD) Non-Af 105, BUN/Creatinine Ratio 27.1 H, Glucose 115 H, Calcium 8.8 Micro: Microbiology 10/30/22 13:59 Stool Stool Occult Blood (MARCO ANTONIO) - Final Occult Blood Positive Physical Exam Narrative General: Alert, oriented, no apparent distress HEENT: Atraumatic, normocephalic Eyes: Anicteric, normal conjunctiva, extraocular movements grossly intact Neck: Supple Respiratory: Clear to auscultation bilaterally, normal respiratory effort Cardiovascular: Regular rate and rhythm GI: Soft, nontender, nondistended Extremities: No edema Musculoskeletal: Moving all extremities Neuro: No overt focal neurological deficits Skin: No rashes appreciated Psych: Cooperative Assessment & Plan Assessment/Plan (1) Gastric ulcer: PLAN: Status post heater probe and treated with Hemospray. PPI drip (2) Acute blood loss anemia: PLAN: Secondary to gastric ulcer. 10/19: Hemoglobin down to 7.7. Given patient's known history of coronary artery disease, will treat for hemoglobin less than 8. Will transfuse 1 unit. Discussed with the patient. 10/20: Hemoglobin 8.5, no further need for transfusion at this time. 10/21: No further GI bleeding per the patient. Will transfuse 1 unit of blood. 10/22: Hg 9.1 10/23: Hg 8.3, recheck Hg today showed hemoglobin 9.5. We will recheck hemoglobin on and if stable then patient can be discharged. 10/24: Hg 9.1. No further transfusion. 2 weeks of daily ferrous sulfate. 10/30: Hg 11.6 Plan for EGD and colonoscopy tomorrow. 11/02: Patient is stable without signs of bleeding (3) CAD (coronary artery disease): PLAN: Stable 10/19: Discussed with Dr. Caro who recommends holding off on the aspirin and ticagrelor then resuming clopidogrel in 48 hours, presuming patient not have any further bleeding. Patient continue with that monotherapy until follows up with cardiology. Tentative plan is of restarting clopidogrel on the . 10/22: Patient has some dark stool but hemoglobin has gone up probably after transfusion. Cont Plavix. 10/23: Blood pressures been running low so we will discontinue the isosorbide. DW Dr. Saravia, if has recurrent angina, may consider Ranexa. Continue to hold isosorbide. Pt will continue w clopidogrel monotherapy. 10/30: BP is table Charges/Coding Visit Charges Inpatient E&M: 46781 Subs Hosp L3
[2022-11-02 09:25] VITALS: BP 129/68; PULSE 66; RESP 16; TEMP 36.7; O2SAT 95
--- NOTE | 2022-11-02 13:14 | DS.PCM_ITS ---
Providers Date of Admission: 10/30/22 Date of Discharge: 11/02/22 Primary Care Physician: Dr. Gene Roth, Consultations 10/30/22 17:59 Consult: Gastroenterology Routine Consulting Provider: [facility] Reason for Consult: GIB EMERGENT Consult: No MD Notified: Yes Date Notified: 10/30/22 Time Notified: 17:02 Method of Notification: Verbal Reason For Visit: GI BLEED Diagnosis Discharge Diagnosis (1) Gastric ulcer: Status: Inactive Code(s): K25.9 - Gastric ulcer, unspecified as acute or chronic, without hemorrhage or perforation (2) GI bleeding: Status: Acute Code(s): K92.2 - Gastrointestinal hemorrhage, unspecified (3) Melena: Status: Acute Code(s): K92.1 - Melena Medications at Discharge Home Medications methylcellulose (laxative) 500 mg tablet (Citrucel) 500 mg PO DAILY CONSTIPATION 09/22/17 nitroglycerin 0.4 mg sublingual tablet 0.4 mg sublingual Q5M PRN chest pain #90 tabs 09/27/17 propranolol 20 mg tablet 20 mg PO BID BP/Heart rate 01/02/19 levothyroxine 75 mcg tablet 75 mcg PO DAILY thyroid 06/25/22 atorvastatin 40 mg tablet 40 mg PO QHS Cholesterol 07/14/22 pantoprazole 40 mg tablet,delayed release 40 mg PO BID #60 tabs 10/11/22 sucralfate 1 gram tablet 1 g PO TID #90 tabs 10/11/22 clopidogrel 75 mg tablet 75 mg PO DAILY #30 tabs 10/24/22 ferrous sulfate 325 mg (65 mg iron) tablet 325 mg PO DAILY #14 tabs 10/24/22 OSTEA MUÑOZ 2 cap PO/SL LUNCH SUPPLEMENT 10/30/22 pramipexole 0.25 mg tablet 0.25 mg PO QHS PRN RLS 10/30/22 Hospital Course Operations None Procedures EGD Summary of Care Provided Minutes Spent on Discharge: 45 Hospital Course: Patient is a 77-year-old female with a past medical history as outlined was admitted through the ED on 10/30/2022 with complaint of black tarry stools. She had been seen here on 10/07/2022 for similar complaints and a GI bleed and had an EGD which showed grade B reflux esophagitis as well as an oozing gastric ulcer which was treated with the monopolar probe and her Brilinta and aspirin were reinitiated. She was discharged home on Protonix and Carafate. She came back on 10/19/2022 for melena and she was placed on Protonix drip and octreotide drip and had repeat EGD which showed a gastric ulcer with bleeding vessel that was spurting. She was treated with a heater probe and Hemospray. Hemoglobin stabi lized and she was taken off aspirin and Brilinta and put on Plavix. She presented on 10/30/2022 for dark stools. Her hemoglobin was 11.8. Protonix drip was started and she was admitted and managed for GI bleed. Gastroenterology was consulted. She had colonoscopy which showed three 1 to 2 mm polyps in the sigmoid colon and in the descending colon which were resected with a hot snare and she also had diverticulosis in the rectosigmoid and sigmoid colon as well as descending colon. She also had EGD which showed normal esophagus and nonbleeding gastric ulcers with no stigmata of bleeding and oozing gastric ulcer with adherent clot which was injected and treated with heater probe. She was ag ain placed on sucralfate and PPI and her Plavix resumed. Hemoglobin remained stable and she was discharged on 11/02/2022. She is follow-up with her primary care doctor Patient was seen and examined prior to discharge. She had no active complaints and had an uneventful night. Review of symptoms otherwise negative. Labs and vitals reviewed. Home medication reviewed and reconciled. Physical Exam Const alert, oriented x3 and no apparent distress General Appearance: cooperative, comfortable and well kempt Orientation / Consciousness: awake Exam Limitations: no limitations HEENT normocephalic, hearing grossly normal bilaterally and moist oral mucous membranes Mouth: oral and palatal mucosa normal Eyes PERRL, EOMs intact bilaterally and conjunctivae normal Neck no lymphadenopathy, supple and no JVD Resp normal respiratory effort, no retractions, no use of accessory muscles and clear to auscultation bilaterally Cardio regular rate, regular rhythm, S1 normal heart sound, S2 normal heart sound and no murmurs GI normal to inspection, nondistended, normoactive bowel sounds, soft to palpation, non-tender and non-distended Extremity normal to inspection, full ROM and no clubbing, cyanosis or edema Skin no rashes or lesions noted Neuro oriented x3, CN's II-XII intact bilaterally and moves all extremities Sensorium / Orientation: awake Motor Exam: strength 5/5 throughout Psych affect normal Medical Records Data Medical Nutrition Assessment Dietitian: Malnutrition Criteria Met Start: 10/31/22 12:09 Freq: Status: Active Protocol: Document 10/31/22 12:09 [facility] (Rec: 10/31/22 12:09 [facility] [id number]) Nutrition Malnutrition Evidence of Malnutrition Exists Yes Malnutrition (severe): Acute Illness/Injury Evidenced By Suboptimal Energy Intake ( Severe),Weight Loss (Severe) Clinical Problem Acute Disease or Injury Related Malnutrition Etiology related to GI bleed and inadequate energy intake Signs/Symptoms as evidenced by po intake meeting <75% of est nutritional needs and 7.9% unintentional wt loss x <1 month Status Active Problem Recommendation Dietitian Recommendations/Changes As medically able, rec CHUCKIE to liberal regular diet d/t signs and symptoms of malnutrition Will order 8 oz ensure plus high protein tid w/ meals for increased nutrition if consumed Weight / BMI Weight Weight: 156 lb 1.396 oz Body Mass Index (BMI) 27.6 ABG / Lab / Microbiology Data Result Diagrams: 11/02/22 04:37 11/02/22 04:37 Laboratory: Laboratory Results - last 24 hr 11/02/22 04:37: WBC 3.6 L, RBC 3.18 L, Hgb 9.9 L, Hct 31.5 L, MCV 99.1 H, MCH 31.1, MCHC 31.4 L, RDW Std Deviation 56.7 H, RDW Coeff of [place] 15.5 H, Plt Count 151, MPV 11.2, Immature Gran % (Auto) 0.300, Neut % (Auto) 51.1, Lymph % (Auto) 37.1, [place] % (Auto) 9.3, Eos % (Auto) 1.9, Baso % (Auto) 0.3, Absolute Neuts (auto) 1.9 L, Absolute Lymphs (auto) 1.35, Nucleated RBC % 0 11/02/22 04:37: Sodium 141, Potassium 3.7, Chloride 107, Carbon Dioxide 26.0, Anion Gap 8, BUN 16, Creatinine 0.59, Estim Creat Clear Calc 38.97, Est GFR (MDRD) Af Amer 127, Est GFR (MDRD) Non-Af 105, BUN/Creatinine Ratio 27.1 H, Glucose 115 H, Calcium 8.8 Microbiology: Microbiology 10/30/22 13:59 Stool Stool Occult Blood (MARCO ANTONIO) - Final Occult Blood Positive D/C Instructions Discharge Diet: Low fat / Low cholesterol Weight Bearing Status: Weight bearing as tolerated Call your doctor if you observe: Fever of 101 or Higher, Shortness of breath, Swelling in the ankles, Chest pain and Uncontrolled pain Meaningful Use Info Meaningful Use Diagnoses (Choose all that apply): None applicable Discharge Plan Admission Admit Date/Time: 10/30/22 16:54 Primary Reason for Your Visit: acute on chronic anemia due to bleeding peptic ulcer Attending Provider: Fifi Flanagan Primary Care Provider: Gene Roth Consulting Providers: Bri Flores ; Nola Cloud Instructions Patient Instructions: Bleeding Peptic Ulcer: Treatment Discharge Orders/Prescriptions Prescriptions: Continued nitroglycerin 0.4 mg tablet, sublingual 0.4 mg SUBLINGUAL Q5M PRN (Reason: chest pain) Qty: 90 3RF propranolol 20 mg tablet 20 mg PO BID methylcellulose (laxative) [Citrucel] 500 mg tablet 500 mg PO DAILY levothyroxine 75 mcg tablet 75 mcg PO DAILY atorvastatin 40 mg tablet 40 mg PO QHS pantoprazole 40 mg tablet,delayed release (DR/EC) 40 mg PO BID Qty: 60 2RF sucralfate 1 gram tablet 1 g PO TID Qty: 90 1RF clopidogrel 75 mg Tablet 75 mg PO DAILY Qty: 30 0RF ferrous sulfate 325 mg (65 mg iron) tablet 325 mg PO DAILY Qty: 14 0RF pramipexole 0.25 mg tablet 0.25 mg PO QHS PRN (Reason: RLS) Label Comments: TAKE 1 TABLET BY MOUTH AT BEDTIME NEEDED FOR RESTLESS LEGS OSTEA MUÑOZ 2 cap PO/SL LUNCH Referrals / Follow Up: Gene Roth DO [Primary Care Provider] - Within 1 Week Brian Isbell DO [Med Staff - Active Staff] - Within 2 Weeks Disposition Disposition (needs filled in before D/C Order can be placed): Home, Self Care Charges/Coding Visit Charges Inpatient E&M: 12237 Disch Hosp >30min
--- NOTE | 2022-11-02 14:10 | PHA.DC.MR ---
Pharmacy Service has performed discharge medication reconciliation for this patient. No new medications at time of discharge review. Medications reviewed are from previously reported home medications. Home Medications methylcellulose (laxative) 500 mg tablet (Citrucel) 500 mg PO DAILY CONSTIPATION 09/22/17 nitroglycerin 0.4 mg sublingual tablet 0.4 mg sublingual Q5M PRN chest pain #90 tabs 09/27/17 propranolol 20 mg tablet 20 mg PO BID BP/Heart rate 01/02/19 levothyroxine 75 mcg tablet 75 mcg PO DAILY thyroid 06/25/22 atorvastatin 40 mg tablet 40 mg PO QHS Cholesterol 07/14/22 pantoprazole 40 mg tablet,delayed release 40 mg PO BID #60 tabs 10/11/22 sucralfate 1 gram tablet 1 g PO TID #90 tabs 10/11/22 clopidogrel 75 mg tablet 75 mg PO DAILY #30 tabs 10/24/22 ferrous sulfate 325 mg (65 mg iron) tablet 325 mg PO DAILY #14 tabs 10/24/22 OSTEA MUÑOZ 2 cap PO/SL LUNCH SUPPLEMENT 10/30/22 pramipexole 0.25 mg tablet 0.25 mg PO QHS PRN RLS 10/30/22 The patient's discharge medication list was reviewed for discrepancies and discrepancies were resolved.
[2022-11-02 14:25] VITALS: BP 124/74; PULSE 82; RESP 18; TEMP 36.6; O2SAT 98
--- NOTE | 2022-11-02 14:29 | CASEMGMT ---
RN CM in to discuss discharge needs as patient has order for discharge. Patient and family deny needs at discharge. Patient had no further questions or concerns at this time.
--- NOTE | 2022-11-02 14:42 | CHAPLAIN ---
Type of Pastoral Visit _x__ Initial Visit ___ Follow-up Visit ___ On-call Visit ___ General Patient Visit ___ Spiritual Assessment ___ Family Conference ___ Bereavement ___ Rapid Response ___ Code Blue ___ Other (describe below) Pastoral Care Referral From _x__ Patient ___ Family ___ Nurse ___ Physician ___ Mixer Whipped Topping ___ Ship Officer ___ Other (describe below) Sacrament/Intervention ___ Active listening ___ Anointing ___ Yazidism ___ Bereavement ___ Communion ___ Akanksha exploration ___ ___ Life review _x__ Prayer ___ Reconciliation ___ Sacrament of Sick _x__ Supportive presence ___ Wedding ___ Other (describe below) Pastoral Comments patient was seen last week; pt is ready to be discharged; pt welcomes a prayer and offer of support; family members are with pt and supportive
== END 2022-11-02 14:40 | disposition home or self-care (01) | DRG 377 ==
LOC: ED 15:45 → PCU 17:11
PROVIDERS: Internal Medicine; Internal Medicine Gastroenterology; Admitting Provider Internal Medicine; Emergency Provider Student in an Organized Health Care Education/Training Program; PCP Family Medicine; Visit Provider Student in an Organized Health Care Education/Training Program
PROC: 0DJD8ZZ Inspection of Lower Intestinal Tract, Via Natural or Artificial Opening Endoscopic (ICD-10-PCS; CPT 45378; principal; 2022-10-31 08:00)
DX: K25.4 Chronic or unspecified gastric ulcer with hemorrhage (principal); E43 Unspecified severe protein-calorie malnutrition; D62 Acute posthemorrhagic anemia; Z99.81 Dependence on supplemental oxygen; E03.9 Hypothyroidism, unspecified; E78.00 Pure hypercholesterolemia, unspecified; I25.10 Atherosclerotic heart disease of native coronary artery without angina pectoris; G25.81 Restless legs syndrome; K64.9 Unspecified hemorrhoids; D12.3 Benign neoplasm of transverse colon; K57.31 Diverticulosis of large intestine without perforation or abscess with bleeding; Z95.5 Presence of coronary angioplasty implant and graft; Z90.49 Acquired absence of other specified parts of digestive tract; Z90.710 Acquired absence of both cervix and uterus; Z68.27 Body mass index [BMI] 27.0-27.9, adult; Z79.02 Long term (current) use of antithrombotics/antiplatelets; Z79.899 Other long term (current) drug therapy; Z86.010 Personal history of colon polyps
CPT/HCPCS: 36415; 80048; 80053; 82274; 82306; 83735; 84100; 85018; 85025; 85610; 86850; 86900; 86901; 88305; 94668; 97802; 99252; 99284; J7120; A4216; G0463

== ENCOUNTER → 2022-11-09 | Outpatient (CLI) | payer OTHER, SELFPAY | END | disposition home or self-care (01) | LOC: LAB 11:52 | PROVIDERS: PCP Family Medicine; Referring Provider Internal Medicine Gastroenterology; Visit Provider Internal Medicine Gastroenterology | DX: K92.2 Gastrointestinal hemorrhage, unspecified (principal) | CPT/HCPCS: 36415; 82274; 85018 ==

== ENCOUNTER 2022-11-24 10:59 | Outpatient (RCR) | payer OTHER, SELFPAY ==
[2022-11-06 10:51] LABS: Hematocrit 36.6 % (37-47)
[2022-11-16 08:32] LABS: Hematocrit 39.2 % (37-47); Hemoglobin 12.1 g/dL (12.0-15.0)
[2022-11-24 11:18] LABS: Hemoglobin 12.6 g/dL (12.0-15.0)
== END 2022-11-27 23:12 | disposition home or self-care (01) ==
LOC: LAB 10:59
PROVIDERS: PCP Family Medicine; Referring Provider Internal Medicine Gastroenterology; Visit Provider Internal Medicine Gastroenterology
DX: D62 Acute posthemorrhagic anemia (principal)
CPT/HCPCS: 36415; 85014; 85018

== ENCOUNTER 2022-12-14 08:10 | Outpatient (RCR) | payer OTHER, SELFPAY ==
[2022-12-14 09:35] LABS: Hematocrit 39.9 % (37-47)
== END 2022-12-27 02:03 | disposition home or self-care (01) ==
LOC: LAB 08:10
PROVIDERS: PCP Family Medicine; Referring Provider Internal Medicine Gastroenterology; Visit Provider Internal Medicine Gastroenterology
DX: D62 Acute posthemorrhagic anemia (principal)
CPT/HCPCS: 36415; 85014; 85018

== ENCOUNTER 2023-05-11 08:43 | Emergency (ER) | payer OTHER, SELFPAY ==
[2023-05-11 08:45] VITALS: BP 147/82; PULSE 69; RESP 14; TEMP 36.4; O2SAT 96; BMI 29.2
--- NOTE | 2023-05-11 09:11 | ED.VIS.GI ---
HPI HPI - GI History of Present Illness Chief Complaint: Abd Pain Informant: patient Abdominal Pain/Flank Pain Onset: Weeks (1) Context: Sudden Onset Timing: Continuous Quality: Aching Location: Epigastric, LUQ and Left Flank Worsened by: Nothing Relieved by: - (Analgesics) Nausea/Vomiting/Emesis GI Symptom: Positive for Nausea; Negative for Vomiting Diarrhea/Melena/Hematochezia GI Symptom: Negative for Diarrhea, Melena or Hematochezia Associated Symptoms Associated Symptoms: Negative for Dysuria, Frequency or Hematuria Narrative Narrative: Patient presents with upper abdominal pain that has been getting worse over the past week. Patient states that it came on rather suddenly. Patient states it has been constant. Patient describes it as aching and a pulling sensation. Patient states the pain started across her upper abdomen but now it is mainly in the left upper quadrant. Patient states it radiates into her left flank and sometimes up into her left shoulder. Patient states nothing makes it worse. Patient states she had been prescribed pain medicine which has been helping. Patient states she has not had any pain medicine for the last 24 hours. Patient admits to some nausea but denies any vomiting. Patient denies any diarrhea, melena, or hematochezia. Patient denies any dysuria, frequency, or hematuria. Patient states her primary care physician prescribed her analgesics for her upper abdominal pain initially. Patient states this was helping initially but she has not taken it in the last 24 hours. Patient also states her primary care physician treated her for diverticulitis but this has not helped. [facility] Medical History Arthritis Atherosclerotic heart disease of [place] coronary artery without angina pectoris Back pain CAD (coronary artery disease) Cardiology follow-up encounter Chest pain Chest pain, precordial Dizziness and giddiness Esophageal spasm Gastric reflux Gastric ulcer GERD (gastroesophageal reflux disease) Hiatal hernia Hiatal hernia High cholesterol History of echocardiogram History of edema History of IBS History of pain when walking History of stress test Hyperlipidemia Hypothyroidism Hypothyroidism, iatrogenic Non-smoker OA (osteoarthritis) of knee Osteoporosis Palpitations Post-menopausal Shortness of breath on exertion Thyroid disease Thyroid disorder Wears glasses Wears partial dentures Home Medications methylcellulose (laxative) 500 mg tablet (Citrucel) 500 mg PO DAILY CONSTIPATION 09/22/17 [History Last Taken 10/29/22] nitroglycerin 0.4 mg sublingual tablet 0.4 mg sublingual Q5M PRN chest pain #90 tabs 09/27/17 [Rx Last Taken Unknown] propranolol 20 mg tablet 20 mg PO BID BP/Heart rate 01/02/19 [History Last Taken 10/30/22] levothyroxine 75 mcg tablet 75 mcg PO DAILY thyroid 06/25/22 [History Last Taken 10/30/22] OSTEA MUÑOZ 2 cap PO/SL LUNCH SUPPLEMENT 10/30/22 [History Last Taken 10/29/22] pramipexole 0.25 mg tablet 0.25 mg PO QHS PRN RLS 10/30/22 [History Last Taken 10/28/22] atorvastatin 40 mg tablet 40 mg PO QHS Cholesterol #90 tabs 11/24/22 [Rx Last Taken Unknown] clopidogrel 75 mg tablet 75 mg PO DAILY #90 tabs 11/24/22 [Rx Last Taken Unknown] isosorbide mononitrate 30 mg tablet,extended release 24 hr 30 mg PO DAILY 03/08/23 [History Last Taken Unknown] pantoprazole 40 mg tablet,delayed release 40 mg PO DAILY #30 tabs 04/22/23 [Rx Last Taken Unknown] hydrocodone-acetaminophen 5-325mg 5mg-325mg 1 tab PO Q6H PRN PRN Pain 3 days #10 TABLETS 05/11/23 [Rx Last Taken Unknown] Allergy/AdvReac Type Severity Reaction Status Date / Time etodolac Allergy Severe Throat Verified 05/11/23 08:45 tightness, rash morphine AdvReac Itching, Verified 05/11/23 08:45 rash oxycodone [From Percocet] AdvReac Nausea/Vom/ Verified 05/11/23 08:45 Diarrhea Family History Sister CAD (coronary artery disease) Hx of CABG Sister S/P MVR (mitral valve replacement) Surgical History Cystocele with prolapse History of appendectomy History of cardiac catheterization History of cholecystectomy History of coronary artery stent placement (~07/14/22) History of coronary artery stent placement History of total hysterectomy Rectocele Social History number of children: 12 Smoking Status: Never smoker alcohol intake: never substance use type: does not use additional social history: Alessandro Ace ROS ROS ED Constitutional Constitutional ED: Denies chills or fever(s) Eyes Eyes: Denies blurry vision or change in vision ENT ENT ED: Denies rhinorrhea or sore throat Cardiovascular Cardiovascular: Denies chest pain or palpitations Respiratory/Chest Respiratory/Chest: Denies cough or dyspnea Gastrointestinal Gastrointestinal: Reports abdominal pain and nausea; Denies vomiting Genitourinary Genitourinary ED: Denies dysuria or hematuria Musculoskeletal Musculoskeletal: Reports back pain; Denies neck pain Integumentary Denies abscess or rash Neurologic Neurologic: Reports headache(s); Denies weakness Allergic/Immunologic Allergic/Immunologic ED: Denies mouth swelling or urticaria EXAM Physical Exam Const Vital Signs: 05/11/23 08:45 05/11/23 10:43 Temperature 97.6 F L 97.9 F Temperature Source Temporal Temporal Pulse Rate 69 71 Respiratory Rate 14 18 Blood Pressure 147/82 H 135/79 H Blood Pressure Mean 103 97 Pulse Ox 96 99 Oxygen Delivery Method Room Air Room Air Positive well nourished and well developed General Appearance ED: well developed and NAD HEENT Reports moist mucous membranes Neck supple and no JVD Resp normal respiratory effort and clear to auscultation bilaterally Cardio regular rate and regular rhythm GI non-distended Palpation: soft and tender epigastric and LUQ; Negative for guarding or rebound tenderness present Back/Spine no CVA tenderness Extremity normal to inspection General Extremety ED: Negative for edema or tenderness General Extremity: Negative for edema Neuro oriented x3, CN's II-XII intact bilaterally, moves all extremities and no sensory deficits noted Sensorium / Orientation: alert Motor Exam: strength 5/5 throughout Psych mental status grossly normal Skin no rashes or lesions noted MDM MDM MDM Narrative Medical decision making narrative: Differential diagnosis includes peptic ulcer disease, gastritis, pyelonephritis, ureteral calculus, diverticulitis, pancreatitis, bowel obstruction, and perforation. CBC will be obtained to assess for leukocytosis and anemia. Comprehensive metabolic profile will be obtained to assess for hepatic function, renal function, and electrolyte abnormality. Lipase will be obtained to assess for pancreatitis. Urinalysis will be obtained to assess for hematuria and urinary tract infection. CT scan of the abdomen pelvis will be obtained to assess for bowel obstruction, perforation, pancreatitis, and ureteral calculus. Lab Data Attestation: I reviewed the patient's lab results. Lab results narrative: CBC was reviewed and was within normal. Comprehensive metabolic profile was reviewed and was within normal limits. Lipase was reviewed and was normal. Urinalysis was reviewed. There is no evidence of urinary tract infection or hematuria. Labs: Laboratory Results - last 24 hr 05/11/23 09:30 WBC 6.4 RBC 4.50 Hgb 14.2 Hct 43.4 MCV 96.4 MCH 31.6 MCHC 32.7 RDW Std Deviation 46.1 H RDW Coeff of [place] 13.0 Plt Count 192 MPV 10.3 Immature Gran % (Auto) 0.200 Neut % (Auto) 56.5 Lymph % (Auto) 31.2 Leslie % (Auto) 10.0 Eos % (Auto) 1.6 Baso % (Auto) 0.5 Absolute Neuts (auto) 3.6 Absolute Lymphs (auto) 2.00 Nucleated RBC % 0 Sodium 139 Potassium 3.9 Chloride 104 Carbon Dioxide 33.0 H Anion Gap 2 L BUN 14 Creatinine 0.77 Estim Creat Clear Calc 38.35 Est GFR (MDRD) Af Amer 93 Est GFR (MDRD) Non-Af 77 BUN/Creatinine Ratio 18.2 Glucose 97 Calcium 9.3 Total Bilirubin 0.40 AST 17 ALT 20 Alkaline Phosphatase 75 Total Protein 7.6 Albumin 3.7 Globulin 3.9 Albumin/Globulin Ratio 0.9 Lipase 31 Urine Color Straw Urine Clarity Clear Urine pH 7.0 Ur Specific [place] 1.010 Urine Protein Negative Urine Glucose (UA) Normal Urine Ketones Negative Urine Occult Blood Negative Urine Nitrite Negative Urine Bilirubin Negative Urine Urobilinogen Normal Ur Leukocyte Esterase Negative Urine RBC 0-5 SEEN Urine WBC 0 SEEN Ur Squamous Epith Cells 0-5 SEEN Urine Bacteria 0 SEEN Urine Mucus 0 SEEN Radiography Diagnostic Testing: Clinical Impression(s) from Imaging Studies Abdomen/Pelvis CT 05/11/23 09:18 IMPRESSION: Fatty infiltration of the liver. 8.7 mm x 8.5 mm well-defined hypodensity in the inferior aspect of the right lobe of the liver. This may represent either a small cyst or hemangioma. Mild degree of bilateral hydronephrosis. Status post cholecystectomy Sigmoid diverticulosis. Distended urinary bladder. Questionable prolapsed rectum versus prolapsed uterus. Electronically Signed: Rohit Palacios MD at 11:21 EDT , CT scan of the abdomen and pelvis was obtained. There is fatty infiltration of the liver. There is a well-defined hypodensity in the inferior aspect of the right lobe of the liver representing either a small cyst or hemangioma. There is mild bilateral hydronephrosis. There is sigmoid diverticulosis but no evidence of diverticulitis. There is a questionable prolapsed rectum versus prolapsed uterus. This was interpreted by the radiologist and was also independently reviewed by myself. Treatment and Re-Evaluation :: Patient was given IV fluids and Zofran. Since patient has an allergy to morphine, patient was given a dose of hydrocodone here. Patient was given a prescription for a short course of hydrocodone. Since the patient's pain is in the left upper quadrant, I do not feel that the questionable prolapsed rectum or prolapsed uterus is the cause of her pain. Patient was instructed to follow-up with her primary care physician in 5 to 7 days. Patient was instructed to start with a bland diet and advance as tolerated. Patient was instructed to return if worse in any way. Patient understood and was agreeable with the plan. All questions were answered. Discharge Plan Triage Chief Complaint: Abd Pain ED Provider: Adonis Butler Dx/Rx/DC Orders Clinical Impression: Abdominal pain in female patient, Diverticulosis Instructions: ED Abdominal Pain Unkn Cause Fem Prescriptions: New hydrocodone-acetaminophen [hydrocodone-acetaminophen] 5-325 mg tablet 1 tab PO Q6H PRN PRN (Reason: Pain) 3 Days Qty: 10 0RF No Action nitroglycerin 0.4 mg tablet, sublingual 0.4 mg SUBLINGUAL Q5M PRN (Reason: chest pain) Qty: 90 3RF propranolol 20 mg tablet 20 mg PO BID methylcellulose (laxative) [Citrucel] 500 mg tablet 500 mg PO DAILY levothyroxine 75 mcg tablet 75 mcg PO DAILY clopidogrel 75 mg tablet 75 mg PO DAILY Qty: 90 3RF atorvastatin 40 mg tablet 40 mg PO QHS Qty: 90 3RF pramipexole 0.25 mg tablet 0.25 mg PO QHS PRN (Reason: RLS) Patient Comments: TAKE 1 TABLET BY MOUTH AT BEDTIME NEEDED FOR RESTLESS LEGS OSTEA MUÑOZ 2 cap PO/SL LUNCH isosorbide mononitrate 30 mg tablet extended release 24 hr 30 mg PO DAILY pantoprazole 40 mg tablet,delayed release (DR/EC) 40 mg PO DAILY Qty: 30 2RF Primary Care Provider: Gene Roth Referrals: Gene Roth DO [Primary Care Provider] -
--- NOTE | 2023-05-11 09:18 | CT_ITS ---
STUDY: CT ABDOMEN AND PELVIS WITH CONTRAST REASON FOR EXAM: Female, 78 years old. Abdominal pain -- IV PO Contrast. Upper abdominal and flank pain. RADIATION DOSAGE (If Supplied By Facility): CTDIvol = ( 18.26 ) mGy, DLP = ( 908.40 ) mGycm TECHNIQUE: Transaxial images were obtained from the dome of the diaphragm to the symphysis pubis with oral contrast. Oral and amp;amp; IV Gastrografin and amp;amp; 100mL Isovue-300 was administered. Sagittal and coronal images were reconstructed. Individualized dose optimization techniques were used for this CT. COMPARISON: None. FINDINGS: Minimal increased markings at the lung bases suggestive of scarring. The visualized portions of the heart are within normal limits. Calcified splenic granuloma and the dome of the liver. There is fatty infiltration of the liver. There is an 8.7 mm x 8.5 mm well-defined hypodensity in the inferior aspect of the right lobe of the liver. This may represent a small cyst or small hemangioma. Correlation with ultrasound is recommended. The patient is status post cholecystectomy. Minimally dilated common bile duct. Normal spleen. Calcified 9.1 mm splenic artery aneurysm. Normal pancreas. Normal bilateral adrenal glands. Mild degree of bilateral hydronephrosis. There is a small hiatal hernia. Normal small intestine. There are multiple colonic diverticula consistent with diverticulosis. The appendix is visualized and appears normal. There is diffuse atherosclerotic calcification of the abdominal aorta, without a demonstrated aneurysm. Normal inferior vena cava. Normal retroperitoneum. Distended urinary bladder. There is prominence of the perineum with soft tissue density. Questionable prolapsed rectum or prolapsed uterus. Clinical correlation is recommended. Normal abdominal wall. There are diffuse degenerative changes of the visualized lumbar spine. CT/Abdomen/Pelvis WITH Contrast IMPRESSION: Fatty infiltration of the liver. 8.7 mm x 8.5 mm well-defined hypodensity in the inferior aspect of the right lobe of the liver. This may represent either a small cyst or hemangioma. Mild degree of bilateral hydronephrosis. Status post cholecystectomy Sigmoid diverticulosis. Distended urinary bladder. Questionable prolapsed rectum versus prolapsed uterus. Electronically Signed: Rohit Palacios MD at 11:21 EDT ,
[2023-05-11 09:41] LABS: Bacteria 0 SEEN /hpf (None Seen); Mucous, Urine 0 SEEN /hpf (<or=2+); White Blood Cells 0 SEEN /hpf (0-5)
[2023-05-11] MEDS: 0.9% Normal Saline (1000mL) 1,000 ML 1000 ML IV (09:41)
[2023-05-11] MEDS: Ondansetron 4 MG/2 ML Vial IV (09:41)
[2023-05-11 09:43] LABS: Absolute Neutrophil Count 3.6 X10^3/uL (2.0-7.7); Basophil# 0.03 X10^3/uL; Basophil% 0.5 % (0-1); Color, Urine Straw (Yellow); Eosinophils% 1.6 % (0-5); Glucose, Dipstick Normal (Normal); Hematocrit 43.4 % (37-47); Hemoglobin 14.2 g/dL (12.0-15.0); Ketone-Dipstick Negative (Negative); Leukocyte Esterase-Dipstick Negative /ul (Negative); Lymphocyte % 31.2 % (19-41); Mean Corp Hgb Conc 32.7 g/dL (32-36); Mean Corpuscular Hgb 31.6 pg (27.0-32.0); Mean Corpuscular Volume 96.4 fL (81-99); Mean Platelet Vol. 10.3 fl (6.2-12.0); Monocyte# 0.64 X10^3/uL; NRBC Flagged by Analyzer 0 % (0-5); Neutrophil # 3.63 X10^3/uL (2.7-7.7); Neutrophil % 56.5 % (47-70); Nitrite-Dipstick Negative (Negative); Occult Blood-Urine Negative /ul (Negative); Platelet Count 192 K/mm3 (150-450); Protein-Dipstick Negative (Negative); RBC Distribution Width SD 46.1 fl (35.1-43.9); Urine Bilirubin Dipstick Negative (Negative); Urine Clarity Clear (Clear); Urine Urobilinogen Normal (Normal); White Blood Count 6.4 K/mm3 (4.4-11.0)
[2023-05-11 09:54] LABS: Red Blood Cells-Urine 0-5 SEEN /hpf (0-5)
[2023-05-11 09:55] LABS: Squamous Epithelial Cells - UA 0-5 SEEN /hpf (5-10)
[2023-05-11 10:01] LABS: ALB/GLOB Ratio 0.9 RATIO (0.9-2.4); AST(SGOT) 17 U/L (15-37); Alanine Aminotransfer ALT/SGPT 20 U/L (13-56); Albumin, Serum 3.7 g/dL (3.2-5.0); Alkaline Phosphatase 75 U/L (45-117); Anion Gap 2 (5-15); BUN 14 mg/dL (7-18); BUN/Creat Ratio 18.2 RATIO (10-20); Calcium,Total 9.3 mg/dL (8.5-10.1); Chloride 104 mmol/L (98-107); Creatinine, Serum 0.77 mg/dL (0.55-1.02); EST Glomerular Filtration Rate 77 mL/min (>60); Est Glom Filt Rate - Afr Amer 93 mL/min (>60); Estimated Creatinine Clearance 38.35 ml/min; Globulin 3.9 g/dL (2.2-4.2); Glucose 97 mg/dL (74-106); Lipase 31 U/L (13-75); Potassium 3.9 mmol/L (3.5-5.1); Protein, Total 7.6 g/dL (6.4-8.2); Sodium Level 139 mmol/L (136-145)
[2023-05-11 10:43] VITALS: BP 135/79; PULSE 71; RESP 18; TEMP 36.6; O2SAT 99
[2023-05-11 12:58] VITALS: RESP 16
== END 2023-05-11 12:59 | disposition home or self-care (01) ==
PROVIDERS: Emergency Provider Emergency Medicine; PCP Family Medicine; Visit Provider Emergency Medicine
DX: R10.9 Unspecified abdominal pain (principal); K57.30 Diverticulosis of large intestine without perforation or abscess without bleeding; I25.10 Atherosclerotic heart disease of native coronary artery without angina pectoris; Z95.5 Presence of coronary angioplasty implant and graft
CPT/HCPCS: 74177; 80053; 81001; 83690; 85025; 96361; 96374; 99283; J7030; Q9967; A4216; J2405

== ENCOUNTER → 2023-08-10 | Outpatient (CLI) | payer OTHER, SELFPAY ==
[2023-08-10 15:42] LABS: Absolute Lymphocyte Count 1.72 X10^3/uL (0.83-4.51); Absolute Neutrophil Count 2.9 X10^3/uL (2.0-7.7); Basophil# 0.02 X10^3/uL; Basophil% 0.4 % (0-1); Eosinophils% 1.9 % (0-5); Hematocrit 39.5 % (37-47); Hemoglobin 13.1 g/dL (12.0-15.0); Lymphocyte # 1.72 X10^3/ul (0.83-4.51); Lymphocyte % 32.6 % (19-41); Mean Corp Hgb Conc 33.2 g/dL (32-36); Mean Corpuscular Hgb 31.6 pg (27.0-32.0); Mean Corpuscular Volume 95.2 fL (81-99); Mean Platelet Vol. 10.4 fl (6.2-12.0); Monocyte# 0.51 X10^3/uL; Monocyte% 9.7 % (0-10); NRBC Flagged by Analyzer 0 % (0-5); Neutrophil # 2.92 X10^3/uL (2.7-7.7); Neutrophil % 55.2 % (47-70); Platelet Count 198 K/mm3 (150-450); RBC Distribution Width CV 13.1 % (11.6-14.6); RBC Distribution Width SD 45.1 fl (35.1-43.9); Red Blood Count 4.15 M/mm3 (4.2-5.4); White Blood Count 5.3 K/mm3 (4.4-11.0)
[2023-08-10 16:08] LABS: Anion Gap 4 (5-15); BUN 14 mg/dL (7-18); BUN/Creat Ratio 19.9 RATIO (10-20); Calcium,Total 9.1 mg/dL (8.5-10.1); Chloride 106 mmol/L (98-107); Cholesterol 136 mg/dL (200); EST Glomerular Filtration Rate 85 mL/min (>60); Est Glom Filt Rate - Afr Amer 103 mL/min (>60); Glucose 90 mg/dL (74-106); High Density Lipoprotein 54 mg/dL; Potassium 3.9 mmol/L (3.5-5.1); Sodium Level 140 mmol/L (136-145); Thyroid Stim Hormone (TSH) 0.86 uIU/mL (0.358-3.74); Triglycerides 123 mg/dL; Very Low Density Lipoprotein 25 mg/dL (5-40)
== END | disposition home or self-care (01) ==
LOC: LAB 14:24
PROVIDERS: PCP Family Medicine; Referring Provider Internal Medicine Cardiovascular Disease; Visit Provider Internal Medicine Cardiovascular Disease
DX: I25.10 Atherosclerotic heart disease of native coronary artery without angina pectoris (principal); E78.5 Hyperlipidemia, unspecified; E03.9 Hypothyroidism, unspecified; R53.1 Weakness; Z95.5 Presence of coronary angioplasty implant and graft
CPT/HCPCS: 36415; 80048; 80061; 84443; 85025

== ENCOUNTER → 2023-09-10 | Outpatient (CLI) | payer SELFPAY, OTHER ==
--- OUTSIDE RECORDS SUMMARY | 2023-09-10 06:42 | XMS RPT_ITS | CCD ---
Author Name Unknown Address [address] [facility] [address] [place] [address] Organization [facility] Care Team Providers Care Rn Labor And Delivery Name Role Phone Karma Morales Unavailable Unavailable Karma Morales Y Unavailable Unavailable Allergies Allergy Classification Reported Allergen(s) Allergy Type Date of Onset Reaction(s) Facility (2 sources) etodolac Drug Allergy 01-18-2012 throat tightness, rash [facility] Work Phone: [phone] (4 sources) NKDA drug allergy 01-15-2012 [facility] Work Phone: [phone] Medications Completed/Discontinued Medications Medication Drug Class(es) Dates Sig (Normalized) Sig (Original) ALOE VERA (4 sources) Start: 10-03-2012 ALOE VERA POWD 1/4 cup a day ALOE VERA [id number] Hayder Mcrae MD Problems Active Problems Problem Classification Problem Date Documented Da te Episodic/Chronic Disorders of lipid metabolism (2 sources) Hyperlipidemia; Translations: [Hyperlipidemia, unspecified] Onset: 04-23-2011 04-23-2011 Chronic Thyroid disorders (2 sources) Iatrogenic hypothyroidism; Translations: [Hypothyroidism due to medicaments and other exogenous substances] Onset: 04-23-2011 04-23-2011 Chronic Unclassified (2 sources) Body mass index (BMI) 34.0-34.9, adult; Translations: [Body mass index (BMI) 34.0-34.9, adult] Onset: 10-02-2013 10-02-2013 Chronic Past or Other Problems Problem Classification Problem Date Documented Da te Episodic/Chronic Abdominal pain (2 sources) Abdominal pain; Translations: [Unspecified abdominal pain] Onset: 01-15-2012 01-15-2012 Episodic Cardiac dysrhythmias (2 sources) Palpitations; Translations: [Palpitations] Onset: 04-23-2011 04-23-2011 Episodic Conditions associated with dizziness or vertigo (2 sources) Dizziness and giddiness; Translations: [Dizziness and giddiness] Onset: 04-23-2011 04-23-2011 Episodic Nonspecific chest pain (2 sources) Precordial pain; Translations: [Precordial pain] Onset: 04-23-2011 04-23-2011 Episodic Unclassified (6 sources) Body mass index (BMI) 28.0-28.9, adult; Translations: [Body mass index (BMI) 26.0-26.9, adult] Onset: 10-02-2013 Resolved: 09-09-2015 09-09-2015 Episodic Results Test Name Value Interpretation Reference Range Facil ity Vital Signs Date Time Vital Sign Value Performing Clinician Shawnee marin 09-28-2016 08:58-0500 BMI (Body Mass Index) 29.18 kg/m2 [email or web address] Work Phone: 09-28-2016 08:58-0500 BP Diastolic 64 mm[Hg] [employer] [facility] Work Phone: 09-28-2016 08:58-0500 BP Systolic 126 mm[Hg] [employer] [facility] Work Phone: 09-28-2016 08:58-0500 BSA (Body Surface Area) 1.83 m2 [employer] [facility] Work Phone: 09-28-2016 08:58-0500 Pulse (Heart Rate) 64 /min [employer] [facility] Work Phone: 09-28-2016 08:58-0500 Respiratory Rate 14 /min [employer] [facility] Work Phone: 09-28-2016 08:58-0500 Weight 77.11 kg [employer] [facility] Work Phone: 09-30-2011 10:49-0500 Height 162.56 cm [facility] Work Phone: Procedures Date Procedure Procedure Detail Performing Clinician Start: 09-28-2016 End: 01-30-2017 Ecg routine ecg w/least 12 lds w/i&r Hayder Mcrae MD Start: 09-28-2016 End: 09-28-2016 Follow Up Appt 1 year Hayder Chicas Start: 09-28-2016 End: 09-28-2016 PFM Hayder Mcrae MD Start: 09-09-2015 End: 09-09-2015 Follow Up Appt 1 year Hayder Chicas Start: 09-09-2015 End: 09-09-2015 PFM Hayder Mcrae MD Start: 11-07-2014 End: 11-08-2014 Documentation of current medications Shantell Roberts PA-C Work Phone: Start: 11-07-2014 End: 11-07-2014 Follow Up Appt 6 months Shantell francisco PA-C Work Phone: Start: 11-07-2014 End: 11-07-2014 PFM Shantell Roberts PA-C Work Phone: Start: 10-02-2013 End: 10-02-2013 Follow Up Appt 6 months Hayder Mcrae MD Start: 10-02-2013 End: 10-02-2013 MMM Hayder Mcrae MD Start: 10-03-2012 End: 10-03-2012 Follow Up Appt 1 year Hayder Chicas Start: 10-03-2012 End: 10-03-2012 PFM Hayder Mcrae MD Start: 01-15-2012 End: 10-03-2012 *BMP Hayder Mcrae MD Start: 01-15-2012 End: 10-03-2012 *CBC with Differential Hayder Mcrae MD Start: 01-15-2012 End: 10-03-2012 *Hepatic Function Panel Hayder Mcrae MD Start: 01-15-2012 End: 10-03-2012 Ct abdomen w/contrast material Hayder Mcrae MD Start: 01-15-2012 End: 01-15-2012 Ecg routine ecg w/least 12 lds w/i&r Hayder Mcrae MD Start: 01-15-2012 End: 10-03-2012 Follow Up Appt Other Hayder Mcrae MD Start: 01-15-2012 End: 10-03-2012 Lipid 1996 panel - Serum or Plasma Hayder Mcrae MD Start: 01-15-2012 End: 10-03-2012 Nuclear stress test -exercise Hayder Mcrae MD Start: 01-15-2012 End: 10-03-2012 Thyrotropin [Units/volume] in Serum or Plasma Hayder Mcrae MD Start: 01-15-2012 End: 10-03-2012 Thyroxine (T4) [Mass/volume] in Serum or Plasma Hayder Mcrae MD Start: 09-30-2011 End: 09-30-2011 Follow Up Appt 1 year Hayder Chicas Plan of Treatment Date Care Activity Detail Author Start: 09-27-2017 End: 09-27-2017 Appointment Appointment [facility] Work Phone: Start: 09-28-2016 End: 09-28-2016 Ecg routine ecg w/least 12 lds w/i&r EKG (In office) [facility] Work Phone: Start: 09-28-2016 End: 09-28-2016 Follow Up Appt 1 year Follow Up Appt 1 year [facility] Work Phone: Start: 09-28-2016 End: 09-28-2016 PFM PFM [facility] Work Phone: Start: 09-09-2015 End: 09-09-2015 Follow Up Appt 1 year Follow Up Appt 1 year [facility] Work Phone: Start: 09-09-2015 End: 09-09-2015 PFM PFM [facility] Work Phone: Start: 11-07-2014 End: 11-07-2014 Follow Up Appt 6 months Follow Up Appt 6 months [facility] Work Phone: Start: 11-07-2014 End: 11-07-2014 PFM PFM [facility] Work Phone: Start: 10-02-2013 End: 10-02-2013 Follow Up Appt 6 months Follow Up Appt 6 months [facility] Work Phone: Start: 10-02-2013 End: 10-02-2013 MMM MMM [facility] Work Phone: Start: 10-03-2012 End: 10-03-2012 Follow Up Appt 1 year Follow Up Appt 1 year [facility] Work Phone: Start: 10-03-2012 End: 10-03-2012 PFM PFM [facility] Work Phone: Start: 01-15-2012 End: 10-03-2012 *BMP *BMP [facility] Work Phone: Start: 01-15-2012 End: 10-03-2012 *CBC with Differential *CBC with Differential [facility] Work Phone: Start: 01-15-2012 End: 10-03-2012 *Hepatic Function Panel *Hepatic Function Panel [facility] Work Phone: Start: 01-15-2012 End: 01-15-2012 Ct abdomen w/contrast material CT Abdomen with Contrast [facility] Work Phone: Start: 01-15-2012 End: 01-15-2012 Ecg routine ecg w/least 12 lds w/i&r EKG (In office) [facility] Work Phone: Start: 01-15-2012 End: 10-03-2012 Follow Up Appt Other Follow Up Appt Other [facility] Work Phone: Start: 01-15-2012 End: 10-03-2012 Lipid panel [AGGREGATE] *Lipid Profile [facility] Work Phone: Start: 01-15-2012 End: 01-15-2012 Nuclear stress test -exercise Nuclear stress test -exercise [facility] Work Phone: Start: 01-15-2012 End: 10-03-2012 Thyroid stimulating hormone (TSH) *TSH [facility] Work Phone: Start: 01-15-2012 End: 10-03-2012 Thyroxine (T4) *T4 (Total) [facility] Work Phone: Start: 09-30-2011 End: 09-30-2011 Follow Up Appt 1 year Follow Up Appt 1 year [facility] Work Phone: Summary Purpose Family History No Family History Records Found Advance Directives No Advanced Directives Records Found Additional Source Comments INFORMATION SOURCE (unrecogn ized section and content) FOR RECORDS PERTAINING TO PATIENTS WHO ARE OR HAVE BEEN ENROLLED IN A CHEMICAL DEPENDENCY/SUBSTANCEABUSE PROGRAM, SOME INFORMATION MAY BE OMITTED. This clinical summary was aggregated from multiple sources. Caution should be exercised in using it in the provision of clinical care. This summary normalizes information from multiple sources, and as a consequence, information in this document may materially change the coding, format and clinical context of patient data. In addition, data may be omitted in some cases. CLINICAL DECISIONS SHOULD BE BASED ON THE PRIMARY CLINICAL RECORDS. [employer] provides no warranty or guarantee of the accuracy or completeness of information in this document.
--- NOTE | 2023-09-10 09:00 | RAD_ITS ---
INDICATION: KNEE PAIN EXAMINATION/TECHNIQUE: X-RAY - LEFT XR Knee 1 or 2 Views 2 VIEWS COMPARISON: No relevant prior comparison study available FINDINGS: SOFT TISSUES: No soft tissue swelling or gas. No evidence of joint effusion. BONES/JOINTS: No evidence of acute fracture or subluxation. Normal alignment. Severe narrowing of the medial joint compartment with marginal degenerative spurs. Mild narrowing of the patellofemoral joint compartment. Small degenerative spur of the superior aspect of the patella. No sclerotic or destructive changes observed. RAD/Knee 1 or 2 Views IMPRESSION: Degenerative arthrosis of the left knee. Electronically Signed: Bill Alejandre MD at 14:03 EST ,
--- NOTE | 2023-09-10 09:00 | RAD_ITS ---
STUDY: X-RAY - LUMBAR SPINE REASON FOR EXAM: Female, 78 years old. PAIN TECHNIQUE: 2 view(s) of the lumbar spine were obtained. COMPARISON: None FINDINGS: Normal lumbar lordosis. Moderate levoconvex scoliosis. Spondylosis. Normal vertebral bodies and endplates. There is multi-level degenerative disc disease with multi-level disc space narrowing. The soft tissue structures are unremarkable. RAD/Lumbar Spine 2 or 3 Views IMPRESSION: Moderate scoliosis, spondylosis and degenerative disc disease Electronically Signed: Lazaro Almodovar MD at 20:45 EST ,
--- NOTE | 2023-09-10 09:00 | RAD_ITS ---
INDICATION: BACK PAIN EXAMINATION/TECHNIQUE: X-RAY - XR Spine Cervical 2 or 3 Views COMPARISON: No relevant prior comparison study available FINDINGS: VERTEBRAE: Preserved vertebral body height. No fracture. No spondylolisthesis. Straightening of the cervical spine. No significant facet arthropathy. DISCS: Severe disc space narrowing at the levels of C3-C4 C5-C6 and C6-7 worse at C4-C5. Endplate spondylosis at multiple levels. Posterior degenerative spurs at the levels of C4-C5 and C5-C6 NECK SOFT TISSUES: No prevertebral soft tissue widening. LUNG APICES: Clear. RAD/Cerv Spine 2 or 3 Views IMPRESSION: Degenerative changes of the cervical spine as described above.. Electronically Signed: Bill Alejandre MD at 14:01 EST ,
--- NOTE | 2023-09-10 09:00 | RAD_ITS ---
STUDY: X-RAY - RIGHT KNEE REASON FOR EXAM: Female, 78 years old. KNEE PAIN TECHNIQUE: 2 view(s) of the knee. COMPARISON: None. FINDINGS: Normal visualized distal femur. Normal visualized proximal tibia and fibula. Normal proximal tibiofibular articulation. Ossific density medial aspect tibia. Lateral subluxation tibia. There is severe degenerative arthrosis of the medial femorotibial compartment with severe joint space narrowing. Normal lateral femorotibial compartment. Normal patellofemoral articulation. The soft tissue structures are unremarkable. RAD/Knee 1 or 2 Views IMPRESSION: Severe DJD medial joint. Electronically Signed: Lazaro Almodovar MD at 20:43 EST ,
--- NOTE | 2023-09-10 09:00 | RAD_ITS ---
INDICATION: PAIN EXAMINATION/TECHNIQUE: X-RAY - XR Pelvis 1 or 2 Views COMPARISON: No relevant prior comparison study available FINDINGS: PELVIC BONES: No displaced fracture, destructive or sclerotic lesions. Note that overlapping bowel shadows may however obscure fine detail. Sacroiliac joints are unremarkable. No widening of the pubic symphysis. HIPS: Mild narrowing of hip joints bilaterally. No displaced fracture seen in this frontal view. Degenerative changes of the visualized lower spine SOFT TISSUES: No soft tissue swelling or gas. RAD/Pelvis 1 or 2 Views IMPRESSION: No evidence of displaced pelvic or hip fracture. Degenerative changes of the lower lumbar spine. Electronically Signed: Bill Alejandre MD at 13:58 EST ,
[2023-09-10 10:27] LABS: AST(SGOT) 20 U/L (15-37); Alanine Aminotransfer ALT/SGPT 25 U/L (13-56); Albumin, Serum 3.9 g/dL (3.2-5.0); Alkaline Phosphatase 67 U/L (45-117); Bilirubin, Direct 0.17 mg/dL (0.00-0.30); Cholesterol 244 mg/dL (200); Globulin 3.8 g/dL (2.2-4.2); High Density Lipoprotein 46 mg/dL; Protein, Total 7.7 g/dL (6.4-8.2); Triglycerides 203 mg/dL; Very Low Density Lipoprotein 41 mg/dL (5-40)
--- NOTE | 2023-09-16 12:28 | STRESSREP ---
Stress Test Report Date: 09/10/2023 Procedure: Pharmacologic stress nuclear imaging study Indications: Coronary artery disease Consent: Per the patient Procedure: The patient underwent pharmacologic (Regadenoson 0.4mg ) evaluation with a peak heart rate of 111 beats per minute (70%predicted maximal heart rate) and a peak blood pressure of 170/64 mmHg. The baseline ECG demonstrated sinus rhythm with nonspecific ST changes. The peak pharmacologic ECG demonstrated no ischemic changes. There were no cardiac dysrhythmias pretest, during pharmacologic infusion, or recovery. There was no complaint of chest discomfort during pharmacologic infusion or recovery. The patient was injected with 11.5 millicuries of technetium 99m Cardiolite and subsequently rest SPECT Cardiolite nuclear imaging was obtained in the horizontal long, vertical long, and short axis views. The patient underwent pharmacologic (Regadenoson) evaluation. The patient was injected with 34.7 millicuries of technetium 99m Cardiolite and subsequently stress SPECT Cardiolite nuclear imaging was obtained in the horizontal long, vertical long, and short axis views. A gated Cardiolite study at peak stress was obtained. The examination was stopped secondary to completion of protocol. Rest and stress SPECT Cardiolite nuclear imaging status post realignment, normalization, and attenuation correction demonstrate no fixed or reversible perfusion defects. There is end systolic thickening and brightening. The gated Cardiolite study demonstrates myocardial thickening and inward wall motion. The reported LVEF is 82%. Impression: 1. Pharmacologic (Regadenoson) evaluation 2. Peak pharmacologic ECG with no diagnostic ischemic changes. 3. There were no cardiac dysrhythmias pretest, during pharmacologic infusion, or recovery. 5. Rest and stress SPECT Cardiolite nuclear imaging demonstrate relative uniform tracer uptake and myocardial perfusion appearing within normal limits. 6. The gated Cardiolite study reports an LVEF of 82%. This note was generated with [employer] software. It may contain incorrect words, spelling, and punctuation that were not noted in checking the note before signing.
== END | disposition home or self-care (01) ==
PROVIDERS: PCP Family Medicine; Referring Provider Internal Medicine Cardiovascular Disease
DX: I25.10 Atherosclerotic heart disease of native coronary artery without angina pectoris (principal); E78.5 Hyperlipidemia, unspecified; M16.0 Bilateral primary osteoarthritis of hip; M17.0 Bilateral primary osteoarthritis of knee; M54.12 Radiculopathy, cervical region; M54.16 Radiculopathy, lumbar region; X58.XXXA Exposure to other specified factors, initial encounter; Z95.5 Presence of coronary angioplasty implant and graft
CPT/HCPCS: 36415; 72040; 72100; 72170; 73560; 78452; 80061; 80076; 93017; A9500; A4216; J2785

== ENCOUNTER → 2023-10-11 | Outpatient (CLI) | payer OTHER, SELFPAY ==
--- OUTSIDE RECORDS SUMMARY | 2023-10-11 10:45 | XMS RPT_ITS | CCD ---
Author Name Unknown Address [address] [facility] [address] [place] [address] Organization [facility] Care Team Providers Care Profile Saw Setup Operator Name Role Phone Carmen Karma Graves Unavailable Unavailable Karma Morales Y Unavailable Unavailable Allergies Allergy Classification Reported Allergen(s) Allergy Type Date of Onset Reaction(s) Facility (2 sources) etodolac Drug Allergy 01-18-2012 throat tightness, rash [facility] Work Phone: [phone] (4 sources) NKDA drug allergy 01-15-2012 [facility] Work Phone: [phone] Medications Completed/Discontinued Medications Medication Drug Class(es) Dates Sig (Normalized) Sig (Original) ALOE VERA (4 sources) Start: 10-03-2012 ALOE VERA POWD 1/4 cup a day ALOE VERA [id number] Hayder Mcrae MD Problems Active Problems Problem [...] 08:58-0500 BMI (Body Mass Index) 29.18 kg/m2 [facility] Work Phone: 09-28-2016 08:58-0500 BP Diastolic 64 mm[Hg] [employer] [facility] Work Phone: 09-28-2016 08:58-0500 BP Systolic 126 mm[Hg] [employer] [facility] Work Phone: 09-28-2016 08:58-0500 BSA (Body Surface Area) 1.83 m2 [employer] [facility] Work Phone: 09-28-2016 08:58-0500 Pulse (Heart Rate) 64 /min [employer] [facility] Work Phone: 09-28-2016 08:58-0500 Respiratory Rate 14 /min [employer] [facility] Work Phone: 09-28-2016 08:58-0500 Weight 77.11 kg Ipsumis [facility] Work Phone: 09-30-2011 10:49-0500 Height 162.56 cm [facility] Work Phone: Procedures Date Procedure [...] Author Start: 09-27-2017 End: 09-27-2017 Appointment Appointment [facility] Work Phone: Start: 09-28-2016 End: 09-28-2016 Ecg routine ecg w/least 12 lds w/i&r EKG (In office) [facility] Work Phone: Start: 09-28-2016 End: 09-28-2016 Follow Up Appt 1 year Follow Up Appt 1 year [facility] Work Phone: Start: 09-28-2016 End: 09-28-2016 PFM PFM [facility] Work Phone: Start: 09-09-2015 End: 09-09-2015 Follow Up Appt 1 year Follow Up Appt 1 year [facility] Work Phone: Start: 09-09-2015 End: 09-09-2015 PFM PFM [facility] Work Phone: Start: 11-07-2014 End: 11-07-2014 Follow Up Appt 6 months Follow Up Appt 6 months [facility] Work Phone: Start: 11-07-2014 End: 11-07-2014 PFM PFM [facility] Work Phone: Start: 10-02-2013 End: 10-02-2013 Follow Up Appt 6 months Follow Up Appt 6 months [facility] Work Phone: Start: 10-02-2013 End: 10-02-2013 MMM MMM [facility] Work Phone: Start: 10-03-2012 End: 10-03-2012 Follow Up Appt 1 year Follow Up Appt 1 year [facility] Work Phone: Start: 10-03-2012 End: 10-03-2012 PFM PFM [facility] Work Phone: Start: 01-15-2012 End: 10-03-2012 *BMP *BMP [facility] Work Phone: Start: 01-15-2012 End: 10-03-2012 *CBC with Differential *CBC with Differential [facility] Work Phone: Start: 01-15-2012 End: 10-03-2012 *Hepatic Function Panel *Hepatic Function Panel [facility] Work Phone: Start: 01-15-2012 End: 01-15-2012 Ct abdomen w/contrast material CT Abdomen with Contrast [facility] Work Phone: Start: 01-15-2012 End: 01-15-2012 Ecg routine ecg w/least 12 lds w/i&r EKG (In office) [facility] Work Phone: Start: 01-15-2012 End: 10-03-2012 Follow Up Appt Other Follow Up Appt Other [facility] Work Phone: Start: 01-15-2012 End: 10-03-2012 Lipid panel [AGGREGATE] *Lipid Profile [facility] Work Phone: Start: 01-15-2012 End: 01-15-2012 Nuclear stress test -exercise Nuclear stress test -exercise [facility] Work Phone: Start: 01-15-2012 End: 10-03-2012 Thyroid stimulating hormone (TSH) *TSH [facility] Work Phone: Start: 01-15-2012 End: [...] BE BASED ON THE PRIMARY CLINICAL RECORDS. [employer] provides no warranty or guarantee of the accuracy or completeness of information in this document.
[2023-10-11 11:13] LABS: Hematocrit 44.1 % (37-47); Hemoglobin 14.6 g/dL (12.0-15.0)
== END | disposition home or self-care (01) ==
LOC: LAB 10:12
PROVIDERS: PCP Family Medicine; Referring Provider Internal Medicine Gastroenterology; Visit Provider Internal Medicine Gastroenterology
DX: Z09 Encounter for follow-up examination after completed treatment for conditions other than malignant neoplasm (principal); Z87.19 Personal history of other diseases of the digestive system
CPT/HCPCS: 36415; 85014; 85018

== ENCOUNTER 2023-10-20 06:36 | Day surgery (SDC) | payer SELFPAY, OTHER ==
--- OUTSIDE RECORDS SUMMARY | 2023-10-20 06:38 | XMS RPT_ITS | CCD ---
Author Name Unknown Address [address] [facility] [address] [place] [address] Organization [facility] Care Team Providers Care Casserole Preparer Name Role Phone Elizabethlisa Karma Graves Unavailable Unavailable Karma Morales Y Unavailable Unavailable Allergies Allergy Classification Reported Allergen(s) Allergy Type Date of Onset Reaction(s) Facility (2 sources) etodolac Drug Allergy 01-18-2012 throat tightness, rash [facility] Work Phone: [phone] (4 sources) NKDA drug allergy 01-15-2012 [facility] Work Phone: [phone] Medications Completed/Discontinued Medications Medication Drug Class(es) Dates Sig (Normalized) Sig (Original) ALOE VERA (4 sources) Start: 10-03-2012 ALOE VERA POWD 1/4 cup a day ALOE VERA [id number] Hayder Mcrae MD Problems Active Problems Problem [...] 08:58-0500 BMI (Body Mass Index) 29.18 kg/m2 [employer] [facility] Work Phone: 09-28-2016 08:58-0500 BP Diastolic 64 mm[Hg] [employer] [facility] Work Phone: 09-28-2016 08:58-0500 BP Systolic 126 mm[Hg] [employer] [facility] Work Phone: 09-28-2016 08:58-0500 BSA (Body Surface Area) 1.83 m2 [employer] [facility] Work Phone: 09-28-2016 08:58-0500 Pulse (Heart Rate) 64 /min [employer] [facility] Work Phone: 09-28-2016 08:58-0500 Respiratory Rate 14 /min [employer] [facility] Work Phone: 09-28-2016 08:58-0500 Weight 77.11 kg [employer] [facility] Work Phone: 09-30-2011 10:49-0500 Height 162.56 cm [facility] Work Phone: Procedures Date Procedure [...] w/least 12 lds w/i&r EKG (In office) [facility] Work Phone: Start: 09-28-2016 End: 09-28-2016 Follow Up Appt 1 year Follow Up Appt 1 year [facility] Work Phone: Start: 09-28-2016 End: 09-28-2016 PFM PFM [facility] Work Phone: Start: 09-09-2015 End: 09-09-2015 Follow Up Appt 1 year Follow Up Appt 1 year [facility] Work Phone: Start: 09-09-2015 End: 09-09-2015 PFM PFM [facility] Work Phone: Start: 11-07-2014 End: 11-07-2014 Follow Up Appt 6 months Follow Up Appt 6 months [facility] Work Phone: Start: 11-07-2014 End: 11-07-2014 PFM PFM [facility] Work Phone: Start: 10-02-2013 End: 10-02-2013 Follow Up Appt 6 months Follow Up Appt 6 months [facility] Work Phone: Start: 10-02-2013 End: 10-02-2013 MMM MMM [facility] Work Phone: Start: 10-03-2012 End: 10-03-2012 Follow Up Appt 1 year Follow Up Appt 1 year [facility] Work Phone: Start: 10-03-2012 End: 10-03-2012 PFM PFM [facility] Work Phone: Start: 01-15-2012 End: [...] BE BASED ON THE PRIMARY CLINICAL RECORDS. [employer] provides no warranty or guarantee of the accuracy or completeness of information in this document.
--- NOTE | 2023-10-20 07:03 | HP.PCM_ITS ---
History and Physical Date of Admission: 10/20/23 /u gi bleed Details: * ARLEY ORDOÑEZ, is a 77 F who presents to the office today for follow up. *BGI established 07.31.22 for heartburn and esophageal spasms with dysphagia. ?EGD .09.21?Severe Schatzki ring, Savary 45F; irregular Zline 38cm; medium hiatal hernia.?[facility] hospitalization 2.04.21-10.11.22 for stabilization of acute blood loss anemia. GI consulted 10.07.22? EGD 2?LA Grade B esophagitis; two oozing gastric ulcers, epinephrine and monopolar probe.?EGD 10.08.22?LA Grade B esophagitis; multiple oozing cratered gastric ulcers, APC and hemospray.?OV 2 monitor hgb?[facility] hospitalization 2.-2 for stabilization of acute blood loss anemia. GI consulted 10.19.22?[facility] hospitalization 3.11.19-3.6 for management of black/tarry stools. GI consulted 3.11.19?EGD and colonoscopy 3.12.20?EGD three non-bleeding and one bleeding gastric ulcer.?Colonoscopy hemorrhoids; three sessile TA polyps; diverticulosis; TI with focal granularity.?OV 3.31.23 reporting she is feeling better with less fatigue. Continue sucralfate and PPI.?EGD 10.19.22?one spurting gastric ulcer, heater probe.?? Pt reports doing very well since last visit. Has not had any abdominal pain. Bowels have been normal. Going 2-3 times a day without diarrhea or blood. Still feels some overall weakness that is improving over time. Some gas. Exam Const General: cooperative and comfortable Orientation: alert, awake and oriented x3 Other: in wheelchair Eyes General: appearance normal, both eyes and all related structures Resp Effort & Inspection: normal respiratory effort GI Inspection: normal to inspection Quality Reporting Tobacco Screening ([facility] 138) Smoking Status: Never smoker Assessment and Plan Assessment and Plan (1) GIB (gastrointestinal bleeding): Status: Resolved Plan: 77 yr old female with recurrent GI bleeds while on Brillinta, improving now that switched to Plavix instead. She was also on ASA. Hgb has normalized. Taking sucralfate for one month for gastric ulcer, can decrease pantoprazole from 40 mg bid to qam, then decrease to 40mg q daiy and stop. I am ok with only taking Plavix. (2) Gastric ulcer: Status: Chronic Plan: secondary to Medications. I have examined the patient and the H&P has been reviewed. There are no clinical changes since date of exam.
[2023-10-20] MEDS: Lactated Ringers 1,000 ML 15 ML IV (07:10)
[2023-10-20 07:11] VITALS: BP 147/83; PULSE 59; RESP 17; TEMP 36.3; O2SAT 97
[2023-10-20 08:01] VITALS: BP 147/83; BP 97/66; PULSE 63; RESP 16; TEMP 36.2; O2SAT 97
--- NOTE | 2023-10-20 08:02 | OP.EGD_ITS ---
Patient Name: Ina Ace Procedure Date: 10/20/2023 7:39 AM Date of : 1945 Age: 78 Procedure: Upper GI endoscopy Indications: Melena Providers: Brian Isbell DO Referring MD: Gene Roth Medicines: Monitored Anesthesia Care Patient Profile: This is a 78 year old female. Refer to note in patient chart for documentation of history and physical. Patient has symptoms of acute abdominal cramping, acute dyspepsia and acute nausea. Complications: No immediate complications. Procedure: Pre-Anesthesia Assessment: - Prior to the procedure, a History and Physical was performed, and patient medications and allergies were reviewed. The patient is competent. The risks and benefits of the procedure and the sedation options and risks were discussed with the patient. All questions were answered and informed consent was obtained. Patient identification and proposed procedure were verified by the physician in the pre-procedure area. Mental Status Examination: alert and oriented. Airway Examination: normal oropharyngeal airway and neck mobility. Respiratory Examination: clear to auscultation. CV Examination: normal. Prophylactic Antibiotics: The patient does not require prophylactic antibiotics. Prior Anticoagulants: The patient has taken no anticoagulant or antiplatelet agents. ASA Grade Assessment: II - A patient with mild systemic disease. After reviewing the risks and benefits, the patient was deemed in satisfactory condition to undergo the procedure. The anesthesia plan was to use monitored anesthesia care (MAC). Immediately prior to administration of medications, the patient was re-assessed for adequacy to receive sedatives. The heart rate, respiratory rate, oxygen saturations, blood pressure, adequacy of pulmonary ventilation, and response to care were monitored throughout the procedure. The physical status of the patient was re-assessed after the procedure. After obtaining informed consent, the endoscope was passed under direct vision. Throughout the procedure, the patient's blood pressure, pulse, and oxygen saturations were monitored continuously. The gastroscope was introduced through the mouth, and advanced to the second part of duodenum. The upper GI endoscopy was accomplished without difficulty. The patient tolerated the procedure well. Scope In: 7:53:25 AM Scope Out: 7:55:55 AM Total Procedure Duration Time 0 hours 2 minutes 30 seconds Findings: The examined esophagus was normal. A small hiatal hernia was present. No other significant abnormalities were identified in a careful examination of the stomach. No gross lesions were noted in the second portion of the duodenum. Impression: - Normal esophagus. - Small hiatal hernia. - No gross lesions in the second portion of the duodenum. - No specimens collected. Recommendation: - Discharge patient to home. - Resume previous diet. - Continue present medications. - Await pathology results. -Consider colonoscopy or capsule endoscopy to find the etiology of the patient's bleeding Procedure Code(s): --- Professional --- 32159, Esophagogastroduodenoscopy, flexible, transoral; diagnostic, including collection of specimen(s) by brushing or washing, when performed (separate procedure) CPT copyright 2021 [employer]. All rights reserved. The codes documented in this report are preliminary and upon remote coders review may be revised to meet current compliance requirements. Brian Isbell DO 10/20/2023 8:01:14 AM This report has been signed electronically. Number of Addenda: 0 Note Initiated On: 10/20/2023 7:39 AM
--- NOTE | 2023-10-20 08:02 | OP.CCLET_ITS ---
10/20/2023 Gene Roth Re : Upper GI endoscopy procedure for Ina Ace Dear Ira This procedure was performed on Friday, October 20, 2023. My impressions and recommendations are as follows: Impressions : - Normal esophagus. - Small hiatal hernia. - No gross lesions in the second portion of the duodenum. - No specimens collected. Recommendations : - Discharge patient to home. - Resume previous diet. - Continue present medications. - Await pathology results. -Consider colonoscopy or capsule endoscopy to find the etiology of the patient's bleeding My findings are described in the full procedure note, which is enclosed. If I can be of further assistance, please feel free to contact me at . Sincerely, Brian Isbell, 10/20/2023 8:01:14 AM This report has been signed electronically.
[2023-10-20 08:05] VITALS: BP 147/83; BP 85/63; PULSE 63; RESP 16; O2SAT 97
[2023-10-20 08:10] VITALS: BP 107/67; BP 147/83; PULSE 64; RESP 16; O2SAT 97
[2023-10-20 08:15] VITALS: BP 109/71; BP 147/83; PULSE 62; RESP 16; TEMP 36; O2SAT 97
[2023-10-20 08:35] VITALS: BP 147/83
== END 2023-10-20 08:53 | disposition home or self-care (01) ==
LOC: EN 06:36 → AC 06:37
PROVIDERS: PCP Family Medicine; Referring Provider Family Medicine; Visit Provider Internal Medicine Gastroenterology
PROC: 0DJ08ZZ Inspection of Upper Intestinal Tract, Via Natural or Artificial Opening Endoscopic (ICD-10-PCS; CPT 43235; principal; 2023-10-20 07:40)
DX: K25.7 Chronic gastric ulcer without hemorrhage or perforation (principal); K44.9 Diaphragmatic hernia without obstruction or gangrene; K21.9 Gastro-esophageal reflux disease without esophagitis; I25.10 Atherosclerotic heart disease of native coronary artery without angina pectoris; I10 Essential (primary) hypertension; E03.9 Hypothyroidism, unspecified; E78.00 Pure hypercholesterolemia, unspecified; Z90.49 Acquired absence of other specified parts of digestive tract; Z95.5 Presence of coronary angioplasty implant and graft; Z79.02 Long term (current) use of antithrombotics/antiplatelets; Z79.899 Other long term (current) drug therapy; Z87.19 Personal history of other diseases of the digestive system
CPT/HCPCS: 43235; J7120; J2405

== ENCOUNTER → 2024-02-15 | Outpatient (CLI) | payer OTHER, SELFPAY ==
[2024-02-15 15:03] LABS: Hematocrit 42.2 % (37-47); Mean Corp Hgb Conc 33.2 g/dL (32-36); Mean Corpuscular Hgb 32.1 pg (27.0-32.0); Mean Corpuscular Volume 96.8 fL (81-99); Mean Platelet Vol. 10.7 fl (6.2-12.0); Platelet Count 180 K/mm3 (150-450); RBC Distribution Width CV 12.8 % (11.6-14.6); RBC Distribution Width SD 45.7 fl (35.1-43.9); Red Blood Count 4.36 M/mm3 (4.2-5.4); White Blood Count 5.3 K/mm3 (4.4-11.0)
[2024-02-15 15:55] LABS: AST(SGOT) 27 U/L (15-37); Alanine Aminotransfer ALT/SGPT 30 U/L (13-56); Albumin, Serum 3.9 g/dL (3.2-5.0); Alkaline Phosphatase 54 U/L (45-117); Anion Gap 7 (5-15); BUN 14 mg/dL (7-18); BUN/Creat Ratio 18.1 RATIO (10-20); Calcium,Total 9.3 mg/dL (8.5-10.1); Chloride 106 mmol/L (98-107); Cholesterol 212 mg/dL (200); Creatinine, Serum 0.78 mg/dL (0.55-1.02); EST Glomerular Filtration Rate 76 mL/min (>60); Est Glom Filt Rate - Afr Amer 92 mL/min (>60); Globulin 3.8 g/dL (2.2-4.2); Glucose 99 mg/dL (74-106); High Density Lipoprotein 45 mg/dL; Potassium 4.1 mmol/L (3.5-5.1); Protein, Total 7.7 g/dL (6.4-8.2); Sodium Level 140 mmol/L (136-145); Thyroid Stim Hormone (TSH) 1.27 uIU/mL (0.358-3.74); Triglycerides 181 mg/dL; Very Low Density Lipoprotein 36 mg/dL (5-40)
== END | disposition home or self-care (01) ==
LOC: LAB 14:12
PROVIDERS: PCP Family Medicine; Referring Provider Internal Medicine Cardiovascular Disease; Visit Provider Internal Medicine Cardiovascular Disease
DX: I25.10 Atherosclerotic heart disease of native coronary artery without angina pectoris (principal); E78.5 Hyperlipidemia, unspecified; K27.9 Peptic ulcer, site unspecified, unspecified as acute or chronic, without hemorrhage or perforation; R53.83 Other fatigue; I10 Essential (primary) hypertension; E03.9 Hypothyroidism, unspecified; Z87.19 Personal history of other diseases of the digestive system
CPT/HCPCS: 36415; 80053; 80061; 84443; 85027

== ENCOUNTER → 2024-05-29 | Outpatient (CLI) | payer OTHER, SELFPAY | END | disposition home or self-care (01) | LOC: LABSPEC 16:08 | PROVIDERS: PCP Family Medicine; Referring Provider Urology; Visit Provider Urology | DX: R30.0 Dysuria (principal) | CPT/HCPCS: 87086; 87088 ==

== ENCOUNTER → 2024-10-19 | Outpatient (CLI) | payer OTHER, SELFPAY ==
[2024-10-19 09:07] LABS: Hematocrit 42.5 % (37-47); Hemoglobin 13.9 g/dL (12.0-15.0)
[2024-10-19 09:57] LABS: Cholesterol 218 mg/dL (200); High Density Lipoprotein 48 mg/dL; Thyroid Stim Hormone (TSH) 0.831 uIU/mL (0.358-3.740); Triglycerides 157 mg/dL; Very Low Density Lipoprotein 31 mg/dL (5-40)
== END | disposition home or self-care (01) ==
PROVIDERS: PCP Nurse Practitioner Family; Referring Provider Internal Medicine Cardiovascular Disease; Visit Provider Internal Medicine Cardiovascular Disease
DX: E03.9 Hypothyroidism, unspecified (principal); E78.5 Hyperlipidemia, unspecified; K92.2 Gastrointestinal hemorrhage, unspecified; Z87.19 Personal history of other diseases of the digestive system
CPT/HCPCS: 36415; 80061; 84443; 85014; 85018

== ENCOUNTER 2025-01-06 10:25 | Emergency (ER) | payer OTHER, SELFPAY ==
[2025-01-06 10:26] VITALS: BP 153/84; PULSE 65; RESP 18; TEMP 36.7; O2SAT 97; BMI 28.3
--- NOTE | 2025-01-06 10:41 | CT_ITS ---
EXAM: CT Abdomen and Pelvis Without Intravenous Contrast CLINICAL INDICATION: PAIN R FLANK TECHNIQUE: Axial computed tomography images of the abdomen and pelvis without intravenous contrast. This CT exam was performed using one or more of the following dose reduction techniques: automated exposure control, adjustment of the mA and/or kV according to patient size, and/or use of iterative reconstruction technique. COMPARISON: CT Abdomen Pelvis dated 05/11/2023 FINDINGS: LUNG BASES: Unremarkable. No mass. No consolidation. MEDIASTINUM: Small esophageal hiatal hernia. ABDOMEN: LIVER: Fatty infiltration of the liver. Previously described potential cysts in the right hepatic lobe is not clearly demonstrated on the current exam. GALLBLADDER AND BILE DUCTS: Unremarkable. No calcified stones. No ductal dilation. PANCREAS: Unremarkable. No ductal dilation. SPLEEN: Unremarkable. No splenomegaly. ADRENALS: Unremarkable. No mass. KIDNEYS AND URETERS: Small punctate calculus projects over the course of the right mid ureter. This was felt to be in the veins. No hydroureter. No stones within either kidney. No hydronephrosis. STOMACH AND BOWEL: Fecal retention in the colon consistent with constipation. Colonic diverticulosis without acute diverticulitis. No obstruction. PELVIS: APPENDIX: No findings to suggest acute appendicitis. BLADDER: Unremarkable. No stones. REPRODUCTIVE: Unremarkable as visualized. ABDOMEN and PELVIS: INTRAPERITONEAL SPACE: Unremarkable. No free air. No significant fluid collection. BONES/JOINTS: Degenerative disc disease throughout the lumbar spine. Degenerative facet arthropathy throughout the lumbar spine, most prominent in the lower lumbar spine. No acute fracture. No dislocation. SOFT TISSUES: Unremarkable. VASCULATURE: Scattered calcified atherosclerotic disease of aorta. LYMPH NODES: Unremarkable. No enlarged lymph nodes. CT/Abdomen/Pelvis without Cont IMPRESSION: 1. Small esophageal hiatal hernia. 2. Fecal retention in the colon consistent with constipation. 3. No obstructive uropathy. 4. Colonic diverticulosis without acute diverticulitis. Reading Location: [id number]
--- NOTE | 2025-01-06 10:41 | ED.VIS.GI ---
HPI HPI - GI History of Present Illness Chief Complaint: Abd Pain Informant: patient, spouse/S.O. and family Narrative Narrative: 79-year-old female presenting with right flank pain has been colicky, started suddenly almost 3 weeks ago, was worse last night. She has been having bowel movements with no improvement of the pain. She states initially she had some difficulty getting urine out but without dysuria or hematuria, but now she seems to be urinating normally. The pain continues. She denies any known fevers or chills, no cough or dyspnea. Some movements/positions seem to improve the pain but it is not worse with necessarily bending over or moving around. Never had a kidney stone before but she was thinking it may be the issue which is why she presents now for the first time. [facility] Medical History Hypertension Dyslipidemia History of GI bleed Easy fatigability Loss of hearing Uses wheelchair Anemia Restless legs Black stool Weakness GIB (gastrointestinal bleeding) Gastric ulcer Hypothyroidism Osteoporosis Wears partial dentures Wears glasses Post-menopausal Thyroid disease Arthritis High cholesterol Back pain History of IBS Gastric reflux Non-smoker History of pain when walking History of edema History of echocardiogram History of stress test Cardiology follow-up encounter Chest pain Esophageal spasm Atherosclerotic heart disease of [place] coronary artery without angina pectoris CAD (coronary artery disease) Thyroid disorder Hiatal hernia OA (osteoarthritis) of knee Hiatal hernia Hyperlipidemia Dizziness and giddiness Palpitations Chest pain, precordial Home Medications ?Medication ?Instructions ?Recorded ?Last Taken ?Type methylcellulose (laxative) 500 mg 500 mg PO DAILY CONSTIPATION 09/22/17 01/05/25 History tablet (Citrucel) nitroglycerin 0.4 mg sublingual 0.4 mg sublingual Q5M PRN chest 09/27/17 10/19/23 Rx tablet pain #90 tabs propranolol 20 mg tablet 20 mg PO BID BP/Heart rate 01/02/19 01/06/25 History levothyroxine 75 mcg tablet 75 mcg PO DAILY thyroid 06/25/22 01/06/25 History pramipexole 0.25 mg tablet 0.25 mg PO PRN RLS 10/14/23 10/19/23 History cholecalciferol (vitamin D3) 50 50 mcg PO DAILY 02/15/24 01/05/25 History mcg (2,000 unit) capsule ferrous sulfate 30 mg iron/2 mL 15 mg PO DAILY 02/15/24 01/05/25 History oral syringe (ORAL USE) hydroxyzine HCl 25 mg tablet 25 mg PO QHS PRN nerves 02/15/24 Unknown History ezetimibe 10 mg tablet 10 mg PO DAILY #90 TABLETS 07/18/24 01/06/25 Rx isosorbide mononitrate 30 mg 30 mg PO DAILY #90 TABLETS 07/18/24 01/06/25 Rx tablet,extended release 24 hr omega-3 fatty acids 1,000 mg 4,000 mg PO QDAY 07/20/24 01/05/25 History capsule clopidogrel 75 mg tablet 75 mg PO DAILY #90 tabs 10/16/24 01/05/25 Rx dicyclomine 20 mg tablet 20 mg PO TID PRN abdominal 01/06/25 Unknown Rx discomfort #12 tabs Allergy/AdvReac Type Severity Reaction Status Date / Time etodolac Allergy Severe Throat Verified 01/06/25 10:26 tightness, rash azithromycin Allergy Mild RASH Verified 01/06/25 10:26 morphine AdvReac Itching, Verified 01/06/25 10:26 rash oxycodone (From Percocet) AdvReac Nausea/Vom/ Verified 01/06/25 10:26 Diarrhea Family History Sister CAD (coronary artery disease) Hx of CABG Sister S/P MVR (mitral valve replacement) Surgical History History of cardiac catheterization History of cholecystectomy History of coronary artery stent placement (~07/14/22) History of esophagogastroduodenoscopy (EGD) History of total hysterectomy Hx of colonoscopy Social History number of children: 12 Smoking Status: Never smoker alcohol intake: never substance use type: does not use additional social history: Alessandro MILLAN ROS ED Constitutional Constitutional ED: Denies chills or fever(s) Eyes Eyes: Denies change in vision or diplopia ENT ENT ED: Denies rhinorrhea or sore throat Cardiovascular Cardiovascular: Denies chest pain or palpitations Respiratory/Chest Respiratory/Chest: Denies cough or dyspnea Gastrointestinal Gastrointestinal: Reports abdominal pain and nausea; Denies diarrhea or vomiting Genitourinary Genitourinary ED: Reports flank pain; Denies dysuria or hematuria Musculoskeletal Musculoskeletal: Reports back pain; Denies neck pain Integumentary Denies abscess or rash Neurologic Neurologic: Denies headache(s), paresthesias or weakness Psychiatric Psychiatric: Denies anxiety or suicidal thoughts EXAM Physical Exam Const Vital Signs: 01/06/25 10:26 Temperature 98.1 F Temperature Source Oral Pulse Rate 65 Respiratory Rate 18 Blood Pressure 153/84 H Blood Pressure Mean 107 Pulse Ox 97 Oxygen Delivery Method Room Air Positive well nourished and well developed General Appearance ED: well developed and NAD HEENT Reports moist mucous membranes normocephalic and atraumatic Eyes PERRL and EOMs intact bilaterally Neck full ROM and supple Resp normal respiratory effort and clear to auscultation bilaterally Cardio regular rate, regular rhythm and no murmurs GI non-tender and non-distended GI Narrative: obese abd Auscultation: normoactive bowel sounds Palpation: soft Back/Spine Back/Spine Narrative: Mild subjective right CVA tenderness. Normal inspection no rash. General Back: other FROM Extremity normal to inspection General Extremety ED: Negative for edema, pulses abnormal or tenderness General Extremity: Negative for edema or pulses abnormal Neuro oriented x3, CN's II-XII intact bilaterally and no sensory deficits noted Sensorium / Orientation: awake and alert Motor Exam: strength 5/5 throughout Skin no rashes or lesions noted and no wounds MDM MDM MDM Narrative Medical decision making narrative: Or considering kidney stone, less likely to be appendicitis given the timing, other intestinal abnormalities, I think a CT is warranted. This was done without contrast, I reviewed the images and the report which I agree with, it is negative for any acute and there is quite a predilection of stool present in the right hemicolon which is where she is having pain. She is nontender. The patient is wondering if this could be a pinched nerve from her spine, I advised her that I do not think that is the case since she has no reproducible tenderness in her flank and there is no superficial skin tenderness or rash. Her urine is normal, her blood work is normal, patient reassured advised to use magnesium citrate to try to flush her colon given proper instruction to do that as well as some dicyclomine because she wanted something else for pain. Lab Data Attestation: I reviewed the patient's lab results. Labs: Laboratory Results - last 24 hr 01/06/25 10:49 WBC 5.4 RBC 4.57 Hgb 15.0 Hct 42.5 MCV 93.0 MCH 32.8 H MCHC 35.3 RDW Std Deviation 41.0 RDW Coeff of [place] 12.0 Plt Count 205 MPV 9.7 Immature Gran % (Auto) 0.200 Neut % (Auto) 57.5 Lymph % (Auto) 31.1 Major % (Auto) 7.8 Eos % (Auto) 2.8 Baso % (Auto) 0.6 Absolute Neuts (auto) 3.1 Absolute Lymphs (auto) 1.68 Nucleated RBC % 0 Sodium 138 Potassium 4.1 Chloride 101 Carbon Dioxide 24.4 Anion Gap 13 BUN 8 Creatinine 0.74 Estim Creat Clear Calc 54.43 Est GFR (MDRD) Non-Af 83 BUN/Creatinine Ratio 10.9 Glucose 107 H Calcium 10.0 Total Bilirubin 0.44 AST 27 ALT 15 Alkaline Phosphatase 62 Total Protein 7.7 Albumin 4.5 Globulin 3.2 Albumin/Globulin Ratio 1.4 Urine Color Yellow Urine Clarity Clear Urine pH 7.0 Ur Specific [place] 1.005 Urine Protein 15 H Urine Glucose (UA) Normal Urine Ketones Negative Urine Occult Blood Negative Urine Nitrite Negative Urine Bilirubin Negative Urine Urobilinogen Normal Ur Leukocyte Esterase Negative Urine RBC 0 SEEN Urine WBC 0 SEEN Ur Squamous Epith Cells 0 SEEN Urine Bacteria 0 SEEN Urine Mucus 0 SEEN Radiography Diagnostic Testing: Clinical Impression(s) from Imaging Studies Abdomen/Pelvis CT 01/06/25 10:41 IMPRESSION: 1. Small esophageal hiatal hernia. 2. Fecal retention in the colon consistent with constipation. 3. No obstructive uropathy. 4. Colonic diverticulosis without acute diverticulitis. Reading Location: [facility] Discharge Plan Triage Chief Complaint: Abd Pain ED Provider: Jordan Calhoun Dx/Rx/DC Orders Clinical Impression: Acute right flank pain Instructions: Treating Constipation, ED Flank Pain, Uncertain Cause Prescriptions: New dicyclomine 20 mg tablet 20 mg PO TID PRN (Reason: abdominal discomfort) Qty: 12 0RF No Action nitroglycerin 0.4 mg tablet, sublingual 0.4 mg SUBLINGUAL Q5M PRN (Reason: chest pain) Qty: 90 3RF propranolol 20 mg tablet 20 mg PO BID methylcellulose (laxative) [Citrucel] 500 mg tablet 500 mg PO DAILY levothyroxine 75 mcg tablet 75 mcg PO DAILY hydroxyzine HCl 25 mg tablet 25 mg PO QHS PRN (Reason: nerves) cholecalciferol (vitamin D3) 50 mcg (2,000 unit) capsule 50 mcg PO DAILY ferrous sulfate 30 mg iron/2 mL syringe 15 mg PO DAILY omega-3 fatty acids 1,000 mg capsule 4,000 mg PO QDAY pramipexole 0.25 mg tablet 0.25 mg PO PRN Patient Comments: TAKE 1 TABLET BY MOUTH AT BEDTIME NEEDED FOR RESTLESS LEGS ezetimibe 10 mg tablet 10 mg PO DAILY Qty: 90 3RF isosorbide mononitrate 30 mg tablet extended release 24 hr 30 mg PO DAILY Qty: 90 3RF clopidogrel 75 mg tablet 75 mg PO DAILY Qty: 90 3RF Primary Care Provider: Haley Padilla Referrals: Haley Padilla, FORENSIC PSYCHOLOGIST-C [Primary Care Provider] - 3-5 Days if not improving (After having good bowel movements) Activity Restrictions/Additional Instructions: Get a bottle of magnesium citrate. Take half of the bottle along with plenty of water/fluids. Expect a bowel movement in 6 hours or so. If you do not have a good bowel movement in 24 hours, repeat with the other half of the bottle. Print Language: Pakistani Disposition Disposition: Home, Self Care
[2025-01-06] MEDS: fentaNYL 100 MCG/2 ML Ampul 25 MCG IV (10:45)
[2025-01-06] MEDS: Ondansetron 4 MG/2 ML Vial IV (10:45)
[2025-01-06 10:59] LABS: Bacteria 0 SEEN /hpf (None Seen); Mucous, Urine 0 SEEN /hpf (<or=2+); Red Blood Cells-Urine 0 SEEN /hpf (0-5); Squamous Epithelial Cells - UA 0 SEEN /hpf (5-10); White Blood Cells 0 SEEN /hpf (0-5)
[2025-01-06 11:02] LABS: Absolute Lymphocyte Count 1.68 X10^3/uL (0.83-4.51); Absolute Neutrophil Count 3.1 X10^3/uL (2.0-7.7); Basophil# 0.03 X10^3/uL; Basophil% 0.6 % (0-1); Color, Urine Yellow (Yellow); Eosinophil# 0.15 X10^3/uL; Eosinophils% 2.8 % (0-5); Glucose, Dipstick Normal (Normal); Hematocrit 42.5 % (37-47); Ketone-Dipstick Negative (Negative); Leukocyte Esterase-Dipstick Negative /ul (Negative); Lymphocyte # 1.68 X10^3/ul (0.83-4.51); Lymphocyte % 31.1 % (19-41); Mean Corp Hgb Conc 35.3 g/dL (32-36); Mean Corpuscular Hgb 32.8 pg (27.0-32.0); Mean Platelet Vol. 9.7 fl (6.2-12.0); Monocyte# 0.42 X10^3/uL; Monocyte% 7.8 % (0-10); NRBC Flagged by Analyzer 0 % (0-5); Neutrophil # 3.12 X10^3/uL (2.7-7.7); Neutrophil % 57.5 % (47-70); Nitrite-Dipstick Negative (Negative); Occult Blood-Urine Negative /ul (Negative); Platelet Count 205 K/mm3 (150-450); Protein-Dipstick 15 mg/dl (Negative); Red Blood Count 4.57 M/mm3 (4.2-5.4); Specific Gravity, Urine 1.005 (1.002-1.030); Urine Bilirubin Dipstick Negative (Negative); Urine Clarity Clear (Clear); Urine Urobilinogen Normal (Normal); White Blood Count 5.4 K/mm3 (4.4-11.0)
[2025-01-06 11:28] LABS: ALB/GLOB Ratio 1.4 RATIO (0.9-2.4); AST(SGOT) 27 U/L (<=31); Alanine Aminotransfer ALT/SGPT 15 U/L (<=34); Albumin, Serum 4.5 g/dL (3.4-4.8); Alkaline Phosphatase 62 U/L (35-104); Anion Gap 13 (5-15); BUN 8 mg/dL (4-19); BUN/Creat Ratio 10.9 RATIO (10-20); Carbon Dioxide 24.4 mmol/L (21.0-32.0); Chloride 101 mmol/L (98-108); Creatinine, Serum 0.74 mg/dL (0.70-1.20); EST Glomerular Filtration Rate 83 (>60); Estimated Creatinine Clearance 54.43 ml/min (50-250); Globulin 3.2 g/dL (2.2-4.2); Glucose 107 mg/dL (70-99); Potassium 4.1 mmol/L (3.3-5.1); Protein, Total 7.7 g/dL (5.9-8.4); Sodium Level 138 mmol/L (133-145); Total Bilirubin 0.44 mg/dL (0.00-1.30)
[2025-01-06 12:25] VITALS: BP 154/84; PULSE 78; RESP 18; O2SAT 98
[2025-01-06 12:49] VITALS: BP 154/84; PULSE 78; RESP 18; TEMP 37; O2SAT 98
[2025-01-06] MEDS: Dicyclomine 10 MG Capsule 20 MG PO (12:53)
== END 2025-01-06 12:55 | disposition home or self-care (01) ==
PROVIDERS: Emergency Provider Emergency Medicine; PCP Nurse Practitioner Family; Visit Provider Emergency Medicine
DX: R10.9 Unspecified abdominal pain (principal); I25.10 Atherosclerotic heart disease of native coronary artery without angina pectoris; E03.9 Hypothyroidism, unspecified; I10 Essential (primary) hypertension; Z79.899 Other long term (current) drug therapy; Z95.5 Presence of coronary angioplasty implant and graft
CPT/HCPCS: 74176; 80053; 81001; 85025; 96374; 96375; 99283; A4216; J2405

== ENCOUNTER 2025-01-07 14:32 | Emergency (ER) | payer OTHER, SELFPAY ==
[2025-01-07 14:34] VITALS: BP 111/73; PULSE 74; RESP 15; TEMP 36.2; O2SAT 94
[2025-01-07 14:57] VITALS: BMI 29.0
--- NOTE | 2025-01-07 15:33 | CT_ITS ---
PROCEDURE: ABDOMEN/PELVIS W IV CONT ONLY 01/07/2025 REASON FOR EXAM: ABD PAIN. RIGHT SIDE TECHNIQUE: Abdomen and pelvis CT with intravenous contrast. Coronal and Sagittal reconstruction series were provided. PATIENT PREPARATION: Per protocol ORAL CONTRAST TYPE: None. AMOUNT: mL CONTRAST: Omnipaque 350 VOLUME: 100 mL Not Provided Gauge IV One or more dose reduction techniques were used (e.g., Automated exposure control, adjustment of the mA and/or kV according to patient size, use of iterative reconstruction technique. COMPARISON: CT abdomen and pelvis 01/06/2025 and 05/11/2023 FINDINGS: Lung bases: Mild dependent atelectasis Liver: Normal size. No mass. Gallbladder: Minimal intrahepatic ductal dilation. Common bile duct measures 10 mm. Cholecystectomy. Spleen: Normal size. Pancreas: Normal size without evidence of mass surrounding inflammation or ductal dilation. Adrenals: Unremarkable Kidneys: Normal renal sizes. No hydronephrosis. Bladder: Urinary bladder is unremarkable. Reproductive Organs: No pelvic mass. Bowel: Small hiatal hernia. Stomach is otherwise unremarkable. No bowel dilation or significant wall thickening. Colonic diverticulosis without diverticulitis. Appendix: Normal appendix. Lymph nodes: No suspicious adenopathy. Vasculature: The abdominal aorta and IVC are normal. Severe atherosclerotic calcifications. Peritoneum / Retroperitoneum: No pneumoperitoneum. No ascites. Bones: Degenerative changes of the spine. CT/Abdomen/Pelvis W IV Cont ONLY IMPRESSION: No acute findings in the abdomen and pelvis. Colonic diverticulosis without diverticulitis. Reading Location: [facility]
--- NOTE | 2025-01-07 15:35 | EX.ED.DYSGE1 ---
HPI History of Present Illness Chief Complaint: Constipation Narrative Narrative: Patient is a 79-year-old female with past medical history of hypertension, dyslipidemia, GI bleed, gastric ulcer, hypothyroidism, IBS, CAD status post stent on Plavix who presents to the emergency department with a chief complaint of abdominal pain. Patient states that she was just here evaluated yesterday and was concerned for a kidney stone states that a kidney stone was ruled out and was noted that she needed to use MiraLAX as she had some constipation. Patient states that she took a few doses of MiraLAX yesterday had few small bowel movements and states that she is still having pain around 3 AM therefore she tried to take more MiraLAX and not having further bowel movements. States that her pain was a 10 out of 10 earlier today prompting her to come here for further evaluation management. Patient states that she has had her gallbladder removed. Patient denies any black dark tarry stools denies any blood in her stool. Patient states that she believes she had a colonoscopy about [address] Isbell that was normal. [facility] Medical History Hypertension Dyslipidemia History of GI bleed Easy fatigability Loss of hearing Uses wheelchair Anemia Restless legs Black stool Weakness GIB (gastrointestinal bleeding) Gastric ulcer Hypothyroidism Osteoporosis Wears partial dentures Wears glasses Post-menopausal Thyroid disease Arthritis High cholesterol Back pain History of IBS Gastric reflux Non-smoker History of pain when walking History of edema History of echocardiogram History of stress test Cardiology follow-up encounter Chest pain Esophageal spasm Atherosclerotic heart disease of [place] coronary artery without angina pectoris CAD (coronary artery disease) Thyroid disorder Hiatal hernia OA (osteoarthritis) of knee Hiatal hernia Hyperlipidemia Dizziness and giddiness Palpitations Chest pain, precordial Home Medications ?Medication ?Instructions ?Recorded ?Last Taken ?Type methylcellulose (laxative) 500 mg 500 mg PO DAILY CONSTIPATION 09/22/17 01/05/25 History tablet (Citrucel) nitroglycerin 0.4 mg sublingual 0.4 mg sublingual Q5M PRN chest 09/27/17 10/19/23 Rx tablet pain #90 tabs propranolol 20 mg tablet 20 mg PO BID BP/Heart rate 01/02/19 01/07/25 History levothyroxine 75 mcg tablet 75 mcg PO DAILY thyroid 06/25/22 01/07/25 History pramipexole 0.25 mg tablet 0.25 mg PO PRN RLS 10/14/23 10/19/23 History cholecalciferol (vitamin D3) 50 50 mcg PO DAILY 02/15/24 01/06/25 History mcg (2,000 unit) capsule ferrous sulfate 30 mg iron/2 mL 15 mg PO DAILY 02/15/24 01/06/25 History oral syringe (ORAL USE) hydroxyzine HCl 25 mg tablet 25 mg PO QHS PRN nerves 02/15/24 Unknown History ezetimibe 10 mg tablet 10 mg PO DAILY #90 TABLETS 07/18/24 01/06/25 Rx isosorbide mononitrate 30 mg 30 mg PO DAILY #90 TABLETS 07/18/24 01/07/25 Rx tablet,extended release 24 hr omega-3 fatty acids 1,000 mg 4,000 mg PO QDAY 07/20/24 01/06/25 History capsule clopidogrel 75 mg tablet 75 mg PO DAILY #90 tabs 10/16/24 01/06/25 Rx dicyclomine 20 mg tablet 20 mg PO TID PRN abdominal 01/06/25 01/07/25 Rx discomfort #12 tabs bisacodyl 5 mg tablet,delayed 5 mg PO DAILY PRN constipation 01/07/25 01/07/25 History release (Dulcolax (bisacodyl)) calcium 200 mg (as 1 tab PO DAILY 01/07/25 01/07/25 History carbonate)-magnesium 100 mg chewable tablet (Timur-Mag) dicyclomine 20 mg tablet 20 mg PO TID #20 tabs 01/07/25 Unknown Rx docusate sodium 100 mg capsule 100 mg PO DAILY #30 caps 01/07/25 Unknown Rx (Dulcolax Stool Softener (docusate)) Allergy/AdvReac Type Severity Reaction Status Date / Time etodolac Allergy Severe Throat Verified 01/07/25 14:34 tightness, rash azithromycin Allergy Mild RASH Verified 01/07/25 14:34 morphine AdvReac Itching, Verified 01/07/25 14:34 rash oxycodone (From Percocet) AdvReac Nausea/Vom/ Verified 01/07/25 14:34 Diarrhea Family History Sister CAD (coronary artery disease) Hx of CABG Sister S/P MVR (mitral valve replacement) Surgical History Hx of colonoscopy History of esophagogastroduodenoscopy (EGD) History of cardiac catheterization History of coronary artery stent placement (~07/14/22) History of cholecystectomy History of total hysterectomy Social History number of children: 12 Smoking Status: Never smoker alcohol intake: never substance use type: does not use additional social history: Alessandro Ace ROS ROS ED ROS Narrative Constitutional: Denies fevers, chills, headaches, lightness, dizziness Cardiovascular: Denies chest pain Respiratory: Denies shortness of breath Abdomen: Complains abdominal pain as noted above denies nausea vomiting diarrhea : Denies any urinary symptoms Neurological: Denies numbness, weakness, tingling Musculoskeletal: Denies back pain Skin: Denies any rashes or lesions EXAM Physical Exam Narrative Exam Narrative: General: Patient lying in bed rest comfortably did not appear to be in acute distress Head: Atraumatic, normocephalic Eyes: PERRL bilaterally, EOMI bilateral, no conjunctival injection noted Neck: Soft, supple, trachea midline Cardiovascular: Regular rate and rhythm no murmurs gallops rubs noted Respiratory: Clear to auscultation bilaterally Abdomen: Soft, nondistended, mild tenderness palpation in the right lower quadrant no rebound or guarding on exam Extremities: +5/5 strength in the bilateral upper and lower extremities Neurological: Patient follow commands and that she was at [facility] the year is 2024 Skin: Warm, dry contact no rashes or lesions noted Const Vital Signs: 01/07/25 14:34 01/07/25 16:34 Temperature 97.1 F L Temperature Source Temporal Pulse Rate 74 87 Respiratory Rate 15 16 Blood Pressure 111/73 115/65 Blood Pressure Mean 85 81 Pulse Ox 94 97 Oxygen Delivery Method Room Air Room Air MDM MDM MDM Narrative Medical decision making narrative: Patient is a 79-year-old female who presented to the Emergency Department chief complaint abdominal pain. On the differential diagnosis includes but not limited to small bowel obstruction, appendicitis, diverticulitis, pancreatitis, constipation. Once workup is obtained reviewed she will be reevaluated. Patient's CMP reviewed showed sodium normal 140, potassium normal 4, creatinine normal at 0.81. Patient total bilirubin normal at 0.42, AST and ALT are [address] abdomen pelvis with IV contrast showed no acute findings colonic diverticulosis without diverticulitis. Discussed results with the patient she would like to go home this point in time. She was advised to follow-up with Dr. Isbell gastroenterology as well as her primary care physician. I discussed with them this could be her IBS flaring up. She is encouraged return with worsening symptoms any concerns. All question concerns answered she was discharged home in stable condition. Lab Data Labs: Laboratory Results - last 24 hr 01/07/25 15:42 Sodium 141 Potassium 4.0 Chloride 102 Carbon Dioxide 28.7 Anion Gap 10 BUN 10 Creatinine 0.81 Estim Creat Clear Calc 54.37 Est GFR (MDRD) Non-Af 73 BUN/Creatinine Ratio 11.9 Glucose 97 Calcium 9.3 Total Bilirubin 0.42 AST 22 ALT 13 Alkaline Phosphatase 52 Total Protein 6.4 Albumin 3.9 Globulin 2.5 Albumin/Globulin Ratio 1.5 Radiography Diagnostic Testing: Clinical Impression(s) from Imaging Studies Abdomen/Pelvis CT 01/07/25 15:33 IMPRESSION: No acute findings in the abdomen and pelvis. Colonic diverticulosis without diverticulitis. Reading Location: [facility] Discharge Plan Triage Chief Complaint: Constipation ED Provider: Albin Angelo Dx/Rx/DC Orders Clinical Impression: Abdominal pain Prescriptions: New docusate sodium [Dulcolax Stool Softener (dss)] 100 mg capsule 100 mg PO DAILY Qty: 30 0RF dicyclomine 20 mg tablet 20 mg PO TID Qty: 20 0RF No Action nitroglycerin 0.4 mg tablet, sublingual 0.4 mg SUBLINGUAL Q5M PRN (Reason: chest pain) Qty: 90 3RF propranolol 20 mg tablet 20 mg PO BID methylcellulose (laxative) [Citrucel] 500 mg tablet 500 mg PO DAILY levothyroxine 75 mcg tablet 75 mcg PO DAILY hydroxyzine HCl 25 mg tablet 25 mg PO QHS PRN (Reason: nerves) cholecalciferol (vitamin D3) 50 mcg (2,000 unit) capsule 50 mcg PO DAILY ferrous sulfate 30 mg iron/2 mL syringe 15 mg PO DAILY omega-3 fatty acids 1,000 mg capsule 4,000 mg PO QDAY pramipexole 0.25 mg tablet 0.25 mg PO PRN Patient Comments: TAKE 1 TABLET BY MOUTH AT BEDTIME NEEDED FOR RESTLESS LEGS bisacodyl [Dulcolax (bisacodyl)] 5 mg tablet,delayed release (DR/EC) 5 mg PO DAILY PRN (Reason: constipation) Rx Instructions: do not exceed 2 doses per 24 hrs Timur-Mag 200 mg calcium- 100 mg tablet,chewable 1 tab PO DAILY dicyclomine 20 mg tablet 20 mg PO TID PRN (Reason: abdominal discomfort) Qty: 12 0RF ezetimibe 10 mg tablet 10 mg PO DAILY Qty: 90 3RF isosorbide mononitrate 30 mg tablet extended release 24 hr 30 mg PO DAILY Qty: 90 3RF clopidogrel 75 mg tablet 75 mg PO DAILY Qty: 90 3RF Primary Care Provider: Haley Padilla Referrals: Haley Padilla, GLUE DRIER OPERATOR-C [Primary Care Provider] - Brian Isbell DO [Med Staff - Active Staff] - Activity Restrictions/Additional Instructions: Continue to use MiraLAX twice daily until you are having good bowel movements then cut the dose in half if you start to develop diarrhea from there then discontinue. Use Colace as prescribed as well. Prescription for Bentyl/dicyclomine was also sent to pharmacy as this is prescribed. Follow-up with your primary care physician outpatient setting return with worsening symptoms or concerns. Follow-up with Dr. Isbell in the outpatient setting as well. There is a chance that your IBS could be flaring up on you as well. Your blood work did not show any acute abnormalities and your CT of your abdomen did not show any acute findings either. Print Language: Czech Disposition Disposition: Home, Self Care
[2025-01-07 16:22] LABS: ALB/GLOB Ratio 1.5 RATIO (0.9-2.4); AST(SGOT) 22 U/L (<=31); Alanine Aminotransfer ALT/SGPT 13 U/L (<=34); Albumin, Serum 3.9 g/dL (3.4-4.8); Alkaline Phosphatase 52 U/L (35-104); Anion Gap 10 (5-15); BUN 10 mg/dL (4-19); BUN/Creat Ratio 11.9 RATIO (10-20); Calcium,Total 9.3 mg/dL (7.6-11.0); Carbon Dioxide 28.7 mmol/L (21.0-32.0); Chloride 102 mmol/L (98-108); Creatinine, Serum 0.81 mg/dL (0.70-1.20); EST Glomerular Filtration Rate 73 (>60); Estimated Creatinine Clearance 54.37 ml/min (50-250); Globulin 2.5 g/dL (2.2-4.2); Glucose 97 mg/dL (70-99); Protein, Total 6.4 g/dL (5.9-8.4); Sodium Level 141 mmol/L (133-145); Total Bilirubin 0.42 mg/dL (0.00-1.30)
[2025-01-07 16:34] VITALS: BP 115/65; PULSE 87; RESP 16; O2SAT 97
[2025-01-07 17:38] VITALS: BP 115/62; PULSE 72; RESP 18; TEMP 36.4; O2SAT 99
== END 2025-01-07 17:38 | disposition home or self-care (01) ==
PROVIDERS: Emergency Provider Emergency Medicine; PCP Nurse Practitioner Family; Visit Provider Emergency Medicine
DX: R10.9 Unspecified abdominal pain (principal); I25.10 Atherosclerotic heart disease of native coronary artery without angina pectoris; I10 Essential (primary) hypertension; E03.9 Hypothyroidism, unspecified; Z79.899 Other long term (current) drug therapy; Z95.5 Presence of coronary angioplasty implant and graft
CPT/HCPCS: 74177; 80053; 99283; Q9967; A4216

== ENCOUNTER → 2025-05-02 | Outpatient (CLI) | payer OTHER, SELFPAY ==
[2025-01-09 09:27] VITALS: BMI 30.6
[2025-05-02 10:42] LABS: AST(SGOT) 22 U/L (<=31); Alanine Aminotransfer ALT/SGPT 16 U/L (<=34); Albumin, Serum 4.4 g/dL (3.4-4.8); Alkaline Phosphatase 64 U/L (35-104); Anion Gap 11 (5-15); BUN 11 mg/dL (4-19); BUN/Creat Ratio 16.3 RATIO (10-20); Bilirubin, Direct 0.27 mg/dL (0.00-0.30); Calcium,Total 9.5 mg/dL (7.6-11.0); Carbon Dioxide 26.9 mmol/L (21.0-32.0); Chloride 105 mmol/L (98-108); Cholesterol 212 mg/dL (<=200); Globulin 2.8 g/dL (2.2-4.2); Glucose 101 mg/dL (70-99); Low Density Lipoprotein Calc. 133 mg/dL; Potassium 4.2 mmol/L (3.3-5.1); Triglycerides 164 mg/dL; Very Low Density Lipoprotein 33 mg/dL (5-40); cholesterol:hdl ratio screen 4.59
== END | disposition home or self-care (01) ==
LOC: LAB 09:33
PROVIDERS: Internal Medicine Cardiovascular Disease; Nurse Practitioner Family; PCP Nurse Practitioner Family; Referring Provider Physician Assistant Medical; Visit Provider Physician Assistant Medical
DX: I10 Essential (primary) hypertension (principal); E03.9 Hypothyroidism, unspecified; E78.5 Hyperlipidemia, unspecified
CPT/HCPCS: 36415; 80053; 80061; 82248; 84443